=== PATIENT | female | born 1960 | race African-American/Black ===

== ENCOUNTER 2018-04-27 19:50 | Emergency (ER) | payer BC ==
--- NOTE | 2018-04-27 20:31 | EDPHYS ---
Physician Documentation [facility] Name: Caroline Wise Age: 57 yrs Sex: Female : 1960 Arrival Date: 04/27/2018 Time: 19:53 Bed 30 Private MD: Stepan Cooper H ED Physician Bimal Power HPI: 04/27 20:26 This 57 yrs old Black Female presents to ER via Ambulatory with complaints of Allergy gs Symptoms, Cough, Eye Problem, Chills. 20:26 The patient or guardian reports cough, that is intermittent. Onset: The gs symptoms/episode began/occurred 2 day(s) ago. Severity of symptoms: At their worst the symptoms were mild, in the emergency department the symptoms are unchanged. Modifying factors: the symptoms are aggravated by cold weather. Associated signs and symptoms: Pertinent positives: fever, rhinorrhea, Pertinent negatives: chest pain. The patient has experienced similar episodes in the past, a few times. The patient has not recently seen a physician. Historical: - Allergies: 20:11 PENICILLINS; aj - Home Meds: 20:11 Benicar 40 mg Oral tab 1 tab once daily [Active]; clonidine HCl 0.1 mg Oral tab as aj needed [Active]; prednisone 20 mg Oral tab as needed [Active]; levothyroxine 150 mcg tab 1 tab once daily [Active]; Singulair Oral [Active]; Symbicort inhalation [Active]; Ventolin Rotahaler/Rotacaps Inhl [Active]; - PMHx: 20:11 Asthma; Hypertension; Hypothyroidism; aj - PSHx: 20:11 None; aj - Immunization history:: Adult Immunizations up to date. - Social history:: Smoking status: Patient/guardian denies using tobacco. - Ebola Screening: : Patient negative for fever greater than or equal to 101.5 degrees Fahrenheit, and additional compatible Ebola Virus Disease symptoms Patient denies exposure to infectious person Patient denies travel to an Ebola-affected area in the 21 days before illness onset No symptoms or risks identified at this time. ROS: 20:26 All other systems are negative. gs Exam: 20:26 Head/Face: Normocephalic, atraumatic. Eyes: Pupils equal round and reactive to light, gs extra-ocular motions intact. Lids and lashes normal. Conjunctiva and sclera are non-icteric and not injected. Cornea within normal limits. Periorbital areas with no swelling, redness, or edema. ENT: Nares patent. No nasal discharge, no septal abnormalities noted. Tympanic membranes are normal and external auditory canals are clear. Oropharynx with no redness, swelling, or masses, exudates, or evidence of obstruction, uvula midline. Mucous membranes moist. Neck: Trachea midline, no thyromegaly or masses palpated, and no cervical lymphadenopathy. Supple, full range of motion without nuchal rigidity, or vertebral point tenderness. No Meningismus. Chest/axilla: Normal chest wall appearance and motion. Nontender with no deformity. No lesions are appreciated. Cardiovascular: Regular rate and rhythm with a normal S1 and S2. No gallops, murmurs, or rubs. Normal PMI, no JVD. No pulse deficits. Respiratory: Lungs have equal breath sounds bilaterally, clear to auscultation and percussion. No rales, rhonchi or wheezes noted. No increased work of breathing, no retractions or nasal flaring. Abdomen/GI: Soft, non-tender, with normal bowel sounds. No distension or tympany. No guarding or rebound. No evidence of tenderness throughout. Back: No spinal tenderness. No costovertebral tenderness. Full range of motion. Skin: Warm, dry with normal turgor. Normal color with no rashes, no lesions, and no evidence of cellulitis. MS/ Extremity: Pulses equal, no cyanosis. Neurovascular intact. Full, normal range of motion. Neuro: Awake and alert, GCS 15, oriented to person, place, time, and situation. Cranial nerves II-XII grossly intact. Motor strength 5/5 in all extremities. Sensory grossly intact. Cerebellar exam normal. Normal gait. 20:26 Constitutional: The patient appears alert, awake. Vital Signs: 20:11 BP 178 / 81; Pulse 88; Resp 20; Temp 98.5; Pulse Ox 96% on R/A; Weight 108.86 kg; aj Height 5 ft. 3 in. (160.02 cm); 20:11 Body Mass Index 42.51 (108.86 kg, 160.02 cm) aj MDM: 20:26 Patient medically screened. 20:26 Differential Diagnosis: Bronchitis Upper Respiratory Infection Allergic Rhinitis. Data gs reviewed: vital signs, nurses notes. Response to treatment: the patient's symptoms have mildly improved after treatment, and as a result, I will discharge patient. Administered Medications: No medications were administered Disposition: 04/27/18 20:30 Discharged to Home. Impression: Acute bronchitis. - Condition is Stable. - Discharge Instructions: Acute Bronchitis. - Prescriptions for Prednisone 20 mg Oral Tablet - take 1 tablet by ORAL route once daily for 5 days; 5 tablet. - Medication Reconciliation Form, Thank You Letter, Antibiotic Education, Prescription Opioid Use form. - Follow up: Private Physician; When: 2 - 3 days; Reason: Re-evaluation by your physician. Signatures: Carrie Mandujano RN RN Bimal Alba MD MD Tashi Boyle RN RN mb3 Corrections: (The following items were deleted from the chart) 20:42 20:30 04/27/2018 20:30 Discharged to Home. Impression: Acute bronchitis. Condition is mb3 Stable. Forms are Medication Reconciliation Form, Thank You Letter, Antibiotic Education, Prescription Opioid Use. Follow up: Private Physician; When: 2 - 3 days; Reason: Re-evaluation by your physician. [email or web address]
--- NOTE | 2018-04-27 20:31 | ER ---
Nurse's Notes [facility] Name: Caroline Wise Age: 57 yrs Sex: Female : 1960 Arrival Date: 04/27/2018 Time: 19:53 Bed 30 Private MD: Stepan Cooper H Diagnosis: Acute bronchitis Presentation: 04/27 20:10 Presenting complaint: Patient states: Cold symptoms with cough for 2 days. Transition aj of care: patient was not received from another setting of care. 20:10 Method Of Arrival: Ambulatory aj 20:10 Onset of symptoms was April 25, 2018. Risk Assessment: Do you want to hurt yourself or aj someone else? Patient reports no desire to harm self or others. Initial Sepsis Screen: Does the patient meet any 2 criteria? No. Patient's initial sepsis screen is negative. Does the patient have a suspected source of infection? No. Patient's initial sepsis screen is negative. Care prior to arrival: None. 20:10 Acuity: SERAFIN 4 aj Triage Assessment: 20:11 General: Appears in no apparent distress. comfortable, Behavior is calm, cooperative, aj appropriate for age. Pain: Denies pain. EENT: Reports nasal congestion nasal discharge. Neuro: Level of Consciousness is awake, alert, obeys commands, Oriented to person, place, time, situation, Appropriate for age. Respiratory: Reports cough that is Airway is patent Respiratory effort is even, unlabored, Respiratory pattern is regular, symmetrical. Derm: Skin is intact, is healthy with good turgor, Skin is pink, warm \T\ dry. normal. Historical: - Allergies: 20:11 PENICILLINS; aj - Home Meds: 20:11 Benicar 40 mg Oral tab 1 tab once daily [Active]; clonidine HCl 0.1 mg Oral tab as aj needed [Active]; prednisone 20 mg Oral tab as needed [Active]; levothyroxine 150 mcg tab 1 tab once daily [Active]; Singulair Oral [Active]; Symbicort inhalation [Active]; Ventolin Rotahaler/Rotacaps Inhl [Active]; - PMHx: 20:11 Asthma; Hypertension; Hypothyroidism; aj - PSHx: 20:11 None; aj - Immunization history:: Adult Immunizations up to date. - Social history:: Smoking status: Patient/guardian denies using tobacco. - Ebola Screening: : Patient negative for fever greater than or equal to 101.5 degrees Fahrenheit, and additional compatible Ebola Virus Disease symptoms Patient denies exposure to infectious person Patient denies travel to an Ebola-affected area in the 21 days before illness onset No symptoms or risks identified at this time. Screenin:41 Abuse screen: Denies threats or abuse. Nutritional screening: No deficits noted. mb3 Tuberculosis screening: No symptoms or risk factors identified. Fall Risk None identified. Assessment: 20:40 General: Appears in no apparent distress. comfortable, Behavior is calm, cooperative, mb3 appropriate for age. Pain: Denies pain. Neuro: No deficits noted. Cardiovascular: No deficits noted. Respiratory: Reports cough that is Airway is patent Respiratory effort is even, unlabored, Respiratory pattern is regular, symmetrical, Breath sounds are clear bilaterally. GI: Abdomen is obese, Bowel sounds present X 4 quads. Abd is soft and non tender. : No signs and/or symptoms were reported regarding the genitourinary system. EENT: No signs and/or symptoms were reported regarding the EENT system. EENT:. Derm: No signs and/or symptoms reported regarding the dermatologic system. Vital Signs: 20:11 BP 178 / 81; Pulse 88; Resp 20; Temp 98.5; Pulse Ox 96% on R/A; Weight 108.86 kg; aj Height 5 ft. 3 in. (160.02 cm); 20:11 Body Mass Index 42.51 (108.86 kg, 160.02 cm) ED Course: 19:53 Patient arrived in ED. am2 19:53 Stepan Cooper DO is Private Physician. am2 20:11 Triage completed. aj 20:11 Arm band placed on right wrist. Patient placed in an exam room. aj 20:13 Tashi Boyle, RN is Primary Nurse. mb3 20:14 Bimal Power MD is Attending Physician. gs 20:42 Patient has correct armband on for positive identification. mb3 20:42 No provider procedures requiring assistance completed. Patient did not have IV access mb3 during this emergency room visit. Administered Medications: No medications were administered Outcome: 20:30 Discharge ordered by MD. gs 20:41 Discharged to home ambulatory. mb3 20:41 Condition: stable 20:41 Discharge instructions given to patient, Instructed on discharge instructions, follow up and referral plans. medication usage, Demonstrated understanding of instructions, follow-up care, medications, Prescriptions given X 1. 20:42 Patient left the ED. mb3 Signatures: Carrie Mandujano, Carrie Hyde RN, am2 Bimal Power MD MD gs Barnett, Mark, RN RN mb3
[2018-04-27 20:45] VITALS: BP 178/81; TEMP 98.5; O2SAT 96
== END 2018-04-27 20:42 | disposition home or self-care (01) ==
LOC: ER 19:50
DX: J20.9 Acute bronchitis, unspecified (principal); Z88.0 Allergy status to penicillin; I10 Essential (primary) hypertension; E03.9 Hypothyroidism, unspecified; J45.909 Unspecified asthma, uncomplicated
CPT/HCPCS: 99282

== ENCOUNTER 2018-06-01 15:40 | Emergency (ER) | payer BC ==
[2018-06-01 16:25] LABS: Absolute Lymphocytes (CBC) 1.8 K/uL (0.7-4.9); Absolute Monocytes 0.6 K/uL (0.1-1.3); Absolute Neutrophil 3.4 K/uL (1.8-8.0); Eosinophils % 2.8 % (0-4.4); Hematocrit 36.3 % (36.0-45.0); Lymphocytes % 29.9 % (15.3-44.8); MCV 90.6 fL (80-100); Monocytes % 10.4 % (3.3-12.3)
[2018-06-01 16:46] LABS: ALT/SGPT 20 U/L (12-78); AST/SGOT 20 U/L (15-37); Albumin 3.6 g/dL (3.4-5.0); Alkaline Phosphatase 116 U/L (45-117); BUN Blood Urea Nitrogen 17 mg/dL (7-18); Bicarbonate 28 mmol/L (21-32); Bilirubin Direct < 0.1 mg/dL (0-0.2); Bilirubin Total 0.4 mg/dL (0.2-1.0); CKMB Creatine Kinase MB 2.3 ng/mL (0.3-3.6); Glucose Level 100 mg/dL (74-106); Lipase 135 U/L (73-393); Potassium 3.8 mmol/L (3.5-5.1); Protein, Total 8.2 g/dL (6.4-8.2); Sodium Level 140 mmol/L (136-145)
--- NOTE | 2018-06-01 17:00 | RAD REPORT ---
EXAM DESCRIPTION: US - Abdomen Exam Limited - 06/01/2018 4:55 pm CLINICAL HISTORY: ABD PAIN COMPARISON: ABDOMINAL EXAM LIMITED dated 03/16/2013 FINDINGS: The gallbladder demonstrates contraction, but without evidence of gallstones. No perichole cystic fluid or gallbladder wall thickening. The common bile duct is normal measuring 4 mm. The liver demonstrates no findings of intrahepatic biliary dilatation. IMPRESSION: Contracted gallbladder. No gallstones or biliary tree dilatation seen.
[2018-06-01] MEDS ORDERED: NA CHLORIDE 0.9% 500 ML ONE (17:30)
[2018-06-01] MEDS ORDERED: SIMETHICONE 125 MG TAB PO ONE (18:00)
[2018-06-01 18:37] LABS: Urine Blood NEGATIVE (NEG); Urine Glucose NEGATIVE (NEG); Urine Protein NEGATIVE (NEG); Urine Specific Gravity 1.005 (1.005-1.030); Urine pH 6.5 (5.0-7.0)
[2018-06-01 18:43] LABS: Urine Bacteria 20-50 /HPF (<20); Urine Culture Reflex Order REFLEXED; Urine RBC <5 /HPF (NONE SEEN)
--- NOTE | 2018-06-01 20:41 | EDPHYS ---
Physician Documentation [facility] Name: Caroline Wise Age: 57 yrs Sex: Female : 1960 Arrival Date: 06/01/2018 Time: 15:42 Bed 18 Private MD: Stepan Cooper H ED Physician Trent Marshall HPI: 06/01 16:24 This 57 yrs old Black Female presents to ER via Ambulatory with complaints of Chest snw Pain Radiating To Back. 16:24 The patient presents with abdominal pain in the epigastric area, in the right upper snw quadrant. Onset: The symptoms/episode began/occurred suddenly, after eating pork for lunch. The symptoms radiate to right back. Associated signs and symptoms: none. The symptoms are described as sharp. Severity of pain: At its worst the pain was moderate. The patient has not experienced similar symptoms in the past. The patient has not recently seen a physician. Historical: - Allergies: 15:59 PENICILLINS; ss - Home Meds: 20:15 Benicar 40 mg Oral tab 1 tab once daily [Active]; clonidine HCl 0.1 mg Oral tab as bs1 needed [Active]; levothyroxine 150 mcg tab 1 tab once daily [Active]; prednisone 20 mg Oral tab as needed [Active]; Singulair Oral [Active]; Symbicort inhalation [Active]; Ventolin Rotahaler/Rotacaps Inhl [Active]; - PMHx: 15:59 Asthma; Hypertension; Hypothyroidism; ss - PSHx: 15:59 Appendectomy; ss - Immunization history:: Adult Immunizations up to date. - Social history:: Smoking status: Patient/guardian denies using tobacco. - Ebola Screening: : Patient denies exposure to infectious person Patient denies travel to an Ebola-affected area in the 21 days before illness onset. ROS: 16:22 Constitutional: Negative for fever, chills, and weight loss, Eyes: Negative for injury, snw pain, redness, and discharge, ENT: Negative for injury, pain, and discharge, Neck: Negative for injury, pain, and swelling, Respiratory: Negative for shortness of breath, cough, wheezing, and pleuritic chest pain, Back: Negative for injury and pain, : Negative for injury, bleeding, discharge, and swelling, MS/Extremity: Negative for injury and deformity, Skin: Negative for injury, rash, and discoloration, Neuro: Negative for headache, weakness, numbness, tingling, and seizure. 16:22 Cardiovascular: Positive for chest pain, of the diaphragm and right breast, Negative for edema, orthopnea, palpitations. 16:22 Abdomen/GI: Positive for abdominal pain, of the right upper quadrant, rad through to back. Exam: 16:22 Constitutional: This is a well developed, well nourished patient who is awake, alert, snw and in no acute distress. Head/Face: Normocephalic, atraumatic. Eyes: Pupils equal round and reactive to light, extra-ocular motions intact. Lids and lashes normal. Conjunctiva and sclera are non-icteric and not injected. Cornea within normal limits. Periorbital areas with no swelling, redness, or edema. ENT: Nares patent. No nasal discharge, no septal abnormalities noted. Tympanic membranes are normal and external auditory canals are clear. Oropharynx with no redness, swelling, or masses, exudates, or evidence of obstruction, uvula midline. Mucous membranes moist. Neck: Trachea midline, no thyromegaly or masses palpated, and no cervical lymphadenopathy. Supple, full range of motion without nuchal rigidity, or vertebral point tenderness. No Meningismus. Chest/axilla: Normal chest wall appearance and motion. Nontender with no deformity. No lesions are appreciated. Cardiovascular: Regular rate and rhythm with a normal S1 and S2. No gallops, murmurs, or rubs. Normal PMI, no JVD. No pulse deficits. Respiratory: Lungs have equal breath sounds bilaterally, clear to auscultation and percussion. No rales, rhonchi or wheezes noted. No increased work of breathing, no retractions or nasal flaring. Abdomen/GI: Soft, non-tender, with normal bowel sounds. No distension or tympany. No guarding or rebound. No evidence of tenderness throughout. Back: No spinal tenderness. No costovertebral tenderness. Full range of motion. Skin: Warm, dry with normal turgor. Normal color with no rashes, no lesions, and no evidence of cellulitis. MS/ Extremity: Pulses equal, no cyanosis. Neurovascular intact. Full, normal range of motion. Neuro: Awake and alert, GCS 15, oriented to person, place, time, and situation. Cranial nerves II-XII grossly intact. Motor strength 5/5 in all extremities. Sensory grossly intact. Cerebellar exam normal. Normal gait. Psych: Awake, alert, with orientation to person, place and time. Behavior, mood, and affect are within normal limits. Vital Signs: 15:59 BP 190 / 71; Pulse 79; Resp 16; Temp 98.0(TE); Pulse Ox 98% on R/A; Weight 113.4 kg; ss Height 5 ft. 3 in. (160.02 cm); Pain 9/10; 17:15 BP 181 / 74; Pulse 65; Resp 18; Pulse Ox 99% on R/A; aj1 18:44 BP 182 / 78; Pulse 63; Resp 19; Pulse Ox 98% on R/A; aj1 19:00 BP 159 / 59; Pulse 60; Resp 17; Pulse Ox 99% on R/A; Pain 4/10; bs1 20:00 BP 164 / 73; Pulse 59; Resp 16 S; Pulse Ox 100% on R/A; Pain 4/10; bs1 21:00 BP 168 / 72; Pulse 62; Resp 16; Temp 98; Pulse Ox 99% on R/A; Pain 0/10; bs1 15:59 Body Mass Index 44.29 (113.40 kg, 160.02 cm) ss MDM: 15:49 Patient medically screened. snw 18:38 Data reviewed: vital signs, nurses notes. Data interpreted: Pulse oximetry: on room air snw is 99 %. Counseling: I had a detailed discussion with the patient and/or guardian regarding: the historical points, exam findings, and any diagnostic results supporting the discharge/admit diagnosis, repeat trop and EKG. Awaiting: repeat trop, feeling better per pt report. 06/01 15:59 Order name: Basic Metabolic Panel; Complete Time: 17:18 snw 06/01 15:59 Order name: CBC with Diff; Complete Time: 17:18 snw 06/01 15:59 Order name: Hepatic Function; Complete Time: 17:18 snw 06/01 15:59 Order name: Lipase; Complete Time: 17:18 snw 06/01 15:59 Order name: Urine Microscopic Only; Complete Time: 18:51 snw 06/01 15:59 Order name: Ckmb; Complete Time: 17:18 snw 06/01 15:59 Order name: Troponin (emerg Dept Use Only); Complete Time: 17:18 snw 06/01 15:59 Order name: EKG; Complete Time: 15:59 snw 06/01 15:59 Order name: US Abdomen Limited; Complete Time: 17:18 snw 06/01 18:13 Order name: Urine Dipstick--Ancillary (enter results); Complete Time: 18:38 ss 06/01 18:37 Order name: Troponin (emerg Dept Use Only): at 1900; Complete Time: 20:38 snw 06/01 18:45 Order name: Urine Culture EDMS 06/01 15:59 Order name: IV Saline Lock; Complete Time: 16:21 snw 06/01 15:59 Order name: Labs collected and sent; Complete Time: 16:21 snw 06/01 15:59 Order name: EKG - Nurse/Tech; Complete Time: 16:02 snw 06/01 18:37 Order name: EKG: at 1900; Complete Time: 18:38 snw Administered Medications: 17:48 Drug: Simethicone 120 mg Route: PO; aj1 18:44 Follow up: Response: No adverse reaction aj1 17:49 Drug: NS 0.9% 500 ml Route: IV; Rate: bolus; Site: right antecubital; aj1 18:44 Follow up: IV Status: Completed infusion; IV Intake: 500ml aj1 Disposition: 06/02 06:47 Co-signature as Attending Physician, Trent Marshall MD I agree with the assessment and joseline plan of care. Disposition: 06/01/18 20:40 Discharged to Home. Impression: Chest pain, unspecified. - Condition is Stable. - Discharge Instructions: Nonspecific Chest Pain, Hypertension. - Prescriptions for Bentyl 20 mg Oral Tablet - take 1 tablet by ORAL route every 6 hours As needed; 20 tablet. Protonix 40 mg Oral Tablet - take 1 tablet by ORAL route once daily; 30 tablet. - Medication Reconciliation Form, Thank You Letter, Antibiotic Education, Prescription Opioid Use form. - Follow up: Stepan Cooper DO; When: 1 - 2 days; Reason: Recheck today's complaints, Continuance of care, Re-evaluation by your physician. Follow up: Emergency Department; When: As needed; Reason: Worsening of condition. Signatures: Dispatcher [employer] Roselyn Cheatham RN RN aj1 Trent Marshall MD MD cha Therrien, Shelly, LIFE GUARD-C LIFE GUARD-Meron Jones, RN RN Myriam Linton, RN RN bs1 Corrections: (The following items were deleted from the chart) 06/01 21:15 20:40 06/01/2018 20:40 Discharged to Home. Impression: Chest pain, unspecified. bs1 Condition is Stable. Forms are Medication Reconciliation Form, Thank You Letter, Antibiotic Education, Prescription Opioid Use. Follow up: Stepan Cooper; When: 1 - 2 days; Reason: Recheck today's complaints, Continuance of care, Re-evaluation by your physician. Follow up: Emergency Department; When: As needed; Reason: Worsening of condition. snw
--- NOTE | 2018-06-01 20:41 | ER ---
Nurse's Notes [facility] Name: Caroline Wise Age: 57 yrs Sex: Female : 1960 Arrival Date: 06/01/2018 Time: 15:42 Bed 18 Private MD: Stepan Cooper H Diagnosis: Chest pain, unspecified Presentation: 06/01 15:55 Presenting complaint: Patient states: RUQ pain that radiates toward R upper back that ss began after eating a porkchop around lunch time. Denies cough, N/V/D and/or fever. Transition of care: patient was not received from another setting of care. Onset of symptoms was June 01, 2018. Risk Assessment: Do you want to hurt yourself or someone else? Patient reports no desire to harm self or others. Initial Sepsis Screen: Does the patient meet any 2 criteria? No. Patient's initial sepsis screen is negative. Does the patient have a suspected source of infection? No. Patient's initial sepsis screen is negative. Care prior to arrival: None. 15:55 Method Of Arrival: Ambulatory ss 15:55 Acuity: SERAFIN 3 ss Historical: - Allergies: 15:59 PENICILLINS; ss - Home Meds: 20:15 Benicar 40 mg Oral tab 1 tab once daily [Active]; clonidine HCl 0.1 mg Oral tab as bs1 needed [Active]; levothyroxine 150 mcg tab 1 tab once daily [Active]; prednisone 20 mg Oral tab as needed [Active]; Singulair Oral [Active]; Symbicort inhalation [Active]; Ventolin Rotahaler/Rotacaps Inhl [Active]; - PMHx: 15:59 Asthma; Hypertension; Hypothyroidism; ss - PSHx: 15:59 Appendectomy; ss - Immunization history:: Adult Immunizations up to date. - Social history:: Smoking status: Patient/guardian denies using tobacco. - Ebola Screening: : Patient denies exposure to infectious person Patient denies travel to an Ebola-affected area in the 21 days before illness onset. Screenin:20 Abuse screen: Denies threats or abuse. Denies injuries from another. Nutritional aj1 screening: No deficits noted. Tuberculosis screening: No symptoms or risk factors identified. 20:15 Fall Risk None identified. bs1 Assessment: 16:20 General: Appears in no apparent distress. uncomfortable, Behavior is calm, cooperative, aj1 appropriate for age. Pain: Complains of pain in epigastric area and right upper quadrant Pain radiates to back Pain currently is 9 out of 10 on a pain scale. Quality of pain is described as sharp. Neuro: Level of Consciousness is awake, alert, obeys commands. Cardiovascular: Patient's skin is warm and dry. Respiratory: Airway is patent Respiratory effort is even, unlabored, Respiratory pattern is regular, symmetrical. GI: Abdomen is non-distended, Bowel sounds present X 4 quads. Abd is soft and non tender X 4 quads. Patient currently denies diarrhea, nausea, vomiting. : No signs and/or symptoms were reported regarding the genitourinary system. EENT: No signs and/or symptoms were reported regarding the EENT system. Derm: No signs and/or symptoms reported regarding the dermatologic system. Skin is pink, warm \T\ dry. normal. Musculoskeletal: No signs and/or symptoms reported regarding the musculoskeletal system. Circulation, motion, and sensation intact. 17:15 Reassessment: Patient appears in no apparent distress at this time. No changes from aj1 previously documented assessment. Patient and/or family updated on plan of care and expected duration. Pain level reassessed. Patient is alert, oriented x 3, equal unlabored respirations, skin warm/dry/pink. 18:15 Reassessment: Patient appears in no apparent distress at this time. No changes from aj1 previously documented assessment. Patient and/or family updated on plan of care and expected duration. Pain level reassessed. Patient is alert, oriented x 3, equal unlabored respirations, skin warm/dry/pink. 19:10 Reassessment: Report received from KIMBERLEE Dempsey. bs1 19:10 General: Appears in no apparent distress. comfortable, Behavior is calm, cooperative, bs1 appropriate for age. Pain: Complains of pain in epigastric area and right upper quadrant Pain radiates to back. Neuro: Level of Consciousness is awake, alert, obeys commands. Cardiovascular: Heart tones S1 S2 present Capillary refill < 3 seconds Patient's skin is warm and dry. Respiratory: Airway is patent Trachea midline Respiratory effort is even, unlabored, Respiratory pattern is regular, symmetrical, Breath sounds are clear bilaterally. GI: Abdomen is round non-distended, Bowel sounds present X 4 quads. Abd is soft and non tender X 4 quads. Reports epigastric pain, Patient currently denies diarrhea, nausea, vomiting. : No signs and/or symptoms were reported regarding the genitourinary system. EENT: No signs and/or symptoms were reported regarding the EENT system. Derm: Skin is intact, Skin is pink, warm \T\ dry. normal. Musculoskeletal: Circulation, motion, and sensation intact. Capillary refill < 3 seconds, Range of motion: intact in all extremities. 21:15 Reassessment: Patient appears in no apparent distress at this time. Patient and/or bs1 family updated on plan of care and expected duration. Pain level reassessed. Patient is alert, oriented x 3, equal unlabored respirations, skin warm/dry/pink. Patient states understanding of POC/discharge instructions Patient denies pain at this time. Patient states feeling better. Patient states symptoms have improved. Vital Signs: 15:59 BP 190 / 71; Pulse 79; Resp 16; Temp 98.0(TE); Pulse Ox 98% on R/A; Weight 113.4 kg; ss Height 5 ft. 3 in. (160.02 cm); Pain 9/10; 17:15 BP 181 / 74; Pulse 65; Resp 18; Pulse Ox 99% on R/A; aj1 18:44 BP 182 / 78; Pulse 63; Resp 19; Pulse Ox 98% on R/A; aj1 19:00 BP 159 / 59; Pulse 60; Resp 17; Pulse Ox 99% on R/A; Pain 4/10; bs1 20:00 BP 164 / 73; Pulse 59; Resp 16 S; Pulse Ox 100% on R/A; Pain 4/10; bs1 21:00 BP 168 / 72; Pulse 62; Resp 16; Temp 98; Pulse Ox 99% on R/A; Pain 0/10; bs1 15:59 Body Mass Index 44.29 (113.40 kg, 160.02 cm) ED Course: 15:42 Patient arrived in ED. sb2 15:43 Stepan Cooper DO is Private Physician. sb2 15:49 Radha Valencia FNP-C is [facility]. snw 15:49 Trent Marshall MD is Attending Physician. snw 15:58 Triage completed. 15:59 EKG done, by business technology teacher. reviewed by Radha JULIO. sm3 15:59 Arm band placed on right wrist. ss 16:15 Missed attempt(s): 20 gauge in right antecubital area. Bleeding controlled, band aid dh3 applied, catheter tip intact. 16:16 Missed attempt(s): 22 gauge in right hand. Bleeding controlled, band aid applied, dh3 catheter tip intact. 16:19 Initial lab(s) drawn, by me, sent to lab. Inserted saline lock: 22 gauge in left dh3 antecubital area, using aseptic technique. Blood collected. 16:20 Roselyn Rivera, RN is Primary Nurse. aj1 16:20 No provider procedures requiring assistance completed. aj1 16:20 Patient has correct armband on for positive identification. aj1 16:41 Patient taken to ultrasound. via wheelchair. cy 16:54 Ultrasound completed. Patient moved back from ultrasound. cy 16:55 US Abdomen Limited In Process Unspecified. EDMS 19:28 EKG done, by ED staff, reviewed by Radha JULIO. bs1 20:40 Stepan Cooper DO is Referral Physician. snw 21:14 IV discontinued, bleeding controlled, No redness/swelling at site. Pressure dressing bs1 applied. Administered Medications: 17:48 Drug: Simethicone 120 mg Route: PO; aj1 18:44 Follow up: Response: No adverse reaction aj1 17:49 Drug: NS 0.9% 500 ml Route: IV; Rate: bolus; Site: right antecubital; aj1 18:44 Follow up: IV Status: Completed infusion; IV Intake: 500ml aj1 Intake: 18:44 IV: 500ml; Total: 500ml. aj1 Outcome: 20:40 Discharge ordered by MD. snw 21:10 Discharged to home ambulatory, with family. bs1 21:10 Condition: stable 21:10 Discharge instructions given to patient, Instructed on discharge instructions, follow up and referral plans. medication usage, Demonstrated understanding of instructions, follow-up care, medications, Prescriptions given X 2. 21:15 Patient left the ED. bs1 Signatures: Dispatcher [employer] EDVT Roselyn Rivera, KIMBERLEE RN aj1 Radha Valencia FNP-C FNP-Meron Jones RN RN ss Lucia Carter 3 Myriam Linton RN RN bs1 Lissette Mcwilliams Sheri 2 Jennifer Lam 3 Corrections: (The following items were deleted from the chart) : 16:57 General: Appears in no apparent distress. uncomfortable, Behavior is calm, aj1 cooperative, appropriate for age, [facility] : 16:57 Pain: Complains of pain in epigastric area and right upper quadrant Pain radiates aj1 to back Pain currently is 9 out of 10 on a pain scale. Quality of pain is described as sharp, [facility] : 16:57 Neuro: Level of Consciousness is awake, alert, obeys commands, [place] [id number] : 16:57 Cardiovascular: Patient's skin is warm and dry. aj1 [facility] : 16:57 Respiratory: Airway is patent Respiratory effort is even, unlabored, Respiratory aj1 pattern is regular, symmetrical, aj : 16:57 GI: Abdomen is non-distended, Bowel sounds present X 4 quads. Abd is soft and non aj1 tender X 4 quads. Patient currently denies diarrhea, nausea, vomiting, [facility] : 16:57 : No signs and/or symptoms were reported regarding the genitourinary system. aj1aj1 : 16:57 EENT: No signs and/or symptoms were reported regarding the EENT system. aj1 aj 17: 16:57 Derm: No signs and/or symptoms reported regarding the dermatologic system. Skin aj1 is pink, warm \T\ dry. normal, [facility] : 16:57 Musculoskeletal: No signs and/or symptoms reported regarding the musculoskeletal aj1 system. Circulation, motion, and sensation intact. aj1
[2018-06-01 21:27] VITALS: BP 168/72; TEMP 98; O2SAT 99
--- NOTE | 2018-06-01 21:50 | EKG ---
Test Date: 2018-06-01 Test Time: 19:23:18 Machine Puller: RENETTA MEASUREMENT RESULTS: Intervals: Rate: 66 SD: 172 QRSD: 76 QT: 430 QTc: 450 [place]: P: 36 SD: 172 QRS: 23 T: 69 INTERPRETIVE STATEMENTS: Normal sinus rhythm Nonspecific T wave abnormality Abnormal ECG Compared to ECG 06/01/2018 15:54:10 Sinus arrhythmia no longer present T-wave abnormality still present Electronically Signed On 06-01-18 21:49:43 CDT by Jong Chamberlain
--- NOTE | 2018-06-01 21:51 | EKG ---
Test Date: 2018-06-01 Test Time: 15:54:10 Biological Inspector: GURDEEP MEASUREMENT RESULTS: Intervals: Rate: 73 NC: 174 QRSD: 76 QT: 402 QTc: 442 [place]: P: 43 NC: 174 QRS: 26 T: 47 INTERPRETIVE STATEMENTS: Normal sinus rhythm with sinus arrhythmia Nonspecific T wave abnormality Abnormal ECG Compared to ECG 12/24/2017 04:39:44 T-wave abnormality now present Electronically Signed On 06-01-18 21:51:04 CDT by Jong Chamberlain
== END 2018-06-01 21:15 | disposition home or self-care (01) ==
LOC: ER 15:40
DX: R07.9 Chest pain, unspecified (principal); I10 Essential (primary) hypertension; E03.9 Hypothyroidism, unspecified; J45.909 Unspecified asthma, uncomplicated; Z88.0 Allergy status to penicillin
CPT/HCPCS: 36415; 76705; 80048; 80076; 81003; 81015; 82553; 83690; 84484; 85025; 87086; 87088; 93005; 96360; 99285

== ENCOUNTER 2018-06-27 16:46 | Emergency (ER) | payer BC ==
[2018-06-27] MEDS ORDERED: IBUPROFEN 200 MG TAB PO ONE (18:00)
[2018-06-27] MEDS ORDERED: AZITHROMYCIN 250 MG TAB ONE (18:00)
[2018-06-27] MEDS ORDERED: IBUPROFEN 400 MG TAB ONE (18:00)
--- NOTE | 2018-06-27 18:41 | RAD REPORT ---
EXAM DESCRIPTION: Grover Pa And Lat (2 Views)06/27/2018 6:17 pm CLINICAL HISTORY: Cough COMPARISON: December 2017 FINDINGS: A mild lingular opacity is suspected. An area scarring is present within the mid right harjeet ng. The heart is upper limits normal size IMPRESSION: Mild lingular opacity is suspected which probably indicates a mild pneumonia
[2018-06-27] MEDS ORDERED: CEFTRIAXONE/SWI 1gm 2 GM/20 ML SYR ONE (18:49)
[2018-06-27] MEDS ORDERED: LEVALBUTEROL 1.25 MG/3 ML NEB ONE ×2 (18:49→19:59)
[2018-06-27] MEDS ORDERED: IPRATROPIUM BROM 0.5MG/2.5ML ONE (18:49)
[2018-06-27 19:12] LABS: Urine Blood TRACE (NEG); Urine Glucose NEGATIVE (NEG); Urine Protein 1+ (NEG)
[2018-06-27 19:17] LABS: Absolute Lymphocytes (CBC) 1.6 K/uL (0.7-4.9); Absolute Monocytes 1.2 K/uL (0.1-1.3); Absolute Neutrophil 7.7 K/uL (1.8-8.0); Basophils % 0.4 % (0-1.3); Hematocrit 32.1 % (36.0-45.0); Lymphocytes % 14.8 % (15.3-44.8); MCH 30.2 pg (27.0-35.0); MCV 89.3 fL (80-100); MPV 8.9 fL (7.6-11.3); RBC Red Blood Cell Count 3.59 M/uL (3.86-4.86)
[2018-06-27 19:31] LABS: Albumin 3.3 g/dL (3.4-5.0); Bilirubin Total 1.2 mg/dL (0.2-1.0); Potassium 3.2 mmol/L (3.5-5.1); Protein, Total 7.8 g/dL (6.4-8.2)
[2018-06-27] MEDS ORDERED: predniSONE 20 MG TAB ONE (19:34)
--- NOTE | 2018-06-27 19:41 | ER ---
Nurse's Notes [facility] Name: Caroline Wise Age: 57 yrs Sex: Female : 1960 Arrival Date: 06/27/2018 Time: 16:48 Bed 6 Private MD: Stepan Cooper H Diagnosis: Fever, unspecified;Acute upper respiratory infection, unspecified;Cough;Pneumonia due to other specified bacteria;Anemia, unspecified;Obesity, unspecified;Hypokalemia Presentation: 06/27 16:55 Presenting complaint: Patient states: cough, chills, and congestion since Wednesday. Pt aa5 also reports body aches. Transition of care: patient was not received from another setting of care. Onset of symptoms was June 2018. Risk Assessment: Do you want to hurt yourself or someone else? Patient reports no desire to harm self or others. Initial Sepsis Screen: Does the patient meet any 2 criteria? No. Patient's initial sepsis screen is negative. Does the patient have a suspected source of infection? No. Patient's initial sepsis screen is negative. Care prior to arrival: None. 16:55 Method Of Arrival: Ambulatory aa5 16:55 Acuity: SERAFIN 3 aa5 Historical: - Allergies: 16:57 PENICILLINS; aa5 - PMHx: 16:57 Asthma; Hypertension; Hypothyroidism; aa5 - PSHx: 16:57 Appendectomy; aa5 - Immunization history:: Flu vaccine is up to date. - Social history:: Smoking status: Patient/guardian denies using tobacco. - Ebola Screening: : No symptoms or risks identified at this time. - Family history:: not pertinent. Screenin:50 Abuse screen: Denies threats or abuse. Denies injuries from another. Nutritional jl7 screening: No deficits noted. Tuberculosis screening: No symptoms or risk factors identified. Fall Risk IV access (20 points). Total Claudio Fall Scale indicates No Risk (0-24 pts). Assessment: 17:50 General: Appears in no apparent distress. uncomfortable, Behavior is calm, cooperative, jl7 appropriate for age. Pain: Denies pain. Neuro: Level of Consciousness is awake, alert, obeys commands, Oriented to person, place, time, situation. Cardiovascular: Heart tones present Patient's skin is warm and dry. Respiratory: Airway is patent Respiratory effort is even, unlabored, Respiratory pattern is regular, symmetrical, Breath sounds with wheezes bilaterally. GI: No signs and/or symptoms were reported involving the gastrointestinal system. : No signs and/or symptoms were reported regarding the genitourinary system. EENT: No signs and/or symptoms were reported regarding the EENT system. Derm: Skin is dry, Skin is normal, Skin temperature is warm. Musculoskeletal: No signs and/or symptoms reported regarding the musculoskeletal system. 19:35 General: Appears uncomfortable, Behavior is calm, cooperative, appropriate for age. ea Pain: Denies pain. Neuro: Level of Consciousness is awake, alert, obeys commands, Oriented to person, place, time, situation. Cardiovascular: Patient's skin is warm and dry. Respiratory: Airway is patent Respiratory effort is even, unlabored, Respiratory pattern is regular, symmetrical. GI: No signs and/or symptoms were reported involving the gastrointestinal system. : No signs and/or symptoms were reported regarding the genitourinary system. EENT: No signs and/or symptoms were reported regarding the EENT system. Derm: Skin is dry, Skin is normal, Skin temperature is warm. Musculoskeletal: Circulation, motion, and sensation intact. 20:36 Reassessment: Patient and/or family updated on plan of care and expected duration. Pain ea level reassessed. Patient is alert, oriented x 3, equal unlabored respirations, skin warm/dry/pink. Discharge instructions given to patient, verbalized the understanding of instructions. Patient states symptoms have improved. Vital Signs: 16:57 BP 201 / 93; Pulse 92; Resp 20 S; Temp 99.6(O); Pulse Ox 100% on R/A; Weight 113.4 kg aa5 (R); Height 5 ft. 3 in. (160.02 cm) (R); Pain 8/10; 18:10 BP 173 / 65; Pulse 91; Resp 18; Pulse Ox 100% on R/A; dh3 19:20 BP 168 / 70; Pulse 87; Resp 18; Pulse Ox 97% on R/A; ea 20:37 BP 150 / 67; Pulse 86; Resp 18; Temp 98.7(O); Pulse Ox 97% ; Pain 0/10; ea 16:57 Body Mass Index 44.29 (113.40 kg, 160.02 cm) aa5 ED Course: 16:48 Patient arrived in ED. mr 16:49 Stepan Cooper DO is Private Physician. mr 16:56 Triage completed. aa5 16:56 Arm band placed on. aa5 17:38 Trent Marshall MD is Attending Physician. [facility] 17:50 Alissa Hawk RN is Primary Nurse. jl7 17:50 Patient has correct armband on for positive identification. Placed in gown. Bed in low jl7 position. Call light in reach. Side rails up X 1. Pulse ox on. NIBP on. Warm blanket given. 17:55 Flu and/or RSV swab sent to lab. dh3 18:08 Urine collected: clean catch specimen, juan colored. 3 18:14 X-ray completed. Patient tolerated procedure well. Patient moved back from radiology. az 18:15 Chest Pa And Lat (2 Views) XRAY In Process Unspecified. EDMS 18:45 Initial lab(s) drawn, by mo, sent to lab. Inserted saline lock: 22 gauge in right jl7 antecubital area, using aseptic technique. Blood collected. 19:15 Report given to KIMBERLEE Tafoya. jl7 19:16 Primary Nurse role handed off by Alissa Hawk RN jl 19:40 Stepan Cooper DO is Referral Physician. [facility] 19:47 Lottie Tidwell RN is Primary Nurse. lp1 20:41 No provider procedures requiring assistance completed. IV discontinued, intact, ea bleeding controlled, No redness/swelling at site. Pressure dressing applied. Administered Medications: 18:16 Drug: Motrin 600 mg Route: PO; jl7 19:15 Follow up: Response: No adverse reaction; Temperature is decreased jl7 18:16 Drug: Zithromax 500 mg Route: PO; jl7 19:04 Follow up: Response: No adverse reaction jl7 18:48 Drug: Xopenex 1.25 mg Route: Inhalation; aj 19:05 Follow up: Response: No adverse reaction jl7 18:48 Drug: AtroVENT Aerosol 0.5 mg Route: Inhalation; aj 19:05 Follow up: Response: No adverse reaction jl7 19:00 Drug: Rocephin - (cefTRIAXone) 2 grams Route: IVPB; Infused Over: 30 mins; Site: right jl7 antecubital; 19:30 Follow up: Response: No adverse reaction; IV Status: Completed infusion ea 19:31 Drug: predniSONE 20 mg Route: PO; ea 20:40 Follow up: Response: No adverse reaction ea 20:05 Drug: Potassium Effervescent Tablet 50 mEq Route: PO; ea 20:40 Follow up: Response: No adverse reaction ea 20:05 Drug: SOLU-Medrol 125 mg Route: IVP; Site: right antecubital; ea 20:39 Follow up: Response: No adverse reaction ea 20:05 Drug: Xopenex 1.25 mg Route: Inhalation; ea 20:39 Follow up: Response: No adverse reaction; Marked relief of symptoms ea Outcome: 19:41 Discharge ordered by . joseline 20:41 Discharged to home ambulatory, with significant other. ea 20:41 Condition: improved 20:41 Discharge instructions given to patient, Instructed on discharge instructions, follow up and referral plans. medication usage, Demonstrated understanding of instructions, follow-up care, medications, Prescriptions given X 3. 20:42 Patient left the ED. ea Signatures: Dispatcher [employer] EDMS Carrie Mandujano, RN Trent Cordova MD MD cha Rivera, Maria mr Chowdhury, Loly, RN RN aa5 Lottie Tidwell, RN RN lp1 Alissa Hawk RN RN jl7 Lucia Carter 3 Viviane Carty RN RN Magdalena Benito
--- NOTE | 2018-06-27 19:41 | EDPHYS ---
Physician Documentation [facility] Name: Caroline Wise Age: 57 yrs Sex: Female : 1960 Arrival Date: 06/27/2018 Time: 16:48 Bed 6 Private MD: Stepan Cooper H ED Physician Trent Marshall HPI: 06/27 17:47 This 57 yrs old Black Female presents to ER via Ambulatory with complaints of joseline Congestion, Cough. 17:47 The patient or guardian reports cough, that is intermittent, flu symptoms, arthralgias, joseline low-grade fever, myalgias. Onset: The symptoms/episode began/occurred 3 day(s) ago. Severity of symptoms: At their worst the symptoms were mild, moderate, in the emergency department the symptoms are unchanged. Modifying factors: The symptoms are alleviated by nothing, the symptoms are aggravated by nothing. Associated signs and symptoms: Pertinent positives: fever, rhinorrhea, sore throat. Historical: - Allergies: 16:57 PENICILLINS; aa5 - PMHx: 16:57 Asthma; Hypertension; Hypothyroidism; aa5 - PSHx: 16:57 Appendectomy; aa5 - Immunization history:: Flu vaccine is up to date. - Social history:: Smoking status: Patient/guardian denies using tobacco. - Ebola Screening: : No symptoms or risks identified at this time. - Family history:: not pertinent. ROS: 17:47 Constitutional: Negative for fever, chills, and weight loss, Eyes: Negative for injury, joseline pain, redness, and discharge, ENT: Negative for injury, pain, and discharge, Neck: Negative for injury, pain, and swelling, Cardiovascular: Negative for chest pain, palpitations, and edema, Abdomen/GI: Negative for abdominal pain, nausea, vomiting, diarrhea, and constipation, Back: Negative for injury and pain, : Negative for injury, bleeding, discharge, and swelling, MS/Extremity: Negative for injury and deformity, Skin: Negative for injury, rash, and discoloration, Neuro: Negative for headache, weakness, numbness, tingling, and seizure, Psych: Negative for depression, anxiety, suicide ideation, homicidal ideation, and hallucinations, Allergy/Immunology: Negative for hives, rash, and allergies, Endocrine: Negative for neck swelling, polydipsia, polyuria, polyphagia, and marked weight changes, Hematologic/Lymphatic: Negative for swollen nodes, abnormal bleeding, and unusual bruising. 17:47 Respiratory: Positive for cough, "sounds productive". Exam: 17:47 Constitutional: This is a well developed, well nourished patient who is awake, alert, joseline and in no acute distress. Head/Face: Normocephalic, atraumatic. Eyes: Pupils equal round and reactive to light, extra-ocular motions intact. Lids and lashes normal. Conjunctiva and sclera are non-icteric and not injected. Cornea within normal limits. Periorbital areas with no swelling, redness, or edema. ENT: Nares patent. No nasal discharge, no septal abnormalities noted. Tympanic membranes are normal and external auditory canals are clear. Oropharynx with no redness, swelling, or masses, exudates, or evidence of obstruction, uvula midline. Mucous membranes moist. Neck: Trachea midline, no thyromegaly or masses palpated, and no cervical lymphadenopathy. Supple, full range of motion without nuchal rigidity, or vertebral point tenderness. No Meningismus. Chest/axilla: Normal chest wall appearance and motion. Nontender with no deformity. No lesions are appreciated. Cardiovascular: Regular rate and rhythm with a normal S1 and S2. No gallops, murmurs, or rubs. Normal PMI, no JVD. No pulse deficits. Respiratory: Lungs have equal breath sounds bilaterally, clear to auscultation and percussion. No rales, rhonchi or wheezes noted. No increased work of breathing, no retractions or nasal flaring. Abdomen/GI: Soft, non-tender, with normal bowel sounds. No distension or tympany. No guarding or rebound. No evidence of tenderness throughout. Back: No spinal tenderness. No costovertebral tenderness. Full range of motion. Skin: Warm, dry with normal turgor. Normal color with no rashes, no lesions, and no evidence of cellulitis. MS/ Extremity: Pulses equal, no cyanosis. Neurovascular intact. Full, normal range of motion. Neuro: Awake and alert, GCS 15, oriented to person, place, time, and situation. Cranial nerves II-XII grossly intact. Motor strength 5/5 in all extremities. Sensory grossly intact. Cerebellar exam normal. Normal gait. Psych: Awake, alert, with orientation to person, place and time. Behavior, mood, and affect are within normal limits. 17:47 Musculoskeletal/extremity: DVT Exam: No signs of deep vein thrombosis. no pain, no swelling, no tenderness, negative Homans' sign noted on exam, no appreciated bluish discoloration, no erythema, no increased warmth. Vital Signs: 16:57 BP 201 / 93; Pulse 92; Resp 20 S; Temp 99.6(O); Pulse Ox 100% on R/A; Weight 113.4 kg aa5 (R); Height 5 ft. 3 in. (160.02 cm) (R); Pain 8/10; 18:10 BP 173 / 65; Pulse 91; Resp 18; Pulse Ox 100% on R/A; dh3 19:20 BP 168 / 70; Pulse 87; Resp 18; Pulse Ox 97% on R/A; ea 20:37 BP 150 / 67; Pulse 86; Resp 18; Temp 98.7(O); Pulse Ox 97% ; Pain 0/10; ea 16:57 Body Mass Index 44.29 (113.40 kg, 160.02 cm) aa5 MDM: 17:38 Patient medically screened. [facility] 17:47 Data reviewed: vital signs, nurses notes, lab test result(s), radiologic studies, plain joseline films. 06/27 17:46 Order name: Influenza Screen (a \\T\\ B); Complete Time: 18:22 [facility] 06/27 17:46 Order name: Urine Culture [facility] 06/27 18:24 Order name: CBC with Diff; Complete Time: 19:20 [facility] 06/27 18:24 Order name: Comprehensive Metabolic Panel; Complete Time: 19:37 [facility] 06/27 18:24 Order name: Blood Culture Adult (2) [facility] 06/27 18:24 Order name: BNP; Complete Time: 19:37 [facility] 06/27 17:46 Order name: Chest Pa And Lat (2 Views) XRAY; Complete Time: 19:20 [facility] 06/27 18:24 Order name: Procalcitonin [facility] 06/27 18:25 Order name: Urine Dipstick--Ancillary (enter results); Complete Time: 19:20 06/27 17:46 Order name: Urine Dipstick-Ancillary (obtain specimen); Complete Time: 18:08 [facility] 06/27 17:46 Order name: PO challenge; Complete Time: 17:55 joseline Administered Medications: 18:16 Drug: Motrin 600 mg Route: PO; [facility] 19:15 Follow up: Response: No adverse reaction; Temperature is decreased [facility] 18:16 Drug: Zithromax 500 mg Route: PO; 7 19:04 Follow up: Response: No adverse reaction [facility] 18:48 Drug: Xopenex 1.25 mg Route: Inhalation; aj 19:05 Follow up: Response: No adverse reaction 7 18:48 Drug: AtroVENT Aerosol 0.5 mg Route: Inhalation; aj 19:05 Follow up: Response: No adverse reaction [facility] 19:00 Drug: Rocephin - (cefTRIAXone) 2 grams Route: IVPB; Infused Over: 30 mins; Site: right jl7 antecubital; 19:30 Follow up: Response: No adverse reaction; IV Status: Completed infusion ea 19:31 Drug: predniSONE 20 mg Route: PO; ea 20:40 Follow up: Response: No adverse reaction ea 20:05 Drug: Potassium Effervescent Tablet 50 mEq Route: PO; ea 20:40 Follow up: Response: No adverse reaction ea 20:05 Drug: SOLU-Medrol 125 mg Route: IVP; Site: right antecubital; ea 20:39 Follow up: Response: No adverse reaction ea 20:05 Drug: Xopenex 1.25 mg Route: Inhalation; ea 20:39 Follow up: Response: No adverse reaction; Marked relief of symptoms ea Disposition: 06/27/18 19:41 Discharged to Home. Impression: Fever, unspecified, Acute upper respiratory infection, unspecified, Cough, Pneumonia due to other specified bacteria, Anemia, unspecified, Obesity, unspecified, Hypokalemia. - Condition is Stable. - Discharge Instructions: Anemia, Nonspecific, Potassium Content of Foods, Fever, Adult, Obesity, Adult, Upper Respiratory Infection, Adult, Cool Mist Vaporizer, Upper Respiratory Infection, Adult, Kjfr-ck-Awkq, Cough, Adult, Zvjk-iy-Syda, Cough, Adult, Hypokalemia. - Prescriptions for Medrol (Juancho) 4 mg Oral Tablets, Dose Pack - take 1 tablet by ORAL route as directed - follow package instructions; 1 packet. Albuterol Sulfate 90 mcg/actuation - inhale 1-2 puff by INHALATION route every 4-6 hours; 1 Inhaler. Zithromax 500 mg Oral Tablet - take 1 tablet by ORAL route once daily for 5 days; 5 tablet. - Medication Reconciliation Form, Thank You Letter, Antibiotic Education, Prescription Opioid Use form. - Follow up: Stepan Cooper; When: 2 - 3 days; Reason: Recheck today's complaints, Continuance of care, Re-evaluation by your physician. - Problem is new. - Symptoms have improved. Signatures: Dispatcher [employer] EDCarrie Drake RN Trent Cordova MD MD cha Calderon, Audri RN RN aa5 Alissa Hawk RN RN jl7 Viviane Carty RN RN ea Corrections: (The following items were deleted from the chart) 19:41 19:41 06/27/2018 19:41 Discharged to Home. Impression: Fever, unspecified; Acute upper joseline respiratory infection, unspecified; Cough; Pneumonia due to other specified bacteria; Anemia, unspecified. Condition is Stable. Discharge Instructions: Fever, Adult, Upper Respiratory Infection, Adult, Cool Mist Vaporizer, Upper Respiratory Infection, Adult, Arhv-tk-Niwq, Cough, Adult, Pgjg-is-Iswd, Cough, Adult. Prescriptions for Medrol (Juancho) 4 mg Oral Tablets, Dose Pack - take 1 tablet by ORAL route as directed - follow package instructions; 1 packet, Albuterol Sulfate 90 mcg/actuation - inhale 1-2 puff by INHALATION route every 4-6 hours; 1 Inhaler, Zithromax 500 mg Oral Tablet - take 1 tablet by ORAL route once daily for 5 days; 5 tablet. and Forms are Medication Reconciliation Form, Thank You Letter, Antibiotic Education, Prescription Opioid Use. Follow up: Stepan Cooper; When: 2 - 3 days; Reason: Recheck today's complaints, Continuance of care, Re-evaluation by your physician. Problem is new. Symptoms have improved. [facility] 19:42 19:41 06/27/2018 19:41 Discharged to Home. Impression: Fever, unspecified; Acute upper joseline respiratory infection, unspecified; Cough; Pneumonia due to other specified bacteria; Anemia, unspecified; Obesity, unspecified. Condition is Stable. Discharge Instructions: Fever, Adult, Upper Respiratory Infection, Adult, Cool Mist Vaporizer, Upper Respiratory Infection, Adult, Whyc-ev-Utat, Cough, Adult, Rlqu-bz-Hopk, Cough, Adult. Prescriptions for Medrol (Juancho) 4 mg Oral Tablets, Dose Pack - take 1 tablet by ORAL route as directed - follow package instructions; 1 packet, Albuterol Sulfate 90 mcg/actuation - inhale 1-2 puff by INHALATION route every 4-6 hours; 1 Inhaler, Zithromax 500 mg Oral Tablet - take 1 tablet by ORAL route once daily for 5 days; 5 tablet. and Forms are Medication Reconciliation Form, Thank You Letter, Antibiotic Education, Prescription Opioid Use. [facility]; When: 2 - 3 days; Reason: Recheck today's complaints, Continuance of care, Re-evaluation by your physician. Problem is new. Symptoms have improved. [facility] 20:42 19:42 06/27/2018 19:41 Discharged to Home. Impression: Fever, unspecified; Acute upper ea respiratory infection, unspecified; Cough; Pneumonia due to other specified bacteria; Anemia, unspecified; Obesity, unspecified; Hypokalemia. Condition is Stable. Discharge Instructions: Fever, Adult, Upper Respiratory Infection, Adult, Cool Mist Vaporizer, Upper Respiratory Infection, Adult, Ycuq-yy-Konb, Cough, Adult, Vmrd-zx-Ycal, Cough, Adult, Anemia, Nonspecific, Obesity, Adult, Hypokalemia. Prescriptions for Medrol (Juancho) 4 mg Oral Tablets, Dose Pack - take 1 tablet by ORAL route as directed - follow package instructions; 1 packet, Albuterol Sulfate 90 mcg/actuation - inhale 1-2 puff by INHALATION route every 4-6 hours; 1 Inhaler, Zithromax 500 mg Oral Tablet - take 1 tablet by ORAL route once daily for 5 days; 5 tablet. and Forms are Medication Reconciliation Form, Thank You Letter, Antibiotic Education, Prescription Opioid Use. [facility]; When: 2 - 3 days; Reason: Recheck today's complaints, Continuance of care, Re-evaluation by your physician. Problem is new. Symptoms have improved. joseline
[2018-06-27] MEDS ORDERED: POTASSIUM 25 MEQ EFFERV TAB ONE (19:59)
[2018-06-27] MEDS ORDERED: METHYLPREDNISOLONE 125 MG INJ ONE (19:59)
[2018-06-27 20:49] VITALS: O2SAT 97
[2018-06-27 20:50] VITALS: BP 150/67; TEMP 98.7
== END 2018-06-27 20:42 | disposition home or self-care (01) ==
LOC: ER 16:46
DX: J15.8 Pneumonia due to other specified bacteria (principal); J06.9 Acute upper respiratory infection, unspecified; R05 Cough; E87.6 Hypokalemia; D64.9 Anemia, unspecified; E66.9 Obesity, unspecified; Z88.0 Allergy status to penicillin
CPT/HCPCS: 36415; 71046; 80053; 81003; 83880; 84145; 85025; 87040; 87086; 87088; 87804; 96365; 96375; 99284; J0696; J2930; J7512

== ENCOUNTER 2018-09-09 21:32 | Emergency (ER) | payer BC ==
[2018-09-09] MEDS ORDERED: IPRATROPIUM BROM 0.5MG/2.5ML ONE (22:43)
[2018-09-09] MEDS ORDERED: predniSONE 20 MG TAB ONE (22:43)
[2018-09-09] MEDS ORDERED: ALBUTEROL 2.5 MG/3 ML NEB SOL ONE (22:43)
--- NOTE | 2018-09-10 | ER ---
Nurse's Notes [facility] Name: Caroline Wise Age: 57 yrs Sex: Female : 1960 Arrival Date: 09/09/2018 Time: 21:36 Bed 20 Private MD: Diagnosis: Acute cough;acute dyspnea Presentation: 09/09 21:57 Presenting complaint: Patient states: "I've had a cough and lost my voice for about a tl2 week. On Wednesday I did a breathing treatment and since then I've been coughing up yellow mucus.". Transition of care: patient was not received from another setting of care. Onset of symptoms was September 04, 2018. Risk Assessment: Do you want to hurt yourself or someone else? Patient reports no desire to harm self or others. Initial Sepsis Screen: Does the patient meet any 2 criteria? No. Patient's initial sepsis screen is negative. Does the patient have a suspected source of infection? No. Patient's initial sepsis screen is negative. Care prior to arrival: None. 21:57 Method Of Arrival: Ambulatory tl2 21:57 Acuity: SERAFIN 3 tl2 Historical: - Allergies: 22:00 PENICILLINS; tl2 - Home Meds: 22:00 Benicar 40 mg Oral tab 1 tab once daily [Active]; clonidine HCl 0.1 mg Oral tab as tl2 needed [Active]; levothyroxine 150 mcg tab 1 tab once daily [Active]; prednisone 20 mg Oral tab as needed [Active]; Ventolin Rotahaler/Rotacaps Inhl [Active]; - PMHx: 22:00 Asthma; Hypertension; Hypothyroidism; tl2 - PSHx: 22:00 Appendectomy; tl2 - Immunization history:: Adult Immunizations up to date. - Social history:: Smoking status: Patient/guardian denies using tobacco. - Ebola Screening: : No symptoms or risks identified at this time. Screenin:55 Abuse screen: Denies threats or abuse. Nutritional screening: No deficits noted. jb4 Tuberculosis screening: No symptoms or risk factors identified. Fall Risk None identified. Assessment: 21:55 General: Appears in no apparent distress. uncomfortable, Behavior is calm, cooperative, jb4 appropriate for age. Pain: Denies pain. Neuro: Level of Consciousness is awake, alert, obeys commands, Oriented to person, place, time, situation. Cardiovascular: Heart tones S1 S2 present Patient's skin is warm and dry. Respiratory: Airway is patent Respiratory effort is even, unlabored, Respiratory pattern is regular, symmetrical, Breath sounds are clear bilaterally. GI: No signs and/or symptoms were reported involving the gastrointestinal system. : No signs and/or symptoms were reported regarding the genitourinary system. EENT: Throat is reddened. Derm: Skin is intact, Skin is dry, Skin is normal, Skin temperature is warm. Musculoskeletal: Circulation, motion, and sensation intact. 22:56 Reassessment: Patient appears in no apparent distress at this time. Patient and/or jb4 family updated on plan of care and expected duration. Pain level reassessed. Patient is alert, oriented x 3, equal unlabored respirations, skin warm/dry/pink. Pt to X-ray. 23:57 Reassessment: Patient appears in no apparent distress at this time. Patient and/or jb4 family updated on plan of care and expected duration. Pain level reassessed. Patient is alert, oriented x 3, equal unlabored respirations, skin warm/dry/pink. Vital Signs: 22:00 BP 187 / 73; Pulse 81; Resp 18; Temp 97.9(O); Pulse Ox 98% on R/A; Weight 113.4 kg; tl2 Height 5 ft. 3 in. (160.02 cm); Pain 1/10; 22:50 BP 151 / 54; Pulse 89; Pulse Ox 100% on Nebulizer Mask; jb4 23:57 BP 142 / 68; Pulse 72; Resp 18; Pulse Ox 97% ; jb4 22:00 Body Mass Index 44.29 (113.40 kg, 160.02 cm) tl2 ED Course: 21:36 Patient arrived in ED. ag3 21:51 Myles Champagne, RN is Primary Nurse. jb4 21:55 Patient has correct armband on for positive identification. Call light in reach. Side jb4 rails up X 1. Pulse ox on. NIBP on. 21:58 Triage completed. tl2 22:00 Arm band placed on right wrist. tl2 22:06 Kaveh Johnson MD is Attending Physician. wa 22:58 Patient moved to radiology via wheelchair. bb2 22:58 X-ray completed. Patient tolerated procedure well. bb2 22:59 Chest Pa And Lat (2 Views) XRAY In Process Unspecified. EDMS 23:00 Patient moved back from radiology. bb2 09/10 00:07 No provider procedures requiring assistance completed. Patient did not have IV access jb4 during this emergency room visit. Administered Medications: 09/09 22:40 Drug: Albuterol 2.5 mg Route: Inhalation; jb4 09/10 00:09 Follow up: Response: No adverse reaction; Wheezing diminished jb4 09/09 22:40 Drug: AtroVENT Aerosol 0.5 mg Route: Inhalation; jb4 09/10 00:09 Follow up: Response: No adverse reaction jb4 09/09 22:40 Drug: predniSONE 40 mg Route: PO; jb4 09/10 00:08 Follow up: Response: No adverse reaction jb4 Outcome: 00:00 Discharge ordered by . lyle 00:07 Discharged to home ambulatory. jb4 00:07 Condition: stable 00:07 Discharge instructions given to patient, Instructed on discharge instructions, follow up and referral plans. medication usage, Demonstrated understanding of instructions, follow-up care, medications, Prescriptions given X 3. 00:10 Patient left the ED. jb4 Signatures: Dispatcher [employer] EDMS Sheryl Bonilla RN RN tl2 Myles Champagne RN RN jb4 Kaveh Johnson MD MD wa Bock, Brittany bb2 Harmony Walters3
--- NOTE | 2018-09-10 00:01 | EDPHYS ---
Physician Documentation [facility] Name: Caroline Wise Age: 57 yrs Sex: Female : 1960 Arrival Date: 09/09/2018 Time: 21:36 Bed 20 Private MD: ED Physician Kaveh Johnson HPI: 09/09 23:01 This 57 yrs old Black Female presents to ER via Ambulatory with complaints of Asthma wa Exacerbation. 23:01 The patient or guardian reports cough, that is constant, with productive sputum, that wa is green. Onset: The symptoms/episode began/occurred 1 week(s) ago. Severity of symptoms: At their worst the symptoms were moderate, in the emergency department the symptoms are unchanged. Modifying factors: The symptoms are alleviated by nothing, the symptoms are aggravated by nothing. Associated signs and symptoms: Pertinent negatives: chest pain, diarrhea, ear ache, fever, nausea, rhinorrhea, sore throat, vomiting. The patient has experienced similar episodes in the past, several times, h/o asthma. The patient has not recently seen a physician. Historical: - Allergies: 22:00 PENICILLINS; tl2 - Home Meds: 22:00 Benicar 40 mg Oral tab 1 tab once daily [Active]; clonidine HCl 0.1 mg Oral tab as tl2 needed [Active]; levothyroxine 150 mcg tab 1 tab once daily [Active]; prednisone 20 mg Oral tab as needed [Active]; Ventolin Rotahaler/Rotacaps Inhl [Active]; - PMHx: 22:00 Asthma; Hypertension; Hypothyroidism; tl2 - PSHx: 22:00 Appendectomy; tl2 - Immunization history:: Adult Immunizations up to date. - Social history:: Smoking status: Patient/guardian denies using tobacco. - Ebola Screening: : No symptoms or risks identified at this time. ROS: 23:02 Constitutional: Negative for fever, chills, and weight loss, Eyes: Negative for injury, wa pain, redness, and discharge, ENT: Negative for injury, pain, and discharge, Neck: Negative for injury, pain, and swelling, Cardiovascular: Negative for chest pain, palpitations, and edema, Abdomen/GI: Negative for abdominal pain, nausea, vomiting, diarrhea, and constipation, Back: Negative for injury and pain, : Negative for injury, bleeding, discharge, and swelling, MS/Extremity: Negative for injury and deformity, Skin: Negative for injury, rash, and discoloration, Neuro: Negative for headache, weakness, numbness, tingling, and seizure. 23:02 Respiratory: Positive for cough, with green sputum, Negative for shortness of breath. 23:02 All other systems are negative. Exam: 23:03 Constitutional: This is a well developed, well nourished patient who is awake, alert, wa and in no acute distress. Head/Face: Normocephalic, atraumatic. Eyes: Pupils equal round and reactive to light, extra-ocular motions intact. Lids and lashes normal. Conjunctiva and sclera are non-icteric and not injected. Cornea within normal limits. Periorbital areas with no swelling, redness, or edema. ENT: Nares patent. No nasal discharge, no septal abnormalities noted. Tympanic membranes are normal and external auditory canals are clear. Oropharynx with no redness, swelling, or masses, exudates, or evidence of obstruction, uvula midline. Mucous membranes moist. Neck: Trachea midline, no thyromegaly or masses palpated, and no cervical lymphadenopathy. Supple, full range of motion without nuchal rigidity, or vertebral point tenderness. No Meningismus. Chest/axilla: Normal chest wall appearance and motion. Nontender with no deformity. No lesions are appreciated. Cardiovascular: Regular rate and rhythm with a normal S1 and S2. No gallops, murmurs, or rubs. Normal PMI, no JVD. No pulse deficits. Abdomen/GI: Soft, non-tender, with normal bowel sounds. No distension or tympany. No guarding or rebound. No evidence of tenderness throughout. Back: No spinal tenderness. No costovertebral tenderness. Full range of motion. Skin: Warm, dry with normal turgor. Normal color with no rashes, no lesions, and no evidence of cellulitis. MS/ Extremity: Pulses equal, no cyanosis. Neurovascular intact. Full, normal range of motion. Neuro: Awake and alert, GCS 15, oriented to person, place, time, and situation. Cranial nerves II-XII grossly intact. Motor strength 5/5 in all extremities. Sensory grossly intact. Cerebellar exam normal. Normal gait. Psych: Awake, alert, with orientation to person, place and time. Behavior, mood, and affect are within normal limits. 23:03 Respiratory: the patient does not display signs of respiratory distress, Respirations: normal, Breath sounds: wheezing: expiratory is heard in the bilateral. Vital Signs: 22:00 BP 187 / 73; Pulse 81; Resp 18; Temp 97.9(O); Pulse Ox 98% on R/A; Weight 113.4 kg; tl2 Height 5 ft. 3 in. (160.02 cm); Pain 1/10; 22:50 BP 151 / 54; Pulse 89; Pulse Ox 100% on Nebulizer Mask; jb4 23:57 BP 142 / 68; Pulse 72; Resp 18; Pulse Ox 97% ; jb4 22:00 Body Mass Index 44.29 (113.40 kg, 160.02 cm) tl2 MDM: 22:06 Patient medically screened. wi 23:04 Differential Diagnosis: Bronchitis Upper Respiratory Infection Asthma Exacerbation wi Viral Syndrome Pneumonia. 23:58 Data reviewed: vital signs, nurses notes, radiologic studies. Test interpretation: by wi ED physician or midlevel provider: CXR: no acute process. Response to treatment: the patient's symptoms have markedly improved after treatment. 09/09 22:26 Order name: Chest Pa And Lat (2 Views) XRROME wi Administered Medications: 22:40 Drug: Albuterol 2.5 mg Route: Inhalation; [facility] 09/10 00:09 Follow up: Response: No adverse reaction; Wheezing diminished [facility] 09/09 22:40 Drug: AtroVENT Aerosol 0.5 mg Route: Inhalation; [facility] 09/10 00:09 Follow up: Response: No adverse reaction [facility] 09/09 22:40 Drug: predniSONE 40 mg Route: PO; [facility] 09/10 00:08 Follow up: Response: No adverse reaction [facility] Disposition: 09/10/18 00:00 Discharged to Home. Impression: Acute cough, acute dyspnea. - Condition is Stable. - Discharge Instructions: Asthma, Adult, [id number]. - Prescriptions for Albuterol Sulfate 2.5 mg /3 mL (0.083 %) Inhalation Solution for Nebulization - inhale 1 unit by NEBULIZATION route every 8 hours As needed; 1 box. Zithromax Z- Juancho 250 mg Oral Tablet - take 1 tablet by ORAL route as directed for 5 days Day 1 - take two (2) tablets one time. Day 2, 3, 4 , 5 take one (1) tablet once daily.; 6 tablet. Prednisone 20 mg Oral Tablet - take 2 tablets by ORAL route once daily for 4 days; 8 tablet. - Medication Reconciliation Form, Thank You Letter, Antibiotic Education, Prescription Opioid Use form. - Follow up: Private Physician; When: 2 - 3 days; Reason: Recheck today's complaints. - Problem is new. - Symptoms have improved. - Notes: take medicines as prescribed. follow up with your doctor for further evaluation. return immediately for rapidly worsening concerns including shortness of breath Signatures: Dispatcher [employer] EDMS Sheryl Bonilla RN RN tl2 Myles Champagen RN RN jb4 Kaveh Johnson MD MD wa Corrections: (The following items were deleted from the chart) 00:10 00:00 09/10/2018 00:00 Discharged to Home. Impression: Acute cough; acute dyspnea. jb4 Condition is Stable. Forms are Medication Reconciliation Form, Thank You Letter, Antibiotic Education, Prescription Opioid Use. Follow up: Private Physician; When: 2 - 3 days; Reason: Recheck today's complaints. Problem is new. Symptoms have improved. wa
[2018-09-10 02:26] VITALS: TEMP 97.9
[2018-09-10 02:28] VITALS: BP 142/68; O2SAT 97
--- NOTE | 2018-09-10 10:16 | RAD REPORT ---
EXAM DESCRIPTION: [facility] [place] (2 Views)09/09/2018 11:02 pm CLINICAL HISTORY: Cough COMPARISON: December 2014 FINDINGS: The lungs are hyperaerated. Area of scarring within the right lung are unchanged. The lungs appear clear of acute infiltrate. The heart is normal size IMPRESSION: No acute abnormalities displayed
== END 2018-09-10 00:10 | disposition home or self-care (01) ==
LOC: ER 21:32
DX: R05 Cough (principal); R06.00 Dyspnea, unspecified; I10 Essential (primary) hypertension; E03.9 Hypothyroidism, unspecified; Z79.899 Other long term (current) drug therapy
CPT/HCPCS: 71046; 99284; J7512

== ENCOUNTER 2019-08-25 18:32 | Emergency (ER) | payer BC ==
--- NOTE | 2019-08-25 19:30 | EDPHYS ---
Physician Documentation [facility] Name: Caroline Wise Age: 58 yrs Sex: Female : 1960 Arrival Date: 08/25/2019 Time: 18:37 Bed 28 Private MD: Stepan Cooper H ED Physician Rich Prado HPI: 08/25 19:23 This 58 yrs old Black Female presents to ER via Ambulatory with complaints of Ear Pain. cp 19:23 The patient presents with pain, that is acute. The complaints affect the right ear. cp Onset: The symptoms/episode began/occurred last night. Associated signs and symptoms: Pertinent negatives: cough, fever, sore throat. Severity of symptoms: in the emergency department the symptoms are unchanged despite home interventions. Historical: - Allergies: 18:48 PENICILLINS; sv 21:30 Rocephin; jv1 21:30 Toradol; jv1 - PMHx: 18:48 Asthma; Hypertension; Hypothyroidism; sv - PSHx: 18:48 Appendectomy; sv - Immunization history:: Adult Immunizations up to date, Adult Immunizations not up to date. - Social history:: Smoking status: Patient/guardian denies using tobacco. - Ebola Screening: : Patient negative for fever greater than or equal to 101.5 degrees Fahrenheit, and additional compatible Ebola Virus Disease symptoms Patient denies exposure to infectious person Patient denies travel to an Ebola-affected area in the 21 days before illness onset No symptoms or risks identified at this time. ROS: 19:25 Eyes: Negative for injury, pain, redness, and discharge. cp 19:25 Constitutional: Negative for body aches, chills, fever. 19:25 ENT: Positive for ear pain, Negative for drainage from ear(s), sore throat, difficulty swallowing, difficulty handling secretions. 19:25 Cardiovascular: Negative for chest pain. 19:25 Respiratory: Negative for cough, shortness of breath, wheezing. 19:25 Abdomen/GI: Negative for abdominal pain, nausea, vomiting, and diarrhea. 19:25 Skin: Negative for cellulitis, rash. 19:25 Neuro: Negative for altered mental status, headache, weakness. 19:25 All other systems are negative. Exam: 19:26 Head/Face: Normocephalic, atraumatic. cp 19:26 Constitutional: The patient appears in no acute distress, alert, awake, non-diaphoretic, non-toxic, well developed, well nourished. 19:26 Eyes: Periorbital structures: appear normal, Conjunctiva: normal, no exudate, no injection, Sclera: no appreciated abnormality, Lids and lashes: appear normal, bilaterally. 19:26 ENT: External ear(s): pain with movement, of the pinna of right ear and right ear canal, Ear canal(s): erythema, of the right canal, TM's: erythema, that is mild, on the right, Examination of the other ear shows no obvious abnormality, Nose: is normal, Mouth: Lips: moist, Oral mucosa: pink and intact, moist, Posterior pharynx: is normal, airway is patent, no erythema, no exudate. 19:26 Neck: ROM/movement: is normal, is supple, without pain, no range of motions limitations, no meningismus, no nuchal rigidity, Lymph nodes: no appreciated lymphadenopathy. 19:26 Chest/axilla: Inspection: normal, Palpation: is normal, no crepitus, no tenderness. 19:26 Cardiovascular: Rate: normal, Rhythm: regular. 19:26 Respiratory: the patient does not display signs of respiratory distress, Respirations: cp normal, no use of accessory muscles, no retractions, no splinting, no tachypnea, labored breathing, is not present, Breath sounds: are clear throughout, no decreased breath sounds, no stridor, no wheezing. 19:26 Abdomen/GI: Inspection: abdomen appears normal, Palpation: abdomen is soft and cp non-tender, in all quadrants. 19:26 Skin: no rash present. Vital Signs: 18:48 BP 182 / 81; Pulse 67; Resp 18; Temp 98.3; Pulse Ox 98% ; Weight 117.93 kg; Height 5 sv ft. 3 in. (160.02 cm); 19:30 BP 190 / 88; Pulse 65; Resp 18; Temp 98.4; Pulse Ox 99% on R/A; Pain 8/10; jv1 20:15 BP 180 / 90; Pulse 98; Resp 30; Temp 98; Pulse Ox 95% ; jv1 20:43 BP 151 / 77; Pulse 85; Resp 18; Temp 98; Pulse Ox 98% ; Pain 0/10; jv1 21:15 BP 135 / 77; Pulse 62; Resp 18; Temp 98; Pulse Ox 100% on R/A; jv1 18:48 Body Mass Index 46.05 (117.93 kg, 160.02 cm) sv MDM: 19:23 Patient medically screened. cp 19:28 Differential diagnosis: otitis media, otitis externa, ruptured TM, foreign body, cp cerumen impaction. 19:29 Data reviewed: vital signs, nurses notes, and as a result, I will discharge patient. cp Administered Medications: 19:56 Drug: TORadol 60 mg Route: IM; Site: right gluteus; jv1 20:15 Follow up: Response: Adverse reaction, Physician notified; pt complained of shortness jv1 of breath and itching 19:56 Drug: Rocephin (cefTRIAXone) 1 grams Route: IM; Site: right gluteus; jv1 20:15 Follow up: Response: Adverse reaction, Physician notified; pt complained of shortness jv1 of breath and itching 20:30 Drug: SOLU-Medrol 125 mg Route: IVP; Site: right antecubital; jv1 21:10 Follow up: Response: No adverse reaction; Marked relief of symptoms jv1 20:30 Drug: Pepcid 20 mg Route: IVP; Site: right antecubital; jv1 21:10 Follow up: Response: Marked relief of symptoms jv1 20:30 Drug: Benadryl 50 mg Route: IVP; Site: right antecubital; jv1 21:10 Follow up: Response: Marked relief of symptoms jv1 20:35 Drug: NS 0.9% 1000 ml Route: IV; Rate: 1 bolus; Site: right antecubital; jv1 22:46 Follow up: Response: No adverse reaction; IV Status: Completed infusion jv1 Disposition: 08/25/19 19:29 Discharged to Home. Impression: Otitis media, unspecified, right ear, Otitis externa in other diseases classified elsewhere, right ear, Unspecified asthma with (acute) exacerbation. - Condition is Stable. - Discharge Instructions: Asthma, Adult, Otitis Media, Adult, Otitis Externa. - Prescriptions for Ibuprofen 800 mg Oral Tablet - take 1 tablet by ORAL route every 8 hours As needed take with food; 30 tablet. Ciprodex 0.3- 0.1 % Otic Drops, Suspension - instill 4 drop by OTIC route every 12 hours for 7 days , for ears ONLY; 1 Container. Prednisone 20 mg Oral Tablet - take 3 tablet by ORAL route once daily for 5 days; 15 tablet. Albuterol Sulfate 2.5 mg /3 mL (0.083 %) Inhalation Solution for Nebulization - inhale 1 unit by NEBULIZATION route every 8 hours As needed; 1 box. - Medication Reconciliation Form, Thank You Letter, Antibiotic Education, Prescription Opioid Use form. - Follow up: Private Physician; When: 2 - 3 days; Reason: Recheck today's complaints. - Problem is new. - Symptoms have improved. Addendum: 08/28/2019 08:30 Co-signature as Attending Physician, Rich Prado MD I agree with the assessment and k dr plan of care. Signatures: Carmen Forte, RN RN sv Rich Prado MD MD kdr Trent Velasquez PA PA cp Lennie Stock RN RN jv1 Corrections: (The following items were deleted from the chart) 08/25 21:21 19:29 08/25/2019 19:29 Discharged to Home. Impression: Otitis media, unspecified, right cp ear; Otitis externa in other diseases classified elsewhere, right ear. Condition is Stable. Forms are Medication Reconciliation Form, Thank You Letter, Antibiotic Education, Prescription Opioid Use. Follow up: Private Physician; When: 2 - 3 days; Reason: Recheck today's complaints. Problem is new. Symptoms have improved. cp 22:39 21:21 08/25/2019 19:29 Discharged to Home. Impression: Otitis media, unspecified, right jv1 ear; Otitis externa in other diseases classified elsewhere, right ear; Unspecified asthma with (acute) exacerbation. Condition is Stable. Discharge Instructions: Otitis Media, Adult, Otitis Externa. Prescriptions for Ibuprofen 800 mg Oral Tablet - take 1 tablet by ORAL route every 8 hours As needed take with food; 30 tablet, Ciprodex 0.3-0.1 % Otic Drops, Suspension - instill 4 drop by OTIC route every 12 hours for 7 days , for ears ONLY; 1 Container. and Forms are Medication Reconciliation Form, Thank You Letter, Antibiotic Education, Prescription Opioid Use. Follow up: Private Physician; When: 2 - 3 days; Reason: Recheck today's complaints. Problem is new. Symptoms have improved. cp
--- NOTE | 2019-08-25 19:30 | ER ---
Nurse's Notes [facility] Name: Caroline Wise Age: 58 yrs Sex: Female : 1960 Arrival Date: 08/25/2019 Time: 18:37 Bed 28 Private MD: Stepan Cooper H Diagnosis: Otitis media, unspecified, right ear;Otitis externa in other diseases classified elsewhere, right ear;Unspecified asthma with (acute) exacerbation Presentation: 08/25 18:48 Presenting complaint: Patient states: right ear pain x 1 day. Transition of care: sv patient was not received from another setting of care. Onset of symptoms was August 24, 2019. Risk Assessment: Do you want to hurt yourself or someone else? Patient reports no desire to harm self or others. Care prior to arrival: Medication(s) given: Tylenol #3 taken at 1630. 18:48 Method Of Arrival: Ambulatory sv 18:48 Acuity: SERAFIN 4 sv 19:39 Initial Sepsis Screen: Does the patient meet any 2 criteria? No. Patient's initial jv1 sepsis screen is negative. Does the patient have a suspected source of infection? No. Patient's initial sepsis screen is negative. Triage Assessment: 18:50 General: Appears in no apparent distress. uncomfortable, well groomed, well developed, sv Behavior is calm, cooperative, appropriate for age. Pain: Complains of pain in right ear. EENT: Reports pain in right ear. Neuro: Level of Consciousness is awake, alert, obeys commands, Gait is steady. Respiratory: Respiratory effort is even, unlabored. Historical: - Allergies: 18:48 PENICILLINS; sv 21:30 Rocephin; jv1 21:30 Toradol; jv1 - PMHx: 18:48 Asthma; Hypertension; Hypothyroidism; sv - PSHx: 18:48 Appendectomy; sv - Immunization history:: Adult Immunizations up to date, Adult Immunizations not up to date. - Social history:: Smoking status: Patient/guardian denies using tobacco. - Ebola Screening: : Patient negative for fever greater than or equal to 101.5 degrees Fahrenheit, and additional compatible Ebola Virus Disease symptoms Patient denies exposure to infectious person Patient denies travel to an Ebola-affected area in the 21 days before illness onset No symptoms or risks identified at this time. Screenin:37 Abuse screen: Denies threats or abuse. Nutritional screening: No deficits noted. jv1 Tuberculosis screening: No symptoms or risk factors identified. Fall Risk None identified. Assessment: 19:32 General: Appears in no apparent distress. uncomfortable, obese, well groomed, Behavior jv1 is calm, cooperative, appropriate for age. Pain: Complains of pain in right ear and right ear canal and pinna of right ear Pain does not radiate. Pain currently is 8 out of 10 on a pain scale. Quality of pain is described as aching. Neuro: Level of Consciousness is awake, alert, obeys commands, Oriented to person, place, time, situation, Appropriate for age Rehabilitation Teacher are equal bilaterally Moves all extremities. Cardiovascular: Denies chest pain, diaphoresis, fatigue, lightheadedness, nausea. Respiratory: Airway is patent Breath sounds are clear bilaterally. GI: Abdomen is round. : No signs and/or symptoms were reported regarding the genitourinary system. EENT: Ear canal clear on right ear canal and pinna of right ear and right ear patient complains of ear pain 9/10. Pinna with no deformity noted on right ear canal and pinna of right ear and right ear. Derm: No signs and/or symptoms reported regarding the dermatologic system. Musculoskeletal: No signs and/or symptoms reported regarding the musculoskeletal system. 20:29 Reassessment: pt was having severe shortness breath and was complaining of itchiness. jv1 Provider informed, interventions given, vital signs monitored closely. . 20:29 Respiratory: Respiratory effort is labored, with nasal flaring, Respiratory pattern is jv1 tachypnea 20:41 Reassessment: Patient is alert, oriented x 3, equal unlabored respirations, skin jv1 warm/dry/pink. Patient states feeling better. Patient states symptoms have improved. Respiratory: Reports feeling better Airway is patent Breath sounds are clear bilaterally. Respiratory:. 21:15 Reassessment: Patient is alert, oriented x 3, equal unlabored respirations, skin jv1 warm/dry/pink. Patient states feeling better. Patient states symptoms have improved. MD with the pt for reassessment, MD said to still observe pt for now. . Respiratory: Reports Airway is patent Respiratory effort is even, unlabored, Respiratory pattern is regular, Breath sounds are clear bilaterally. 21:15 Reassessment: added Rocephin and Toradol to her list of allergies. jv1 Vital Signs: 18:48 BP 182 / 81; Pulse 67; Resp 18; Temp 98.3; Pulse Ox 98% ; Weight 117.93 kg; Height 5 sv ft. 3 in. (160.02 cm); 19:30 BP 190 / 88; Pulse 65; Resp 18; Temp 98.4; Pulse Ox 99% on R/A; Pain 8/10; jv1 20:15 BP 180 / 90; Pulse 98; Resp 30; Temp 98; Pulse Ox 95% ; jv1 20:43 BP 151 / 77; Pulse 85; Resp 18; Temp 98; Pulse Ox 98% ; Pain 0/10; jv1 21:15 BP 135 / 77; Pulse 62; Resp 18; Temp 98; Pulse Ox 100% on R/A; jv1 18:48 Body Mass Index 46.05 (117.93 kg, 160.02 cm) sv ED Course: 18:37 Patient arrived in ED. mr 18:37 Stepan Cooper DO is Private Physician. mr 18:48 Triage completed. sv 18:49 Arm band placed on. sv 19:08 [facility] cp 19:08 Rich Prado MD is Attending Physician. cp 19:37 Patient has correct armband on for positive identification. Bed in low position. Call jv1 light in reach. Side rails up X 1. 21:15 No provider procedures requiring assistance completed. IV discontinued, intact, jv1 bleeding controlled, No redness/swelling at site. Pressure dressing applied. Administered Medications: 19:56 Drug: TORadol 60 mg Route: IM; Site: right gluteus; jv1 20:15 Follow up: Response: Adverse reaction, Physician notified; pt complained of shortness jv1 of breath and itching 19:56 Drug: Rocephin (cefTRIAXone) 1 grams Route: IM; Site: right gluteus; jv1 20:15 Follow up: Response: Adverse reaction, Physician notified; pt complained of shortness jv1 of breath and itching 20:30 Drug: SOLU-Medrol 125 mg Route: IVP; Site: right antecubital; jv1 21:10 Follow up: Response: No adverse reaction; Marked relief of symptoms jv1 20:30 Drug: Pepcid 20 mg Route: IVP; Site: right antecubital; jv1 21:10 Follow up: Response: Marked relief of symptoms jv1 20:30 Drug: Benadryl 50 mg Route: IVP; Site: right antecubital; jv1 21:10 Follow up: Response: Marked relief of symptoms jv1 20:35 Drug: NS 0.9% 1000 ml Route: IV; Rate: 1 bolus; Site: right antecubital; jv1 22:46 Follow up: Response: No adverse reaction; IV Status: Completed infusion jv1 Intake: Outcome: 19:29 Discharge ordered by MD. cp 21:15 Discharged to home ambulatory, with significant other. jv1 21:15 Condition: improved 21:15 Discharge instructions given to patient, significant other, Instructed on discharge instructions, follow up and referral plans. Demonstrated understanding of instructions, follow-up care, medications, Prescriptions given X 4. 22:39 Patient left the ED. jv1 Signatures: Carmen Forte RN RN TrujilloLuh Corey, PA PA cp Vicente, Joyce, RN RN jv1 Corrections: (The following items were deleted from the chart) 18:50 18:48 Care prior to arrival: None. sv sv 18:51 18:48 Pulse 67bpm; Resp 18bpm; Pulse Ox 98%; Temp 98.3F; 117.93 kg; Height 5 ft. 3 in.; sv BMI: 46.0; sv 18:56 18:48 Acuity: SERAFIN 5 sv
[2019-08-25] MEDS ORDERED: KETOROLAC 30 MG/ML INJ ONE (19:43)
[2019-08-25] MEDS ORDERED: CEFTRIAXONE 1000 MG/VIAL ONE (19:43)
[2019-08-25] MEDS ORDERED: WATER FOR INJ,STERILE 10 ML ONE (19:43)
[2019-08-25] MEDS ORDERED: METHYLPREDNISOLONE 125 MG INJ ONE (20:11)
[2019-08-25] MEDS ORDERED: IPRATROPIUM BROM 0.5MG/2.5ML ONE (20:11)
[2019-08-25] MEDS ORDERED: ALBUTEROL 2.5 MG/3 ML NEB SOL ONE (20:11)
[2019-08-25] MEDS ORDERED: LEVALBUTEROL 1.25 MG/3 ML NEB ONE (20:13)
[2019-08-25] MEDS ORDERED: NA CHLORIDE 0.9% 1,000 ML ONE (20:17)
[2019-08-25] MEDS ORDERED: DIPHENHYDRAMINE 50 MG/ML VIAL ONE (20:17)
[2019-08-25] MEDS ORDERED: FAMOTIDINE 20 MG/2 ML VIAL IV ONE (20:18)
[2019-08-25 22:58] VITALS: TEMP 98
[2019-08-25 23:00] VITALS: BP 151/77; O2SAT 98
== END 2019-08-25 22:39 | disposition home or self-care (01) ==
LOC: ER 18:32
DX: H66.91 Otitis media, unspecified, right ear (principal); H60.91 Unspecified otitis externa, right ear; J45.901 Unspecified asthma with (acute) exacerbation; I10 Essential (primary) hypertension; Z88.0 Allergy status to penicillin; Z88.1 Allergy status to other antibiotic agents; Z88.5 Allergy status to narcotic agent
CPT/HCPCS: 96361; 96375; 96372; 96374; 99283; J1200; J7030; J2930

== ENCOUNTER 2019-09-25 17:18 | Emergency (ER) | payer BC ==
[2019-09-25] MEDS ORDERED: predniSONE 20 MG TAB ONE (18:44)
[2019-09-25] MEDS ORDERED: ALBUTEROL 2.5 MG/3 ML NEB SOL ONE (18:44)
--- NOTE | 2019-09-25 19:37 | RAD REPORT ---
EXAM DESCRIPTION: RAD - Chest Pa And Lat (2 Views) - 09/25/2019 7:22 pm CLINICAL HISTORY: Cough;SOB Chest pain. COMPARISON: Chest Pa And Lat (2 Views) dated 09/09/2018; Chest Pa And Lat (2 Views) dated 06/27/2018; Chest Single View dated 12/24/2017; Chest Pa And Lat (2 Views) dated 07/24/2017 FINDINGS: Interstitial markings are prominent bilaterally with mild right mid lung subsegmental atel ectasis. Interstitial pneumonia/ bronchitis is favored. No focal consolidation typical of pneumonia e vident. The heart is upper limit of normal in size. No displaced fractures.
--- NOTE | 2019-09-25 19:56 | EDPHYS ---
Physician Documentation [facility] Name: Caroline Wise Age: 58 yrs Sex: Female : 1960 Arrival Date: 09/25/2019 Time: 17:19 Bed 13 Private MD: ED Physician Trent Marshall HPI: 09/25 18:40 This 58 yrs old Black Female presents to ER via Ambulatory with complaints of Asthma pm1 Exacerbation, Chest Congestion. 18:40 The patient presents to the emergency department with wheezing, Current therapy: pm1 albuterol nebs, that began unknown, the patient was reported to have productive cough. 18:40 Onset: The symptoms/episode began/occurred 2 week(s) ago. Modifying factors: The pm1 symptoms are alleviated by nothing, the symptoms are aggravated by nothing. Associated signs and symptoms: Pertinent negatives: chest pain, fever, palpitations, vomiting. Severity of symptoms: in the emergency department the symptoms are worse. The patient has not recently seen a physician. Patient with onset of dry cough 2 weeks ago that is now productive with yellowish sputum. Last used breathing treatment yesterday. Historical: - Allergies: 17:28 PENICILLINS; la1 17:28 Rocephin; la1 17:28 Toradol; la1 - PMHx: 17:28 Asthma; Hypertension; Hypothyroidism; la1 - Immunization history:: Adult Immunizations up to date, Last tetanus immunization:. - Social history:: Smoking status: Patient/guardian denies using tobacco. - Ebola Screening: : No symptoms or risks identified at this time. ROS: 18:40 Constitutional: Negative for fever, chills, and weight loss, Eyes: Negative for injury, pm1 pain, redness, and discharge, ENT: Negative for injury, pain, and discharge, Neck: Negative for injury, pain, and swelling, Cardiovascular: Negative for chest pain, palpitations, and edema. 18:40 Abdomen/GI: Negative for abdominal pain, nausea, vomiting, diarrhea, and constipation, Back: Negative for injury and pain, : Negative for injury, bleeding, discharge, and swelling, MS/Extremity: Negative for injury and deformity, Skin: Negative for injury, rash, and discoloration, Neuro: Negative for headache, weakness, numbness, tingling, and seizure. 18:40 Respiratory: Positive for cough, with yellow sputum, Negative for shortness of breath. Exam: 18:40 Constitutional: This is a well developed, well nourished patient who is awake, alert, pm1 and in no acute distress. Head/Face: Normocephalic, atraumatic. Eyes: Pupils equal round and reactive to light, extra-ocular motions intact. Lids and lashes normal. Conjunctiva and sclera are non-icteric and not injected. Cornea within normal limits. Periorbital areas with no swelling, redness, or edema. ENT: Nares patent. No nasal discharge, no septal abnormalities noted. Tympanic membranes are normal and external auditory canals are clear. Oropharynx with no redness, swelling, or masses, exudates, or evidence of obstruction, uvula midline. Mucous membranes moist. Neck: Trachea midline, no thyromegaly or masses palpated, and no cervical lymphadenopathy. Supple, full range of motion without nuchal rigidity, or vertebral point tenderness. No Meningismus. Chest/axilla: Normal chest wall appearance and motion. Nontender with no deformity. No lesions are appreciated. Cardiovascular: Regular rate and rhythm with a normal S1 and S2. No gallops, murmurs, or rubs. Normal PMI, no JVD. No pulse deficits. 18:40 Abdomen/GI: Soft, non-tender, with normal bowel sounds. No distension or tympany. No guarding or rebound. No evidence of tenderness throughout. Back: No spinal tenderness. No costovertebral tenderness. Full range of motion. Skin: Warm, dry with normal turgor. Normal color with no rashes, no lesions, and no evidence of cellulitis. MS/ Extremity: Pulses equal, no cyanosis. Neurovascular intact. Full, normal range of motion. 18:40 Respiratory: the patient does not display signs of respiratory distress, Respirations: normal, Breath sounds: wheezing: that is mild, is heard in the right posterior upper lobe. Vital Signs: 17:28 Pulse 87; Resp 20; Temp 97.7; Pulse Ox 98% on R/A; Weight 113.4 kg; Height 5 ft. 3 in. la1 (160.02 cm); 17:30 BP 213 / 106; la1 18:49 BP 186 / 85; Pulse 65; Resp 20 S; Pulse Ox 100% on Nebulizer Mask; aa5 20:04 BP 169 / 79; Pulse 75; Resp 18; Pulse Ox 96% on R/A; wh 17:28 Body Mass Index 44.29 (113.40 kg, 160.02 cm) la1 MDM: 18:33 Patient medically screened. pm1 18:34 Data reviewed: vital signs. Data interpreted: Pulse oximetry: on room air is 98 %. pm1 Interpretation: normal. 19:55 Counseling: I had a detailed discussion with the patient and/or guardian regarding: the pm1 historical points, exam findings, and any diagnostic results supporting the discharge/admit diagnosis, radiology results, the need for outpatient follow up, to return to the emergency department if symptoms worsen or persist or if there are any questions or concerns that arise at home. 09/25 18:40 Order name: Chest Pa And Lat (2 Views) XRAY; Complete Time: 19:51 pm1 Administered Medications: 18:49 Drug: predniSONE 60 mg Route: PO; aa5 20:05 Follow up: Response: No adverse reaction 18:49 Drug: Albuterol 5 mg Route: Inhalation; aa5 20:05 Follow up: Response: No adverse reaction; Wheezing diminished wh Disposition: 09/26 07:14 Co-signature as Attending Physician, Trent Marshall MD I agree with the assessment and joseline plan of care. Chart complete. Disposition: 09/25/19 19:55 Discharged to Home. Impression: Bronchitis, not specified as acute or chronic. - Condition is Stable. - Discharge Instructions: Acute Bronchitis, Adult, How to Use an Inhaler. - Prescriptions for Albuterol Sulfate 2.5 mg /3 mL (0.083 %) Inhalation Solution for Nebulization - inhale 1 unit by NEBULIZATION route every 8 hours As needed; 1 box. Medrol (Juancho) 4 mg Oral Tablets, Dose Pack - take 1 tablet by ORAL route as directed - follow package instructions; 1 packet. Albuterol Sulfate 90 mcg/actuation - inhale 1-2 puff by INHALATION route every 4-6 hours; 1 Inhaler. Guaifenesin AC 10- 100 mg/5 mL Oral Liquid - take 10 milliliter by ORAL route every 4 hours As needed; 240 milliliter. - Medication Reconciliation Form, Thank You Letter, Antibiotic Education, Prescription Opioid Use form. - Follow up: Emergency Department; When: As needed; Reason: Worsening of condition. Follow up: Private Physician; When: 2 - 3 days; Reason: Recheck today's complaints, Continuance of care, Re-evaluation by your physician. - Problem is new. - Symptoms have improved. Signatures: Dispatcher [employer] EDMS Trent Marshall MD MD cha Calderon, Audri, RN RN aa5 Drew Sheikh RN RN la1 Alfonso Alexander, REFRIGERATOR CAR ICER REFRIGERATOR CAR ICER pm1 Eloiseestee Riteshcharly Corrections: (The following items were deleted from the chart) 09/25 20:05 19:55 09/25/2019 19:55 Discharged to Home. Impression: Bronchitis, not specified as wh acute or chronic. Condition is Stable. Forms are Medication Reconciliation Form, Thank You Letter, Antibiotic Education, Prescription Opioid Use. Follow up: Emergency Department; When: As needed; Reason: Worsening of condition. Follow up: Private Physician; When: 2 - 3 days; Reason: Recheck today's complaints, Continuance of care, Re-evaluation by your physician. Problem is new. Symptoms have improved. pm1
--- NOTE | 2019-09-25 19:56 | ER ---
Nurse's Notes [facility] Name: Caroline Wise Age: 58 yrs Sex: Female : 1960 Arrival Date: 09/25/2019 Time: 17:19 Bed 13 Private MD: Diagnosis: Bronchitis, not specified as acute or chronic Presentation: 09/25 17:28 Presenting complaint: Patient states: cough for the last two weeks, coughing up "yellow la1 stuff". Transition of care: patient was not received from another setting of care. Onset of symptoms was September 25, 2019. Risk Assessment: Do you want to hurt yourself or someone else? Patient reports no desire to harm self or others. Initial Sepsis Screen: Does the patient meet any 2 criteria? No. Patient's initial sepsis screen is negative. Does the patient have a suspected source of infection? No. Patient's initial sepsis screen is negative. Care prior to arrival: None. 17:28 Method Of Arrival: Ambulatory la1 17:28 Acuity: SERAFIN 4 la1 Historical: - Allergies: 17:28 PENICILLINS; la1 17:28 Rocephin; la1 17:28 Toradol; la1 - PMHx: 17:28 Asthma; Hypertension; Hypothyroidism; la1 - Immunization history:: Adult Immunizations up to date, Last tetanus immunization:. - Social history:: Smoking status: Patient/guardian denies using tobacco. - Ebola Screening: : No symptoms or risks identified at this time. Screenin:50 Abuse screen: Denies threats or abuse. Nutritional screening: No deficits noted. aa5 Tuberculosis screening: No symptoms or risk factors identified. Fall Risk None identified. Assessment: 18:48 General: Appears comfortable, Behavior is calm, cooperative. Pain: Denies pain. Neuro: aa5 Level of Consciousness is awake, alert, obeys commands, Oriented to person, place, time, situation. Cardiovascular: Heart tones S1 S2 present Rhythm is regular. Respiratory: Reports cough that is productive, mild SOB at this time Airway is patent Respiratory effort is even, unlabored, Respiratory pattern is regular, symmetrical, Breath sounds with wheezes bilaterally. GI: No signs and/or symptoms were reported involving the gastrointestinal system. : No signs and/or symptoms were reported regarding the genitourinary system. EENT: No signs and/or symptoms were reported regarding the EENT system. Derm: Skin is dry, Skin is normal, Skin temperature is warm. Musculoskeletal: Range of motion: intact in all extremities. 19:00 Reassessment: Patient with neb at this time Patient states feeling better. Respiratory: lp1 Airway is patent Respiratory effort is even, Breath sounds with wheezes in right posterior middle lobe and right posterior lower lobe. Vital Signs: 17:28 Pulse 87; Resp 20; Temp 97.7; Pulse Ox 98% on R/A; Weight 113.4 kg; Height 5 ft. 3 in. la1 (160.02 cm); 17:30 BP 213 / 106; la1 18:49 BP 186 / 85; Pulse 65; Resp 20 S; Pulse Ox 100% on Nebulizer Mask; aa5 20:04 BP 169 / 79; Pulse 75; Resp 18; Pulse Ox 96% on R/A; wh 17:28 Body Mass Index 44.29 (113.40 kg, 160.02 cm) la1 ED Course: 17:19 Patient arrived in ED. as 17:28 Triage completed. la1 17:28 Arm band placed on right wrist. la1 18:33 Alfonso Alexander NP is PHCP. pm1 18:33 Trent Marshall MD is Attending Physician. pm1 18:40 Loly Chowdhury, KIMBERLEE is Primary Nurse. aa5 18:48 Patient has correct armband on for positive identification. Bed in low position. Call aa5 light in reach. Side rails up X2. Pulse ox on. NIBP on. 19:00 Report given to Lottie Tidwell RN. aa5 19:16 No provider procedures requiring assistance completed. lp1 19:21 Chest Pa And Lat (2 Views) XRAY In Process Unspecified. EDMS 20:04 Patient did not have IV access during this emergency room visit. wh Administered Medications: 18:49 Drug: predniSONE 60 mg Route: PO; aa5 20:05 Follow up: Response: No adverse reaction 18:49 Drug: Albuterol 5 mg Route: Inhalation; aa5 20:05 Follow up: Response: No adverse reaction; Wheezing diminished wh Outcome: 19:55 Discharge ordered by . pm1 20:03 Discharged to home ambulatory. 20:03 Condition: stable 20:03 Discharge instructions given to patient, Instructed on discharge instructions, follow up and referral plans. medication usage, POC Acute Bronchitis Demonstrated understanding of instructions, follow-up care, medications, POC Prescriptions given X 4. 20:05 Patient left the ED. Signatures: Dispatcher [employer] Hermila Kaur Audri, RN RN aa5 Lottie Tidwell RN RN lp1 Drew Sheikh RN RN la1 Alfonso Alexander, ELECTRONICS TECHNICIAN APPRENTICE ELECTRONICS TECHNICIAN APPRENTICE pm1 Genesis Luna
[2019-09-25 21:03] VITALS: TEMP 97.7
[2019-09-25 21:07] VITALS: BP 169/79; O2SAT 96
== END 2019-09-25 20:05 | disposition home or self-care (01) ==
LOC: ER 17:18
DX: J40 Bronchitis, not specified as acute or chronic (principal); I10 Essential (primary) hypertension; Z88.0 Allergy status to penicillin; Z88.1 Allergy status to other antibiotic agents; Z88.5 Allergy status to narcotic agent
CPT/HCPCS: 71046; 99284; J7512

== ENCOUNTER 2020-10-28 16:03 | Emergency (ER) | payer BC ==
--- OUTSIDE RECORDS SUMMARY | 2020-10-28 16:04 | XMS REPORT | Continuity of Care Document ---
:1960 Author Organization [facility] t Address [address] [place] [address] Care Team Providers Name Role Phone Miguel MORENO, A Attending Clinician Only, Test Attending Clinician Unavailable Miguel MORENO, A Admitting Clinician Payers Payer Name Policy Type Policy Number Effective Date Expiration Date S ource Problems This patient has no known problems. Allergies, Adverse Reactions, Alerts Allergy Allergy Status Severity Reaction(s) Onset Inactive Treating Comm ents Source Name Type Date Date Clinician No Known DA Active U 2016- [facility] 02-04 [facility] Medications This patient has no known medications. Procedures This patient has no known procedures. Encounters Start End Encounter Admission Attending Care Care Encounter Source Date/Time Date/Time Type Type Clinicians Facility Department ID 2020-05-22 2020-05-22 [facility] [id number] 08:54:05 11:20:00 Encounter Shaka Velásquez [id number] [place] [id number] Surgical [id number] [place] 071 2020-05-21 2020-05-21 Laboratory Only, [facility] [id number] 09:50:00 10:43:07 Only Test [place] [id number] [place] [id number] [place] [id number] Results This patient has no known results.
[2020-10-28] MEDS ORDERED: MORPHINE 2 MG/ML SYR ONE ×2 (18:06→20:52)
[2020-10-28 18:36] LABS: Absolute Lymphocytes (CBC) 2.2 K/uL (0.7-4.9); Basophils % 1.2 % (0-1.3); Hematocrit 37.5 % (36.0-45.0); Lymphocytes % 32.4 % (15.3-44.8); MPV 9.8 fL (7.6-11.3)
[2020-10-28 18:48] LABS: Protime INR 0.98
[2020-10-28 18:56] LABS: ALT/SGPT 17 U/L (12-78); AST/SGOT 17 U/L (15-37); Albumin 3.9 g/dL (3.4-5.0); Alkaline Phosphatase 114 U/L (45-117); BUN Blood Urea Nitrogen 21 mg/dL (7-18); Bicarbonate 30 mmol/L (21-32); Bilirubin Direct < 0.1 mg/dL (0-0.2); Bilirubin Total 0.4 mg/dL (0.2-1.0); Glucose Level 79 mg/dL (74-106); Lipase 88 U/L (73-393); Magnesium 2.1 mg/dL (1.8-2.4); NT PRO-BNP 414 pg/mL (<125); Potassium 3.8 mmol/L (3.5-5.1); Protein, Total 8.3 g/dL (6.4-8.2); Sodium Level 142 mmol/L (136-145); Troponin (Emerg Dept Use Only) < 0.02 ng/mL (0.0-0.045)
--- NOTE | 2020-10-28 19:46 | RAD REPORT ---
EXAM DESCRIPTION: CT - Angio Aorta For Dissection - 10/28/2020 7:22 pm CLINICAL HISTORY: back pain;Chest pain COMPARISON: Portable chest October 28 TECHNIQUE: Dynamically enhanced 3 mm thick images of the chest, abdomen, and upper pelvis were obtai higinio during administration of approximately 150mL Isovue 370 IV contrast. Sagittal and coronal reconst ruction images were generated using MIP and reviewed. Exam utilizes a protocol to evaluate entire cou rse of the aorta. All CT scans are performed using dose optimization technique as appropriate and may include automated exposure control or mA/KV adjustment according to patient size. FINDINGS: Aorta is normal in diameter with no dissection or other acute aortic findings. Reconstruct ion images show no significant findings. Pulmonary arteries are normal as well. No cardiomegaly, pericardial thickening or pericardial effusio n. Minimal interstitial thickening is seen and there is minimal ground-glass opacification in the lower lobes. Focal opacification is present in the lingula left upper lobe. In the infrahilar region of the lingula there is a 2 centimeter oval mass density at the proximal portion of the lingula opacificati on. This could be part of a round pneumonia or rounded atelectasis. This needs to be monitored on a f ollow-up study to assure this does not represent a lung mass. No pleural thickening, pleural effusion or pneumothorax. No abnormal mediastinal or hilar mass or lymphadenopathy seen. No chest wall mass or abnormal axillar y lymphadenopathy. Celiac, SMA and renal arteries show no suspicious findings. Solid abdominal viscera and bowel show no significant findings. No mass or abnormal lymphadenopathy. No free air, free fluid or inflammatory stranding. No urinary bladder abnormality. Uterus is absent. Ovaries are absent or atrophic. Lower lumbar degenerative changes are present relatively prominent for age. IMPRESSION: Negative CT scan of the aorta. Lingula anterior left lung base opacification is present favored to be atelectasis or pneumonia. In t he infrahilar region of the lingula there is a 2 centimeter oval mass density immediately proximal to the suspected atelectasis. The 2 centimeter mass density may be rounded atelectasis or pneumonia. Mass lesion is lesser in likel ihood but warrants repeat imaging in 3 months. Ground-glass opacities and interstitial opacification could be an mild pneumonitis or edema.
--- NOTE | 2020-10-28 20:37 | ER ---
Nurse's Notes [facility] Name: Caroline Wise Age: 59 yrs Sex: Female : 1960 Arrival Date: 10/28/2020 Time: 16:08 Bed 14 Private MD: Diagnosis: Pneumonia due to other specified infectious organisms Presentation: 10/28 16:13 Chief complaint: Patient states: Upper abd pain, chest, mid back pain since . ll1 Slight cough, no SOB. No fever. Coronavirus screen: Client denies travel out of the [place] in the last 14 days. cough unrelated to allergies, difficulty breathing, Client presents with at least one sign or symptom that may indicate coronavirus-19. Standard/surgical mask placed on the client. Ebola Screen: Patient denies travel to an Ebola-affected area in the 21 days before illness onset. Initial Sepsis Screen: Does the patient meet any 2 criteria? No. Patient's initial sepsis screen is negative. Does the patient have a suspected source of infection? Yes: Acute abdominal pain. Risk Assessment: Do you want to hurt yourself or someone else? Patient reports no desire to harm self or others. Onset of symptoms was October 23, 2020. 16:13 Method Of Arrival: Ambulatory ll1 16:13 Acuity: SERAFIN 3 ll1 Historical: - Allergies: 16:17 PENICILLINS; ll1 16:17 Rocephin; ll1 16:17 Toradol; ll1 - PMHx: 16:17 Asthma; Hypertension; Hypothyroidism; ll1 - PSHx: 16:17 cataract repair; Hysterectomy; Exploratory lap; both feet and thigh surgery; ll1 - Immunization history:: Flu vaccine is not up to date. - Social history:: Smoking status: Patient denies any tobacco usage or history of. Screenin:33 Abuse screen: Denies threats or abuse. Nutritional screening: No deficits noted. em Tuberculosis screening: No symptoms or risk factors identified. Fall Risk None identified. Assessment: 17:40 General: Appears in no apparent distress. comfortable, Behavior is calm, cooperative, em appropriate for age. Pain: Complains of pain in chest Pain radiates to left subscapular area and right subscapular area Pain began 4 days ago. Neuro: Level of Consciousness is awake, alert, obeys commands, Oriented to person, place, time, situation, Appropriate for age. Cardiovascular: Capillary refill < 3 seconds Patient's skin is warm and dry. Respiratory: Reports shortness of breath at rest cough that is Airway is patent Respiratory effort is even, unlabored, Respiratory pattern is regular, symmetrical. GI: Patient currently denies nausea. Derm: Skin is intact, is healthy with good turgor, Skin is pink, warm \T\ dry. Musculoskeletal: Capillary refill < 3 seconds, Range of motion: intact in all extremities. 18:30 Reassessment: Patient appears in no apparent distress at this time. Patient and/or em family updated on plan of care and expected duration. Pain level reassessed. Patient is alert, oriented x 3, equal unlabored respirations, skin warm/dry/pink. rates pain 5/10 Patient states feeling better. Patient states symptoms have improved. 20:52 Reassessment: Patient appears in no apparent distress at this time. Patient and/or mg2 family updated on plan of care and expected duration. Pain level reassessed. Vital Signs: 16:13 BP 196 / 78; Pulse 72; Resp 18; Temp 98.2; Pulse Ox 99% ; Weight 111.13 kg; Height 5 ll1 ft. 3 in. (160.02 cm); Pain 8/10; 17:45 BP 211 / 84 LA; Pulse 58; Resp 18; Pulse Ox 99% on R/A; Pain 8/10; em 17:46 BP 193 / 71 RA; Pulse 63; Resp 18; Pulse Ox 99% on R/A; em 18:30 BP 187 / 79; Pulse 62; Resp 18; Pulse Ox 97% on R/A; Pain 5/10; em 20:45 BP 164 / 56; Pulse 68; Resp 18; Temp 98; Pulse Ox 100% on R/A; mg2 16:13 Body Mass Index 43.40 (111.13 kg, 160.02 cm) ll1 ED Course: 16:08 Patient arrived in ED. ll1 16:15 Triage completed. ll1 16:17 Arm band placed on. ll1 17:18 Trent Velasquez PA is PHCP. cp 17:18 Ishmael Ly MD is Attending Physician. cp 17:19 Eulalio Vazquez, RN is Primary Nurse. em 17:34 Patient has correct armband on for positive identification. Placed in gown. Bed in low em position. Call light in reach. Side rails up X2. Pulse ox on. NIBP on. 19:23 CT Aorta for Dissection In Process Unspecified. EDMS 19:58 Chest Single View In Process Unspecified. EDMS 20:53 No provider procedures requiring assistance completed. IV discontinued, intact, mg2 bleeding controlled, No redness/swelling at site. Pressure dressing applied. Administered Medications: 18:32 Drug: morphine 2 mg Route: IVP; Site: left antecubital; em 18:52 Follow up: Response: No adverse reaction; Marked relief of symptoms; Pain is decreased; em RASS: Alert and Calm (0) 20:52 Drug: LevaQUIN 750 mg Route: PO; mg2 Outcome: 20:36 Discharge ordered by MD. cp 20:53 Discharged to home ambulatory. mg2 20:53 Condition: stable 20:53 Discharge instructions given to patient, Instructed on discharge instructions, follow up and referral plans. medication usage, Demonstrated understanding of instructions, follow-up care, medications, Prescriptions given X 3. 20:53 Patient left the ED. mg2 Signatures: Dispatcher [employer] EDAZ Eulalio Vazquez RN RN em Trent Velasquez PA PA Montez Hatfield RN RN mg2 Reg Mendez RN RN ll1 Corrections: (The following items were deleted from the chart) 17:45 17:45 BP 211 / 84; Pulse 58bpm; Resp 18bpm; Pulse Ox 99% RA; Pain 8/10; em em
--- NOTE | 2020-10-28 20:38 | EDPHYS ---
Physician Documentation [facility] Name: Caroline Wise Age: 59 yrs Sex: Female : 1960 Arrival Date: 10/28/2020 Time: 16:08 Bed 14 Private MD: ED Physician Ishmael Ly HPI: 10/28 17:45 This 59 yrs old Black Female presents to ER via Ambulatory with complaints of Back cp Pain, Chest Pain. 17:45 The patient or guardian reports chest pain that is located primarily in the diaphragm. cp Onset: 5 day(s) ago. The patient presents with pain that is acute, with no known mechanism of injury. The symptoms are located in the left scapular area, right scapular area, left subscapular area and right subscapular area. Onset: The symptoms/episode began/occurred 5 day(s) ago. Associated signs and symptoms: Pertinent positives: non-productive cough, Pertinent negatives: abdominal pain, constipation, dysuria, fever, headache, weakness. Patient reports pain in chest radiates to back, worse with cough and deep inspiration. Historical: - Allergies: 16:17 PENICILLINS; ll1 16:17 Rocephin; ll1 16:17 Toradol; ll1 - PMHx: 16:17 Asthma; Hypertension; Hypothyroidism; ll1 - PSHx: 16:17 cataract repair; Hysterectomy; Exploratory lap; both feet and thigh surgery; ll1 - Immunization history:: Flu vaccine is not up to date. - Social history:: Smoking status: Patient denies any tobacco usage or history of. ROS: 17:55 Constitutional: Negative for body aches, chills, fever, poor PO intake. cp 17:55 Eyes: Negative for injury, pain, redness, and discharge. cp 17:55 ENT: Negative for ear pain, sore throat, difficulty swallowing, difficulty handling secretions. 17:55 Neck: Negative for pain with movement, pain at rest, stiffness. 17:55 Cardiovascular: Positive for chest pain, of the diaphragm, Negative for edema, palpitations. 17:55 Respiratory: Positive for cough, with no reported sputum, Negative for shortness of breath, wheezing. 17:55 Abdomen/GI: Negative for nausea, vomiting, and diarrhea, constipation. 17:55 Back: Positive for radiated pain. 17:55 Skin: Negative for cellulitis, rash. 17:55 Neuro: Negative for altered mental status, dizziness, headache, numbness, syncope, weakness. 17:55 All other systems are negative. Exam: 16:33 ECG was reviewed by the Attending Physician. cp 18:00 Constitutional: The patient appears in no acute distress, alert, awake, cp non-diaphoretic, non-toxic, well developed, well nourished. 18:00 Head/Face: Normocephalic, atraumatic. cp 18:00 Eyes: Periorbital structures: appear normal, Conjunctiva: normal, no exudate, no injection, Sclera: no appreciated abnormality, Lids and lashes: appear normal, bilaterally. 18:00 ENT: External ear(s): are unremarkable, Ear canal(s): are normal, clear, TM's: dullness, bilaterally, Nose: is normal, Mouth: Lips: moist, Oral mucosa: moist, Posterior pharynx: Airway: no evidence of obstruction, patent, Tonsils: are normal in appearance, erythema, is not appreciated, exudate, is not appreciated. 18:00 Neck: ROM/movement: is normal, is supple, without pain, no range of motions limitations. 18:00 Chest/axilla: Inspection: normal, Palpation: is normal, no crepitus, no tenderness. 18:00 Cardiovascular: Rate: normal, Rhythm: regular, Pulses: Pulses are 2+ in right radial artery and left radial artery. Edema: is not appreciated. 18:00 Respiratory: the patient does not display signs of respiratory distress, Respirations: normal, Breath sounds: are clear throughout, no decreased breath sounds, no stridor, no wheezing. 18:00 Abdomen/GI: Inspection: abdomen appears normal, Bowel sounds: active, all quadrants. 18:00 Back: pain, that is mild, of the left scapular area, right scapular area, left subscapular area and right subscapular area, ROM is painful, with all movement, CVA tenderness, is absent, muscle spasm, is not present. 18:00 Skin: no rash present. 18:00 Neuro: Orientation: to person, place \T\ time. Mentation: is normal, Motor: moves all fours, strength is normal. Vital Signs: 16:13 BP 196 / 78; Pulse 72; Resp 18; Temp 98.2; Pulse Ox 99% ; Weight 111.13 kg; Height 5 ll1 ft. 3 in. (160.02 cm); Pain 8/10; 17:45 BP 211 / 84 LA; Pulse 58; Resp 18; Pulse Ox 99% on R/A; Pain 8/10; em 17:46 BP 193 / 71 RA; Pulse 63; Resp 18; Pulse Ox 99% on R/A; em 18:30 BP 187 / 79; Pulse 62; Resp 18; Pulse Ox 97% on R/A; Pain 5/10; em 20:45 BP 164 / 56; Pulse 68; Resp 18; Temp 98; Pulse Ox 100% on R/A; mg2 16:13 Body Mass Index 43.40 (111.13 kg, 160.02 cm) ll1 MDM: 17:25 Patient medically screened. cp 20:35 Data reviewed: vital signs, nurses notes, lab test result(s), EKG, radiologic studies, cp CT scan, plain films. 20:35 Test interpretation: by ED physician or midlevel provider: ECG, plain radiologic cp studies. Counseling: I had a detailed discussion with the patient and/or guardian regarding: the historical points, exam findings, and any diagnostic results supporting the discharge/admit diagnosis, the presence of at least one elevated blood pressure reading (>120/80) during this emergency department visit, lab results, radiology results, the need for outpatient follow up, a family practitioner, to return to the emergency department if symptoms worsen or persist or if there are any questions or concerns that arise at home. ED course: VSS. Patient appears non-toxic and no signs of respiratory distress. Will discharge to home for continued monitoring. 10/28 18:33 Order name: Basic Metabolic Panel; Complete Time: 18:57 EDMS 10/28 18:58 Interpretation: Normal except: BUN 21; GFR 58. cp 10/28 18:33 Order name: Liver (Hepatic) Function; Complete Time: 18:57 EDMS 10/28 18:33 Order name: Troponin (Emerg Dept Use Only); Complete Time: 18:57 EDMS 10/28 18:33 Order name: NT PRO-BNP; Complete Time: 18:57 EDMS 10/28 18:33 Order name: Magnesium; Complete Time: 18:57 EDMS 10/28 18:33 Order name: Lipase; Complete Time: 18:57 EDMS 10/28 17:40 Order name: Cardiac monitoring; Complete Time: 18:06 cp 10/28 17:40 Order name: IV Saline Lock; Complete Time: 18:06 cp 10/28 17:40 Order name: Labs collected and sent; Complete Time: 17:44 cp 10/28 17:40 Order name: O2 Per Protocol; Complete Time: 17:44 cp 10/28 17:40 Order name: O2 Sat Monitoring; Complete Time: 17:44 cp 10/28 17:40 Order name: Blood Pressure Recheck: bilateral upper extremity; Complete Time: 17:44 cp 10/28 18:33 Order name: CBC with Automated Diff; Complete Time: 18:57 EDMS 10/28 18:33 Order name: Protime (+INR); Complete Time: 18:57 EDMS 10/28 18:39 Order name: Chest Single View EDMS 10/28 18:59 Order name: CT Aorta for Dissection; Complete Time: 20:29 cp EC:33 Rate is 72 beats/min. Rhythm is regular. LA interval is normal. QRS interval is normal. cp QT interval is normal. T waves are Flattened in lead aVL. Interpreted by me. Reviewed by me. Administered Medications: 18:32 Drug: morphine 2 mg Route: IVP; Site: left antecubital; em 18:52 Follow up: Response: No adverse reaction; Marked relief of symptoms; Pain is decreased; em RASS: Alert and Calm (0) 20:52 Drug: LevaQUIN 750 mg Route: PO; mg2 Disposition: 10/29 07:06 Co-signature as Attending Physician, Ishmael Ly MD. rn Disposition: 10/28/20 20:36 Discharged to Home. Impression: Pneumonia due to other specified infectious organisms. - Condition is Stable. - Discharge Instructions: Community-Acquired Pneumonia, Adult, COVID-19. - Prescriptions for Levaquin 500 mg Oral Tablet - take 1 tablet by ORAL route once daily for 7 days start taking evening of 10-29-2020; 7 tablet. Albuterol Sulfate 90 mcg/actuation - inhale 1-2 puff by INHALATION route every 4-6 hours; 1 Inhaler. Tramadol 50 mg Oral Tablet - take 1 tablet by ORAL route every 8 hours as needed; 12 tablet. - Medication Reconciliation Form, Thank You Letter, Antibiotic Education, Prescription Opioid Use form. - Follow up: Private Physician; When: 2 - 3 days; Reason: Recheck today's complaints. - Problem is new. - Symptoms have improved. Signatures: Dispatcher [employer] [facility] Eulalio Vazquez, RN RN Ishmael Liriano MD MD rn Page, Corey, PA PA cp Montez Mcduffie RN RN mg2 Reg Mendez RN RN ll1 Corrections: (The following items were deleted from the chart) 10/28 19:56 18:51 Chest Single View+RAD.RAD.BRZ ordered. [facility] 20:53 20:36 10/28/2020 20:36 Discharged to Home. Impression: Pneumonia due to other specified mg2 infectious organisms. Condition is Stable. Forms are Medication Reconciliation Form, Thank You Letter, Antibiotic Education, Prescription Opioid Use. Follow up: Private Physician; When: 2 - 3 days; Reason: Recheck today's complaints. Problem is new. Symptoms have improved. cp
[2020-10-28] MEDS ORDERED: levoFLOXacin 750 MG TAB ONE (20:51)
--- NOTE | 2020-10-28 21:14 | RAD REPORT ---
EXAM DESCRIPTION: RAD - Chest Single View - 10/28/2020 7:58 pm CLINICAL HISTORY: CHEST PAIN COMPARISON: Two view chest September 2019 TECHNIQUE: AP portable chest image was obtained 10/28/2020 7:58 pm . FINDINGS: No peripheral mass consolidation. Lung markings match comparison. Portable technique and b luc habitus limit the examination. Heart and vasculature are normal. No measurable pleural effusion a nd no pneumothorax. No acute bony abnormality seen. No acute aortic findings suspected. IMPRESSION: No acute cardiopulmonary process. Limited portable study not clearly different from September 2019.
[2020-10-28 21:28] VITALS: BP 164/56; TEMP 98; O2SAT 100
--- NOTE | 2020-10-29 16:07 | EKG ---
Test Date: 2020-10-28 Test Time: 16:25:13 Patient Observation Assistant: JOHN MEASUREMENT RESULTS: Intervals: Rate: 72 NC: 158 QRSD: 84 QT: 408 QTc: 446 [place]: P: 55 NC: 158 QRS: 44 T: 72 INTERPRETIVE STATEMENTS: Normal sinus rhythm Normal ECG Compared to ECG 06/01/2018 19:23:18 T-wave abnormality no longer present Electronically Signed On 10-29-20 16:05:36 GLOBAL PRESIDENT by Ezekiel Ruiz
== END 2020-10-28 20:53 | disposition home or self-care (01) ==
LOC: ER 16:03
DX: J16.8 Pneumonia due to other specified infectious organisms (principal); I10 Essential (primary) hypertension; Z88.0 Allergy status to penicillin; Z88.3 Allergy status to other anti-infective agents; Z88.5 Allergy status to narcotic agent
CPT/HCPCS: 93005; 85025; 80048; 36415; 83735; 85610; 80076; 84484; 83690; 83880; 71275; 74175; 71045; 96374; 99284; Q9967; J2270 ×2

== ENCOUNTER 2021-01-09 15:31 | Emergency (ER) | payer BC ==
--- OUTSIDE RECORDS SUMMARY | 2021-01-09 15:34 | XMS REPORT | Continuity of Care Document ---
:1960 Author Organization [facility]ly [facility] t Address [address] [place] [address] Care Team Providers Name Role Phone Miguel [...] [facility] [place] Medications This patient has no known medications. Procedures This patient has no known procedures. Encounters Start End Encounter Admission Attending Care Care Encounter Source Date/Time Date/Time Type Type Clinicians Facility Department ID 2020-05-22 2020-05-22 [facility] [id number] 08:54:05 11:20:00 Encounter Shaka Velásquez [id number] [place] [id number] Surgical [id number] [place] 071 2020-05-21 2020-05-21 Laboratory Only, [facility] [id number] 09:50:00 10:43:07 Only Test [place] [id number] [place] [id number] [place] [id number] Results This patient has no known results.
[2021-01-09 18:09] LABS: SARS-COV-2 RT PCR NEGATIVE (NEGATIVE)
--- NOTE | 2021-01-09 18:35 | RAD REPORT ---
EXAM DESCRIPTION: [place] Pa And Lat (2 Views)01/09/2021 4:55 pm CLINICAL HISTORY: Cough COMPARISON: October 2020 FINDINGS: Lingular opacity. Right lung appears clear of acute infiltrate. The heart is mildly enlar ged IMPRESSION: Lingular opacity probably pneumonia
--- NOTE | 2021-01-09 19:15 | ER ---
Nurse's Notes [facility] Name: Caroline Wise Age: 60 yrs Sex: Female : 1960 Arrival Date: 01/09/2021 Time: 15:37 Bed 13 Private MD: Stepan Cooper H Diagnosis: Pneumonia due to other specified infectious organisms;Unspecified asthma with (acute) exacerbation;Hypertensive heart disease Presentation: 01/09 16:23 Chief complaint: Patient states: Cough, SOB since morning. HX of Asthma, had breathing ca1 treatment with little relief. Reports pain on the L upper back. Coronavirus screen: Client denies travel out of the [place] in the last 14 days. At this time, the client does not indicate any symptoms associated with coronavirus-19. Ebola Screen: Patient negative for fever greater than or equal to 101.5 degrees Fahrenheit, and additional compatible Ebola Virus Disease symptoms Patient denies exposure to infectious person. Patient denies travel to an Ebola-affected area in the 21 days before illness onset. No symptoms or risks identified at this time. Initial Sepsis Screen: Does the patient meet any 2 criteria? No. Patient's initial sepsis screen is negative. Does the patient have a suspected source of infection? No. Patient's initial sepsis screen is negative. Risk Assessment: Do you want to hurt yourself or someone else? Patient reports no desire to harm self or others. Onset of symptoms was January 09, 2021. 16:23 Method Of Arrival: Ambulatory ca1 16:23 Acuity: SERAFIN 3 ca1 Triage Assessment: 18:30 General: Appears in no apparent distress. Behavior is cooperative, agitated, anxious. zb Respiratory: Reports shortness of breath at rest Onset: The symptoms/episode began/occurred today, the patient has mild shortness of breath. Historical: - Allergies: 16:27 PENICILLINS; ca1 16:27 Rocephin; ca1 16:27 Toradol; ca1 - PMHx: 16:27 Asthma; Hypertension; Hypothyroidism; ca1 - PSHx: 16:27 Hysterectomy; Exploratory lap; both feet and thigh surgery; cataract repair; ca1 - Immunization history:: Flu vaccine is not up to date. - Social history:: Smoking status: Patient denies any tobacco usage or history of. Screenin:14 Abuse screen: Denies threats or abuse. Denies injuries from another. Nutritional ss screening: No deficits noted. Tuberculosis screening: Never had TB. Fall Risk None identified. Assessment: 18:30 General: Appears uncomfortable, Behavior is cooperative, agitated, anxious. Pain: zb Denies pain. Neuro: Level of Consciousness is awake, alert, obeys commands, Oriented to person, place, time, situation. Cardiovascular: Reports shortness of breath, Heart tones S1 S2 present Capillary refill < 3 seconds in bilateral fingers Patient's skin is warm and dry. Pulses are all present. Cardiovascular: Rhythm is regular. Respiratory: Airway is patent Respiratory effort is even, unlabored, Respiratory pattern is regular, Breath sounds are clear bilaterally. GI: Abdomen is round non-distended, obese. : No signs and/or symptoms were reported regarding the genitourinary system. EENT: No signs and/or symptoms were reported regarding the EENT system. Derm: Skin is intact, is healthy with good turgor, Skin is dry, Skin is pink, warm \\T\\ dry. normal, Skin temperature is warm. Musculoskeletal: Range of motion: intact in all extremities. 19:00 Reassessment: Pt is refusing IV start and lab work. SANGITA Shea notified. Pt states ss she did not take her BP medication today. Vital Signs: 16:23 BP 184 / 71; Pulse 86; Resp 18 S; Temp 97.3(TE); Pulse Ox 99% on R/A; Weight 113.4 kg ca1 (R); Height 5 ft. 3 in. (160.02 cm) (R); Pain 9/10; 19:14 BP 197 / 98; Pulse 73; Resp 17; Pulse Ox 99% on R/A; ss 19:18 BP 102 / 66; Pulse 101; Resp 17; Pulse Ox 99% ; tt3 16:23 Body Mass Index 44.29 (113.40 kg, 160.02 cm) ca1 ED Course: 15:37 Patient arrived in ED. am2 15:39 Stepan Cooper DO is Private Physician. am2 16:26 Triage completed. ca1 16:27 Arm band placed on right wrist. ca1 16:33 COVID-19 : Document "Date of Symptom Onset" if Symptomatic. Sent. ca1 16:33 Flu Sent. ca1 18:37 Brown, Jess, RN is Primary Nurse. zb 18:37 [facility]. cp 18:37 Trent Marshall MD is Attending Physician. cp 19:14 Patient has correct armband on for positive identification. Bed in low position. Call ss light in reach. 19:24 No provider procedures requiring assistance completed. Patient did not have IV access ss during this emergency room visit. Administered Medications: 19:11 Not Given (Pt refused. Provider changed order): hydrALAZINE 20 mg IV at calculated rate ss once; For SBP > 140 mmHg. Hold if less than 120 mmHg. 19:13 Not Given (Medication not available. SANGITA Newman notified ): Benicar 15 mg PO once ss 19:14 Not Given (Patient Refused): SOLU-Medrol 125 mg IVP once ss 19:23 Drug: predniSONE 60 mg Route: PO; ss 19:24 Follow up: Response: Medication administered at discharge. ss Outcome: 19:14 Discharge ordered by MD. cp 19:24 Discharged to home ambulatory. ss 19:24 Condition: improved 19:24 Discharge instructions given to patient, Instructed on discharge instructions, follow up and referral plans. medication usage, Demonstrated understanding of instructions, follow-up care, medications, Prescriptions given X 4. 19:25 Patient left the ED. ss Signatures: Meron Pulido, RN RN Trent Velasquez PA PA cp Moreno, Amanda am2 Claire Ferguson RN RN ca1 Amos Garcia tt3 Jess Felix RN RN zb
--- NOTE | 2021-01-09 19:15 | EDPHYS ---
Physician Documentation [facility] Name: Caroline Wise Age: 60 yrs Sex: Female : 1960 Arrival Date: 01/09/2021 Time: 15:37 Bed 13 Private MD: Stepan Cooper H ED Physician Trent Marshall HPI: 01/09 18:55 This 60 yrs old Black Female presents to ER via Ambulatory with complaints of Breathing cp Difficulty. 18:55 The patient has shortness of breath at rest. Onset: The symptoms/episode began/occurred cp this morning. Duration: The symptoms are continuous. Associated signs and symptoms: Pertinent positives: non-productive cough, left mid back pain, Pertinent negatives: chest pain, diaphoresis, dizziness, fever, hemoptysis. Severity of symptoms: in the emergency department the symptoms are unchanged despite home interventions. Patient reports history of asthma and HTN. Has been doing breathing treatments at home without improvement. Patient reports not taking hypertensive medication today. Historical: - Allergies: 16:27 PENICILLINS; ca1 16:27 Rocephin; ca1 16:27 Toradol; ca1 - PMHx: 16:27 Asthma; Hypertension; Hypothyroidism; ca1 - PSHx: 16:27 Hysterectomy; Exploratory lap; both feet and thigh surgery; cataract repair; ca1 - Immunization history:: Flu vaccine is not up to date. - Social history:: Smoking status: Patient denies any tobacco usage or history of. ROS: 19:00 Eyes: Negative for injury, pain, redness, and discharge. cp 19:00 Constitutional: Negative for body aches, chills, fever, poor PO intake. 19:00 ENT: Negative for ear pain, sinus congestion, sinus pain, sore throat, difficulty swallowing, difficulty handling secretions. 19:00 Cardiovascular: Negative for chest pain, edema, palpitations. 19:00 Respiratory: Positive for cough, with no reported sputum, shortness of breath, wheezing. 19:00 Abdomen/GI: Negative for abdominal pain, nausea, vomiting, and diarrhea. 19:00 Back: Positive for pain at rest. 19:00 Neuro: Negative for altered mental status, dizziness, headache, syncope, weakness. 19:00 All other systems are negative. Exam: 19:05 Head/Face: Normocephalic, atraumatic. cp 19:05 Constitutional: The patient appears in no acute distress, alert, awake, comfortable, non-diaphoretic, non-toxic, well developed, well nourished, obese. 19:05 Eyes: Periorbital structures: appear normal, Conjunctiva: normal, no exudate, no injection, Sclera: no appreciated abnormality, Lids and lashes: appear normal, bilaterally. 19:05 ENT: External ear(s): are unremarkable, Nose: is normal, Mouth: Lips: moist, Oral mucosa: pink and intact, moist, Posterior pharynx: Airway: no evidence of obstruction, patent. 19:05 Neck: ROM/movement: is normal, is supple, without pain, no range of motions limitations, no nuchal rigidity. 19:05 Chest/axilla: Inspection: normal, Palpation: is normal, no crepitus, no tenderness. 19:05 Cardiovascular: Rate: normal, Rhythm: regular, Edema: is not appreciated, JVD: is not appreciated. 19:05 Respiratory: the patient does not display signs of respiratory distress, Respirations: normal, no use of accessory muscles, no retractions, no splinting, no tachypnea, labored breathing, is not present, Breath sounds: decreased breath sounds, are not appreciated, stridor, is not appreciated, wheezing: expiratory that is mild, is heard diffusely. 19:05 Abdomen/GI: Exam negative for discomfort, distension, guarding, Inspection: abdomen appears normal. 19:05 Back: pain, that is mild, of the left subscapular area, ROM is normal. 19:05 Skin: no rash present. 19:05 Neuro: Orientation: to person, place \\T\\ time. Mentation: is normal, Motor: moves all fours, strength is normal. Vital Signs: 16:23 BP 184 / 71; Pulse 86; Resp 18 S; Temp 97.3(TE); Pulse Ox 99% on R/A; Weight 113.4 kg ca1 (R); Height 5 ft. 3 in. (160.02 cm) (R); Pain 9/10; 19:14 BP 197 / 98; Pulse 73; Resp 17; Pulse Ox 99% on R/A; ss 19:18 BP 102 / 66; Pulse 101; Resp 17; Pulse Ox 99% ; tt3 16:23 Body Mass Index 44.29 (113.40 kg, 160.02 cm) ca1 MDM: 18:39 Patient medically screened. joseline 19:10 Differential diagnosis: asthma, Bronchitis pneumonia, Pneumothorax pulmonary edema, cp Pulmonary Embolism. 19:14 Data reviewed: vital signs, nurses notes, lab test result(s), radiologic studies, plain cp films. Test interpretation: by ED physician or midlevel provider: plain radiologic studies. Counseling: I had a detailed discussion with the patient and/or guardian regarding: the historical points, exam findings, and any diagnostic results supporting the discharge/admit diagnosis, the presence of at least one elevated blood pressure reading (>120/80) during this emergency department visit, lab results, the need for outpatient follow up, a family practitioner, to return to the emergency department if symptoms worsen or persist or if there are any questions or concerns that arise at home. 19:14 ED course: VS noted with elevated blood pressure. Patient refuses any further testing cp at this time, IV meds for blood pressure and is requesting discharge to home. Will return to ED worsening symptoms. Patient reports having blood pressure medication waiting for pick-up at pharmacy. 01/09 16:29 Order name: [facility] 01/09 16:32 Order name: COVID-19 : Document "Date of Symptom Onset" if Symptomatic. [facility] 01/09 17:21 Order name: [facility] 01/09 17:21 Order name: Influenza Screen (A EDMA 01/09 18:09 Order name: COVID-19/FLU A+B; Complete Time: 18:37 EDMA 01/09 18:48 Order name: Basic Metabolic Panel 01/09 18:48 Order name: CBC with Diff cp 01/09 18:48 Order name: LFT's cp 01/09 18:48 Order name: Magnesium cp 01/09 18:48 Order name: NT PRO-BNP 01/09 18:48 Order name: PT-INR cp 01/09 18:48 Order name: Procalcitonin 01/09 16:29 Order name: Chest Pa And Lat (2 Views) XRAY ca1 01/09 18:35 Order name: RAD; Complete Time: 18:37 EDMA 01/09 18:48 Order name: XRAY Chest (1 view) cp 01/09 18:48 Order name: Cardiac monitoring; Complete Time: 19:11 cp 01/09 18:48 Order name: O2 Per Protocol; Complete Time: 19:12 01/09 18:48 Order name: O2 Sat Monitoring; Complete Time: 19:12 01/09 19:05 Order name: CORONAVIR[facility] EDMA Administered Medications: 19:11 Not Given (Pt refused. Provider changed order): hydrALAZINE 20 mg IV at calculated rate ss once; For SBP > 140 mmHg. Hold if less than 120 mmHg. 19:13 Not Given (Medication not available. SANGITA Newman notified ): Benicar 15 mg PO once ss 19:14 Not Given (Patient Refused): SOLU-Medrol 125 mg IVP once ss 19:23 Drug: predniSONE 60 mg Route: PO; ss 19:24 Follow up: Response: Medication administered at discharge. ss Disposition: 01/09/21 19:14 Discharged to Home. Impression: Pneumonia due to other specified infectious organisms, Unspecified asthma with (acute) exacerbation, Hypertensive heart disease. - Condition is Stable. - Discharge Instructions: Asthma, Adult, Hypertension, Community-Acquired Pneumonia, Adult, Managing Your Hypertension. - Prescriptions for Albuterol Sulfate 2.5 mg /3 mL (0.083 %) Inhalation Solution for Nebulization - inhale 1 unit by NEBULIZATION route every 8 hours As needed; 1 box. Prednisone 20 mg Oral Tablet - take 2 tablet by ORAL route once daily for 5 days; 10 tablet. Doxycycline Monohydrate 100 mg Oral Tablet - take 1 tablet by ORAL route every 12 hours for 10 days; 20 tablet. Albuterol Sulfate 90 mcg/actuation - inhale 1-2 puff by INHALATION route every 4-6 hours; 1 Inhaler. - Work release form, Medication Reconciliation Form, Thank You Letter, Antibiotic Education, Prescription Opioid Use form. - Follow up: Private Physician; When: 1 - 2 days; Reason: Recheck today's complaints. - Problem is new. - Symptoms have improved. Addendum: 01/12/2021 08:13 Co-signature as Attending Physician, Trent Marshall MD I agree with the assessment and c courtney plan of care. Signatures: Dispatcher [employer] EDMA Trent Marshall MD MD cha Smirch, Shelby, RN RN Trent Velasquez PA PA cp Acob, Cheryl RN RN [facility] Corrections: (The following items were deleted from the chart) 01/09 19:12 18:48 IV Saline Lock ordered. cp ss 19: 18:48 Labs collected and sent ordered. cp ss 19:24 18:48 EKG - Nurse/Tech ordered. cp ss 19:25 19:14 01/09/2021 19:14 Discharged to Home. Impression: Pneumonia due to other specified ss infectious organisms; Unspecified asthma with (acute) exacerbation; Hypertensive heart disease. Condition is Stable. Forms are Medication Reconciliation Form, Thank You Letter, Antibiotic Education, Prescription Opioid Use. Follow up: Private Physician; When: 1 - 2 days; Reason: Recheck today's complaints. Problem is new. Symptoms have improved. cp
[2021-01-09] MEDS ORDERED: predniSONE 20 MG TAB ONE (19:28)
[2021-01-09 19:33] VITALS: TEMP 97.3; O2SAT 99
[2021-01-09 19:36] VITALS: BP 102/66
== END 2021-01-09 19:25 | disposition home or self-care (01) ==
LOC: ER 15:31
DX: J16.8 Pneumonia due to other specified infectious organisms (principal); J45.901 Unspecified asthma with (acute) exacerbation; I11.9 Hypertensive heart disease without heart failure; Z20.822 Contact with and (suspected) exposure to COVID-19; Z88.0 Allergy status to penicillin; Z88.1 Allergy status to other antibiotic agents; Z88.5 Allergy status to narcotic agent
CPT/HCPCS: 0240U; 71046; 99283; J7512

== ENCOUNTER 2021-05-02 15:22 | Emergency (ER) | payer BC ==
--- OUTSIDE RECORDS SUMMARY | 2021-05-02 15:28 | XMS REPORT | Continuity of Care Document ---
:1960 Author Organization [facility] t Address [address] [place] [address] Care Team Providers Name Role Phone Miguel [...] [facility] [place] Medications This patient has no known medications. Procedures This patient has no known procedures. Encounters Start End Encounter Admission Attending Care Care Encounter Source Date/Time Date/Time Type Type Clinicians Facility Department ID 2020-05-22 2020-05-22 [facility] [id number] 08:54:05 11:20:00 Encounter Shaka Velásquez [id number] [place] [id number] Surgical [id number] [place] 071 2020-05-21 2020-05-21 Laboratory Only, [facility] [id number] 09:50:00 10:43:07 Only Test [place] [id number] [place] [id number] [place] [id number] Results This patient has no known results.
[2021-05-02] MEDS ORDERED: IPRATROPIUM BROM 0.5MG/2.5ML ONE (17:52)
[2021-05-02] MEDS ORDERED: METHYLPREDNISOLONE 125 MG INJ ONE (17:52)
[2021-05-02] MEDS ORDERED: ALBUTEROL 2.5 MG/3 ML NEB SOL ONE (17:52)
--- NOTE | 2021-05-02 18:29 | RAD REPORT ---
EXAM DESCRIPTION: [place] Single View05/02/2021 6:19 pm CLINICAL HISTORY: Cough COMPARISON: December 2020 FINDINGS: Lingular opacity. Right lung appears clear. The heart is mildly to moderately enlarged IMPRESSION: Lingular opacity probably pneumonia
--- NOTE | 2021-05-02 18:50 | ER ---
Nurse's Notes [facility] Name: Caroline Wise Age: 60 yrs Sex: Female : 1960 Arrival Date: 05/02/2021 Time: 15:26 Bed 14 Private MD: Stepan Cooper H Diagnosis: Mild intermittent asthma with (acute) exacerbation;Pneumonia, unspecified organism Presentation: 05/02 15:36 Chief complaint: Patient states: SOB, wheezing, asthma attack since last night. No ll1 fever. Coronavirus screen: Client denies travel out of the [place] in the last 14 days. cough unrelated to allergies, difficulty breathing, shortness of breath, Client presents with at least one sign or symptom that may indicate coronavirus-19. Standard/surgical mask placed on the client. Ebola Screen: Patient denies travel to an Ebola-affected area in the 21 days before illness onset. Initial Sepsis Screen: Does the patient meet any 2 criteria? No. Patient's initial sepsis screen is negative. Does the patient have a suspected source of infection? Yes: Productive cough/pneumonia. Risk Assessment: Do you want to hurt yourself or someone else? Patient reports no desire to harm self or others. Onset of symptoms was May 01, 2021. 15:36 Method Of Arrival: Ambulatory ll1 15:36 Acuity: SERAFIN 3 ll1 Historical: - Allergies: 15:39 Toradol; ll1 15:39 PENICILLINS; ll1 15:39 Rocephin; ll1 - PMHx: 15:39 Asthma; Hypertension; Hypothyroidism; ll1 - PSHx: 15:39 hysterectomy, exp. lap, cataract repair, B foot SX; ll1 - Immunization history:: Client reports having NOT received the Covid vaccine. Flu vaccine is not up to date. - Social history:: Smoking status: Patient denies any tobacco usage or history of. Screenin:45 Abuse screen: Denies threats or abuse. Denies injuries from another. Nutritional ca1 screening: No deficits noted. Tuberculosis screening: No symptoms or risk factors identified. Fall Risk None identified. Assessment: 16:45 General: Appears in no apparent distress. comfortable, Behavior is calm, cooperative, ca1 appropriate for age. Pain: Denies pain. Neuro: Level of Consciousness is awake, alert, obeys commands, Oriented to person, place, time, situation. Cardiovascular: Heart tones S1 S2 present Capillary refill < 3 seconds Patient's skin is warm and dry. Respiratory: Reports shortness of breath since yesterday cough that is Airway is patent Respiratory effort is even, unlabored, Respiratory pattern is regular, symmetrical, Breath sounds with wheezes bilaterally. GI: Abdomen is round non-distended, Bowel sounds present X 4 quads. Abd is soft and non tender X 4 quads. Derm: Skin is intact, is healthy with good turgor, Skin is pink, warm \T\ dry. Musculoskeletal: Circulation, motion, and sensation intact. Capillary refill < 3 seconds. 17:41 Reassessment: Patient appears in no apparent distress at this time. Patient and/or ca1 family updated on plan of care and expected duration. Pain level reassessed. Patient is alert, oriented x 3, equal unlabored respirations, skin warm/dry/pink. 18:37 Reassessment: Patient appears in no apparent distress at this time. Patient and/or ca1 family updated on plan of care and expected duration. Pain level reassessed. Patient is alert, oriented x 3, equal unlabored respirations, skin warm/dry/pink. Vital Signs: 15:36 BP 173 / 67; Pulse 88; Resp 18; Temp 97.9; Pulse Ox 97% ; Weight 113.4 kg; Height 5 ft. ll1 3 in. (160.02 cm); Pain 5/10; 17:41 BP 137 / 70; Pulse 83; Resp 18 S; Pulse Ox 100% on R/A; ca1 18:37 BP 167 / 70; Pulse 77; Resp 19 S; Pulse Ox 100% on R/A; ca1 15:36 Body Mass Index 44.29 (113.40 kg, 160.02 cm) ll1 ED Course: 15:26 Patient arrived in ED. mr 15:26 Stepan Cooper DO is Private Physician. mr 15:36 Arm band placed on. ll1 15:39 Triage completed. ll1 16:34 Patient placed in an exam room, on a stretcher. iw 16:35 Claire Ferguson, RN is Primary Nurse. ca1 16:45 Patient has correct armband on for positive identification. Bed in low position. Call ca1 light in reach. Side rails up X2. Pulse ox on. NIBP on. Warm blanket given. 16:49 Ryan Ferguson PA is PHCP. jr8 16:49 Rich Prado MD is Attending Physician. jr8 18:19 XRAY Chest (1 view) In Process Unspecified. EDMS 18:48 Stepan Cooper DO is Referral Physician. jr8 18:57 No provider procedures requiring assistance completed. Patient did not have IV access ca1 during this emergency room visit. Administered Medications: 17:25 Drug: SOLU-Medrol (methylPREDNISolone sodium succinate) 125 mg Route: IM; Site: right ca1 gluteus; 18:56 Follow up: Response: No adverse reaction; Marked relief of symptoms ca1 17:39 Drug: Albuterol - atroVENT (ipratropium) (3:1) (2.5 mg - 0.5 mg) 3 ml Route: Nebulizer; ca1 18:56 Follow up: Response: No adverse reaction; Marked relief of symptoms ca1 Outcome: 18:49 Discharge ordered by . jr8 18:57 Discharged to home ambulatory. ca1 18:57 Condition: stable 18:57 Discharge instructions given to patient, Instructed on discharge instructions, follow up and referral plans. medication usage, Demonstrated understanding of instructions, follow-up care, medications, Prescriptions given X 2. 18:57 Patient left the ED. ca1 Signatures: Dispatcher [employer] [facility] Luh TrujilloValerie, RN KIMBERLEE iw Ryan Ferguson PA PA jr8 Claire Ferguson RN RN ca1 Reg Mendez RN RN ll1
--- NOTE | 2021-05-02 18:50 | EDPHYS ---
Physician Documentation [facility] Name: Caroline Wise Age: 60 yrs Sex: Female : 1960 Arrival Date: 05/02/2021 Time: 15:26 Bed 14 Private MD: Stepan Cooper H ED Physician Rich Prado HPI: 05/02 18:46 This 60 yrs old Black Female presents to ER via Ambulatory with complaints of Asthma jr8 Exacerbation. 18:46 The patient presents to the emergency department with wheezing, Current therapy: jr8 albuterol inhaler, albuterol nebs, that began after exposure to dust, after exposure to pollen. Onset: The symptoms/episode began/occurred acutely, yesterday. Modifying factors: The symptoms are alleviated by prescription meds, the symptoms are aggravated by nothing. Associated signs and symptoms: The patient has no apparent associated signs or symptoms. Severity of symptoms: At their worst the symptoms were mild in the emergency department the symptoms are unchanged. The patient has experienced similar episodes in the past, a few times. The patient has not recently seen a physician. Historical: - Allergies: 15:39 Toradol; ll1 15:39 PENICILLINS; ll1 15:39 Rocephin; ll1 - PMHx: 15:39 Asthma; Hypertension; Hypothyroidism; ll1 - PSHx: 15:39 hysterectomy, exp. lap, cataract repair, B foot SX; ll1 - Immunization history:: Client reports having NOT received the Covid vaccine. Flu vaccine is not up to date. - Social history:: Smoking status: Patient denies any tobacco usage or history of. ROS: 18:46 Eyes: Negative for injury, pain, redness, and discharge, ENT: Negative for injury, jr8 pain, and discharge, Neck: Negative for injury, pain, and swelling, Cardiovascular: Negative for chest pain, palpitations, and edema, Abdomen/GI: Negative for abdominal pain, nausea, vomiting, diarrhea, and constipation, Back: Negative for injury and pain, MS/Extremity: Negative for injury and deformity, Skin: Negative for injury, rash, and discoloration, Neuro: Negative for headache, weakness, numbness, tingling, and seizure. 18:46 Respiratory: Positive for cough, shortness of breath, wheezing. Exam: 18:46 Eyes: Pupils equal round and reactive to light, extra-ocular motions intact. Lids and jr8 lashes normal. Conjunctiva and sclera are non-icteric and not injected. Cornea within normal limits. Periorbital areas with no swelling, redness, or edema. ENT: Nares patent. No nasal discharge, no septal abnormalities noted. Tympanic membranes are normal and external auditory canals are clear. Oropharynx with no redness, swelling, or masses, exudates, or evidence of obstruction, uvula midline. Mucous membranes moist. Neck: Trachea midline, no thyromegaly or masses palpated, and no cervical lymphadenopathy. Supple, full range of motion without nuchal rigidity, or vertebral point tenderness. No Meningismus. Cardiovascular: Regular rate and rhythm with a normal S1 and S2. No gallops, murmurs, or rubs. Normal PMI, no JVD. No pulse deficits. Abdomen/GI: Soft, non-tender, with normal bowel sounds. No distension or tympany. No guarding or rebound. No evidence of tenderness throughout. Back: No spinal tenderness. No costovertebral tenderness. Full range of motion. Skin: Warm, dry with normal turgor. Normal color with no rashes, no lesions, and no evidence of cellulitis. MS/ Extremity: Pulses equal, no cyanosis. Neurovascular intact. Full, normal range of motion. Neuro: Awake and alert, GCS 15, oriented to person, place, time, and situation. Cranial nerves II-XII grossly intact. Motor strength 5/5 in all extremities. Sensory grossly intact. Cerebellar exam normal. Normal gait. 18:46 Respiratory: the patient does not display signs of respiratory distress, Respirations: normal, Breath sounds: wheezing: expiratory that is mild, is heard in the left posterior lower lobe, right posterior middle lobe and right posterior lower lobe. Vital Signs: 15:36 BP 173 / 67; Pulse 88; Resp 18; Temp 97.9; Pulse Ox 97% ; Weight 113.4 kg; Height 5 ft. ll1 3 in. (160.02 cm); Pain 5/10; 17:41 BP 137 / 70; Pulse 83; Resp 18 S; Pulse Ox 100% on R/A; ca1 18:37 BP 167 / 70; Pulse 77; Resp 19 S; Pulse Ox 100% on R/A; ca1 15:36 Body Mass Index 44.29 (113.40 kg, 160.02 cm) ll1 MDM: 16:54 Patient medically screened. jr8 18:46 Data reviewed: vital signs, nurses notes, radiologic studies, plain films. Data jr8 interpreted: Pulse oximetry: on room air is 100 %. Interpretation: normal. Counseling: I had a detailed discussion with the patient and/or guardian regarding: the historical points, exam findings, and any diagnostic results supporting the discharge/admit diagnosis, radiology results, the need for outpatient follow up, a family practitioner, to return to the emergency department if symptoms worsen or persist or if there are any questions or concerns that arise at home. Response to treatment: the patient's symptoms have markedly improved after treatment. 05/02 17:11 Order name: XRAY Chest (1 view); Complete Time: 18:47 jr8 05/02 17:11 Order name: SARS-COV-2 RT PCR; Complete Time: 17:16 EDMS Administered Medications: 17:25 Drug: SOLU-Medrol (methylPREDNISolone sodium succinate) 125 mg Route: IM; Site: right ca1 gluteus; 18:56 Follow up: Response: No adverse reaction; Marked relief of symptoms ca1 17:39 Drug: Albuterol - atroVENT (ipratropium) (3:1) (2.5 mg - 0.5 mg) 3 ml Route: Nebulizer; ca1 18:56 Follow up: Response: No adverse reaction; Marked relief of symptoms ca1 Disposition Summary: 05/02/21 18:49 Discharge Ordered Location: Home jr8 Problem: new jr8 Symptoms: have improved jr8 Condition: Stable jr8 Diagnosis - Mild intermittent asthma with (acute) exacerbation jr8 - Pneumonia, unspecified organism jr8 Followup: jr8 - With: Stepan Cooper DO - When: 5 - 6 days - Reason: Recheck today's complaints, Continuance of care, Re-evaluation by your physician Discharge Instructions: - Discharge Summary Sheet jr8 - Asthma, Adult jr8 - Community-Acquired Pneumonia, Adult jr8 Forms: - Work release form iw - Medication Reconciliation Form jr8 - Thank You Letter jr8 - Antibiotic Education jr8 - Prescription Opioid Use jr8 Prescriptions: - Prednisone 20 mg Oral Tablet - take 1 tablet by ORAL route once daily for 5 days; 5 tablet; Refills: 0, jr8 Product Selection Permitted - Zithromax Z-Juancho 250 mg Oral Tablet - take 1 tablet by ORAL route as directed for 5 days Day 1 - take two (2) tablets jr8 one time. Day 2, 3, 4 , 5 take one (1) tablet once daily.; 6 tablet; Refills: 0, Product Selection Permitted Addendum: 05/05/2021 13:52 Co-signature as Attending Physician, Rich Prado MD I agree with the assessment and k plan of care. Signatures: Dispatcher [employer] EDHI Rich Prado MD MD [facility] Ryan Ferguson PA PA jr8 Claire Ferguson RN RN ca1 Reg Mendez RN RN ll1
[2021-05-02 19:18] VITALS: TEMP 97.9
[2021-05-02 19:20] VITALS: O2SAT 100
[2021-05-02 19:21] VITALS: BP 167/70
== END 2021-05-02 18:57 | disposition home or self-care (01) ==
LOC: ER 15:22
DX: J18.9 Pneumonia, unspecified organism (principal); I10 Essential (primary) hypertension; Z20.822 Contact with and (suspected) exposure to COVID-19; Z88.1 Allergy status to other antibiotic agents; Z88.5 Allergy status to narcotic agent
CPT/HCPCS: 71045; 96372; 99284; U0003; J2930

== ENCOUNTER 2021-09-28 11:56 | Emergency (ER) | payer BC ==
--- OUTSIDE RECORDS SUMMARY | 2021-09-28 11:58 | XMS REPORT | Continuity of Care Document ---
:1960 Author Organization [facility] t Address [address] [place] [address] Care Team Providers Name Role Phone MIGUEL, Angie Attending Clinician Unavailable Nini Pradhan Attending Clinician Unavailable Miguel MORENO, A Attending Clinician Only, Test Attending Clinician Unavailable Pob, Lab Main Attending Clinician Unavailable Doctor Unassigned, Name Attending Clinician Unavailable Angie PATIÑO Admitting Clinician Unavailable Physician, Primary or Family Admitting Clinician Unavailkalpana Patiño MD, A Admitting Clinician Payers Payer Name Policy Type Policy Number Effective Date Expiration Date Agata tony [facility] [id number] 2017 00:00:00 [facility] Problems Condition Condition Condition Status Onset Resolution Last Treating Co mments Source Name Details Category Date Date Treatment Clinician Date Morbid Morbid Disease Active 2019-0 Univers obesity obesity 7- [place] of [place] mass index mass index 00 [place] dical of of Branch 40.0-49.9 40.0-49.9 Allergies, Adverse Reactions, Alerts Allergy Allergy Status Severity Reaction(s) Onset Inactive Treating Comm ents Source Name Type Date Date Clinician KETOROLA DRUG Active Anaphylaxis 2020-0 Uni vers C INGREDI 7- ity of TROMETHA 00:00: [place] MINE 00 Medical Branch Ketorola Propensi Active Anaphylaxis 2020-0 U nivers c ty to 05-22 ity of Trometha adverse 00:00: [place] mine reaction 00 Medical s Branch Tramadol Propensi Active Anaphylaxis 2019-0 U nivers ty to 7-20 ity of adverse 00:00: [place] reaction 00 Medical s Branch TRAMADOL DRUG Active Anaphylaxis 2019-0 Uni vers INGREDI 7-20 ity of 00:00: [place] 00 [facility] No Known DA Active U 2016-0 [facility] l [facility] [place] No Known DA Active U 2017 [facility] Allergie 4-06 [facility] 00:[facility]: [facility] 00 l of [place] NO KNOWN Drug Active Univers ALLERGIE Class ity of S [facility] Social History Social Habit Start Date Stop Date Quantity Comments Source Sex Assigned At Universit y of [facility] Exposure to Not sure [facility] SARS-CoV-2 [facility] (event) Branch Alcohol intake 2020-05-20 2020-05-20 Current [facility] 00:00:00 00:00:00 non-drinker of [facility] alcohol [place] (finding) Tobacco use and 2020-05-20 2020-05-20 [facility]00 00:00:00 [facility] Smoking Status Start Date Stop Date Source Never smoker [facility] Medications Ordered Filled Start Stop Current Ordering Indication Dosage Frequency Signature Comments Components Source Medication Medication Date Date Medication? Clinician (SIG) Name Name albuterol Yes 2{puff} Inhale 2 U nivers (PROAIR 9-09 Puffs ity of HFA) 90 18:12: every 6 [place] mcg/actuati 08 (six) Medical on inhaler hours as Branc h needed for Wheezing or Shortness of Breath. albuterol Yes 2.5mg Inhale 2.5 U nivers 2.5 mg /3 9-09 mg every 6 ity of mL (0.083 18:12: (six) [place] %) 08 hours as Medical nebulizer needed for Bran ch solution Wheezing or Shortness of Breath. budesonide- Yes 2{puff} Inhale 2 Univers formoterol 9-09 Puffs as ity o f (SYMBICORT) 18:12: needed. Isaac as 160-4.5 08 [facility] mcg/actuati Branch on inhaler montelukast 2019- Yes 10mg Take 10 mg Univers 10 mg 9-09 by mouth ity of tablet 18:12: daily. [address] olmesartan 2020-0 Yes 40mg Take 40 mg U nivers 40 mg 9-09 by mouth ity of tablet 18:12: daily. [address] levothyroxi 2020-0 Yes 150ug Take 150 U nivers ne 150 mcg 9-09 mcg by ity of tablet 18:12: mouth [place] 08 daily. [facility] lactated 2020-0 Yes 1000mL at 75 Univer s ringers IV 7-22 mL/hr, ity of infusion 16:15: 1,000 mL, [place] 1,000 mL 00 IV Medical Infusion, [place] CONTINUOUS , Starting Wed05/22/20 at 1115, Until Discontinu ed, Routine, PACU carbachoL 2020-0 Yes PRN, Univers (MIOSTAT) 05-22 Starting ity of 0.01 % 15:52: Wed [place] intraocular 05/22/20 at Nm dical injection [facility] Until Discontinu ed, Routine, Intra-op ceFAZolin 2020-0 Yes PRN, Univers (ANCEF) 05-22 Starting ity of injection 15:52: Wed05/22/[address] Until Discontinu ed, BRYAN, Intra-op dexamethaso 2020-0 Yes PRN, Univer s ne 05-22 Starting ity of (DECADRON 15:51: Wed [place] PHOSPHATE) 05/22/20 at [facility] ical injection [facility] Until Discontinu ed, Routine, Intra-op gentamicin 2020-0 Yes PRN, Univers injection 05-22 Starting ity of 15:51: Wed [place] 05/22/[address] Until Discontinu ed, BRYAN, Intra-op neomycin-po 2020-0 Yes [facility]N, [facility] lym[facility] 05-22 Starting ity of amethasone 15:51: Wed (MAXITROL) 05/22/20 at [facility] ica 3.[address] [place] [address] mg/g-10,000 Until unit/g-0.1 Discontinu % ed, ophthalmic Routine, ointment Intra-op sodium 2020-0 Yes PRN, Univers chloride 05-22 Starting ity of (NS) 15:49: Wed [place] injection 05/22/20 at [facility] 1049, [place] Until Discontinu ed, Routine, Intra-op DUOVISC 2020-0 Yes PRN, Univers (DUOVISC 05-22 Starting ity of VISCO 15:48: Wed [place] ELASTIC) 3 05/22/20 at [facility] ical %-4 %(0.5 1048, Branch mL) 1 % Until (0.55 mL) Discontinu intraocular ed, injection Routine, Intra-op EPINEPHrine 2020-0 Yes PRN, Univer s 1:1,000 (1 05-22 Starting ity o f mg/mL) 15:43: Wed [place] (ADRENALIN) 00 05/22/20 at Nm dical injection 1043, Branch Until Discontinu ed, Routine, Intra-op balanced 2020-0 Yes PRN, Univers salt irrig 05-22 Starting ity o f soln comb1 15:43: Wed [place] (BSS PLUS) 05/22/20 at [facility] ical ophthalmic 1043, Branch solution Until 500 mL bag Discontinu ed, Routine, Intra-op Hyaluronida 2020-0 Yes PRN, Univer s se, Human 05-22 Starting ity of Recomb. 15:36: Wed [place] (HYLENEX) 00 05/22/20 at Medi maribel injection 1036, Branch Until Discontinu ed, Routine, Intra-op eye block 2020-0 Yes PRN, Univers syringe 11 05-22 Starting ity o f mL 15:36: Wed [place] 05/22/20 at Medical 1036, [place] Until Discontinu ed, Intra-op water for 2020-0 Yes PRN, Univers irrigation 05-22 Starting ity o f irrigation 15:31: Wed [place] solution 05/22/20 at Medic al 1031, Branch Until Discontinu ed, Routine, Intra-op mydriatic 2020-0 2020- No .5mL 0.5 mL, Univ ers #5 05-22 Left Eye, ity of ophthalmic 14:00: 14:30 ONCE, 1 [place] as solution 00 :00 dose, Wed Medica l 0.5 mL 05/22/20 at Branch syringe 0900, Routine lactated 2020-0 2020- No 1000mL at 20 Univ rs ringers IV 05-22 07-22 mL/hr, ity of infusion 14:00: 14:45 1,000 mL, Isaac as 1,000 mL 00 :00 IV Medical Infusion, [place] ONCE, 1 dose, 05/22/20 at 0900, Routine, DSU Pre-op albuterol 2017-0 Yes 2.5mg Inhale 2.5 U nivers 2.5 mg /3 9-26 mg every 6 ity of mL (0.083 21:25: (six) [place] %) 55 hours as Medical nebulizer needed for Bran ch solution Wheezing or Shortness of Breath. budesonide- 2017- Yes 2{puff} Inhale 2 Univers formoterol 9-26 Puffs as ity o f (SYMBICORT) 21:25: needed. [place] as 160-4.5 55 Medical mcg/actuati Branch on inhaler montelukast Yes 10mg Take 10 mg Univers 10 mg 9-26 by mouth ity of tablet 21:25: daily. [place] [address] Medical Branch olmesartan Yes 40mg Take 40 mg U nivers 40 mg 9-26 by mouth ity of tablet 21:25: daily. [address] Branch levothyroxi Yes 150ug Take 150 U nivers ne 150 mcg 9-26 mcg by ity of tablet 21:25: mouth [place] [address] daily. Medical Branch albuterol Yes 2{puff} Inhale 2 U nivers (PROAIR 9-26 Puffs ity of HFA) 90 21:25: every 6 [place] mcg/actuati 55 (six) Medical on inhaler hours as Branc h needed for Wheezing or Shortness of Breath. albuterol 2017-0 Yes 2.5mg Inhale 2.5 U nivers 2.5 mg /3 9-26 mg every 6 ity of mL (0.083 21:25: (six) [place] %) 55 hours as Medical nebulizer needed for Bran ch solution Wheezing or Shortness of Breath. budesonide- 2017-0 Yes 2{puff} Inhale 2 Univers formoterol 9-26 Puffs as ity o f (SYMBICORT) 21:25: needed. [place] as 160-4.5 55 Medical mcg/actuati Branch on inhaler montelukast 2017- Yes 10mg Take 10 mg Univers 10 mg 9-26 by mouth ity of tablet 21:25: daily. [address] Branch olmesartan 2017-0 Yes 40mg Take 40 mg U nivers 40 mg 9-26 by mouth ity of tablet 21:25: daily. [place] [address] Medical Branch levothyroxi Yes 150ug Take 150 U nivers ne 150 mcg 9-26 mcg by ity of tablet 21:25: mouth [place] 55 daily. Medical Branch albuterol Yes 2{puff} Inhale 2 U nivers (PROAIR 9-26 Puffs ity of HFA) 90 21:25: every 6 [place] mcg/actuati 55 (six) Medical on inhaler hours as Branc h needed for Wheezing or Shortness of Breath. albuterol Yes 2.5mg Inhale 2.5 U nivers 2.5 mg /3 9-26 mg every 6 ity of mL (0.083 21:25: (six) [place] %) 55 hours as Medical nebulizer needed for Bran ch solution Wheezing or Shortness of Breath. budesonide- Yes 2{puff} Inhale 2 Univers formoterol 9-26 Puffs as ity o f (SYMBICORT) 21:25: needed. [place] as 160-4.5 Medical mcg/actuati Branch on inhaler montelukast Yes 10mg Take 10 mg Univers 10 mg 9-26 by mouth ity of tablet 21:25: daily. [address] Branch olmesartan Yes 40mg Take 40 mg U nivers 40 mg 9-26 by mouth ity of tablet 21:25: daily. [address] Branch levothyroxi Yes 150ug Take 150 U nivers ne 150 mcg 9-26 mcg by ity of tablet 21:25: mouth [place] 55 daily. Medical Branch albuterol Yes 2{puff} Inhale 2 U nivers (PROAIR 9-26 Puffs ity of HFA) 90 21:25: every 6 [place] mcg/actuati 55 (six) Medical on inhaler hours as Branc h needed for Wheezing or Shortness of Breath. albuterol Yes 2.5mg Inhale 2.5 U nivers 2.5 mg /3 9-26 mg every 6 ity of mL (0.083 21:25: (six) [place] %) 55 hours as Medical nebulizer needed for Bran ch solution Wheezing or Shortness of Breath. budesonide- Yes 2{puff} Inhale 2 Univers formoterol 9-26 Puffs as ity o f (SYMBICORT) 21:25: needed. [place] as 160-4.5 55 Medical mcg/actuati Branch on inhaler montelukast 2017-0 Yes 10mg Take 10 mg Univers 10 mg 9-26 by mouth ity of tablet 21:25: daily. [address] Branch olmesartan 0 Yes 40mg Take 40 mg U nivers 40 mg 9-26 by mouth ity of tablet 21:25: daily. [place] [address] Medical Branch levothyroxi 0 Yes 150ug Take 150 U nivers ne 150 mcg 9-26 mcg by ity of tablet 21:25: mouth [place] 55 daily. Medical Branch albuterol 0 Yes 2{puff} Inhale 2 U nivers (PROAIR 9-26 Puffs ity of HFA) 90 21:25: every 6 [place] mcg/actuati 55 (six) Medical on inhaler hours as Branc h needed for Wheezing or Shortness of Breath. albuterol Yes 2.5mg Inhale 2.5 U nivers 2.5 mg /3 9-26 mg every 6 ity of mL (0.083 21:25: (six) [place] %) 55 hours as Medical nebulizer needed for Bran ch solution Wheezing or Shortness of Breath. budesonide- 0 Yes 2{puff} Inhale 2 Univers formoterol 9-26 Puffs as ity o f (SYMBICORT) 21:25: needed. [place] as 160-4.5 55 Medical mcg/actuati Branch on inhaler montelukast 0 Yes 10mg Take 10 mg Univers 10 mg 9-26 by mouth ity of tablet 21:25: daily. [place] [address] Medical Branch olmesartan 0 Yes 40mg Take 40 mg U nivers 40 mg 9-26 by mouth ity of tablet 21:25: daily. [place] [address] Medical Branch levothyroxi 0 Yes 150ug Take 150 U nivers ne 150 mcg 9-26 mcg by ity of tablet 21:25: mouth [place] 55 daily. Medical Branch albuterol 0 Yes 2{puff} Inhale 2 U nivers (PROAIR 9-26 Puffs ity of HFA) 90 21:25: every 6 [place] mcg/actuati 55 (six) Medical on inhaler hours as Branc h needed for Wheezing or Shortness of Breath. albuterol Yes 2.5mg Inhale 2.5 U nivers 2.5 mg /3 9-26 mg every 6 ity of mL (0.083 21:25: (six) [place] %) 55 hours as Medical nebulizer needed for Bran ch solution Wheezing or Shortness of Breath. budesonide- Yes 2{puff} Inhale 2 Univers formoterol 9-26 Puffs as ity o f (SYMBICORT) 21:25: needed. [place] as 160-4.5 55 Medical mcg/actuati Branch on inhaler montelukast Yes 10mg Take 10 mg Univers 10 mg 9-26 by mouth ity of tablet 21:25: daily. [place] [address] Medical Branch olmesartan Yes 40mg Take 40 mg U nivers 40 mg 9-26 by mouth ity of tablet 21:25: daily. [place] [address] Medical Branch levothyroxi Yes 150ug Take 150 U nivers ne 150 mcg 9-26 mcg by ity of tablet 21:25: mouth [place] 55 daily. Medical Branch albuterol Yes 2{puff} Inhale 2 U nivers (PROAIR 9-26 Puffs ity of HFA) 90 21:25: every 6 [place] mcg/actuati 55 (six) Medical on inhaler hours as Branc h needed for Wheezing or Shortness of Breath. Vital Signs Vital Name Observation Time Observation Value Comments Source Systolic blood 2020-05-22 16:15:00 150 mm[Hg] [facility] pressure [facility] Diastolic blood 2020-05-22 16:15:00 60 mm[Hg] [facility] Heart rate 2020-05-22 16:15:00 64 /min [facility] Respiratory rate 2020-05-22 16:15:00 16 /min [facility] Oxygen saturation in 2020-05-22 16:15:00 100 /min [facility] Arterial blood by [facility] Pulse oximetry Branch Body temperature 2020-05-22 16:02:00 36.22 Tanisha [facility] Body height 2020-05-13 14:06:00 160 cm [facility] Body weight 2020-05-13 14:06:00 113.4 kg Universi [facility] BMI 2020-05-13 14:06:00 44.30 kg/m2 Universi [facility] Systolic blood 2020-05-22 16:15:00 150 mm[Hg] Univer sity of pressure [facility] Diastolic blood 2020-05-22 16:15:00 60 mm[Hg] Unive rsity of pressure [facility] Heart rate 2020-05-22 16:15:00 64 /[facility] Res[facility] rate 2020-05-22 16:15:00 16 /min [facility] Oxygen saturation in 2020-05-22 16:15:00 100 /min [facility] Arterial blood by [facility] Pulse oximetry [place] Body temperature 2020-05-22 16:02:00 36.22 Tanisha [facility] Body height 2020-05-13 14:06:00 160 cm [facility] Body weight 2020-05-13 14:06:00 113.4 kg [facility] BMI 2020-05-13 14:06:00 44.30 kg/m2 [facility] Procedures Procedure Date / Time Performing Source Performed Clinician PHACOEMULSIFICATION OF 2020-05-22 Shaka Patiño [facility] CATARACT WITH INTRAOCULAR 15:25:00 [facility] LENS IMPLANT ASSIGNMENT OF BENEFITS 2020-05-21 Doctor Unassigned, [facility] 14:57:14 [place] [facility] Encounters Start End Encounter Admission Attending Care Care Encounter Source Date/Time Date/Time Type Type Clinicians Facility Department ID 2021-08-29 Outpatient Cyndi PATIÑO [facility] DAMIAN [id number] Univers 08:02:04 SHAKA llanos [facility] 2021-02-07 2021-02-07 Outpatient LINDSAY Pradhan [facility] D[facility]EL [id number] [facility] 12:00:00 12:00:00 Fabi [id number] [facility] 2020-05-22 2020-05-22 [facility] LIVIA Patiño [id number] 08:54:05 11:20:00 Encounter Shaka Velásquez [id number] Neisha [id number] Surgical [id number] Center 071 2020-05-22 2020-05-22 Hospital Miguel [facility] [id number] Univers 08:54:05 11:20:00 Encounter Shaka Velásquez [id number] ity of [place] [id number] [place] [id number] [address] 2020-05-21 2020-05-21 Laboratory Only, [facility] [id number] 09:50:00 10:43:07 Only Test Duarte [id number] [place] [id number] [place] [id number] [facility] 2020-05-21 2020-05-21 Laboratory Only, [facility] Test [facility] [id number] Univers 09:50:00 10:43:07 Only Shaka Patiño [id number] ity of [place] 4.2.7.2.686 [place] [id number] [address] 2020-05-21 2020-05-21 Outpatient R [facility] [id number] Univers 10:30:00 10:30:00 [id number] ity [facility] 2020-05-21 2020-05-21 Outpatient R MIGUEL [facility] [id number] Univers 10:15:00 10:15:00 SHKAA italis [facility] 2020-05-21 2020-05-21 Dental Equipment Technician Soct, [facility] Lab Main [facility] [id number] Univers 09:58:32 10:13:32 Visit Shaka Patiño [id number] 0 ity of [place] 4.2.7.2.686 [place] Profess[place] [id number] Nm dical [facility] 2020-05-21 2020-05-21 Orders Doctor OLIVIER [id number] Univers 00:00:00 00:00:00 Only Unassigned, MIKO [id number] ity of [place] [facility] 4.2.7.2.686 Isaac as [id number] [facility] 009 Branch 2020-05-14 2020-05-14 Outpatient R [facility] [id number] Univers 07:30:00 07:30:00 [id number] [facility] Results This patient has no known results.
[2021-09-28] MEDS ORDERED: ALBUTEROL 2.5 MG/3 ML NEB SOL ONE (12:22)
[2021-09-28] MEDS ORDERED: IPRATROPIUM BROM 0.5MG/2.5ML ONE (12:23)
--- NOTE | 2021-09-28 13:00 | ER ---
Nurse's Notes [facility] Name: Caroline Wise Age: 60 yrs Sex: Female : 1960 Arrival Date: 09/28/2021 Time: 11:57 Bed 6 Private MD: Diagnosis: Unspecified asthma with (acute) exacerbation;Acute bronchitis, unspecified Presentation: 09/28 12:00 Chief complaint: Patient states: BILATERAL LUMBAR PAIN SINCE THIS AM WITH COUGH AND bp WHEEZING. 12:00 Coronavirus screen: cough unrelated to allergies, difficulty breathing, shortness of bp breath, Client presents with at least one sign or symptom that may indicate coronavirus-19. Standard/surgical mask placed on the client. Provider contacted for isolation considerations. Ebola Screen: No symptoms or risks identified at this time. Initial Sepsis Screen: Does the patient meet any 2 criteria? No. Patient's initial sepsis screen is negative. Does the patient have a suspected source of infection? No. Patient's initial sepsis screen is negative. Risk Assessment: Do you want to hurt yourself or someone else? Patient reports no desire to harm self or others. Onset of symptoms was September 28, 2021. 12:00 Method Of Arrival: Ambulatory bp 12:00 Acuity: SERAFIN 3 bp Triage Assessment: 12:00 General: Appears distressed, uncomfortable, obese, Behavior is cooperative, appropriate bp for age, anxious. Pain: Complains of pain in low back area. EENT: No deficits noted. Neuro: No deficits noted. Cardiovascular: Rhythm is sinus rhythm. Respiratory: Reports shortness of breath cough that is Breath sounds with wheezes bilaterally. GI: No signs and/or symptoms were reported involving the gastrointestinal system. : No signs and/or symptoms were reported regarding the genitourinary system. Derm: No deficits noted. Musculoskeletal: No deficits noted. Historical: - Allergies: 12:16 PENICILLINS; bp 12:16 Toradol; bp - Home Meds: 12:16 prednisone 20 mg Oral tab as needed [Active]; clonidine HCl 0.1 mg Oral tab as needed bp [Active]; levothyroxine 150 mcg tab 1 tab once daily [Active]; Ventolin Rotahaler/Rotacaps Inhl [Active]; - PMHx: 12:16 Asthma; Hypothyroidism; Hypertension; bp - PSHx: 12:16 hysterectomy, exp. lap, cataract repair, B foot SX; bp - Immunization history:: Client reports receiving the 2nd dose of the Covid vaccine. - Social history:: Smoking status: Patient denies any tobacco usage or history of. Screenin:00 Abuse screen: Denies threats or abuse. Denies injuries from another. Nutritional bp screening: No deficits noted. Tuberculosis screening: No symptoms or risk factors identified. Fall Risk None identified. Assessment: 12:00 General: SEE TRIAGE NOTE. bp 13:00 Reassessment: No changes from previously documented assessment. Patient and/or family bp updated on plan of care and expected duration. Pain level reassessed. Pain: Pain does not radiate. Pain began 1 day ago. Cardiovascular: Rhythm is sinus rhythm. 13:30 Reassessment: PT D/C HOME AMBULATORY, DX WITH BRONCHITIS. bp Vital Signs: 12:00 BP 200 / 96; Pulse 84; Resp 24; Temp 97.7; Pulse Ox 100% on R/A; bp ED Course: 11:57 Patient arrived in ED. as 12:05 Kojo Goldman, KIMBERLEE is Primary Nurse. bp 12:06 Stephen Madera MD is Attending Physician. sp3 12:16 Triage completed. bp 12:58 CXR XRAY In Process Unspecified. EDMS 13:00 Patient has correct armband on for positive identification. Bed in low position. Call bp light in reach. Side rails up X2. Pulse ox on. NIBP on. 13:00 No provider procedures requiring assistance completed. Patient did not have IV access bp during this emergency room visit. Patient maintains SpO2 saturation greater than 95% on room air. Administered Medications: 12:29 Drug: DuoNeb (albuterol 2.5 mg, ipratropium 0.5 mg) (3:1) (2.5 mg - 0.5 mg) 3 ml Route: bp Nebulizer; 13:33 Follow up: Response: No adverse reaction bp Outcome: 12:59 Discharge ordered by . sp3 13:33 Discharged to home ambulatory. bp 13:33 Condition: stable 13:33 Discharge instructions given to patient, Instructed on discharge instructions, follow up and referral plans. medication usage, Demonstrated understanding of instructions, follow-up care, medications, Prescriptions given X 1. 13:33 Patient left the ED. bp Signatures: Dispatcher [employer] EDHermila Gatn as Jones, Kojo, RN RN bp Stephen Madera MD MD sp3 Corrections: (The following items were deleted from the chart) 12:20 12:16 Allergies: Rocephin; bp bp
--- NOTE | 2021-09-28 13:00 | EDPHYS ---
Physician Documentation [facility] Name: Caroline Wise Age: 60 yrs Sex: Female : 1960 Arrival Date: 09/28/2021 Time: 11:57 Bed 6 Private MD: ED Physician Stephen Madera HPI: 09/28 12:11 This 60 yrs old Black Female presents to ER via Unassigned with complaints of Back sp3 Pain, Asthma Exacerbation. 12:11 60-year-old female with a history of hypertension and asthma currently presents with sp3 mild asthma exacerbation and mid back pain which patient is concerned about having "a pneumonia". Patient states that when the weather changes and she gets the back pain she has had pneumonia in the past and so came in just "be sure". Patient is on Symbicort, albuterol, and as needed prednisone as needed for her symptoms. Patient took a 20 mg prednisone tablet prior to arrival today and has been taking nebulizers at home. The main reason she came in today was to "be sure I did not have a pneumonia". Otherwise she would manage her symptoms at home with the back pain were not there. Patient denies chest pain, abdominal pain, nausea, vomiting, diarrhea, headache, fever, other URI symptoms, known COVID-19 contacts, any other ROS at this time. Patient has had 2 doses of a COVID-19 vaccine.. Historical: - Allergies: 12:16 PENICILLINS; bp 12:16 Toradol; bp - Home Meds: 12:16 prednisone 20 mg Oral tab as needed [Active]; clonidine HCl 0.1 mg Oral tab as needed bp [Active]; levothyroxine 150 mcg tab 1 tab once daily [Active]; Ventolin Rotahaler/Rotacaps Inhl [Active]; - PMHx: 12:16 Asthma; Hypothyroidism; Hypertension; bp - PSHx: 12:16 hysterectomy, exp. lap, cataract repair, B foot SX; bp - Immunization history:: Client reports receiving the 2nd dose of the Covid vaccine. - Social history:: Smoking status: Patient denies any tobacco usage or history of. ROS: 12:13 Constitutional: Negative for fever, chills, and weight loss, Eyes: Negative for injury, sp3 pain, redness, and discharge, ENT: Negative for injury, pain, and discharge, Neck: Negative for injury, pain, and swelling, Cardiovascular: Negative for chest pain, palpitations, and edema, Abdomen/GI: Negative for abdominal pain, nausea, vomiting, diarrhea, and constipation, MS/Extremity: Negative for injury and deformity, Skin: Negative for injury, rash, and discoloration, Neuro: Negative for headache, weakness, numbness, tingling, and seizure, Psych: Negative for depression, anxiety, suicide ideation, homicidal ideation, and hallucinations, Allergy/Immunology: Negative for hives, rash, and allergies. 12:13 All other systems are negative. Exam: 12:13 Constitutional: This is a well developed, well nourished patient who is awake, alert, sp3 and in no acute distress. Head/Face: Normocephalic, atraumatic. Eyes: Pupils equal round and reactive to light, extra-ocular motions intact. Lids and lashes normal. Conjunctiva and sclera are non-icteric and not injected. Cornea within normal limits. Periorbital areas with no swelling, redness, or edema. ENT: Nares patent. No nasal discharge, no septal abnormalities noted. External auditory canals are clear. Oropharynx with no redness, swelling, or masses, exudates, or evidence of obstruction, uvula midline. Mucous membranes moist. Neck: Trachea midline, no thyromegaly or masses palpated, and no cervical lymphadenopathy. Supple, full range of motion without nuchal rigidity, or vertebral point tenderness. No Meningismus. Chest/axilla: Normal chest wall appearance and motion. Nontender with no deformity. No lesions are appreciated. Cardiovascular: Regular rate and rhythm with a normal S1 and S2. No gallops, murmurs, or rubs. Normal PMI, no JVD. No pulse deficits. Abdomen/GI: Soft, non-tender, with normal bowel sounds. No distension or tympany. No guarding or rebound. No evidence of tenderness throughout. Back: No spinal tenderness. No costovertebral tenderness. Full range of motion. Skin: Warm, dry with normal turgor. Normal color with no rashes, no lesions, and no evidence of cellulitis. MS/ Extremity: Pulses equal, no cyanosis. Neurovascular intact. Full, normal range of motion. Neuro: Awake and alert, GCS 15, oriented to person, place, time, and situation. Cranial nerves II-XII grossly intact. Motor strength 5/5 in all extremities. Sensory grossly intact. Cerebellar exam normal. Normal gait. Psych: Awake, alert, with orientation to person, place and time. Behavior, mood, and affect are within normal limits. 12:13 Respiratory: Patient has normal respiratory rate of 16. Patient has expiratory wheezes that are mild in nature with no respiratory difficulty, accessory muscle use, pursing lips, or any other clinical findings. No rales, rhonchi noted. Cardiac exam is normal. Peripheral perfusion and cap refill is also normal.. Vital Signs: 12:00 BP 200 / 96; Pulse 84; Resp 24; Temp 97.7; Pulse Ox 100% on R/A; bp MDM: 12:11 Patient medically screened. sp3 12:14 Data reviewed: vital signs, nurses notes. ED course: 60-year-old female with a mild sp3 asthma exacerbation who presents for evaluation of pneumonia. Will obtain chest x-ray and give 1 DuoNeb here in the ED. If x-ray is clear, will discharge patient home with continued treatment of her existing asthma plan. Patient already has a large supply of prednisone and nebulizers at home and she is very adept at managing her own symptoms. Follow up with her PCP as needed.. 12:58 ED course: Chest x-ray not significantly different from prior however due to body sp3 habitus it is hard to assess lower lobes. Given clinical picture, will place patient on Z-Juancho and discharge patient home with PCP follow-up and continued home asthma management.. 09/28 12:11 Order name: CXR XRAY sp3 Administered Medications: 12:29 Drug: DuoNeb (albuterol 2.5 mg, ipratropium 0.5 mg) (3:1) (2.5 mg - 0.5 mg) 3 ml Route: bp Nebulizer; 13:33 Follow up: Response: No adverse reaction bp Disposition Summary: 09/28/21 12:59 Discharge Ordered Location: Home sp3 Condition: Stable sp3 Diagnosis - Unspecified asthma with (acute) exacerbation sp3 - Acute bronchitis, unspecified sp3 Followup: sp3 - With: Private Physician - When: - Reason: Recheck today's complaints Discharge Instructions: - Discharge Summary Sheet sp3 - Acute Bronchitis, Adult sp3 Forms: - Medication Reconciliation Form sp3 - Thank You Letter sp3 - Antibiotic Education sp3 - Prescription Opioid Use sp3 Prescriptions: - Zithromax Z-Juancho 250 mg Oral Tablet - take 1 tablet by ORAL route as directed for 5 days Day 1 - take two (2) tablets sp3 one time. Day 2, 3, 4 , 5 take one (1) tablet once daily.; 6 tablet; Refills: 0, Product Selection Permitted Signatures: Dispatcher [employer] Kojo Orozco RN RN Stephen David MD MD sp3 Corrections: (The following items were deleted from the chart) 12:20 12:16 Allergies: Rocephin; bp bp
--- NOTE | 2021-09-28 13:07 | RAD REPORT ---
EXAM DESCRIPTION: RAD - Chest Single View - 09/28/2021 12:58 pm CLINICAL HISTORY: COUGH Chest pain. COMPARISON: Chest Single View dated 05/02/2021; Chest Pa And Lat (2 Views) dated 01/09/2021; Chest Sing le View dated 10/28/2020; Chest Pa And Lat (2 Views) dated 09/25/2019 FINDINGS: Portable technique limits examination quality. Moderate bilateral pulmonary opacities are noted which may represent pulmonary edema or infection/ pn eumonia. The heart is mildly to moderately enlarged in size. No displaced fractures.
[2021-09-28 13:49] VITALS: BP 200/96; TEMP 97.7; O2SAT 100
== END 2021-09-28 13:33 | disposition home or self-care (01) ==
LOC: ER 11:56
DX: J20.9 Acute bronchitis, unspecified (principal); I10 Essential (primary) hypertension; Z88.0 Allergy status to penicillin; Z88.5 Allergy status to narcotic agent
CPT/HCPCS: 71045; 94640; 99285

== ENCOUNTER 2021-11-22 18:49 | Emergency (ER) | payer BC ==
--- OUTSIDE RECORDS SUMMARY | 2021-11-22 18:53 | XMS REPORT | Continuity of Care Document ---
:1960 Author Organization [facility] t Address [address] [place] [address] Care Team Providers Name Role Phone MIGUEL, Angie Attending Clinician Unavailable Nini Pradhan Attending Clinician Unavailable Miguel MORENO, A Attending Clinician Only, Test Attending Clinician Unavailable Pob, Lab Main Attending Clinician Unavailable Doctor Unassigned, Name Attending Clinician Unavailable MIGUEL, Angie Admitting Clinician Unavailable Physician, Primary or Family Admitting Clinician Unavailkalpana Patiño MD, A Admitting Clinician Payers Payer Name Policy Type Policy Number Effective Date Expiration Date Agaat tony [facility] [id number] 2017 00:00:00 SELECT Problems Condition Condition Condition [...] INGREDI 7-20 ity of 00:00: [place] 00 [facility] Branch No Known DA Active U 2016-0 [facility] [place] No Known DA Active U [facility]ie 4-06 [facility] [place] NO KNOWN Drug Active Univers ALLERGIE Class ity of S [facility] Social History Social Habit Start Date Stop Date Quantity Comments Source Sex Assigned At Universit y of [facility] Exposure to Not sure [facility] SARS-CoV-2 [facility] (event) Branch Alcohol intake 2020-05-20 2020-05-20 Current University 00:00:00 00:00:00 non-drinker of [facility] alcohol [place] (finding) Tobacco use and 2020-05-20 2020-05-20 Never used Universit y of exposure 00:00:00 00:00:00 [facility] Smoking Status Start Date Stop Date Source Never smoker [facility] Medications Ordered Filled Start Stop Current [...] (SYMBICORT) 18:12: needed. [place] as 160-4.5 08 Medical mcg/actuati Branch on inhaler montelukast Yes 10mg Take 10 mg Univers 10 mg 9-09 by mouth ity of tablet 18:12: daily. [place] 08 Medical Branch olmesartan 2020-0 Yes 40mg Take 40 mg U nivers 40 mg 9-09 by mouth ity of tablet 18:12: daily. [address] levothyroxi 2020-0 Yes 150ug Take 150 U nivers ne 150 mcg 9-09 mcg by ity of tablet 18:12: mouth [place] 08 daily. [facility] Branch lactated 2020-0 Yes 1000mL at 75 Univer s ringers IV 7-22 mL/hr, ity of infusion 16:15: 1,000 mL, [place] 1,000 mL 00 IV Medical Infusion, Branch CONTINUOUS , Starting Wed05/22/20 at 1115, Until Discontinu ed, Routine, PACU carbachoL 2020-0 Yes PRN, Univers (MIOSTAT) 05-22 Starting ity of 0.01 % 15:52: Wed [place] intraocular 05/22/20 [place] injection [facility] Until Discontinu ed, Routine, Intra-op ceFAZolin 2020-0 Yes PRN, Univers (ANCEF) 05-22 Starting ity of injection 15:52: Wed05/22/20 at [facility], [place] Until Discontinu ed, BRYAN, Intra-op dexamethaso 2020-0 Yes PRN, Univer s ne 05-22 Starting ity of (DECADRON 15:51: Wed [place] PHOSPHATE) 05/22/20 at [facility] ical injection 1051[facility] Until Discontinu ed, Routine, Intra-op gentamicin 2020-0 Yes PRN, Univers injection 05-22 Starting ity of 15:51: Wed [place] 05/22/20 at [place] [address], [place] Until Discontinu ed, BRYAN, Intra-op neomycin-po 2020-0 Yes [facility]N, [facility] lym[facility] 05-22 Starting ity of amethasone 15:51: Wed (MAXITROL) 05/22/20 at [facility] ical [address] [place] [address] mg/g-10,000 Until unit/g-0.1 Discontinu % ed, ophthalmic Routine, ointment Intra-op sodium 2020-0 Yes PRN, Univers chloride 05-22 Starting ity of (NS) 15:49: Wed [place] injection 05/22/20 at [facility] 1049, [place] Until Discontinu ed, Routine, Intra-op DUOVISC 2020-0 Yes PRN, Univers (DUOVISC 05-22 Starting ity of VISCO 15:48: Wed [place] ELASTIC) 3 05/22/20 at [facility] ical %-4 %(0.5 1048, Branch mL) 1 % Until (0.55 mL) Discontinu intraocular ed, injection Routine, Intra-op EPINEPHrine 2020-0 Yes PRN, Univer s 1:1,000 (1 05-22 Starting ity o f mg/mL) 15:43: Wed [place] (ADRENALIN) 00 05/22/20 at [place] dical injection 1043, Branch Until Discontinu ed, Routine, Intra-op balanced 2020-0 Yes PRN, Univers salt irrig 05-22 Starting ity o f soln comb1 15:43: Wed [place] (BSS PLUS) 05/22/20 at [facility] ical ophthalmic 1043, Branch solution Until 500 mL bag Discontinu ed, Routine, Intra-op Hyaluronida 2020-0 Yes PRN, Univer s se, Human 05-22 Starting ity of Recomb. 15:36: Wed [place] (HYLENEX) 00 05/22/20 at [facility] maribel injection 1036, Branch Until Discontinu ed, Routine, Intra-op eye block 2020-0 Yes PRN, Univers syringe 11 05-22 Starting ity o f mL 15:36: Wed [place] 05/22/20 at Medical 1036, [place] Until Discontinu ed, Intra-op water for 2020-0 Yes PRN, Univers irrigation 05-22 Starting ity o f irrigation 15:31: Wed [place] solution 05/22/20 at Medic al 1031, Branch Until Discontinu ed, Routine, Intra-op mydriatic 2020-0 2020- No .5mL 0.5 mL, Univ ers #5 05-2222 Left Eye, ity of ophthalmic 14:00: 14:30 ONCE, 1 [place] as solution 00 :00 dose, Wed Medica l 0.5 mL 05/22/20 at [place] syringe 0900, Routine lactated 2020-0 2020- No 1000mL at 20 [facility] rs ringers IV 05-22 07-22 mL/hr, ity of infusion 14:00: 14:45 1,000 mL, [place] as 1,000 mL 00 :00 IV Medical Infusion, [place] ONCE, 1 dose, 05/22/20 at 0900, Routine, [...] by mouth ity of tablet 21:25: daily. [place] [address] Medical Branch olmesartan 0 Yes 40mg Take 40 mg U nivers 40 mg 9-26 by mouth ity of tablet 21:25: daily. [place] [address] Medical Branch levothyroxi Yes 150ug Take 150 U nivers ne 150 mcg 9-26 mcg by ity of tablet 21:25: mouth [place] [address] daily. Medical Branch albuterol Yes 2{puff} Inhale [...] by mouth ity of tablet 21:25: daily. [address] Branch olmesartan 2017-0 Yes 40mg Take 40 mg U nivers 40 mg 9-26 by mouth ity of tablet 21:25: daily. [place] [address] Medical Branch levothyroxi Yes 150ug Take 150 [...] by mouth ity of tablet 21:25: daily. [place] [address] Medical Branch olmesartan Yes 40mg Take 40 mg U nivers 40 mg 9-26 by mouth ity of tablet 21:25: daily. [address] Branch levothyroxi Yes 150ug Take 150 [...] by mouth ity of tablet 21:25: daily. [place] [address] Medical Branch olmesartan Yes 40mg Take 40 mg U nivers 40 mg 9-26 by mouth ity of tablet 21:25: daily. [place] [address] Medical Branch levothyroxi 0 Yes 150ug Take [...] by mouth ity of tablet 21:25: daily. [place] [address] Medical Branch olmesartan 0 Yes 40mg Take 40 mg U nivers 40 mg 9-26 by mouth ity of tablet 21:25: daily. [place] [address] Medical Branch levothyroxi 0 Yes 150ug Take [...] by mouth ity of tablet 21:25: daily. [place] [address] Medical Branch olmesartan Yes 40mg Take 40 mg U nivers 40 mg 9-26 by mouth ity of tablet 21:25: daily. [place] [address] Medical Branch levothyroxi Yes 150ug Take 150 U nivers ne 150 mcg 9-26 mcg by ity of tablet 21:25: mouth [place] [address] daily. Medical Branch albuterol Yes 2{puff} Inhale 2 U nivers (PROAIR 9-26 Puffs ity of HFA) 90 21:25: every 6 [place] mcg/actuati 55 (six) Medical on inhaler hours as Branc h needed for Wheezing or Shortness of Breath. Vital Signs Vital Name Observation Time Observation Value Comments Source Systolic blood 2020-05-22 16:15:00 150 mm[Hg] [facility] pressure [facility] Diastolic blood 2020-05-22 16:15:00 60 mm[Hg] [facility] Heart rate 2020-05-22 16:15:00 64 /min [facility] Respiratory rate 2020-05-22 16:15:00 16 /min [facility] Oxygen saturation in 2020-05-22 16:15:00 100 /min [facility] Arterial blood by [facility] Pulse oximetry Branch Body temperature 2020-05-22 16:02:00 36.22 Dayanna [facility] Body height 2020-05-13 14:06:00 160 cm [facility] Body weight 2020-05-13 14:06:00 113.4 kg [facility] BMI 2020-05-13 14:06:00 44.30 kg/m2 [facility] Systolic blood 2020-05-22 16:15:00 150 mm[Hg] Univer sity of pressure [facility] Diastolic blood 2020-05-22 16:15:00 60 mm[Hg] Unive rsity of pressure [facility] Heart rate 2020-05-22 16:15:00 64 /min [facility] Respiratory rate 2020-05-22 16:15:00 16 /min [facility] saturation in 2020-05-22 16:15:00 100 /min [facility] Arterial blood by [facility] Pulse oximetry [place] Body temperature 2020-05-22 16:02:00 36.22 Dayanna [facility] Body height 2020-05-13 14:06:00 160 cm [facility] Body weight 2020-05-13 14:06:00 113.4 kg [facility] BMI 2020-05-13 14:06:00 44.30 kg/m2 [facility] Procedures Procedure Date / Time Performing Source Performed Clinician PHACOEMULSIFICATION OF 2020-05-22 Shaka Patiño [facility] CATARACT WITH INTRAOCULAR 15:25:00 [facility] LENS IMPLANT ASSIGNMENT OF BENEFITS 2020-05-21 Doctor Unassigned, [facility] 14:57:14 [place] [facility] Encounters Start End Encounter Admission Attending Care Care Encounter Source Date/Time Date/Time Type Type Clinicians Facility Department ID 2021-08-29 Outpatient Cyndi PATIÑO [facility] DAMIAN [id number] Univers 08:02:04 SHAKA llanos [facility] 2021-02-07 2021-02-07 Outpatient LINDSAY Pradhan [facility] DANIEL [id number] [facility] 12:00:00 12:00:00 Fabi [id number] [facility] 2020-05-22 2020-05-22 Hospital LIVIA Patiño [id number] 08:54:05 11:20:00 Encounter Shaka Velásquez [id number] Ne[place] [id number] Surgical [id number] [place] [id number] 2020-05-22 2020-05-22 Hospital Miguel [facility] [id number] Univers 08:54:05 11:20:00 Encounter Shaka Velásquez [id number] it[id number] [place] [id number] [address] 2020-05-21 2020-05-21 Laboratory Only, [facility] [id number] 09:50:00 10:43:07 Only Test [place] [id number] [place] [id number] [place] [id number] [facility] 2020-05-21 2020-05-21 Laboratory Only, [facility] Test [facility] 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, [facility] Lab Main [facility] [id number] Univers 09:58:32 10:13:32 Visit Shaka Patiño [id number] 0 [place] [id number] [place] [id number] [place]ical [facility] 353 [facility] 2020-05-21 2020-05-21 Orders Doctor OLIVIER [id number] Univers 00:00:00 00:00:00 Only Unassigned, MIKO [id number] ity of [place] [facility] 4.2.7.2.686 [place] as [id number] [facility] 009 Branch 2020-05-14 2020-05-14 Outpatient R [facility] [id number] [facility] 07:30:00 07:30:00 [id number] [facility] Results This patient has no known results.
[2021-11-22] MEDS ORDERED: NA CHLORIDE 0.9% 1,000 ML ONE (19:35)
[2021-11-22] MEDS ORDERED: ASPIRIN 81 MG CHEWABLE TABLET ONE ×2 (19:35→23:37)
[2021-11-22 20:27] LABS: Absolute Lymphocytes (CBC) 1.4 K/uL (0.7-4.9); Hematocrit 38.4 % (36.0-45.0); Lymphocytes % 26.4 % (15.3-44.8); MPV 9.2 fL (7.6-11.3)
[2021-11-22 20:34] LABS: Protime INR 1.01
[2021-11-22 20:46] LABS: Albumin 3.6 g/dL (3.4-5.0); Bilirubin Direct 0.1 mg/dL (0-0.2); Bilirubin Total 0.4 mg/dL (0.2-1.0); Magnesium 2.1 mg/dL (1.8-2.4); Potassium 3.3 mmol/L (3.5-5.1); Protein, Total 7.7 g/dL (6.4-8.2)
[2021-11-22 21:47] LABS: SARS-COV-2 RT PCR POSITIVE (NEGATIVE)
[2021-11-22] MEDS ORDERED: FAMOTIDINE 20 MG/2 ML VIAL IV ONE (21:50)
[2021-11-22] MEDS ORDERED: predniSONE 20 MG TAB ONE (21:50)
[2021-11-22] MEDS ORDERED: METHYLPREDNISOLONE 125 MG INJ ONE (21:50)
[2021-11-22] MEDS ORDERED: AZITHROMYCIN 250 MG TAB ONE (21:50)
--- NOTE | 2021-11-22 21:51 | RAD REPORT ---
EXAM DESCRIPTION: USExtrem Venous W Compress Bil11/22/2021 9:43 pm CLINICAL HISTORY: Leg pain COMPARISON: 2014 FINDINGS: The common femoral, superficial femoral, popliteal and posterior tibial veins bilaterally are compressible and demonstrate augmentation. Doppler demonstrates good flow. IMPRESSION: No evidence of deep venous thrombosis involving either lower extremity.
[2021-11-22] MEDS ORDERED: LEVALBUTEROL 1.25 MG/3 ML NEB ONE (22:12)
[2021-11-22] MEDS ORDERED: IPRATROPIUM BROM 0.5MG/2.5ML ONE (22:12)
[2021-11-22] MEDS ORDERED: NA CHLORIDE 0.9% 50 ML ONE (22:18)
--- NOTE | 2021-11-22 22:27 | RAD REPORT ---
EXAM DESCRIPTION: [place] Single View11/22/2021 8:48 pm CLINICAL HISTORY: cough COMPARISON: September 2021 FINDINGS: Lungs are hazy. The heart is moderately enlarged IMPRESSION: Lungs are hazy. Bilateral pneumonia is suspected
[2021-11-22] MEDS ORDERED: FAMOTIDINE 20 MG TAB ONE (23:38)
--- NOTE | 2021-11-23 00:27 | ER ---
Nurse's Notes [facility] Name: Caroline Wise Age: 60 yrs Sex: Female : 1960 Arrival Date: 11/22/2021 Time: 18:57 Bed 27 Private MD: Stepan Cooper H Diagnosis: Coronavirus infection, unspecified;Pneumonia due to SARS-associated coronavirus;Mild persistent asthma;Other obesity;Dyspnea Presentation: 11/22 19:17 Chief complaint: Patient states: "asthma problems" patient does report cough x2days has sf1 used inhalers, c/o shob, had a COVID exposure on Wednesday. Coronavirus screen: Vaccine status: Patient reports receiving the 2nd dose of the covid vaccine. modern Client denies travel out of the [place] in the last 14 days. Ebola Screen: Patient negative for fever greater than or equal to 101.5 degrees Fahrenheit, and additional compatible Ebola Virus Disease symptoms Patient denies exposure to infectious person. Patient denies travel to an Ebola-affected area in the 21 days before illness onset. Initial Sepsis Screen: Does the patient meet any 2 criteria? No. Patient's initial sepsis screen is negative. Does the patient have a suspected source of infection? No. Patient's initial sepsis screen is negative. Risk Assessment: Do you want to hurt yourself or someone else?. Onset of symptoms was November 20, 2021. 19:17 Method Of Arrival: Ambulatory sf1 19:17 Acuity: SERAFIN 3 sf1 Triage Assessment: 19:20 General: Appears in no apparent distress. Behavior is calm, cooperative. Pain: sf1 Complains of pain in back. Historical: - Allergies: 19:20 PENICILLINS; sf1 19:20 Toradol; sf1 - Home Meds: 19:20 levothyroxine 150 mcg tab 1 tab once daily [Active]; sf1 - PMHx: 19:20 Asthma; Hypertension; Hypothyroidism; sf1 - PSHx: 19:20 hysterectomy, exp. lap, cataract repair, B foot SX; sf1 - Immunization history:: Adult Immunizations not up to date, Client reports receiving the 2nd dose of the Covid vaccine, Flu vaccine is not up to date. - Social history:: Smoking status: Patient denies any tobacco usage or history of. Patient/guardian denies using alcohol, street drugs. Screenin:59 Abuse screen: Denies threats or abuse. Nutritional screening: No deficits noted. sf1 Tuberculosis screening: No symptoms or risk factors identified. Fall Risk None identified. Assessment: 23:59 General: Appears in no apparent distress. Behavior is calm, cooperative. Respiratory: sf1 Reports shortness of breath at rest cough that is dry. Vital Signs: 19:17 BP 174 / 74; Pulse 82; Resp 22; Pulse Ox 96% on R/A; Weight 117.93 kg; Height 5 ft. 3 sf1 in. (160.02 cm); Pain 5/10; 11/23 00:37 BP 130 / 51; Pulse 75; Resp 20; sf1 11/22 19:17 Body Mass Index 46.06 (117.93 kg, 160.02 cm) sf1 ED Course: 11/22 18:57 Patient arrived in ED. am2 18:57 Stepan Cooper DO is Private Physician. am2 19:16 Trent Marshall MD is Attending Physician. joseline 19:17 Ariella Giles RN is Primary Nurse. sf1 19:20 Triage completed. sf1 19:20 Arm band placed on right wrist. sf1 20:48 XRAY Chest (1 view) In Process Unspecified. EDMS 21:43 US Extremity Venous W Compression Bacilio In Process Unspecified. EDMS 22:08 Basic Metabolic Panel Sent. yony 22:21 Inserted saline lock: 22 gauge in left forearm, using aseptic technique. lp1 23:44 CT Chest For PE Angio In Process Unspecified. EDMS 23:59 Placed in gown. Bed in low position. sf1 23:59 No provider procedures requiring assistance completed. sf1 11/23 00:26 Stepan Cooper DO is Referral Physician. joseline 00:38 IV discontinued, intact, bleeding controlled, No redness/swelling at site. Pressure sf1 dressing applied. Administered Medications: 11/22 20:15 Drug: SOLU-Medrol (methylPrednisoLONE) 125 mg Route: IVP; Site: left antecubital; yony 22:00 Drug: predniSONE 40 mg Route: PO; yony 22:00 Drug: Zithromax (azithromycin) 500 mg Route: PO; yony 22:15 Drug: Pepcid (famotidine) 20 mg Route: IVP; Site: left antecubital; yony 22:30 Drug: Xopenex (levalbuterol) 3.75 mg Route: Inhalation; yony 22:30 Drug: AtroVENT (ipratropium) Aerosol 0.5 mg Route: Inhalation; yony 23:47 Drug: Aspirin Chewable Tablet 324 mg Route: PO; sf1 23:47 Drug: Pepcid (famotidine) 40 mg Route: PO; sf1 Outcome: 11/23 00:26 Discharge ordered by . joseline 00:37 Discharged to home ambulatory. sf1 00:37 Condition: good 00:37 Discharge instructions given to patient, Instructed on discharge instructions, follow up and referral plans. Demonstrated understanding of instructions, follow-up care, medications, Prescriptions given X 4. 00:44 Patient left the ED. sf1 Signatures: Dispatcher [employer] EDMS Trent Marshall MD MD cha Pena, Laura, RN RN lp1 Carrie Zabala am2 Cesia Sherman RN RN bo Fillers, Samantha, RN RN sf1
--- NOTE | 2021-11-23 00:27 | EDPHYS ---
Physician Documentation [facility] Name: Caroline Wise Age: 60 yrs Sex: Female : 1960 Arrival Date: 11/22/2021 Time: 18:57 Bed 27 Private MD: Stepan Cooper H ED Physician Trent Marshall HPI: 11/22 19:30 This 60 yrs old Black Female presents to ER via Ambulatory with complaints of Asthma joseline Exacerbation. 19:30 The patient presents to the emergency department with wheezing, Current therapy: None. joseline Onset: The symptoms/episode began/occurred 2 day(s) ago. Modifying factors: The symptoms are alleviated by nothing, the symptoms are aggravated by nothing. Associated signs and symptoms: The patient has no apparent associated signs or symptoms. Severity of symptoms: At their worst the symptoms were mild in the emergency department the symptoms are unchanged. The patient has not experienced similar symptoms in the past. Historical: - Allergies: 19:20 PENICILLINS; sf1 19:20 Toradol; sf1 - Home Meds: 19:20 levothyroxine 150 mcg tab 1 tab once daily [Active]; sf1 - PMHx: 19:20 Asthma; Hypertension; Hypothyroidism; sf1 - PSHx: 19:20 hysterectomy, exp. lap, cataract repair, B foot SX; sf1 - Immunization history:: Adult Immunizations not up to date, Client reports receiving the 2nd dose of the Covid vaccine, Flu vaccine is not up to date. - Social history:: Smoking status: Patient denies any tobacco usage or history of. Patient/guardian denies using alcohol, street drugs. ROS: 19:31 Constitutional: Negative for fever, chills, and weight loss, Eyes: Negative for injury, joseline pain, redness, and discharge, ENT: Negative for injury, pain, and discharge, Neck: Negative for injury, pain, and swelling, Cardiovascular: Negative for chest pain, palpitations, and edema, Abdomen/GI: Negative for abdominal pain, nausea, vomiting, diarrhea, and constipation, Back: Negative for injury and pain, : Negative for injury, bleeding, discharge, and swelling, MS/Extremity: Negative for injury and deformity, Skin: Negative for injury, rash, and discoloration, Neuro: Negative for headache, weakness, numbness, tingling, and seizure, Psych: Negative for depression, anxiety, suicide ideation, homicidal ideation, and hallucinations, Allergy/Immunology: Negative for hives, rash, and allergies, Endocrine: Negative for neck swelling, polydipsia, polyuria, polyphagia, and marked weight changes, Hematologic/Lymphatic: Negative for swollen nodes, abnormal bleeding, and unusual bruising. 19:31 Respiratory: Positive for cough, shortness of breath, at rest. Exam: 19:31 Constitutional: This is a well developed, well nourished patient who is awake, alert, joseline and in no acute distress. Head/Face: Normocephalic, atraumatic. Eyes: Pupils equal round and reactive to light, extra-ocular motions intact. Lids and lashes normal. Conjunctiva and sclera are non-icteric and not injected. Cornea within normal limits. Periorbital areas with no swelling, redness, or edema. ENT: Nares patent. No nasal discharge, no septal abnormalities noted. Tympanic membranes are normal and external auditory canals are clear. Oropharynx with no redness, swelling, or masses, exudates, or evidence of obstruction, uvula midline. Mucous membranes moist. Neck: Trachea midline, no thyromegaly or masses palpated, and no cervical lymphadenopathy. Supple, full range of motion without nuchal rigidity, or vertebral point tenderness. No Meningismus. Chest/axilla: Normal chest wall appearance and motion. Nontender with no deformity. No lesions are appreciated. Cardiovascular: Regular rate and rhythm with a normal S1 and S2. No gallops, murmurs, or rubs. Normal PMI, no JVD. No pulse deficits. Respiratory: Lungs have equal breath sounds bilaterally, clear to auscultation and percussion. No rales, rhonchi or wheezes noted. No increased work of breathing, no retractions or nasal flaring. Abdomen/GI: Soft, non-tender, with normal bowel sounds. No distension or tympany. No guarding or rebound. No evidence of tenderness throughout. Back: No spinal tenderness. No costovertebral tenderness. Full range of motion. Female : Normal external genitalia. Skin: Warm, dry with normal turgor. Normal color with no rashes, no lesions, and no evidence of cellulitis. MS/ Extremity: Pulses equal, no cyanosis. Neurovascular intact. Full, normal range of motion. Neuro: Awake and alert, GCS 15, oriented to person, place, time, and situation. Cranial nerves II-XII grossly intact. Motor strength 5/5 in all extremities. Sensory grossly intact. Cerebellar exam normal. Normal gait. Psych: Awake, alert, with orientation to person, place and time. Behavior, mood, and affect are within normal limits. 19:31 Musculoskeletal/extremity: ROM: intact in all extremities, full active range of motion, full passive range of motion, in all extremities, Circulation is intact in all extremities. Sensation intact. Compartment Syndrome exam of affected extremity: is normal. DVT Exam: No signs of deep vein thrombosis. no pain, no swelling, no tenderness, negative Homans' sign noted on exam, no appreciated bluish discoloration, no erythema, no increased warmth. 11/23 00:26 ECG was reviewed by the Attending Physician. [facility] Vital Signs: 11/22 19:17 BP 174 / 74; Pulse 82; Resp 22; Pulse Ox 96% on R/A; Weight 117.93 kg; Height 5 ft. 3 sf1 in. (160.02 cm); Pain 5/10; 11/23 00:37 BP 130 / 51; Pulse 75; Resp 20; sf1 11/22 19:17 Body Mass Index 46.06 (117.93 kg, 160.02 cm) sf1 MDM: 11/22 19:16 Patient medically screened. [facility] 19:32 Differential diagnosis: Anemia Anxiety Reaction asthma, Bronchitis acute asthma, joseline exercise-induced asthma, reactive airway, CHF, URI. Antibiotic administration: Not indicated. The patient's Wells Deep Vein Thrombosis Score was calculated as follows: Total Score: 0-2 Pts- Low Risk. The patient's pulmonary embolism risk score was calculated as follows: Total Score: 0-2 points. This patient was found to be at low risk for a pulmonary embolism by using the Well's assessment criteria. Immunization status: Influenza vaccine: Not up to date. Data reviewed: vital signs, nurses notes, lab test result(s), EKG, radiologic studies, plain films. Data interpreted: pvc monitor: rate is 96 beats/min, rhythm is regular, Pulse oximetry: on room air is 96 %. Test interpretation: by ED physician or midlevel provider: ECG, plain radiologic studies. Counseling: I had a detailed discussion with the patient and/or guardian regarding: the historical points, exam findings, and any diagnostic results supporting the discharge/admit diagnosis, lab results, radiology results. 11/22 19:30 Order name: Basic Metabolic Panel [facility] 11/22 19:30 Order name: CBC with Diff; Complete Time: 20:50 [facility] 11/22 19:30 Order name: LFT's; Complete Time: 20:50 [facility] 11/22 19:30 Order name: Magnesium; Complete Time: 20:50 [facility] 11/22 19:30 Order name: NT PRO-BNP; Complete Time: 20:50 [facility] 11/22 19:30 Order name: PT-INR; Complete Time: 20:50 [facility] 11/22 19:30 Order name: Troponin HS; Complete Time: 20:50 [facility] 11/22 19:30 Order name: XRAY Chest (1 view); Complete Time: 22:33 [facility] 11/22 19:30 Order name: Lipase; Complete Time: 20:50 [facility] 11/22 19:30 Order name: D-Dimer; Complete Time: 20:50 [facility] 11/22 19:30 Order name: COVID-19/FLU A+B/RSV (Document "Date of Onset" if Symptomatic); Complete [facility] Time: 22:33 11/22 19:30 Order name: Basic Metabolic Panel; Complete Time: 20:50 EDMS 11/22 20:41 Order name: CT Chest For PE Angio [facility] 11/22 20:41 Order name: US Extremity Venous W Compression Bacilio; Complete Time: 22:33 [facility] 11/22 19:30 Order name: EKG; Complete Time: 19:31 [facility] 11/22 19:30 Order name: Cardiac monitoring; Complete Time: 22:08 [facility] 11/22 19:30 Order name: EKG - Nurse/Tech; Complete Time: 23:58 [facility] 11/22 19:30 Order name: IV Saline Lock; Complete Time: 23:47 [facility] 11/22 19:30 Order name: Labs collected and sent; Complete Time: 22:08 [facility] 11/22 19:30 Order name: O2 Per Protocol; Complete Time: 22:08 [facility] 11/22 19:30 Order name: O2 Sat Monitoring; Complete Time: 22:08 joseline EC/23 00:26 Rate is 76 beats/min. Rhythm is regular. QRS [place] is Normal. FL interval is normal. QRS joseline interval is normal. QT interval is normal. No Q waves. T waves are Normal. No ST changes noted. Clinical impression: NSR w/ Non-specific ST/T Changes and No evidence of ischemia. Interpreted by me. Reviewed by me. Administered Medications: 11/22 20:15 Drug: SOLU-Medrol (methylPrednisoLONE) 125 mg Route: IVP; Site: left antecubital; yony 22:00 Drug: predniSONE 40 mg Route: PO; yony 22:00 Drug: Zithromax (azithromycin) 500 mg Route: PO; yony 22:15 Drug: Pepcid (famotidine) 20 mg Route: IVP; Site: left antecubital; yony 22:30 Drug: Xopenex (levalbuterol) 3.75 mg Route: Inhalation; yony 22:30 Drug: AtroVENT (ipratropium) Aerosol 0.5 mg Route: Inhalation; yony 23:47 Drug: Aspirin Chewable Tablet 324 mg Route: PO; sf1 23:47 Drug: Pepcid (famotidine) 40 mg Route: PO; sf1 Disposition Summary: 11/23/21 00:26 Discharge Ordered Location: Home joseline Problem: new joseline Symptoms: have improved joseline Condition: Stable joseline Diagnosis - Coronavirus infection, unspecified joseline - Pneumonia due to SARS-associated coronavirus joseline - Mild persistent asthma joseline - Other obesity joseline - Dyspnea joseline Followup: [facility] - With: - When: 2 - 3 days - Reason: Recheck today's complaints, Continuance of care, Re-evaluation by your physician Discharge Instructions: - Discharge Summary Sheet joseline - Obesity, Adult joseline - Community-Acquired Pneumonia, Adult joseline - Shortness of Breath, Adult joseline - Upper Respiratory Infection, Adult, [id number] joseline - Community-Acquired Pneumonia, Adult, [id number] joseline - Viral Respiratory Infection, [id number] joseline - COVID-19 joseline - COVID-19 Frequently Asked Questions [facility] - 10 Things You Can Do to Manage Your COVID-19 Symptoms at Home - [facility] joseline - COVID-19: Quarantine vs. Isolation - [facility] Forms: - Medication Reconciliation Form joseline - Thank You Letter joseline - Antibiotic Education joseline - Prescription Opioid Use joseline Prescriptions: - albuterol sulfate 90 mcg/actuation Inhalation HFA aerosol inhaler - inhale 2 puff by INHALATION route every 4-6 hours; 1 Pump; Refills: 0, Product joseline Selection Permitted - ivermectin 3 mg Oral tablet - take 5 tablet by ORAL route once daily; 15 tablet; Refills: 0, Product joseline Selection Permitted - Singulair 10 mg Oral Tablet - take 1 tablet by ORAL route At bedtime; 30 tablet; Refills: 0, Product joseline Selection Permitted - Medrol (Juancho) 4 mg Oral Tablets, Dose Pack - take 1 tablet by ORAL route as directed - follow package instructions; 1 joseline packet; Refills: 0, Product Selection Permitted - Zithromax 500 mg Oral Tablet - take 1 tablet by ORAL route once daily for 5 days; 5 tablet; Refills: 0, joseline Product Selection Permitted Signatures: Dispatcher [employer] Trent Saenz MD MD cha O'Farrell, Brenda, RN RN Ariella Yao RN RN sf1
[2021-11-23 01:30] VITALS: BP 130/51
--- NOTE | 2021-11-24 08:05 | EKG ---
Test Date: 2021-11-22 Test Time: 23:57:39 Purchasing Administrative Assistant: MEASUREMENT RESULTS: Intervals: Rate: 76 W[place]: 158 QRSD: 78 QT: 378 QTc: 425 [place]: P: 54 W[place]: 158 QRS: 32 T: 110 INTERPRETIVE STATEMENTS: Normal sinus rhythm Possible Left atrial enlargement Nonspecific T wave abnormality Abnormal ECG Compared to ECG 10/28/2020 16:25:13 T-wave abnormality now present Electronically Signed On 11-24-21 08:03:01 IRON LAUNDER OPERATOR by Ezekiel Ruiz
--- NOTE | 2021-11-24 11:57 | RAD REPORT ---
EXAM DESCRIPTION: CT - Chest For Pe Angio - 11/23/2021 4:31 am CLINICAL HISTORY: 60 years, Female, CHEST PAIN COMPARISON: 10/28/2020 TECHNIQUE: Multiple transaxial tomograms of the chest were obtained from the lung apices through the lung bases utilizing 2 mm slice thickness at 2 mm interval reconstruction after the administration o f large bolus of IV contrast for complete opacification of the pulmonary arteries. Subsequent 3-D maximum intensity projection images were generated in the coronal and sagittal plane f or review. This exam was performed according to our departmental dose-optimization protocol, which includes auto mated exposure control, adjustment of the mA and/or kV according to patient size and/or use of iterat madhu reconstruction technique. FINDINGS: The lungs parenchyma demonstrate minimal focal areas of mosaic densities most likely corre sponding to atelectasis/air trapping. No masses, nodules and/or consolidations are identified. No yanira dence for thrombus densities. The trachea mainstem bronchus demonstrate to be normal. There is no sig nificant pericardial or pleural effusions. The thoracic aorta demonstrate very minimal intimal aortic arch calcification. There is no evidence f or aneurysm/or significant dissection. The heart is normal in size. No evidence for right ventricular strain. There are no coronary artery calcifications. There is no significant mediastinal and/or hilar lymphadenopathy. The axillary regions demonstrate to be clear. Pulmonary arteries demonstrate to be normal, no intraluminal defect are seen that would suggest pulmo nary embolus. The bone windows demonstrate no significant skeletal lesions. The visualized portions of the upper abdomen demonstrate to be unremarkable. IMPRESSION: No CT evidence of pulmonary embolus and/or significant aortic dissection. Minimal focal areas of mosaic densities most likely corresponding to atelectasis/air trapping. Electronically signed by: Jemal Arteaga MD 11/23/2021 12:00 AM OUTPATIENT RECEPTIONIST Due to temporary technical issues with the PACS/Fluency reporting system, reports are being signed by the in house radiologist without review as a courtesy to ensure prompt reporting. The interpreting r adiologist is fully responsible for the content of the report.
== END 2021-11-23 00:44 | disposition home or self-care (01) ==
LOC: ER 18:49
DX: U07.1 COVID-19 (principal); J12.82 Pneumonia due to coronavirus disease 2019; J45.30 Mild persistent asthma, uncomplicated; E66.9 Obesity, unspecified; E03.9 Hypothyroidism, unspecified; I10 Essential (primary) hypertension; Z88.0 Allergy status to penicillin; Z88.5 Allergy status to narcotic agent
CPT/HCPCS: 93005; 85025; 80048; 36415; 83735; 85610; 85379; 80076; 84484; 83690; 83880; 0241U; 71275; 71045; 93970; 96375; 96374; 99284; Q9967; J7030; J2930; J7512

== ENCOUNTER 2022-05-26 19:00 | Emergency (ER) | payer BC ==
--- OUTSIDE RECORDS SUMMARY | 2022-05-26 19:04 | XMS REPORT | Continuity of Care Document ---
:1960 Author Organization [facility] t Address [address] [place] [address] Care Team Providers Name Role Phone Angie PATIÑO Attending Clinician Unavailable Kiko Cooper Attending Clinician Unavailable Nini Pradhan Attending Clinician Unavailable Miguel MORENO, A Attending Clinician Only, Test Attending Clinician Unavailable Pob, Lab Main Attending Clinician Unavailable Doctor Unassigned, Name Attending Clinician Unavailable MIGUEL, Angie Admitting Clinician Unavailable Kiko Cooper Admitting Clinician Unavailable Physician, Primary or Family Admitting Clinician Unavailkalpana Patiño MD, A Admitting Clinician Payers Payer Name Policy Type Policy Number Effective Date Expiration Date Agata tony [facility] [id number] 2017 00:00:00 SELECT Problems Condition Condition Condition Status Onset Resolution Last Treating Co mments Source Name Details Category Date Date Treatment Clinician Date Morbid Morbid Disease Active 2020-0 Univers obesity obesity - [place] of [place] mass index 00 [place] dical of of Branch 40.0-49.9 40.0-49.9 Allergies, Adverse Reactions, Alerts Allergy Allergy Status Severity Reaction(s) Onset Inactive Treating Comm ents Source Name Type Date Date Clinician KETOROLA DRUG Active Anaphylaxis 2020-0 Uni vers C INGREDI - ity of TROMETHA 00:00: [place] [facility] 00 Medical Branch Ketorola Propensi Active Anaphylaxis 2020-0 U nivers c ty to 7-22 ity of Trometha adverse 00:00: [place] mine reaction 00 Medical s Branch Tramadol Propensi Active Anaphylaxis 2020-0 U nivers ty to 720 ity of adverse 00:00: [place] reaction 00 Medical s Branch TRAMADOL DRUG Active Anaphylaxis 2019- Uni vers INGREDI 7-20 ity of 00:00: [place] [address] Medical Branch No Known DA Active U [facility] Allergie 4-06 [facility] 00:[facility] [place] No Known DA Active U [facility] Allergie 4-06 [facility] s 00:00: [facility] [place] NO KNOWN Drug Active Univers ALLERGIE Class ity of S [facility] Social History Social Habit Start Date Stop Date Quantity Comments Source [facility] Exposure to Not sure [facility] SARS-CoV-2 [facility] (event) Branch Alcohol intake 2020-05-20 2020-05-20 Current University of 00:00:00 00:00:00 non-drinker of [facility] alcohol Hanna (finding) Tobacco use and 2020-05-20 2020-05-20 Never used Universit y of exposure 00:00:00 00:00:00 [facility] Smoking Status Start Date Stop Date Source Never smoker [facility] Medications Ordered Filled Start Stop Current [...] 08 Medical mcg/actuati Branch on inhaler montelukast 2020-0 Yes 10mg Take 10 mg Univers 10 mg 9-09 by mouth ity of tablet 18:12: daily. [address] Branch olmesartan 2020-0 Yes 40mg Take 40 mg U nivers 40 mg 9-09 by mouth ity of tablet 18:12: daily. [address] levothyroxi 2020-0 Yes 150ug Take 150 U nivers ne 150 mcg 9-09 mcg by ity of tablet 18:12: mouth [place] 08 daily. [facility] Branch lactated 2020-0 Yes 1000mL at 75 Univer s ringers IV 7-22 mL/hr, ity of infusion 16:15: 1,000 mL, [place] 1,000 [place] 00 IV Medical Infusion, Branch CONTINUOUS , Starting Wed05/22/20 at 1115, Until Discontinu ed, Routine, PACU carbachoL 2020-0 Yes PRN, Univers (MIOSTAT) 05-22 Starting ity of 0.01 % 15:52: Wed intraocular 05/22/20 at [place] dical injection 1052, Branch Until Discontinu ed, Routine, Intra-op ceFAZolin 2020-0 Yes PRN, Univers (ANCEF) 05-22 Starting ity of injection 15:52: Wed05/22/20 at [facility] 1052, Branch Until Discontinu ed, BRYAN, Intra-op dexamethaso 2020-0 Yes PRN, Univer s ne 05-22 Starting ity of (DECADRON 15:51: Wed PHOSPHATE) 05/22/20 at [facility] ical injection 1051, Branch Until Discontinu ed, Routine, Intra-op gentamicin 2020-0 Yes PRN, Univers injection 05-22 Starting ity of 15:51: Wed05/22/20 at [facility] 1051, Branch Until Discontinu ed, BRYAN, Intra-op neomycin-po 2020-0 Yes PRN, [facility] lymyxin-dex 05-22 Starting ity of amethasone 15:51: Wed (MAXITROL) 05/22/20 at [facility] ica 3.5 1051, [place] mg/g-10,000 Until unit/g-0.1 Discontinu % ed, ophthalmic Routine, ointment Intra-op sodium 2020-0 Yes PRN, Univers chloride 05-22 Starting ity of (NS) 15:49: Wed [place] injection 05/22/20 at [facility] 1049, Branch Until Discontinu ed, Routine, Intra-op DUOVISC 2020-0 Yes PRN, Univers (DUOVISC 05-22 Starting ity of VISCO 15:48: Wed [place] ELASTIC) 3 05/22/20 at [facility] ical %-4 %(0.5 1048, Branch mL) 1 % Until (0.55 mL) Discontinu intraocular ed, injection Routine, Intra-op EPINEPHrine 2020-0 Yes PRN, Univer s 1:1,000 (1 05-22 Starting ity o f mg/mL) 15:43: Wed [place] (ADRENALIN) 00 05/22/20 at [place] dical injection 1043, Branch Until Discontinu ed, Routine, Intra-op balanced 2020-0 Yes PRN, Univers salt irrig 05-22 Starting ity o f soln comb1 15:43: Wed [place] (BSS PLUS) 00 05/22/20 at [facility] ical ophthalmic 1043, Branch solution Until 500 mL bag Discontinu ed, Routine, Intra-op Hyaluronida 2020-0 Yes PRN, Univer s se, Human 05-22 Starting ity of Recomb. 15:36: Wed [place] (HYLENEX) 00 05/22/20 at [facility] injection 1036, Branch Until Discontinu ed, Routine, Intra-op eye block 2020-0 Yes PRN, Univers syringe 11 05-22 Starting ity o f mL 15:36: Wed [place] 05/22/20 at Medical 1036, Branch Until Discontinu ed, Intra-op water for 2020-0 Yes PRN, Univers irrigation 05-22 Starting ity o f irrigation 15:31: Wed [place] solution 05/22/20 at Medic al 1031, Branch Until Discontinu ed, Routine, Intra-op mydriatic 2020-0 2020- No .5mL 0.5 mL, [facility] ers #5 05-22 Left Eye, ity of ophthalmic 14:00: 14:30 ONCE, 1 [place] as solution 00 :00 dose, Wed Medica l 0.5 mL 05/22/20 at Branch syringe 0900, Routine lactated 2020-0 2020- No 1000mL at 20 Unive rs ringers IV 05-22 07-22 mL/hr, ity of infusion 14:00: 14:45 1,000 mL, Isaac as 1,000 mL 00 :00 IV Medical Infusion, [place] ONCE, 1 dose, Wed05/22/20 at 0900, Routine, DSU Pre-op levothyroxi 2017-0 Yes 150ug Take 150 U nivers ne 150 mcg 9-26 mcg by ity of tablet 21:25: mouth [place] 55 daily. Medical Branch albuterol Yes 2{puff} Inhale 2 U nivers (PROAIR 9-26 Puffs ity of HFA) 90 21:25: every 6 [place] mcg/actuati 55 (six) Medical on inhaler hours as Branc h needed for Wheezing or Shortness of Breath. albuterol 2017- Yes 2.5mg Inhale 2.5 U nivers 2.5 mg /3 9-26 mg every 6 ity of mL (0.083 21:25: (six) [place] %) 55 hours as Medical nebulizer needed for Bran ch solution Wheezing or Shortness of Breath. budesonide- Yes 2{puff} Inhale 2 Univers formoterol 9-26 Puffs as ity o f (SYMBICORT) 21:25: needed. [place] as 160-4.5 Medical [facility]/actuati Branch on inhaler montelukast 2017-0 Yes 10mg Take 10 mg Univers 10 mg 9-26 by mouth ity of tablet 21:25: daily. [place] [address] Medical Branch olmesartan 0 Yes 40mg Take 40 mg U nivers 40 mg 9-26 by mouth ity of tablet 21:25: daily. [place] [address] Medical Branch levothyroxi 2017-0 Yes 150ug Take 150 U nivers ne 150 mcg 9-26 mcg by ity of tablet 21:25: mouth [place] 55 daily. Medical Branch albuterol Yes 2{puff} Inhale 2 U nivers (PROAIR 9-26 Puffs ity of HFA) 90 21:25: every 6 [place] mcg/actuati 55 (six) Medical on inhaler hours as Branc h needed for Wheezing or Shortness of Breath. albuterol 2017- Yes 2.5mg Inhale 2.5 U nivers 2.5 [...] by mouth ity of tablet 21:25: daily. [place] [address] Medical Branch olmesartan Yes 40mg Take 40 mg U nivers 40 mg 9-26 by mouth ity of tablet 21:25: daily. [place] [address] Medical Branch levothyroxi Yes 150ug Take 150 [...] 21:25: needed. [place] as 160-4.5 55 Medical [facility]/actuati Branch on inhaler montelukast Yes 10mg Take 10 mg Univers 10 mg 9-26 by mouth ity of tablet 21:25: daily. [place] [address] Medical Branch olmesartan Yes 40mg Take 40 mg U nivers 40 mg 9-26 by mouth ity of tablet 21:25: daily. [place] [address] Medical Branch levothyroxi 0 Yes 150ug Take [...] by mouth ity of tablet 21:25: daily. [place] [address] Medical Branch olmesartan 0 Yes 40mg Take 40 mg U nivers 40 mg 9-26 by mouth ity of tablet 21:25: daily. [place] [address] Medical Branch levothyroxi 0 Yes 150ug Take 150 U nivers ne 150 mcg 9-26 mcg by ity of tablet 21:25: mouth [place] [address] daily. Medical Branch albuterol 0 Yes 2{puff} [...] by mouth ity of tablet 21:25: daily. [place] [address] Medical Branch olmesartan 2018-0 Yes 40mg Take 40 mg U nivers 40 mg 9-26 by mouth ity of tablet 21:25: daily. [address] levothyroxi Yes 150ug Take 150 U nivers ne 150 mcg 9-26 mcg by ity of tablet 21:25: mouth [place] [address] daily. Medical Branch albuterol Yes 2{puff} Inhale [...] 21:25: needed. [place] as 160-4.5 Medical mcg/actuati [place] on inhaler montelukast Yes 10mg Take 10 mg Univers 10 mg 9-26 by mouth ity of tablet 21:25: daily. [address] olmesartan Yes 40mg Take 40 mg U nivers 40 mg 9-26 by mouth ity of tablet 21:25: daily. [address] Vital Signs Vital Name Observation Time Observation Value Comments Source Systolic blood 2020-05-22 16:15:00 150 mm[Hg] [facility] pressure [facility] Diastolic blood 2020-05-22 16:15:00 60 mm[Hg] [facility] rsity of pressure [facility] Heart rate 2020-05-22 16:15:00 64 /min [facility] Respiratory rate 2020-05-22 16:15:00 16 /min [facility] O[facility] saturation in 2020-05-22 16:15:00 100 /min [facility] Arterial blood by [facility] Pulse oximetry Branch Body temperature 2020-05-22 16:02:00 36.22 Dayanna [facility] Body height 2020-05-13 14:06:00 160 cm Universi ty [facility] Body weight 2020-05-13 14:06:00 113.4 kg Universi ty [facility] BMI 2020-05-13 14:06:00 44.30 kg/m2 Universi ty [facility] Systolic blood 2020-05-22 16:15:00 150 mm[Hg] Univer sity of [facility] Diastolic blood 2020-05-22 16:15:00 60 mm[Hg] Unive rsity of [facility] Heart rate 2020-05-22 16:15:00 64 /min Universi ty [facility] Respiratory rate 2020-05-22 16:15:00 16 /min [facility] Oxygen saturation in 2020-05-22 16:15:00 100 /min [facility] Arterial blood by [facility] Pulse oximetry [place] Body temperature 2020-05-22 16:02:00 36.22 Dayanna [facility] Body height 2020-05-13 14:06:00 160 cm Universi ty [facility] Body weight 2020-05-13 14:06:00 113.4 kg Universi ty [facility] BMI 2020-05-13 14:06:00 44.30 kg/m2 [facility] Procedures Procedure Date / Time Performing Source Performed Clinician PHACOEMULSIFICATION OF 2020-05-22 Shaka Patiño [facility] CATARACT WITH INTRAOCULAR 15:25:00 [facility] LENS IMPLANT ASSIGNMENT OF BENEFITS 2020-05-21 Doctor Unassigned, [facility] 14:57:14 [place] [facility] Encounters Start End Encounter Admission Attending Care Care Encounter Source Date/Time Date/Time Type Type Clinicians Facility Department ID 2021-08-29 Outpatient Cyndi PATIÑO [facility] DAMIAN [id number] Univers 08:02:04 SHAKA llanos [facility] 2022-02-05 2022-02-05 Outpatient Ortiz Sifuentes [facility] [id number] [facility] 12:00:00 12:00:00 [id number] [facility] [place] 2021-02-07 2021-02-07 Outpatient LINDSAY Pradhan [facility] DANIEL [id number] [facility] 12:00:00 12:00:00 Fabi [id number] [facility] [place] 2020-05-22 2020-05-22 [facility] [id number] 08:54:05 11:20:00 Encounter Shaka Angie Did[place] [id number] [place] [id number] Surgical [id number] [place] [address] 2020-05-22 2020-05-22 [facility] [id number] Univers 08:54:05 11:20:00 Encounter Shaka Angie [place] [id number] ity [place] [id number] [place] [id number] [address] 2020-05-21 2020-05-21 Laboratory Only, [facility] [id number] 09:50:00 10:43:07 Only Test [place] [id number] [place] [id number] [place] [id number] [facility] 2020-05-21 2020-05-21 Laboratory Only, [facility] Test [facility] [id number] Univers 09:50:00 10:43:07 Only Shaka Patiño [place] [id number] 0 ity of [place] [id number] [place] [id number] [address] 2020-05-21 2020-05-21 Outpatient R [facility] [id number] Univers 10:30:00 10:30:00 [id number] viet [facility] 2020-05-21 2020-05-21 [facility] [id number] Univers 10:15:00 10:15:00 SHAKA alis [facility] 2020-05-21 2020-05-21 Floor Supervisor Scot, [facility] Lab Main [facility] [id number] Univers 09:58:32 10:13:32 Visit Shaka Patiño [place] [id number] 0 ity [place] [id number] [place] Profess[place] [id number] [place] [address] 2020-05-21 2020-05-21 Orders Doctor OLIVIER [id number] Univers 00:00:00 00:00:00 Only Unassigned, MIKO [id number] ity of [place] [facility] [id number] [facility] as [id number] [place] [address] Branch 2020-05-14 2020-05-14 Outpatient R [facility] [id number] [facility] 07:30:00 07:30:00 [id number] ity of [facility] Results This patient has no known results.
[2022-05-26] MEDS ORDERED: NA CHLORIDE 0.9% 1,000 ML ONE (19:29)
[2022-05-26 20:34] LABS: Absolute Lymphocytes (CBC) 1.4 K/uL (0.7-4.9); Hematocrit 42.1 % (36.0-45.0); Lymphocytes % 11.7 % (15.3-44.8); MCV 89.7 fL (80-100); MPV 9.2 fL (7.6-11.3)
[2022-05-26] MEDS ORDERED: DIPHENHYDRAMINE 25 MG TAB/CAP ONE ×2 (20:46→20:53)
[2022-05-26] MEDS ORDERED: dexAMETHasone 10 MG/ML VIAL ONE (20:47)
[2022-05-26] MEDS ORDERED: FAMOTIDINE 20 MG TAB ONE ×2 (20:47→20:54)
[2022-05-26] MEDS ORDERED: dexAMETHasone 4 MG TAB ONE (20:53)
[2022-05-26 21:27] LABS: Potassium 3.9 mmol/L (3.5-5.1)
--- NOTE | 2022-05-26 22:38 | EDPHYS ---
Physician Documentation [facility] Name: Caroline Wise Age: 61 yrs Sex: Female : 1960 Arrival Date: 05/26/2022 Time: 19:02 Bed 11 Private MD: ED Physician Rich Prado HPI: 05/26 19:15 This 61 yrs old Black Female presents to ER via EMS with complaints of Asthma pm1 Exacerbation, Dizziness, Rash. 19:15 The patient presents to the emergency department with wheezing, Current therapy: pm1 albuterol inhaler, albuterol nebs, that began Unknown, the patient was reported to have trouble breathing. Onset: The symptoms/episode began/occurred today. Modifying factors: The symptoms are alleviated by inhaler, nebulizer treatment, steroids. Severity of symptoms: in the emergency department the symptoms have improved Patient without any shortness of breath or wheezing. The patient has not recently seen a physician. Historical: - Allergies: 19:05 Toradol; ld1 19:05 PENICILLINS; ld1 - Home Meds: 19:05 levothyroxine 150 mcg tab 1 tab once daily [Active]; ld1 - PMHx: 19:05 Asthma; Hypertension; Hypothyroidism; ld1 - PSHx: 19:05 hysterectomy, exp. lap, cataract repair, B foot SX; ld1 - Immunization history:: Adult Immunizations up to date, Client reports having NOT received the Covid vaccine. - Social history:: Smoking status: Patient denies any tobacco usage or history of. Patient/guardian denies using alcohol. ROS: 19:15 Constitutional: Negative for fever, chills, and weight loss, Cardiovascular: Negative pm1 for chest pain, palpitations, and edema. 19:15 Abdomen/GI: Negative for abdominal pain, nausea, vomiting, diarrhea, and constipation, Back: Negative for injury and pain, MS/Extremity: Negative for injury and deformity, Skin: Negative for injury, rash, and discoloration, Neuro: Negative for headache, weakness, numbness, tingling, and seizure. 19:15 Respiratory: Positive for shortness of breath, wheezing, That has resolved. 19:15 All other systems are negative. Exam: 19:15 Constitutional: This is a well developed, well nourished patient who is awake, alert, pm1 and in no acute distress. Head/Face: Normocephalic, atraumatic. 19:15 MS/ Extremity: Pulses equal, no cyanosis. Neurovascular intact. Full, normal range of motion. 19:15 Cardiovascular: Exam negative for acute changes, Rate: normal, Rhythm: regular, Pulses: no pulse deficits are appreciated, Heart sounds: normal. 19:15 Respiratory: Exam negative for acute changes, respiratory distress, shortness of breath, Breath sounds: are clear throughout. 19:15 Neuro: Exam negative for acute changes, Orientation: is normal, Mentation: is normal, Motor: is normal, moves all fours. Vital Signs: 19:02 BP 130 / 67; Pulse 85; Resp 18; Temp 98.1(TE); Pulse Ox 100% on R/A; Pain 0/10; ld1 20:07 BP 154 / 57 LA Supine (auto/lg); Pulse 64; Resp 18; Pulse Ox 100% on R/A; bh1 20:07 BP 161 / 72 LA Sitting (auto/lg); Pulse 77; Resp 20; Pulse Ox 100% on R/A; bh1 20:07 BP 162 / 69 LA Standing (auto/lg); Pulse 78; Resp 20; Pulse Ox 100% on R/A; bh1 20:30 BP 162 / 69; Pulse 76; Resp 20; Pulse Ox 95% on R/A; bh1 21:39 BP 161 / 72; Pulse 77; Resp 20; Pulse Ox 95% on R/A; bh1 22:23 BP 163 / 75; Pulse 76; Resp 18; Pulse Ox 95% on R/A; bh1 MDM: 19:08 Patient medically screened. pm1 21:39 Data reviewed: vital signs. Data interpreted: Pulse oximetry: on room air is 95 %. pm1 Interpretation: normal. 22:37 Counseling: I had a detailed discussion with the patient and/or guardian regarding: the pm1 historical points, exam findings, and any diagnostic results supporting the discharge/admit diagnosis, lab results, the need for outpatient follow up, to return to the emergency department if symptoms worsen or persist or if there are any questions or concerns that arise at home. 05/26 19:13 Order name: CBC with Diff; Complete Time: 20:57 pm1 05/26 19:13 Order name: BMP; Complete Time: 21:29 pm1 05/26 19:13 Order name: CPK; Complete Time: 21:29 pm1 05/26 19:13 Order name: Orthostatic Blood Pressure; Complete Time: 20:07 pm1 Administered Medications: 20:39 Not Given (no iv): NS 0.9% 1000 ml IV at 1000 ml once bh1 20:47 Not Given (wrong route): Benadryl (diphenhydrAMINE) 25 mg IVP once kd3 20:47 Not Given (wrong routee): Pepcid (famotidine) 20 mg IVP once; dilute with 10 mL 0.9% kd3 NaCl; give over 2 minutes 20:47 Not Given (wrong routee): Decadron - Dexamethasone 10 mg IVP once kd3 20:48 Drug: Decadron (dexamethasone) 10 mg Route: IM; Site: right deltoid; kd3 23:00 Follow up: Response: No adverse reaction bh1 20:48 Drug: Benadryl (diphenhydrAMINE) 25 mg Route: PO; kd3 23:00 Follow up: Response: No adverse reaction bh1 20:48 Drug: Pepcid (famotidine) 20 mg Route: PO; kd3 23:00 Follow up: Response: No adverse reaction bh1 Disposition: 23:46 Co-signature as Attending Physician, Rich Prado MD I agree with the assessment and kdr plan of care. Disposition Summary: 05/26/22 22:37 Discharge Ordered Location: Home pm1 Problem: new pm1 Symptoms: have improved pm1 Condition: Stable pm1 Diagnosis - Urticaria, unspecified pm1 - Unspecified asthma, uncomplicated pm1 Followup: pm1 - With: Emergency Department - When: As needed - Reason: Worsening of condition Followup: pm1 - With: Private Physician - When: 2 - 3 days - Reason: Recheck today's complaints, Continuance of care, Re-evaluation by your physician Discharge Instructions: - Discharge Summary Sheet pm1 - Hives pm1 - Asthma Attack pm1 Forms: - Medication Reconciliation Form pm1 - Thank You Letter pm1 - Antibiotic Education pm1 - Prescription Opioid Use pm1 - Work release form bh1 Prescriptions: - Benadryl 25 mg Oral Capsule - take 1 capsule by ORAL route every 6 hours As needed; 30 tablet; Refills: 0, pm1 Product Selection Permitted - Pepcid 20 mg Oral Tablet - take 1 tablet by ORAL route every 12 hours for 10 days; 20 tablet; Refills: 0, pm1 Product Selection Permitted - epinephrine 0.3 mg/0.3 mL Injection auto-injector - inject 0.3 milliliter by INTRAMUSCULAR route as directed As needed as needed pm1 for anaphylaxis; 1 Unspecified; Refills: 0, Product Selection Permitted - Prednisone 20 mg Oral Tablet - take 3 tablets by ORAL route once daily for 5 days; 15 tablet; Refills: 0, pm1 Product Selection Permitted Signatures: Dispatcher [employer] Rich Prado MD MD kdr Marinas, Patrick, NP REMOTE CONTROL MIRROR INSTALLER pm1 Meghan Arenas RN RN ld1 Luz Harden RN RN kd3 iMni Munguia RN 1 Corrections: (The following items were deleted from the chart) 20:40 19:13 IV Saline Lock ordered. pm1 1
--- NOTE | 2022-05-26 22:38 | ER ---
Nurse's Notes [facility] Name: Caroline Wise Age: 61 yrs Sex: Female : 1960 Arrival Date: 05/26/2022 Time: 19:02 Bed 11 Private MD: Diagnosis: Urticaria, unspecified;Unspecified asthma, uncomplicated Presentation: 05/26 19:02 Chief complaint: EMS states: Toned out to pt home for asthma exacerbation - Upon ld1 arrival to ER pt SpO2 100% RA. Now complaining of dizziness, and rash to DG arms. Pt reports eating tuna fish for the first time today. Coronavirus screen: At this time, the client does not indicate any symptoms associated with coronavirus-19. Ebola Screen: No symptoms or risks identified at this time. Initial Sepsis Screen: Does the patient meet any 2 criteria? No. Patient's initial sepsis screen is negative. Does the patient have a suspected source of infection? No. Patient's initial sepsis screen is negative. Risk Assessment: Do you want to hurt yourself or someone else? Patient reports no desire to harm self or others. Onset of symptoms was May 26, 2022. 19:02 Method Of Arrival: [facility] ld1 19:02 Acuity: SERAFIN 3 ld1 Triage Assessment: 19:05 General: Appears in no apparent distress. comfortable, Behavior is calm, cooperative, ld1 appropriate for age. Pain: Denies pain. EENT: No signs and/or symptoms were reported regarding the EENT system. Neuro: Level of Consciousness is awake, alert, obeys commands, Oriented to person, place, time, situation. Cardiovascular: Capillary refill < 3 seconds Patient's skin is warm and dry. Respiratory: Airway is patent Respiratory effort is even, unlabored, Respiratory pattern is regular, symmetrical. GI: Abdomen is round non-distended. : No signs and/or symptoms were reported regarding the genitourinary system. Derm: No signs and/or symptoms reported regarding the dermatologic system. Musculoskeletal: No signs and/or symptoms reported regarding the musculoskeletal system. Historical: - Allergies: 19:05 Toradol; ld1 19:05 PENICILLINS; ld1 - Home Meds: 19:05 levothyroxine 150 mcg tab 1 tab once daily [Active]; ld1 - PMHx: 19:05 Asthma; Hypertension; Hypothyroidism; ld1 - PSHx: 19:05 hysterectomy, exp. lap, cataract repair, B foot SX; ld1 - Immunization history:: Adult Immunizations up to date, Client reports having NOT received the Covid vaccine. - Social history:: Smoking status: Patient denies any tobacco usage or history of. Patient/guardian denies using alcohol. Screenin:57 Abuse screen: Denies threats or abuse. Nutritional screening: No deficits noted. bh1 Tuberculosis screening: No symptoms or risk factors identified. Fall Risk None identified. Assessment: 19:57 Reassessment: No changes from previously documented assessment. bh1 22:45 Reassessment: Hives on arms, neck and chest resolved Patient states feeling better. kd3 Patient states symptoms have improved. Vital Signs: 19:02 BP 130 / 67; Pulse 85; Resp 18; Temp 98.1(TE); Pulse Ox 100% on R/A; Pain 0/10; ld1 20:07 BP 154 / 57 LA Supine (auto/lg); Pulse 64; Resp 18; Pulse Ox 100% on R/A; bh1 20:07 BP 161 / 72 LA Sitting (auto/lg); Pulse 77; Resp 20; Pulse Ox 100% on R/A; bh1 20:07 BP 162 / 69 LA Standing (auto/lg); Pulse 78; Resp 20; Pulse Ox 100% on R/A; bh1 20:30 BP 162 / 69; Pulse 76; Resp 20; Pulse Ox 95% on R/A; bh1 21:39 BP 161 / 72; Pulse 77; Resp 20; Pulse Ox 95% on R/A; bh1 22:23 BP 163 / 75; Pulse 76; Resp 18; Pulse Ox 95% on R/A; bh1 ED Course: 19:02 Patient arrived in ED. ld1 19:05 Triage completed. ld1 19:05 Arm band placed on right wrist. ld1 19:07 Alfonso Alexander NP is PHCP. pm1 19:07 Rich Prado MD is Attending Physician. pm1 19:15 Mini Munguia RN is Primary Nurse. bh1 19:57 Patient has correct armband on for positive identification. bh1 19:57 No provider procedures requiring assistance completed. Missed attempt(s): 22 gauge in bh1 left hand. forearm. 19:58 No apparent distress. Awaiting: iv. [facility] 21:38 No apparent distress. Resting quietly. Awaiting lab results. 1 22:24 No apparent distress. Resting quietly. Awaiting lab results. [facility] 23:01 Patient did not have IV access during this emergency room visit. [facility] Administered Medications: 20:39 Not Given (no iv): NS 0.9% 1000 ml IV at 1000 ml once [facility] 20:47 Not Given (wrong route): Benadryl (diphenhydrAMINE) 25 mg IVP once kd3 20:47 Not Given (wrong routee): Pepcid (famotidine) 20 mg IVP once; dilute with 10 mL 0.9% kd3 NaCl; give over 2 minutes 20:47 Not Given (wrong routee): Decadron - Dexamethasone 10 mg IVP once kd3 20:48 Drug: Decadron (dexamethasone) 10 mg Route: IM; Site: right deltoid; kd3 23:00 Follow up: Response: No adverse reaction [facility] 20:48 Drug: Benadryl (diphenhydrAMINE) 25 mg Route: PO; kd3 23:00 Follow up: Response: No adverse reaction [facility] 20:48 Drug: Pepcid (famotidine) 20 mg Route: PO; kd3 23:00 Follow up: Response: No adverse reaction [facility] Medication: 19:57 VIS not applicable for this client. [facility] Outcome: 22:37 Discharge ordered by . 1 23:01 Discharged to home ambulatory. [facility] 23:01 Condition: good 23:01 Discharge instructions given to patient, family, Instructed on discharge instructions, follow up and referral plans. medication usage, Demonstrated understanding of instructions, follow-up care, medications, Prescriptions given X 4. 23:01 Patient left the ED. [facility] Signatures: Alfonso Alexander, [employer] pm1 Meghan Arenas RN RN ld1 Luz Harden RN RN kd3 Mini Munguia RN RN [facility] Corrections: (The following items were deleted from the chart) 21:39 20:30 BP 161 / 72; Pulse 77bpm; Resp 20bpm; Pulse Ox 95% RA; [place] [id number]
[2022-05-26 23:19] VITALS: TEMP 98.1
[2022-05-26 23:32] VITALS: O2SAT 95
[2022-05-26 23:38] VITALS: BP 163/75
== END 2022-05-26 23:01 | disposition home or self-care (01) ==
LOC: ER 19:00
DX: L50.9 Urticaria, unspecified (principal); J45.909 Unspecified asthma, uncomplicated; E03.9 Hypothyroidism, unspecified; Z88.0 Allergy status to penicillin; Z88.5 Allergy status to narcotic agent
CPT/HCPCS: 85025; 80048; 36415; 82550; J8540; J1100; J7030; 96372; 99283

== ENCOUNTER 2022-09-27 12:09 | Emergency (ER) | payer BC ==
--- OUTSIDE RECORDS SUMMARY | 2022-09-27 12:12 | XMS REPORT | Continuity of Care Document ---
:1960 Author Organization [facility] t Address [address] [place] [address] Care Team Providers Name Role Phone NIMA COLORADO Primary Care Physician Unavailable DR NIMA COLORADO Attending Clinician Unavailable [phone] Attending Clinician Unavailable SHAKA PATIÑO Attending Clinician Unavailable Ortiz Cooper Attending Clinician Unavailable Fabi Pradhan Attending Clinician Unavailable Shaka Patiño MD Attending Clinician Only, Adc Test Attending Clinician Unavailable Pob, [facility] Lab Main Attending Clinician Unavailable Doctor Unassigned, [facility] Attending Clinician Unavailable DR NIMA COLORADO Admitting Clinician Unavailable SHAKA PATIÑO Admitting Clinician Unavailable Ortiz Cooper Admitting Clinician Unavailable Physician, No Primary or Family Admitting Clinician UnavailShaka Alfaro MD Admitting Clinician Payers Payer Name Policy Type Policy Number Effective Date Expiration Date Agata CHACON CROSS FRESNO [id number] [facility] [id number] 2017 00:00:00 SELECT Problems Condition Condition Condition Status Onset Resolution Last Treating Co mments Source Name Details Category Date Date Treatment Clinician Date Morbid Morbid Disease Active Univers obesity obesity 7-22 [place] of [place] mass index mass index 00 [place] dical of of Branch 40.0-49.9 40.0-49.9 Allergies, Adverse Reactions, Alerts Allergy Allergy Status Severity Reaction(s) Onset Inactive Treating Comm ents Source Name Type Date Date Clinician KETOROLA DRUG Active Anaphylaxis Uni vers C INGREDI 7-22 ity of TROMETHA 00:00: [place] MINE 00 Medical Branch Ketorola Propensi Active Anaphylaxis 2020-0 U nivers c ty to 7-22 ity of Trometha adverse 00:00: [place] mine reaction 00 Medical s Branch Tramadol Propensi Active Anaphylaxis 2020-0 U nivers ty to 7-20 ity of adverse 00:00: [place] reaction 00 Medical s Branch TRAMADOL DRUG Active Anaphylaxis Uni vers INGREDI 7-20 ity of 00:00: [address] No Known DA Active U 2016- [facility]: [facility] 00 l [facility] No Known DA Active U 2017 [facility] All[facility]ie 06 [facility] 00:00: Hospita 00 l [facility] NO KNOWN Drug Active Univers ALLERGIE Class ity of S [facility] Social History Social Habit Start Date Stop Date Quantity Comments Source Sex Assigned At Universit y of [facility] Exposure to Not sure [facility] SARS-CoV-2 [facility] (event) Branch Alcohol intake 2020-05-20 2020-05-20 Current [facility] 00:00:00 00:00:00 non-drinker of [facility] alcohol [place] (finding) Tobacco use and 2020-05-20 2020-05-20 [facility]:00 [facility] Smoking Status Start Date Stop Date Source Never smoker [facility] Branch Medications Ordered Filled Start Stop Current Ordering [...] solution Wheezing or Shortness of Breath. budesonide- 2020-0 Yes 2{puff} Inhale 2 Univers formoterol 9-09 Puffs as ity o f (SYMBICORT) 18:12: needed. Isaac as 160-4.[address] [place] [address]/actuati Branch on inhaler montelukast 2020-0 Yes 10mg Take 10 mg Univers 10 mg 9-09 by mouth ity of tablet 18:12: daily. [address] olmesartan 2020-0 Yes 40mg Take 40 mg U nivers 40 mg 9-09 by mouth ity of tablet 18:12: daily. [address] levothyroxi 2020-0 Yes 150ug Take 150 U nivers ne 150 mcg 9-09 mcg by ity of tablet 18:12: mouth 08 daily. Medical Branch lactated 2020-0 Yes 1000mL at 75 Univer s ringers IV 7-22 mL/hr, ity of infusion 16:15: 1,000 mL, [place] 1,000 mL 00 IV Medical Infusion, Branch CONTINUOUS , Starting Wed05/22/20 at 1115, Until Discontinu ed, Routine, PACU carbachoL 2020-0 Yes PRN, Univers (MIOSTAT) 05-22 Starting ity of 0.01 % 15:52: Wed [place] intraocular 05/22/20 at [facility] injection 1052, Branch Until Discontinu ed, Routine, Intra-op ceFAZolin 2020-0 Yes PRN, Univers (ANCEF) 05-22 Starting ity of injection 15:52: Wed [place] 00 05/22/20 at [facility] 1052, Branch Until Discontinu ed, BRAYN, Intra-op dexamethaso 2020-0 Yes PRN, Univer s ne 05-22 Starting ity of (DECADRON 15:51: Wed [place] PHOSPHATE) 00 05/22/20 at [facility] ical injection 1051, Branch Until Discontinu ed, Routine, Intra-op gentamicin 2020-0 Yes PRN, Univers injection 05-22 Starting ity of 15:51: Wed [place] 00 05/22/20 at [facility] 1051, Branch Until Discontinu ed, BRYAN, Intra-op neomycin-po 2020-0 Yes PRN, Univer s lymyxin-dex 7-22 Starting ity of amethasone 15:51: Wed [place] (MAXITROL) 05/22/20 at [facility] ica 3.5 1051, Branch mg/g-10,000 Until unit/g-0.1 Discontinu % ed, ophthalmic Routine, ointment Intra-op sodium 2020-0 Yes PRN, Univers chloride 05-22 Starting ity of (NS) 15:49: Wed [place] injection 05/22/20 at [facility] 1049, Branch Until Discontinu ed, Routine, Intra-op DUOVISC 2020-0 Yes PRN, Univers (DUOVISC 05-22 Starting ity of VISCO 15:48: Wed [place] ELASTIC) 3 05/22/20 at [facility] %-4 %(0.5 1048, Branch mL) 1 % Until (0.55 mL) Discontinu intraocular ed, injection Routine, Intra-op EPINEPHrine 2020-0 Yes PRN, Univer s 1:1,000 (1 05-22 Starting ity o f mg/mL) 15:43: Wed [place] (ADRENALIN) 05/22/20 at [facility] dical injection 1043, Branch Until Discontinu ed, Routine, Intra-op balanced 2020-0 Yes PRN, Univers salt irrig 05-22 Starting ity o f soln comb1 15:43: Wed [place] (BSS PLUS) 05/22/20 at [facility] ophthalmic 1043, Branch solution Until 500 mL bag Discontinu ed, Routine, Intra-op Hyaluronida 2020-0 Yes PRN, Univer s se, Human 05-22 Starting ity of Recomb. 15:36: Wed (HYLENEX) 05/22/20 at [facility] injection 1036, Branch Until Discontinu ed, Routine, Intra-op eye block 2020-0 Yes PRN, Univers syringe 11 05-22 Starting ity o f mL 15:36: Wed [place] 05/22/20 at Medical 1036, Branch Until Discontinu ed, Intra-op water for 2020-0 Yes PRN, Univers irrigation 05-22 Starting ity o f irrigation 15:31: Wed [place] solution 05/22/20 at Medic al 1031, Branch Until Discontinu ed, Routine, Intra-op mydriatic 2020-0 2020- No .5mL 0.5 mL, Univ ers #5 05-22 Left Eye, ity of ophthalmic 14:00: 14:30 ONCE, 1 [place] as solution 00 :00 dose, Wed Medica l 0.5 mL 05/22/20 at Branch syringe 0900, Routine lactated 2020-0 2020- No 1000mL at 20 Unive rs ringers IV 05-2222 mL/hr, ity of infusion 14:00: 14:45 1,000 mL, Isaac as 1,000 mL 00 :00 IV Medical Infusion, Branch ONCE, 1 dose, 05/22/20 at 0900, Routine, DSU Pre-op olmesartan 2017- Yes 40mg Take 40 mg U nivers 40 mg 9-26 by mouth ity of tablet 21:25: daily. [address] levothyroxi Yes 150ug Take 150 U [...] (SYMBICORT) 21:25: needed. Isaac as 160-4.5 55 [facility] mcg/actuati Branch on inhaler montelukast 2017- Yes 10mg Take 10 mg Univers 10 mg 9-26 by mouth ity of tablet 21:25: daily. [address] olmesartan 2017-0 Yes 40mg Take 40 mg U nivers 40 mg 9-26 by mouth ity of tablet 21:25: daily. [address] levothyroxi 2017-0 Yes 150ug Take 150 U [...] by mouth ity of tablet 21:25: daily. [place] [address] Medical Branch olmesartan 0 Yes 40mg Take 40 mg U nivers 40 mg 9-26 by mouth ity of tablet 21:25: daily. [place] [address] Medical Branch levothyroxi 0 Yes 150ug Take 150 U nivers ne 150 mcg 9-26 mcg by ity of tablet 21:25: mouth [place] 55 daily. Medical Branch albuterol Yes 2{puff} Inhale 2 U nivers (PROAIR 9-26 Puffs ity of HFA) 90 21:25: every 6 [place] mcg/actuati 55 (six) Medical on inhaler hours as Branc h needed for Wheezing or Shortness of Breath. albuterol 0 Yes 2.5mg Inhale 2.5 U nivers 2.5 mg /3 9-26 mg every 6 ity of mL (0.083 21:25: (six) [place] %) 55 hours as Medical nebulizer needed for Bran ch solution Wheezing or Shortness of Breath. budesonide- Yes 2{puff} Inhale 2 Univers formoterol 9-26 Puffs as ity o f (SYMBICORT) 21:25: needed. [place] as 160-4.5 55 Medical mcg/actuati Branch on inhaler montelukast 2018-0 Yes 10mg Take 10 mg Univers 10 mg 9-26 by mouth ity of tablet 21:25: daily. [place] [address] Medical Branch olmesartan Yes 40mg Take 40 mg U nivers 40 mg 9-26 by mouth ity of tablet 21:25: daily. [address] Branch levothyroxi Yes 150ug Take 150 [...] f (SYMBICORT) 21:25: needed. Isaac as 160-4.[address] [place] [address] mcg/actuati [place] on inhaler montelukast Yes 10mg Take 10 mg Univers 10 mg 9-26 by mouth ity of tablet 21:25: daily. [address] olmesartan Yes 40mg Take 40 mg U nivers 40 mg 9-26 by mouth ity of tablet 21:25: daily. [address] Branch levothyroxi Yes 150ug Take 150 [...] by mouth ity of tablet 21:25: daily. [address] Branch olmesartan Yes 40mg Take 40 mg U nivers 40 mg 9-26 by mouth ity of tablet 21:25: daily. [address] Branch levothyroxi Yes 150ug Take 150 U nivers ne 150 mcg 9-26 mcg by ity of tablet 21:25: mouth [place] [address] daily. Medical Branch albuterol Yes 2{puff} Inhale [...] by mouth ity of tablet 21:25: daily. [address] Vital Signs Vital Name Observation Time Observation Value Comments Source Systolic blood 2020-05-22 16:15:00 150 mm[Hg] Univer sity of pressure [facility] Diastolic blood 2020-05-22 16:15:00 60 mm[Hg] Unive rsity of pressure [facility] Heart rate 2020-05-22 16:15:00 64 /min Universi ty of [facility] Branch Respiratory rate 2020-05-22 16:15:00 16 /min Univ ersity of [facility] Branch Oxygen saturation in 2020-05-22 16:15:00 100 /min University of Arterial blood by [facility] maribel Pulse oximetry Branch Body temperature 2020-05-22 16:02:00 36.22 Tanisha [facility] ersity of [facility] Body height 2020-05-13 14:06:00 160 cm Universi ty of [facility] Body weight 2020-05-13 14:06:00 113.4 kg Universi ty of [facility] Branch BMI 2020-05-13 14:06:00 44.30 kg/m2 Universi ty of [facility] Branch Systolic blood 2020-05-22 16:15:00 150 mm[facility]Hg[facility] Diastolic blood 2020-05-22 16:15:00 60 mm[Hg] Unive rsity of [facility] Heart rate 2020-05-22 16:15:00 64 /min Universi ty of [facility] Respiratory rate 2020-05-22 16:15:00 16 /min Univ ersity of [facility] Oxygen saturation in 2020-05-22 16:15:00 100 /min University of Arterial blood by [facility] maribel Pulse oximetry Branch Body temperature 2020-05-22 16:02:00 36.22 Tanisha [facility] ersity of [facility] Body height 2020-05-13 14:06:00 160 cm Universi ty of [facility] Body weight 2020-05-13 14:06:00 113.4 kg Universi ty of [facility] BMI 2020-05-13 14:06:00 44.30 kg/m2 Universi ty of [facility] Branch Procedures Procedure Date / Time Performing Source Performed Clinician PHACOEMULSIFICATION OF 2020-05-22 Shaka Patiño [facility] CATARACT WITH INTRAOCULAR 15:25:00 [facility] LENS IMPLANT ASSIGNMENT OF BENEFITS 2020-05-21 Doctor Unassigned, [facility] 14:57:14 [facility] Encounters Start End Encounter Admission Attending Care Care Encounter Source Date/Time Date/Time Type Type Clinicians Facility Department ID 2022-08-04 Outpatient NIMA COLORADO [place]IO[place] 00 [id number] [place] 09:33:39 [id number] [facility] 2021-08-[address] [facility] DAMIAN [id number] Univers 08:02:04 SHAKA llanos [facility] 2022-02-05 2022-02-05 Outpatient Ortiz Sifuentes [facility] [id number] [facility] 12:00:00 12:00:00 [facility] [place] 2021-02-07 2021-02-07 Outpatient LINDSAY Pradhan [facility] [id number] [facility] 12:00:00 12:00:00 Fabi 66 [facility] [place] 2020-05-22 2020-05-22 [facility] [id number] 08:54:05 11:20:00 Encounter Shaka Velásquez [id number] [place] [id number] Surgical [id number] [place] [address] 2020-05-22 2020-05-22 [facility] [id number] [facility] 08:54:05 11:20:00 Encounter Shaka Velásquez [id number] ity of [place] 4[place]2.7.2.686 [place] [id number] [address] 2020-05-21 2020-05-21 Laboratory Only, [facility] [id number] 09:50:00 10:43:07 Only Test Didier [id number] [place] [id number] [place] [id number] [facility] 2020-05-21 2020-05-21 Laboratory Only, [facility] Test [facility] [id number] Univers 09:50:00 10:43:07 Only Shaka Patiño [id number] 0 ity of [place] [id number] [place] [id number] [address] 2020-05-21 2020-05-21 Outpatient R KAYLYN [facility] [id number] Univers 10:15:00 10:15:00 SHAKA llanos [facility] 2020-05-21 2020-05-21 Endo Tech Scot, Adc Lab Main [facility] [id number] [facility] 09:58:32 10:13:32 Visit Shaka Patiño 350.1.13.1 0 ity of [place] [id number] [place] Professio [id number] [place] [facility]ical [facility] 353 Branch [facility] 2020-05-21 2020-05-21 Orders Doctor OLIVIER [id number] [place] [address] 00:00:00 00:00:00 Only Unassigned, MIKO [id number] ity of [place] [facility] [id number] Isaac as [id number] [facility] 009 Branch Results This patient has no known results.
[2022-09-27 12:43] LABS: Absolute Lymphocytes (CBC) 1.4 K/uL (0.7-4.9); Hematocrit 39.1 % (36.0-45.0); Lymphocytes % 27.1 % (15.3-44.8); MCV 90.2 fL (80-100); MPV 8.6 fL (7.6-11.3); RBC Red Blood Cell Count 4.33 M/uL (3.86-4.86)
[2022-09-27] MEDS ORDERED: NA CHLORIDE 0.9% 1,000 ML ONE (12:48)
[2022-09-27 14:18] LABS: Albumin 3.7 g/dL (3.4-5.0); Potassium 3.3 mmol/L (3.5-5.1); Protein, Total 8.2 g/dL (6.4-8.2)
[2022-09-27] MEDS ORDERED: cloNIDine HCL 0.1 MG TAB ONE (14:43)
--- NOTE | 2022-09-27 15:16 | ER ---
Nurse's Notes [facility] Name: Caroline Wise Age: 61 yrs Sex: Female : 1960 Arrival Date: 09/27/2022 Time: 12:13 Bed 19 Private MD: Diagnosis: Nausea with vomiting, unspecified;Diarrhea, unspecified Presentation: 09/27 12:26 Chief complaint: Patient states: Epigastric pain yesterday that has resolved, vomiting kb3 yesterday that has resolved, and diarrhea since yesterday that continues today. Denies fever. Coronavirus screen: Vaccine status: Client denies travel out of the [place] in the last 14 days. Ebola Screen: Patient negative for fever greater than or equal to 101.5 degrees Fahrenheit, and additional compatible Ebola Virus Disease symptoms Patient denies exposure to infectious person. Patient denies travel to an Ebola-affected area in the 21 days before illness onset. Initial Sepsis Screen: Does the patient meet any 2 criteria? No. Patient's initial sepsis screen is negative. Does the patient have a suspected source of infection? No. Patient's initial sepsis screen is negative. Risk Assessment: Do you want to hurt yourself or someone else? Patient reports no desire to harm self or others. Onset of symptoms was September 26, 2022. 12:26 Method Of Arrival: Ambulatory kb3 12:26 Acuity: SERAFIN 3 kb3 Triage Assessment: 12:28 General: Appears in no apparent distress. Behavior is calm, cooperative. Pain: Denies kb3 pain. GI: Reports diarrhea, nausea. Historical: - Allergies: 12:28 PENICILLINS; kb3 12:28 Toradol; kb3 - Home Meds: 12:28 levothyroxine 150 mcg tab 1 tab once daily [Active]; olmesartan-hydrochlorothiazide kb3 40-12.5 mg oral tab 1 tab once daily [Active]; amlodipine 10 mg tab 1 tab once daily [Active]; famotidine 20 mg Oral tab 1 tab once daily [Active]; - PMHx: 12:28 Asthma; Hypertension; Hypothyroidism; kb3 - PSHx: 12:28 hysterectomy, exp. lap, cataract repair, B foot SX; kb3 - Immunization history:: Adult Immunizations up to date, Client reports receiving the 2nd dose of the Covid vaccine, Last tetanus immunization: up to date. - Social history:: Smoking status: Patient denies any tobacco usage or history of. Screenin:21 Abuse screen: Denies threats or abuse. Denies injuries from another. Nutritional bp screening: No deficits noted. Tuberculosis screening: No symptoms or risk factors identified. Fall Risk None identified. Assessment: 12:40 General: Appears in no apparent distress. comfortable, Behavior is calm, cooperative. tp1 Neuro: Level of Consciousness is awake, alert, obeys commands, Oriented to person, place, time, situation. Cardiovascular: Patient's skin is warm and dry. Respiratory: Airway is patent Respiratory effort is even, unlabored. 15:06 Reassessment: No changes from previously documented assessment. Patient and/or family bp updated on plan of care and expected duration. Pain level reassessed. 15:56 Reassessment: PT DC HOME AMBULATORY WITH FAMILY. bp 15:56 GI: Abdomen is non-distended, obese. bp Vital Signs: 12:26 BP 170 / 71; Pulse 70; Resp 20; Temp 98.1; Pulse Ox 100% ; Weight 112.04 kg; Height 5 kb3 ft. 3 in. (160.02 cm); Pain 0/10; 13:26 BP 187 / 88; Pulse 66; Resp 18; Pulse Ox 100% ; bp 14:59 BP 185 / 68; Pulse 72; Resp 16; Pulse Ox 100% ; bp 15:47 BP 171 / 62; Pulse 67; Resp 16; Pulse Ox 100% ; bp 12:26 Body Mass Index 43.75 (112.04 kg, 160.02 cm) kb3 ED Course: 12:13 Patient arrived in ED. jl7 12:16 Regina Davenport FNP-C is PHCP. kb 12:16 Enrrique Dhillon DO is Attending Physician. kb 12:28 Triage completed. kb3 12:28 Arm band placed on right wrist. Patient placed in an exam room, on a stretcher. kb3 12:39 Inserted saline lock: 20 gauge in right antecubital area, using aseptic technique. tp1 Blood collected. 13:06 Kojo Goldman, RN is Primary Nurse. bp 13:21 Patient has correct armband on for positive identification. Bed in low position. Call bp light in reach. Side rails up X2. 15:56 No provider procedures requiring assistance completed. IV discontinued, intact, bp bleeding controlled, No redness/swelling at site. Pressure dressing applied. Administered Medications: 12:50 Drug: NS 0.9% 1000 ml Route: IV; Rate: 1 bolus; Site: right antecubital; tp1 15:57 Follow up: IV Status: Completed infusion; IV Intake: 1000ml bp 14:43 Drug: cloNIDine 0.1 mg Route: PO; bp 15:57 Follow up: Response: Blood pressure is lowered bp Medication: 15:56 VIS not applicable for this client. bp Intake: 15:57 IV: 1000ml; Total: 1000ml. bp Outcome: 15:15 Discharge ordered by . kb 15:56 Discharged to home ambulatory, with family. bp 15:56 Condition: stable 15:56 Discharge instructions given to patient, Instructed on discharge instructions, follow up and referral plans. medication usage, Demonstrated understanding of instructions, follow-up care, medications, Prescriptions given X 2. 15:57 Patient left the ED. bp Signatures: Regina Davenport, RECORD SEARCHER-C RECORD SEARCHER-CkAlissa Coy, RN RN jl7 Kojo Goldman, RN RN bp Amaya Garcia, RN RN tp1 Kia Burdick, RN RN kb3
--- NOTE | 2022-09-27 15:16 | EDPHYS ---
Physician Documentation [facility] Name: Caroline Wise Age: 61 yrs Sex: Female : 1960 Arrival Date: 09/27/2022 Time: 12:13 Bed 19 Private MD: ED Physician Enrrique Dhillon HPI: 09/27 15:18 This 61 yrs old Black Female presents to ER via Ambulatory with complaints of kb Nausea/Vomiting/Diarrhea. 15:18 The patient presents to the emergency department with nausea, vomiting, diarrhea. kb Onset: The symptoms/episode began/occurred yesterday. Possible causes: unknown. The symptoms are aggravated by nothing. The symptoms are alleviated by nothing. Associated signs and symptoms: Pertinent positives: diarrhea, nausea, vomiting. Severity of symptoms: At their worst the symptoms were moderate in the emergency department the symptoms are unchanged. The patient has not experienced similar symptoms in the past. The patient has not recently seen a physician. Pt reports n/v/d that began yesterday. vomiting has resolved, but diarrhea continues. Denies fever, abd pain. Historical: - Allergies: 12:28 PENICILLINS; kb3 12:28 Toradol; kb3 - Home Meds: 12:28 levothyroxine 150 mcg tab 1 tab once daily [Active]; olmesartan-hydrochlorothiazide kb3 40-12.5 mg oral tab 1 tab once daily [Active]; amlodipine 10 mg tab 1 tab once daily [Active]; famotidine 20 mg Oral tab 1 tab once daily [Active]; - PMHx: 12:28 Asthma; Hypertension; Hypothyroidism; kb3 - PSHx: 12:28 hysterectomy, exp. lap, cataract repair, B foot SX; kb3 - Immunization history:: Adult Immunizations up to date, Client reports receiving the 2nd dose of the Covid vaccine, Last tetanus immunization: up to date. - Social history:: Smoking status: Patient denies any tobacco usage or history of. ROS: 15:17 Constitutional: Negative for fever, chills, and weight loss. kb 15:17 Abdomen/GI: Positive for nausea, vomiting, and diarrhea, Negative for abdominal pain. 15:17 All other systems are negative. Exam: 15:17 Constitutional: This is a well developed, well nourished patient who is awake, alert, kb and in no acute distress. Head/Face: Normocephalic, atraumatic. ENT: Moist Mucous membranes Cardiovascular: Regular rate and rhythm with a normal S1 and S2. No gallops, murmurs, or rubs. No pulse deficits. Respiratory: Respirations even and unlabored. No increased work of breathing. Talking in full sentences Abdomen/GI: Soft, non-tender. No distention Skin: Warm, dry with normal turgor. Normal color. MS/ Extremity: Pulses equal, no cyanosis. Neurovascular intact. Full, normal range of motion. Neuro: Awake and alert, GCS 15, oriented to person, place, time, and situation. Moves all extremities. Normal gait. Vital Signs: 12:26 BP 170 / 71; Pulse 70; Resp 20; Temp 98.1; Pulse Ox 100% ; Weight 112.04 kg; Height 5 kb3 ft. 3 in. (160.02 cm); Pain 0/10; 13:26 BP 187 / 88; Pulse 66; Resp 18; Pulse Ox 100% ; bp 14:59 BP 185 / 68; Pulse 72; Resp 16; Pulse Ox 100% ; bp 15:47 BP 171 / 62; Pulse 67; Resp 16; Pulse Ox 100% ; bp 12:26 Body Mass Index 43.75 (112.04 kg, 160.02 cm) kb3 MDM: 12:17 Patient medically screened. kb 15:17 Data reviewed: vital signs, nurses notes. Data interpreted: Pulse oximetry: on room air kb is 100 %. Interpretation: normal. Counseling: I had a detailed discussion with the patient and/or guardian regarding: the historical points, exam findings, and any diagnostic results supporting the discharge/admit diagnosis, lab results, the need for outpatient follow up, a family practitioner, to return to the emergency department if symptoms worsen or persist or if there are any questions or concerns that arise at home. ED course: Nontoxic in appearance. Tolerating po intake. Asymptomatic of bp. 09/27 12:25 Order name: CBC with Diff; Complete Time: 12:45 kb 09/27 12:25 Order name: CMP; Complete Time: 14:18 kb 09/27 12:25 Order name: Lipase; Complete Time: 14:18 kb 09/27 12:25 Order name: IV Saline Lock; Complete Time: 12:46 kb 09/27 12:25 Order name: Labs collected and sent; Complete Time: 12:46 kb 09/27 12:48 Order name: Labs - recollect needed: please recollect green top; Complete Time: 13:12 em1 Administered Medications: 12:50 Drug: NS 0.9% 1000 ml Route: IV; Rate: 1 bolus; Site: right antecubital; tp1 15:57 Follow up: IV Status: Completed infusion; IV Intake: 1000ml bp 14:43 Drug: cloNIDine 0.1 mg Route: PO; bp 15:57 Follow up: Response: Blood pressure is lowered bp Disposition: 17:13 Co-signature as Attending Physician, Enrrique Dhillon DO I was immediately available on-site ms3 in the Emergency Department for consultation in the care of the patient. Disposition Summary: 09/27/22 15:15 Discharge Ordered Location: Home kb Condition: Stable kb Diagnosis - Nausea with vomiting, unspecified kb - Diarrhea, unspecified kb Followup: kb - With: Emergency Department - When: As needed - Reason: Worsening of condition Followup: kb - With: Private Physician - When: 2 - 3 days - Reason: Recheck today's complaints, Continuance of care, Re-evaluation by your physician Discharge Instructions: - Discharge Summary Sheet kb - Food Choices to Help Relieve Diarrhea, Adult kb - Nausea and Vomiting, Adult, [id number] kb - Diarrhea, Adult, [id number] kb Forms: - Medication Reconciliation Form kb - Thank You Letter kb - Antibiotic Education kb - Prescription Opioid Use kb - Work release form em1 Prescriptions: - Zofran 4 mg Oral Tablet - take 1 tablet by ORAL route every 6 hours As needed; 20 tablet; Refills: 0, kb Product Selection Permitted - dicyclomine 20 mg Oral Tablet - take 1 tablet by ORAL route 4 times per day As needed; 20 tablet; Refills: 0, kb Product Selection Permitted Signatures: Dispatcher [employer] Regina Zavala, Nakul Grant em1 Kojo Goldman, RN RN Enrrique Pal DO DO ms3 Amaya Garcia RN RN tp1 Kia Burdick RN RN kb3
[2022-09-27 16:02] VITALS: TEMP 98.1; O2SAT 100
[2022-09-27 16:06] VITALS: BP 171/62
== END 2022-09-27 15:57 | disposition home or self-care (01) ==
LOC: ER 12:09
DX: R11.2 Nausea with vomiting, unspecified (principal); R19.7 Diarrhea, unspecified; I10 Essential (primary) hypertension; E03.9 Hypothyroidism, unspecified; Z88.0 Allergy status to penicillin; Z88.5 Allergy status to narcotic agent
CPT/HCPCS: 96361; 85025; 36415; 83690; 80053; 96360; 99284; J7030

== ENCOUNTER 2022-11-27 23:56 | Emergency (ER) | payer BC ==
--- OUTSIDE RECORDS SUMMARY | 2022-11-28 | XMS REPORT | Continuity of Care Document ---
:1960 Author Organization [facility] t Address [address] [place] [address] Care Team Providers Name Role Phone NIMA COLORADO Primary Care Physician Unavailable DR NIMA COLORADO Attending Clinician Unavailable [phone] Attending Clinician Unavailable SHAKA PATIÑO Attending Clinician Unavailable Ortiz Cooper Attending Clinician Unavailable Fabi Pradhan Attending Clinician Unavailable Shaka Patiño MD Attending Clinician Only, Adc Test Attending Clinician Unavailable Pob, Adc Lab Main Attending Clinician Unavailable Doctor Unassigned, [place] Attending Clinician Unavailable DR NIMA COLORADO Admitting Clinician Unavailable SHAKA PATIÑO Admitting Clinician Unavailable Ortiz Cooper Admitting Clinician Unavailable Physician, No Primary or Family Admitting Clinician UnavailShaka Alfaro MD Admitting Clinician Payers Payer Name Policy Type Policy Number Effective Date Expiration Date Ag[place] [id number] [facility] [id number] 2017 00:00:00 [facility] Problems Condition Condition Condition [...] Uni vers INGREDI 7-20 ity of 00:00: [address] No Known DA Active U 2016- [facility] No Known DA Active U 2017 [facility] 06 [facility] 00:[facility]: [facility] 00 l [facility] NO KNOWN Drug Active Univers ALLERGIE Class ity of S [facility] Social History Social Habit Start Date Stop Date Quantity Comments Source Sex Assigned At Universit y of [facility] Exposure to Not sure [facility] SARS-CoV-2 [facility] (event) Branch Alcohol intake 2020-05-20 2020-05-20 Current [facility] 00:00:00 00:00:00 non-drinker of [facility] alcohol [place] (finding) Tobacco use and 2020-05-20 2020-05-20 [facility]00 00:00:00 [facility] Smoking Status Start Date Stop Date Source Never smoker [facility] Branch Medications Ordered Filled Start Stop [...] f (SYMBICORT) 18:12: needed. Isaac as 160-4.[address] [place] [address]/actuati Branch on inhaler montelukast 2020-0 Yes 10mg Take 10 mg Univers 10 mg 9-09 by mouth ity of tablet 18:12: daily. [address] olmesartan 2020-0 Yes 40mg Take 40 mg U nivers 40 mg 9-09 by mouth ity of tablet 18:12: daily. [address] levothyroxi 2020-0 Yes 150ug Take 150 [...] % 15:52: Wed [place] intraocular 05/22/20 at Ne dical injection 1052, Branch Until Discontinu ed, Routine, Intra-op ceFAZolin 2020-0 Yes PRN, Univers (ANCEF) 05-22 Starting ity of injection 15:52: Wed [place] 00 05/22/20 at [facility] 1052, Branch Until Discontinu ed, BRYAN, Intra-op dexamethaso 2020-0 Yes PRN, Univer s ne 05-22 Starting ity of (DECADRON 15:51: Wed [place] PHOSPHATE) 00 05/22/20 at [facility] ical injection 1051, Branch Until Discontinu ed, Routine, Intra-op gentamicin 2020-0 Yes PRN, Univers injection 05-22 Starting ity of 15:51: Wed [place] 00 05/22/20 at [facility] 1051, Branch Until Discontinu ed, BRYAN, Intra-op neomycin-po 2020-0 Yes PRN, Univer s lymyxin-dex 7-22 Starting ity of amethasone 15:51: Wed [place] (MAXITROL) 05/22/20 at [facility] ica 3.5 1051, Branch mg/g-10,000 Until unit/g-0.1 Discontinu % ed, ophthalmic Routine, ointment Intra-op sodium 2020-0 Yes PRN, Univers chloride 05-22 Starting ity of (NS) 15:49: Wed [place] injection 05/22/20 at [facility] 1049, Branch Until Discontinu ed, Routine, Intra-op DUOVISC 2020-0 Yes PRN, Univers (DUOVISC 05-22 Starting ity of VISCO 15:48: Wed [place] ELASTIC) 3 05/22/20 at [facility] %-4 %(0.5 1048, Branch mL) 1 % Until (0.55 mL) Discontinu intraocular ed, injection Routine, Intra-op EPINEPHrine 2020-0 Yes PRN, Univer s 1:1,000 (1 05-22 Starting ity o f mg/mL) 15:43: Wed [place] (ADRENALIN) 05/22/20 at [place] dical injection 1043, Branch Until Discontinu ed, Routine, Intra-op balanced 2020-0 Yes PRN, Univers salt irrig 05-22 Starting ity o f soln comb1 15:43: Wed [place] (BSS PLUS) 05/22/20 at [facility] ophthalmic 1043, Branch solution Until 500 mL bag Discontinu ed, Routine, Intra-op Hyaluronida 2020-0 Yes PRN, Univer s se, Human 05-22 Starting ity of Recomb. 15:36: Wed (HYLENEX) 05/22/20 at [facility] injection 1036, Branch Until Discontinu [...] by mouth ity of tablet 21:25: daily. [address] levothyroxi Yes 150ug Take 150 U [...] (SYMBICORT) 21:25: needed. Isaac as 160-4.5 55 [facility] mcg/actuati Branch on inhaler montelukast 2017- Yes 10mg Take 10 mg Univers 10 mg 9-26 by mouth ity of tablet 21:25: daily. [address] olmesartan 2017-0 Yes 40mg Take 40 mg U nivers 40 mg 9-26 by mouth ity of tablet 21:25: daily. [address] levothyroxi 2017-0 Yes 150ug Take 150 [...] by mouth ity of tablet 21:25: daily. [place] [address] Medical Branch olmesartan 0 Yes 40mg Take 40 mg U nivers 40 mg 9-26 by mouth ity of tablet 21:25: daily. [place] [address] Medical Branch levothyroxi 0 Yes 150ug Take [...] by mouth ity of tablet 21:25: daily. [place] [address] Medical Branch olmesartan Yes 40mg Take 40 mg U nivers 40 mg 9-26 by mouth ity of tablet 21:25: daily. [address] Branch levothyroxi Yes 150ug Take 150 [...] f (SYMBICORT) 21:25: needed. Isaac as 160-4.[address] [place] [address] mcg/actuati [place] on inhaler montelukast Yes 10mg Take 10 mg Univers 10 mg 9-26 by mouth ity of tablet 21:25: daily. [address] olmesartan Yes 40mg Take 40 mg U nivers 40 mg 9-26 by mouth ity of tablet 21:25: daily. [address] Branch levothyroxi Yes 150ug Take 150 [...] by mouth ity of tablet 21:25: daily. [address] Branch olmesartan Yes 40mg Take 40 mg U nivers 40 mg 9-26 by mouth ity of tablet 21:25: daily. [address] Branch levothyroxi Yes 150ug Take 150 U nivers ne 150 mcg 9-26 mcg by ity of tablet 21:25: mouth [place] [address] daily. Medical Branch albuterol Yes 2{puff} Inhale [...] by mouth ity of tablet 21:25: daily. [address] Vital Signs Vital Name Observation Time Observation Value Comments Source Systolic blood 2020-05-22 16:15:00 150 mm[Hg] Univer sity of pressure [facility] Diastolic blood 2020-05-22 16:15:00 60 mm[Hg] Unive rsity of pressure [facility] Heart rate 2020-05-22 16:15:00 64 /min Universi ty of [facility] Branch Respiratory rate 2020-05-22 16:15:00 16 /min Univ ersity of [facility] Branch Oxygen saturation in 2020-05-22 16:15:00 100 /min University of Arterial blood by [facility] maribel Pulse oximetry Branch Body temperature 2020-05-22 16:02:00 36.22 Dayanna [facility] ersity of [facility] Body height 2020-05-13 14:06:00 160 cm Universi ty of [facility] Body weight 2020-05-13 14:06:00 113.4 kg Universi ty of [facility] Branch BMI 2020-05-13 14:06:00 44.30 kg/m2 Universi ty of [facility] Branch Systolic blood 2020-05-22 16:15:00 150 mm[Hg[facility] Diastolic blood 2020-05-22 16:15:00 60 mm[Hg] Unive rsity of [facility] Heart rate 2020-05-22 16:15:00 64 /min Universi ty of [facility] Respiratory rate 2020-05-22 16:15:00 16 /min Univ ersity of [facility] Oxygen saturation in 2020-05-22 16:15:00 100 /min University of Arterial blood by [place] [facility] maribel Pulse oximetry Branch Body temperature 2020-05-22 16:02:00 36.22 Dayanna [facility] ersity of [facility] Body height 2020-05-13 14:06:00 160 cm Universi ty of [facility] Body weight 2020-05-13 14:06:00 113.4 kg Universi ty of [facility] BMI 2020-05-13 14:06:00 44.30 kg/m2 Universi ty of [facility] Branch Procedures Procedure Date / Time Performing Source Performed Clinician PHACOEMULSIFICATION OF 2020-05-22 Shaka Patiño [facility] CATARACT WITH INTRAOCULAR 15:25:00 [facility] LENS IMPLANT ASSIGNMENT OF BENEFITS 2020-05-21 Doctor Unassigned, [facility] 14:57:14 [place] [facility] Encounters Start End Encounter Admission Attending Care Care Encounter Source Date/Time Date/Time Type Type Clinicians Facility Department ID 2022-08-04 Outpatient NIMA COLORADO [place] 00 [id number] [place] 09:33:39 [id number] [facility] 2021-08-29 Outpatient [facility] DAMIAN [id number] Univers 08:02:04 SHAKA llanos [facility] 2022-02-05 2022-02-05 Outpatient Ortiz Sifuentes [facility] [id number] [facility] 12:00:00 12:00:00 23 [facility] [place] 2021-02-07 2021-02-07 Outpatient LINDSAY Pradhan [facility] [id number] [facility] 12:00:00 12:00:00 Fabi 66 [facility] [place] 2020-05-22 2020-05-22 [facility] [id number] 08:54:05 11:20:00 Encounter Shaka Velásquez [id number] [place] [id number] Surgical [id number] [place] [id number] 2020-05-22 2020-05-22 [facility] [id number] [facility] 08:54:05 11:20:00 Encounter Shaka Velásquez [id number] [place]y [id number] [id number] [address] 2020-05-21 2020-05-21 Laboratory Only, [facility] [id number] 09:50:00 10:43:07 Only Test Didier [id number] [place] [id number] [place] [id number] [facility] 2020-05-21 2020-05-21 Laboratory Only, [facility] Test [facility] [id number] Univers 09:50:00 10:43:07 Only Shaka Patiño [id number] 0 ity of [place] [id number] [place] [id number] [address] 2020-05-21 2020-05-21 Outpatient R KAYLYN [facility] [id number] Univers 10:15:00 10:15:00 SHAKA llanos [facility] 2020-05-21 2020-05-21 Dry Talc Racker Scot, Adc Lab Main [facility] [id number] [facility] 09:58:32 10:13:32 Visit Shaka Patiño [id number] 0 ity [place] [id number] Ne dical [facility] 353 Branch [facility] 2020-05-21 2020-05-21 Orders Doctor OLIVIER [id number] [place] [id number] 00:00:00 00:00:00 Only Unassigned, MIKO [id number] ity of [place] [facility] [id number] Isaac as [id number] [facility] 009 Branch Results This patient has no known results.
[2022-11-28 00:54] LABS: Absolute Lymphocytes (CBC) 1.9 K/uL (0.7-4.9); Hematocrit 41.7 % (36.0-45.0); Lymphocytes % 19.6 % (15.3-44.8); MCV 92.4 fL (80-100); MPV 8.2 fL (7.6-11.3); RBC Red Blood Cell Count 4.51 M/uL (3.86-4.86)
[2022-11-28] MEDS ORDERED: IPRATROPIUM BROM 0.5MG/2.5ML ONE (01:09)
[2022-11-28] MEDS ORDERED: ONDANSETRON 4 MG/2 ML VIAL ONE (01:09)
[2022-11-28] MEDS ORDERED: ALBUTEROL 2.5 MG/3 ML NEB SOL ONE ×2 (01:09→01:11)
[2022-11-28] MEDS ORDERED: predniSONE 20 MG TAB ONE (01:09)
[2022-11-28] MEDS ORDERED: NA CHLORIDE 0.9% 1,000 ML ONE (01:10)
[2022-11-28 01:13] LABS: Bilirubin Total 0.6 mg/dL (0.2-1.0); Potassium 3.3 mmol/L (3.5-5.1); Protein, Total 8.6 g/dL (6.4-8.2)
--- NOTE | 2022-11-28 02:14 | ER ---
Nurse's Notes [facility] Name: Caroline Wise Age: 62 yrs Sex: Female : 1960 Arrival Date: 11/28/2022 Time: 00:01 Bed 2 Private MD: Diagnosis: Mild persistent asthma with (acute) exacerbation;Nausea;Diarrhea, unspecified;Hypokalemia Presentation: 11/28 00:11 Chief complaint: Patient states: "I woke up around 2300 to use the bathroom and had the vc1 cold sweats and felt lightheaded.". Coronavirus screen: Vaccine status: Patient reports receiving the 2nd dose of the covid vaccine. Moderna Client denies travel out of the [place] in the last 14 days. At this time, the client does not indicate any symptoms associated with coronavirus-19. Ebola Screen: Patient negative for fever greater than or equal to 101.5 degrees Fahrenheit, and additional compatible Ebola Virus Disease symptoms Patient denies exposure to infectious person. Patient denies travel to an Ebola-affected area in the 21 days before illness onset. No symptoms or risks identified at this time. Initial Sepsis Screen: Does the patient meet any 2 criteria? No. Patient's initial sepsis screen is negative. Does the patient have a suspected source of infection? No. Patient's initial sepsis screen is negative. Risk Assessment: Do you want to hurt yourself or someone else? Patient reports no desire to harm self or others. Onset of symptoms was November 28, 2022. 00:11 Method Of Arrival: [facility] vc1 00:11 Acuity: SERAFIN 3 vc1 Triage Assessment: 00:17 General: Appears in no apparent distress. uncomfortable, Behavior is calm, cooperative, vc1 appropriate for age. Pain: Denies pain. EENT: No deficits noted. Neuro: Reports lightheadedness, cold sweats. Cardiovascular: No deficits noted. Respiratory: Airway is patent Respiratory effort is even, unlabored, Respiratory pattern is symmetrical, tachypnea Breath sounds with wheezes. GI: Reports nausea. : No deficits noted. Derm: No deficits noted. No signs and/or symptoms reported regarding the dermatologic system. Musculoskeletal: No deficits noted. No signs and/or symptoms reported regarding the musculoskeletal system. Historical: - Allergies: 00:15 PENICILLINS; vc1 00:15 Toradol; vc1 - Home Meds: 00:15 mounjaro [Active]; vc1 - PMHx: 00:15 Asthma; Hypertension; Hypothyroidism; vc1 - PSHx: 00:15 hysterectomy, exp. lap, cataract repair, B foot SX; vc1 - Immunization history:: Client reports receiving the 2nd dose of the Covid vaccine. - Social history:: Smoking status: Patient reports the use of cigarette tobacco products, Patient denies any tobacco usage or history of. Screenin:19 Abuse screen: Denies threats or abuse. Nutritional screening: No deficits noted. vc1 Tuberculosis screening: No symptoms or risk factors identified. 02:14 [facility] ED Fall Risk Assessment (Adult) History of falling in the last 3 months, aa9 including since admission No falls in past 3 months (0 pts) Confusion or Disorientation No (0 pts) Intoxicated or Sedated No (0 pts) Impaired Gait No (0 pts) Mobility Assist Device Used No (0 pt) Altered Elimination No (0 pt) Score/Fall Risk Level 0 - 2 = Low Risk. Assessment: 02:14 Reassessment: Patient appears in no apparent distress at this time. Patient and/or aa9 family updated on plan of care and expected duration. Pain level reassessed. Patient is alert, oriented x 3, equal unlabored respirations, skin warm/dry/pink. Patient denies pain at this time. Vital Signs: 00:11 BP 145 / 52; Pulse 71; Resp 22; Temp 97.1; Pulse Ox 97% on R/A; Weight 102.97 kg; vc1 Height 5 ft. 3 in. (160.02 cm); Pain 0/10; 02:13 BP 138 / 54; Pulse 76; Resp 19 S; Pulse Ox 96% ; aa9 00:11 Body Mass Index 40.21 (102.97 kg, 160.02 cm) vc1 ED Course: 00:01 Patient arrived in ED. wm 00:15 Triage completed. vc1 00:19 Enrrique Dhillon DO is Attending Physician. ms3 00:19 Arm band placed on right wrist. vc1 00:19 Patient has correct armband on for positive identification. Bed in low position. Pulse vc1 ox on. NIBP on. 00:19 No provider procedures requiring assistance completed. vc1 00:45 Initial lab(s) drawn, by me, sent to lab. Inserted saline lock: 22 gauge in left jb4 antecubital area, using aseptic technique. Blood collected. 00:59 CMP Sent. jb4 00:59 CBC with Diff Sent. jb4 02:13 Kermit Madera DO is Referral Physician. ms3 02:24 IV discontinued, intact, bleeding controlled, No redness/swelling at site. Pressure aa9 dressing applied. Administered Medications: 01:23 Drug: NS 0.9% 1000 ml Route: IV; Rate: 1000 ml; Site: left antecubital; jb4 01:23 Drug: Zofran (Ondansetron) 4 mg Route: IVP; Site: left antecubital; jb4 02:00 Follow up: Response: No adverse reaction aa9 01:23 Drug: Albuterol 2.5 mg Route: Inhalation; 01:23 Drug: Albuterol 2.5 mg Route: Inhalation; 01:23 Drug: Albuterol 2.5 mg {Note: Given all 3 per providers instructions..} Route: jb4 Inhalation; :23 Drug: AtroVENT (ipratropium) Aerosol 0.5 mg Route: Inhalation; 01:23 Drug: predniSONE 60 mg Route: PO; 02:01 Follow up: Response: No adverse reaction aa9 02:24 Drug: Potassium Chloride 40 mEq Route: PO; aa9 Medication: 00:19 VIS not applicable for this client. vc1 Outcome: 02:13 Discharge ordered by MD. ms3 02:24 Discharged to home ambulatory. aa9 02:24 Condition: stable 02:24 Discharge instructions given to patient, Instructed on discharge instructions, follow up and referral plans. medication usage, Demonstrated understanding of instructions, follow-up care, medications, Prescriptions given X 2. 02:25 Patient left the ED. aa9 Signatures: Myles Champagne RN RN jb4 Enrrique Dhillon DO DO ms3 Kaylin Harrell Isis Munoz RN RN vc1 Glendy Fragoso RN RN aa9
--- NOTE | 2022-11-28 02:14 | EDPHYS ---
Physician Documentation [facility] Name: Caroline Wise Age: 62 yrs Sex: Female : 1960 Arrival Date: 11/28/2022 Time: 00:01 Bed 2 Private MD: ED Physician Enrrique Dhillon HPI: 11/28 01:00 This 62 yrs old Black Female presents to ER via EMS with complaints of Nausea. ms3 01:00 62-year-old female with past medical history of asthma, hypertension, hypothyroidism ms3 presents for nausea and diarrhea that began at 9 PM. Patient states she feels like she ate something bad at a basketball game tonight. Patient states she has had 1 loose bowel movement. Patient denies pain at this time. Patient denies alleviating or inciting factors.. Historical: - Allergies: 00:15 PENICILLINS; vc1 00:15 Toradol; vc1 - Home Meds: 00:15 mounjaro [Active]; vc1 - PMHx: 00:15 Asthma; Hypertension; Hypothyroidism; vc1 - PSHx: 00:15 hysterectomy, exp. lap, cataract repair, B foot SX; vc1 - Immunization history:: Client reports receiving the 2nd dose of the Covid vaccine. - Social history:: Smoking status: Patient reports the use of cigarette tobacco products, Patient denies any tobacco usage or history of. ROS: 01:00 Constitutional: Negative for fever, and chills. Neck: Negative for injury, pain, and ms3 swelling, Cardiovascular: Negative for chest pain, and palpitations. Respiratory: Negative for shortness of breath, cough, wheezing, and pleuritic chest pain. 01:00 Skin: Negative for injury, rash, and discoloration. 01:00 Abdomen/GI: Positive for nausea, diarrhea. 01:00 All other systems are negative. Exam: 01:00 Constitutional: This is a well developed, well nourished patient who is awake, alert, ms3 and in no acute distress. Head/Face: Normocephalic, atraumatic. Neck: Trachea midline, no cervical lymphadenopathy. Supple, full range of motion without nuchal rigidity, or vertebral point tenderness. No Meningismus. Chest/axilla: Normal chest wall appearance and motion. Nontender with no deformity. Cardiovascular: Regular rate and rhythm with a normal S1 and S2. No gallops, murmurs, or rubs. Normal PMI, no JVD. No pulse deficits. Respiratory: Lungs have equal breath sounds bilaterally, clear to auscultation and percussion. No rales, rhonchi or wheezes noted. No increased work of breathing, no retractions or nasal flaring. Abdomen/GI: Soft, non-tender, with normal bowel sounds. No distension or tympany. No guarding or rebound. No evidence of tenderness throughout. Skin: Warm, dry with normal turgor. Normal color with no rashes, no lesions, and no evidence of cellulitis. MS/ Extremity: Pulses equal, no cyanosis. Neurovascular intact. Full, normal range of motion. Vital Signs: 00:11 BP 145 / 52; Pulse 71; Resp 22; Temp 97.1; Pulse Ox 97% on R/A; Weight 102.97 kg; vc1 Height 5 ft. 3 in. (160.02 cm); Pain 0/10; 02:13 BP 138 / 54; Pulse 76; Resp 19 S; Pulse Ox 96% ; aa9 00:11 Body Mass Index 40.21 (102.97 kg, 160.02 cm) vc1 MDM: 00:15 Patient medically screened. kb 01:00 Differential diagnosis: DDx includes diarrhea vs asthma exacerbation vs nausea vs ms3 anemia vs electrolyte disturbance. 02:14 Data reviewed: vital signs, nurses notes, lab test result(s), CBC, electrolytes, ms3 hepatic panel, and as a result, I will discharge patient. Test considered but Not performed: CT: PECARN Negative. Patient states she ran into a wall last week.. Historians other than the Patient: EMS[facility]. Counseling: I had a detailed discussion with the patient and/or guardian regarding: the historical points, exam findings, and any diagnostic results supporting the discharge/admit diagnosis, lab results, the need for outpatient follow up, to return to the emergency department if symptoms worsen or persist or if there are any questions or concerns that arise at home. ED course: Discussed labs with patient. Patient states she is improved after albuterol Atrovent nebulizer. Will discharge patient with albuterol inhaler and prednisone. Patient states she has Zofran at home. Return precautions discussed with patient to include worsening symptoms, or any other concerns.. 11/28 00:20 Order name: CBC with Diff ms3 11/28 00:20 Order name: CMP ms3 11/28 00:55 Order name: CBC with Automated Diff; Complete Time: 01:54 EDMS 11/28 01:14 Order name: Comprehensive Metabolic Panel; Complete Time: 01:54 EDMS 11/28 00:31 Order name: IV Saline Lock; Complete Time: 00:59 jb4 11/28 00:31 Order name: Labs collected and sent; Complete Time: 00:59 jb4 Administered Medications: 01:23 Drug: NS 0.9% 1000 ml Route: IV; Rate: 1000 ml; Site: left antecubital; jb4 01:23 Drug: Zofran (Ondansetron) 4 mg Route: IVP; Site: left antecubital; jb4 02:00 Follow up: Response: No adverse reaction aa9 01:23 Drug: Albuterol 2.5 mg Route: Inhalation; jb4 01:23 Drug: Albuterol 2.5 mg Route: Inhalation; 4 01:23 Drug: Albuterol 2.5 mg {Note: Given all 3 per providers instructions..} Route: jb4 Inhalation; 01:23 Drug: AtroVENT (ipratropium) Aerosol 0.5 mg Route: Inhalation; jb4 01:23 Drug: predniSONE 60 mg Route: PO; jb4 02:01 Follow up: Response: No adverse reaction aa9 02:24 Drug: Potassium Chloride 40 mEq Route: PO; aa9 Disposition Summary: 11/28/22 02:13 Discharge Ordered Location: Home ms3 Condition: Stable ms3 Diagnosis - Mild persistent asthma with (acute) exacerbation ms3 - Nausea ms3 - Diarrhea, unspecified ms3 - Hypokalemia ms3 Followup: ms3 - With: Kermit Madera, DO - When: 2 - 3 days - Reason: Recheck today's complaints Discharge Instructions: - Discharge Summary Sheet ms3 - Asthma, Adult ms3 - Diarrhea, Adult ms3 Forms: - Medication Reconciliation Form ms3 - Thank You Letter ms3 - Antibiotic Education ms3 - Prescription Opioid Use ms3 - Work release form aa9 Prescriptions: - albuterol sulfate 90 mcg/actuation Inhalation HFA aerosol inhaler - inhale 2 puff by INHALATION route every 4 hours; 1 Pump; Refills: 0, Product ms3 Selection Permitted - Prednisone 20 mg Oral Tablet - take 2 tablets by ORAL route once daily for 5 days; 10 tablet; Refills: 0, ms3 Product Selection Permitted Signatures: Dispatcher [employer] Regina Zavala, DOCUMENT PROCESSOR-C DOCUMENT PROCESSOR-Myles Wilcox, RN RN jb4 Enrrique Dhillon DO DO ms3 Isis Munoz RN RN vc1 Glendy Fragoso RN RN aa9
[2022-11-28] MEDS ORDERED: POTASSIUM CL SA 10 MEQ TAB PO ONE (02:23)
[2022-11-28 02:31] VITALS: TEMP 97.1
[2022-11-28 02:32] VITALS: BP 138/54; O2SAT 96
== END 2022-11-28 02:25 | disposition home or self-care (01) ==
LOC: ER 23:56
DX: J45.31 Mild persistent asthma with (acute) exacerbation (principal); E87.6 Hypokalemia; R11.0 Nausea; R19.7 Diarrhea, unspecified; E03.9 Hypothyroidism, unspecified; I10 Essential (primary) hypertension; Z72.0 Tobacco use; Z88.0 Allergy status to penicillin; Z88.5 Allergy status to narcotic agent
CPT/HCPCS: 85025; 36415; 80053; 96374; 99284; J7512; J7613 ×2; J7644; J7030; J2405

== ENCOUNTER → 2023-11-09 | Emergency (ER) | payer BC ==
[~2023-11-09] MED LIST: FAMOTIDINE 20 MG/2 ML VIAL IV ONE; NA CHLORIDE 0.9% 0 ML ONE; ONDANSETRON 4 MG/2 ML VIAL ONE
--- OUTSIDE RECORDS SUMMARY | 2023-11-09 11:23 | XMS REPORT | Continuity of Care Document ---
Author Name Unknown Address [address] [facility] [address] [place] [address] [facility] thconnect Address [address] [facility] [address] [place] [address] Care Team Providers Care Filenet P8 Developer Name Role Phone NIMA COLORADO Primary Care Physician Unavailab LALIT Brandon Attending Clinician Unavailable DR NIMA COLORADO Attending Clinician Unavailab peres [phone] Attending Clinician Unavailable SHAKA PATIÑO Attending Clinician Unavailab Fabi Hayward Attending Clinician UnavailOrtiz Lane Attending Clinician Shaka Mejía MD Attending Clinician [phone] Only, Adc Test Attending Clinician Unavailable Pob, Adc Lab Main Attending Clinician Unavailabl e Doctor Unassigned, [place] Attending Clinician U DR NIMA Hammond Admitting Clinician UnavailSHAKA De Dios Admitting Clinician Unavailab Fabi Hayward Admitting Clinician UnavailOrtiz Lane Admitting Clinician Unavailable Physician, No Primary or Family Admitting Clinic logan Shaka Mejía MD Admitting Clinician [phone] Payers Payer Name Policy Type Policy Number Effective Date Expirati on Date Source [facility] BLUE SHIELD - OP [id number] [facility] [id number] 2017 00:00:00 Problems Condition Name Condition Details Condition Category Status Onset Date Resolution Date Last Treatment Date Treating Clinician Comments Source Morbid obesity with body mass index of 40.0-49.9 Morbid obesity with body mass index of 40.0-49.9 Disease Active 05-22 00:00: 00 [facility] Allergies, Adverse Reactions, Alerts Allergy Name Allergy Type Status Severity Reaction(s) Onset Date Inactive Date Treating Clinician Comments Source KETOROLA C TROMETHA MINE DRUG INGREDI Active Anaphylaxis 05-22 00:00: 00 [facility] Ketorola c Trometha mine Propensi ty to adverse reaction s Active Anaphylaxis 05-22 00:00: 00 [facility] Tramadol Propensi ty to adverse reaction s Active Anaphylaxis 05-20 00:00: 00 [facility] TRAMADOL DRUG INGREDI Active Anaphylaxis 05-20 00:00: 00 [facility] No Known Allergie s DA Active U 02-04 00:00: 00 [facility] No Known Allergie s DA Active U 02-04 00:00: 00 [facility] NO KNOWN ALLERGIE S Drug Class Active [facility] Social History Social Habit Start Date Stop Date Quantity Comments Source Sex Assigned At [facility] Exposure to SARS-CoV-2 (event) Not sure [facility] Alcohol intake 2020-05-20 00:00:00 2020-05-20 00:00:00 Current non-drinker of alcohol (finding) [facility] Tobacco use and exposure 2020-05-20 00:00:00 2020-05-20 00:00:00 Never used [facility] Smoking Status Start Date Stop Date Source Never smoker [facility] Medications Ordered Medication Name Filled Medication Name Start Date Stop Date Current Medication? Ordering Clinician Indication Dosage Frequency Signature (SIG) Comments Components Source albuterol (PROAIR HFA) 90 mcg/actuati on inhaler 07-10 18:12: 08 Yes 2{puff} Inhale 2 Puffs every 6 (six) hours as needed for Wheezing or Shortness of Breath. [facility] albuterol 2.5 mg /3 mL (0.083 %) nebulizer solution 07-10 18:12: 08 Yes 2.5mg Inhale 2.5 mg every 6 (six) hours as needed for Wheezing or Shortness of Breath. [facility] budesonide- formoterol (SYMBICORT) 160-4.5 mcg/actuati on inhaler 07-10 18:12: 08 Yes 2{puff} Inhale 2 Puffs as needed. [facility] montelukast 10 mg tablet 07-10 18:12: 08 Yes 10mg Take 10 mg by mouth daily. [facility] olmesartan 40 mg tablet 07-10 18:12: 08 Yes 40mg Take 40 mg by mouth daily. [facility] levothyroxi ne 150 mcg tablet 07-10 18:12: 08 Yes 150ug Take 150 mcg by mouth daily. [facility] lactated ringers IV infusion 1,000 mL 05-22 16:15: 00 Yes 1000mL at 75 mL/hr, 1,000 mL, IV Infusion, CONTINUOUS , Starting Wed05/22/20 at 1115, Until Discontinu ed, Routine, PACU [facility] carbachoL (MIOSTAT) 0.01 % intraocular injection 05-22 15:52: 00 Yes PRN, Starting Wed05/22/20 at 1052, Until Discontinu ed, Routine, Intra-op [facility] ceFAZolin (ANCEF) injection 05-22 15:52: 00 Yes PRN, Starting Wed05/22/20 at 1052, Until Discontinu ed, BRYAN, Intra-op [facility] dexamethaso ne (DECADRON PHOSPHATE) injection 05-22 15:51: 00 Yes PRN, Starting Wed05/22/20 at 1051, Until Discontinu ed, Routine, Intra-op [facility] gentamicin injection 05-22 15:51: 00 Yes PRN, Starting Wed05/22/20 at 1051, Until Discontinu ed, BRYAN, Intra-op [facility] neomycin-po lymyxin-dex amethasone (MAXITROL) 3.5 mg/g-10,000 unit/g-0.1 % ophthalmic ointment 05-22 15:51: 00 Yes PRN, Starting Wed05/22/20 at 1051, Until Discontinu ed, Routine, Intra-op [facility] sodium chloride (NS) injection 05-22 15:49: 00 Yes PRN, Starting Wed05/22/20 at 1049, Until Discontinu ed, Routine, Intra-op [facility] DUOVISC (DUOVISC VISCO ELASTIC) 3 %-4 %(0.5 mL) 1 % (0.55 mL) intraocular injection 05-22 15:48: 00 Yes PRN, Starting Wed05/22/20 at 1048, Until Discontinu ed, Routine, Intra-op [facility] EPINEPHrine 1:1,000 (1 mg/mL) (ADRENALIN) injection 05-22 15:43: 00 Yes PRN, Starting Wed05/22/20 at 1043, Until Discontinu ed, Routine, Intra-op [facility] balanced salt irrig soln comb1 (BSS PLUS) ophthalmic solution 500 mL bag 05-22 15:43: 00 Yes PRN, Starting Wed05/22/20 at 1043, Until Discontinu ed, Routine, Intra-op [facility] Hyaluronida se, Human Recomb. (HYLENEX) injection 05-22 15:36: 00 Yes PRN, Starting Wed05/22/20 at 1036, Until Discontinu ed, Routine, Intra-op [facility] eye block syringe 11 mL 05-22 15:36: 00 Yes PRN, Starting Wed05/22/20 at 1036, Until Discontinu ed, Intra-op [facility] water for irrigation irrigation solution 05-22 15:31: 00 Yes PRN, Starting Wed05/22/20 at 1031, Until Discontinu ed, Routine, Intra-op [facility] mydriatic #5 ophthalmic solution 0.5 mL syringe 05-22 14:00: 05-22 14:30 :00 No .5mL 0.5 mL, Left Eye, ONCE, 1 dose, Wed05/22/20 at 0900, Routine [facility] lactated ringers IV infusion 1,000 mL 05-22 14:00: 00 05-22 14:45 :00 No 1000mL at 20 mL/hr, 1,000 mL, IV Infusion, ONCE, 1 dose, Wed05/22/20 at 0900, Routine, DSU Pre-op [facility] albuterol 2.5 mg /3 mL (0.083 %) nebulizer solution 07-27 21:25: 55 Yes 2.5mg Inhale 2.5 mg every 6 (six) hours as needed for Wheezing or Shortness of Breath. [facility] budesonide- formoterol (SYMBICORT) 160-4.5 mcg/actuati on inhaler 07-27 21:25: 55 Yes 2{puff} Inhale 2 Puffs as needed. [facility] montelukast 10 mg tablet 07-27 21:25: 55 Yes 10mg Take 10 mg by mouth daily. [facility] olmesartan 40 mg tablet 07-27 21:25: 55 Yes 40mg Take 40 mg by mouth daily. [facility] levothyroxi ne 150 mcg tablet 07-27 21:25: 55 Yes 150ug Take 150 mcg by mouth daily. [facility] albuterol (PROAIR HFA) 90 mcg/actuati on inhaler 07-27 21:25: 55 Yes 2{puff} Inhale 2 Puffs every 6 (six) hours as needed for Wheezing or Shortness of Breath. [facility] albuterol 2.5 mg /3 mL (0.083 %) nebulizer solution 07-27 21:25: 55 Yes 2.5mg Inhale 2.5 mg every 6 (six) hours as needed for Wheezing or Shortness of Breath. [facility] budesonide- formoterol (SYMBICORT) 160-4.5 mcg/actuati on inhaler 07-27 21:25: 55 Yes 2{puff} Inhale 2 Puffs as needed. [facility] montelukast 10 mg tablet 07-27 21:25: 55 Yes 10mg Take 10 mg by mouth daily. [facility] olmesartan 40 mg tablet 07-27 21:25: 55 Yes 40mg Take 40 mg by mouth daily. [facility] levothyroxi ne 150 mcg tablet 07-27 21:25: 55 Yes 150ug Take 150 mcg by mouth daily. [facility] albuterol (PROAIR HFA) 90 mcg/actuati on inhaler 07-27 21:25: 55 Yes 2{puff} Inhale 2 Puffs every 6 (six) hours as needed for Wheezing or Shortness of Breath. [facility] albuterol 2.5 mg /3 mL (0.083 %) nebulizer solution 07-27 21:25: 55 Yes 2.5mg Inhale 2.5 mg every 6 (six) hours as needed for Wheezing or Shortness of Breath. [facility] budesonide- formoterol (SYMBICORT) 160-4.5 mcg/actuati on inhaler 07-27 21:25: 55 Yes 2{puff} Inhale 2 Puffs as needed. [facility] montelukast 10 mg tablet 07-27 21:25: 55 Yes 10mg Take 10 mg by mouth daily. [facility] olmesartan 40 mg tablet 07-27 21:25: 55 Yes 40mg Take 40 mg by mouth daily. [facility] levothyroxi ne 150 mcg tablet 07-27 21:25: 55 Yes 150ug Take 150 mcg by mouth daily. [facility] albuterol (PROAIR HFA) 90 mcg/actuati on inhaler 07-27 21:25: 55 Yes 2{puff} Inhale 2 Puffs every 6 (six) hours as needed for Wheezing or Shortness of Breath. [facility] albuterol 2.5 mg /3 mL (0.083 %) nebulizer solution 07-27 21:25: 55 Yes 2.5mg Inhale 2.5 mg every 6 (six) hours as needed for Wheezing or Shortness of Breath. [facility] (SYMBICORT) 160-4.5 mcg/actuati on inhaler 07-27 21:25: 55 Yes 2{puff} Inhale 2 Puffs as needed. [facility] mg tablet 07-27 21:25: 55 Yes 10mg Take 10 mg by mouth daily. [facility] 40 mg tablet 07-27 21:25: 55 Yes 40mg Take 40 mg by mouth daily. [facility] levothyroxi ne 150 mcg tablet 07-27 21:25: 55 Yes 150ug Take 150 mcg by mouth daily. [facility] albuterol (PROAIR HFA) 90 mcg/actuati on inhaler 07-27 21:25: 55 Yes 2{puff} Inhale 2 Puffs every 6 (six) hours as needed for Wheezing or Shortness of Breath. [facility] albuterol 2.5 mg /3 mL (0.083 %) nebulizer solution 07-27 21:25: 55 Yes 2.5mg Inhale 2.5 mg every 6 (six) hours as needed for Wheezing or Shortness of Breath. [facility] budesonide- formoterol (SYMBICORT) 160-4.5 mcg/actuati on inhaler 07-27 21:25: 55 Yes 2{puff} Inhale 2 Puffs as needed. [facility] montelukast 10 mg tablet 07-27 21:25: 55 Yes 10mg Take 10 mg by mouth daily. [facility] olmesartan 40 mg tablet 07-27 21:25: 55 Yes 40mg Take 40 mg by mouth daily. [facility] levothyroxi ne 150 mcg tablet 07-27 21:25: 55 Yes 150ug Take 150 mcg by mouth daily. [facility] albuterol (PROAIR HFA) 90 mcg/actuati on inhaler 07-27 21:25: 55 Yes 2{puff} Inhale 2 Puffs every 6 (six) hours as needed for Wheezing or Shortness of Breath. [facility] albuterol 2.5 mg /3 mL (0.083 %) nebulizer solution 07-27 21:25: 55 Yes 2.5mg Inhale 2.5 mg every 6 (six) hours as needed for Wheezing or Shortness of Breath. [facility] budesonide- formoterol (SYMBICORT) 160-4.5 mcg/actuati on inhaler 07-27 21:25: 55 Yes 2{puff} Inhale 2 Puffs as needed. [facility] montelukast 10 mg tablet 07-27 21:25: 55 Yes 10mg Take 10 mg by mouth daily. [facility] olmesartan 40 mg tablet 07-27 21:25: 55 Yes 40mg Take 40 mg by mouth daily. [facility] levothyroxi ne 150 mcg tablet 07-27 21:25: 55 Yes 150ug Take 150 mcg by mouth daily. [facility] albuterol (PROAIR HFA) 90 mcg/actuati on inhaler 07-27 21:25: 55 Yes 2{puff} Inhale 2 Puffs every 6 (six) hours as needed for Wheezing or Shortness of Breath. [facility] Vital Signs Vital Name Observation Time Observation Value Comments S chavo Systolic blood pressure 2020-05-22 16:15:00 150 mm[Hg] [facility] Diastolic blood pressure 2020-05-22 16:15:00 60 mm[Hg] [facility] Heart rate 2020-05-22 16:15:00 64 /min [facility] Respiratory rate 2020-05-22 16:15:00 16 /min [facility] Oxygen saturation in Arterial blood by Pulse oximetry 2020-05-22 16:15:00 100 /min [facility] Body temperature 2020-05-22 16:02:00 36.22 Dayanna [facility] Body height 2020-05-13 14:06:00 160 cm [facility] Body weight 2020-05-13 14:06:00 113.4 kg [facility] BMI 2020-05-13 14:06:00 44.30 kg/m2 [facility] Systolic blood pressure 2020-05-22 16:15:00 150 mm[Hg] [facility] Diastolic blood pressure 2020-05-22 16:15:00 60 mm[Hg] [facility] Heart rate 2020-05-22 16:15:00 64 /min [facility] Respiratory rate 2020-05-22 16:15:00 16 /min [facility] Oxygen saturation in Arterial blood by Pulse oximetry 2020-05-22 16:15:00 100 /min [facility] Body temperature 2020-05-22 16:02:00 36.22 Dayanna [facility] Body height 2020-05-13 14:06:00 160 cm [facility] Body weight 2020-05-13 14:06:00 113.4 kg [facility] BMI 2020-05-13 14:06:00 44.30 kg/m2 [facility] Procedures Procedure Date / Time Performed Performing Clinician Source PHACOEMULSIFICATION OF CATARACT WITH INTRAOCULAR LENS IMPLANT 2020-05-22 15:25:00 Shaka Patiño [facility] ASSIGNMENT OF BENEFITS 2020-05-21 14:57:14 Doctor Unassigned, [place] [facility] Encounters Start Date/Time End Date/Time Encounter Type Admission Type Attending Clinicians Care Facility Care Department Encounter ID Source 2023-10-28 14:00:00 Inpatient [facility] [id number] [facility] 2022-08-04 09:33:39 Outpatient NIMA COLORADO [id number] [facility] [id number] [facility] 2021-08-29 08:02:04 Outpatient SHAKA GUERRERO [facility] [id number] [facility] 2023-02-11 12:00:00 2023-02-11 12:00:00 Outpatient Fabi Obrien [facility] DANIEL [id number] [facility] 2022-02-05 12:00:00 2022-02-05 12:00:00 Outpatient Ortiz Sifuentes [facility] [id number] [facility] 2021-02-07 12:00:00 2021-02-07 12:00:00 Outpatient Fabi Obrien [facility] [id number] [facility] 2020-05-22 08:54:05 2020-05-22 11:20:00 Hospital Encounter Shaka Patiño [facility] [id number] 2020-05-22 08:54:05 2020-05-22 11:20:00 Hospital Encounter Shaka Patiño [facility] [id number] [facility] 2020-05-21 09:50:00 2020-05-21 10:43:07 Laboratory Only Only, Adc Test [facility] [id number] 2020-05-21 09:50:00 2020-05-21 10:43:07 Laboratory Only Only, Adc Test Shaka Patiño [facility] [id number] [facility] 2020-05-21 10:15:00 2020-05-21 10:15:00 Outpatient R MIGUEL SHAKA [facility] [id number] [facility] 2020-05-21 09:58:32 2020-05-21 10:13:32 Agile Tester Visit Pob, Adc Lab Main [facility] [id number] [facility] 2020-05-21 00:00:00 2020-05-21 00:00:00 Orders Only Doctor Unassigned, [place] [facility] [id number] [facility]
[2023-11-09 12:06] LABS: Absolute Lymphocytes (CBC) 1.5 K/uL (0.7-4.9); Hematocrit 42.5 % (36.0-45.0); Lymphocytes % 23.7 % (15.3-44.8); MCV 91.9 fL (80-100); MPV 8.3 fL (7.6-11.3); Platelets 299 thou/uL (152-406); RBC Red Blood Cell Count 4.63 M/uL (3.86-4.86)
[2023-11-09 12:10] LABS: Specific Gravity > 1.030 (1.005-1.030); Urine Bacteria None Seen /HPF (<20); Urine Bilirubin NEGATIVE (Negative); Urine Blood Negative (Negative); Urine Clarity Turbid (Clear); Urine Color Yellow (Yellow); Urine Glucose NEGATIVE (Negative); Urine Mucus Slight /HPF (None Seen); Urine Protein 1+ (Negative); Urine RBC <5 /HPF (None Seen); Urine Urobilinogen Normal (Normal); Urine pH 5.5 (5.0-7.0)
[2023-11-09 12:17] LABS: Albumin 3.8 g/dL (3.4-5.0); Bilirubin Total 0.7 mg/dL (0.2-1.0); Potassium 3.6 mEq/L (3.5-5.1); Protein, Total 8.4 g/dL (6.4-8.2)
--- NOTE | 2023-11-09 12:58 | RAD REPORT ---
EXAM DESCRIPTION: CTAbdomen Pelvis W Contrast - 11/09/2023 12:40 pm CLINICAL HISTORY: ABD PAIN COMPARISON: CT ABD PELVIS W CONTRAST dated 08/31/2013 TECHNIQUE: CT of the abdomen and pelvis was performed. All CT scans are performed using dose optimization technique as appropriate and may include automated exposure control or mA/KV adjustment according to patient size. FINDINGS: Lower chest: No acute abnormality. Circumferential thickened distal esophagus could reflec t mild esophagitis. Liver: No acute abnormality or suspicious lesions. Biliary: No biliary ductal dilatation. Stomach: No significant focal abnormality. Duodenum: No significant focal abnormality. Pancreas: No significant abnormality. Pancreatic atrophy. Spleen: No significant abnormality. Adrenal: No suspicious lesions. Kidney/ureter: No hydronephrosis. No renal calculi. Too small to characterize low-density left interp olar renal lesion is statistically benign. Retroperitoneum: No retroperitoneal adenopathy. Vascular: No aneurysm. Bowel: No significant focal abnormality. Prior appendectomy. Peritoneum: No ascites or free air. Bladder: Grossly unremarkable. Reproductive: No adnexal masses. Hysterectomy . Bones: No acute fracture. Other: n/a IMPRESSION: No acute intra-abdominal or pelvic finding. Appendectomy.
--- NOTE | 2023-11-09 13:10 | EDPHYS ---
Physician Documentation [facility] Name: Caroline Wise Age: 62 yrs Sex: Female : 1960 Arrival Date: 11/09/2023 Time: 11:21 Bed 12 Private MD: ED Physician Enrrique Dhillon HPI: 11/09 11:37 This 62 yrs old Black Female presents to ER via Ambulatory with complaints of Abdominal ms3 Pain. 11:37 62-year-old female with past medical history of asthma, hypertension, hypothyroidism ms3 presents to the emergency department for abdominal pain, nausea, vomiting, diarrhea that began on Wednesday. Patient states she felt better yesterday and the vomiting subsided. Patient states today her abdomen began hurting again and the diarrhea continued. Patient states the pain is located in her epigastric region, rated a 10/10. Patient took Pepto-Bismol without relief. Patient denies alleviating or inciting factors. Historical: - Allergies: 11:25 PENICILLINS; ll1 11:25 Toradol; ll1 - PMHx: 11:25 Asthma; Hypertension; Hypothyroidism; ll1 - PSHx: 11:25 Appendectomy; hysterectomy; foot; hysterectomy; ll1 - Immunization history:: Adult Immunizations up to date. - Social history:: Smoking status: Patient denies any tobacco usage or history of. ROS: 11:37 Constitutional: Negative for fever, and chills. Neck: Negative for injury, pain, and ms3 swelling, Cardiovascular: Negative for chest pain, and palpitations. Respiratory: Negative for shortness of breath, cough, wheezing, and pleuritic chest pain, 11:37 Skin: Negative for injury, rash, and discoloration, 11:37 Abdomen/GI: Positive for abdominal pain, nausea, vomiting, and diarrhea, 11:37 All other systems are negative, Exam: 11:37 Constitutional: This is a well developed, well nourished patient who is awake, alert, ms3 and in no acute distress. Head/Face: Normocephalic, atraumatic. Chest/axilla: Normal chest wall appearance and motion. Nontender with no deformity. Cardiovascular: Regular rate and rhythm with a normal S1 and S2. No gallops, murmurs, or rubs. Normal PMI, no JVD. No pulse deficits. Respiratory: Lungs have equal breath sounds bilaterally, clear to auscultation and percussion. No rales, rhonchi or wheezes noted. No increased work of breathing, no retractions or nasal flaring. 11:37 Abdomen/GI: Inspection: abdomen appears normal, Bowel sounds: normal, Palpation: mild abdominal tenderness, in the epigastric area, 13:00 ECG was reviewed by the Attending Physician. ms3 Vital Signs: 11:30 BP 140 / 67; Pulse 87; Resp 18; Temp 99; Pulse Ox 100% on R/A; Weight 90.72 kg; Height ll1 5 ft. 3 in. ; Pain 10/10; 11:30 Body Mass Index 35.43 (90.72 kg, 160.02 cm) ll1 11:30 Pain Scale: Adult ll1 MDM: 11:37 Differential diagnosis: bowel obstruction, non-specific abd pain, pancreatitis, urinary ms3 tract infection. 11:39 Patient medically screened. ms3 13:10 Data reviewed: vital signs, nurses notes, lab test result(s), and as a result, I will ms3 discharge patient. I considered the following discharge prescriptions or medication management in the emergency department Medications were administered in the Emergency Department. See MAR. Care significantly affected by the following chronic conditions: Hypertension. Counseling: I had a detailed discussion with the patient and/or guardian regarding the historical points, exam findings, and any diagnostic results supporting the discharge/admit diagnosis, lab results, radiology results, the need for outpatient follow up, to return to the emergency department if symptoms worsen or persist or if there are any questions or concerns that arise at home. Special discussion: Based on the patient's Hx, exam, and Dx evaluation, there is no indication for emergent surgery or inpatient Tx. It is understood by the patient/guardian that if the Sx's persist or worsen they need to return immediately for re-evaluation. ED course: Discussed labs and CT scan with patient. Patient to follow-up with primary care physician in 2 to 3 days. Patient understands and agrees with plan. All questions were answered. Return precautions discussed include worsening symptoms, or any other concerns. On reevaluation patient symptoms improved, patient is alert and oriented x 4, no apparent distress, nontoxic-appearing, ambulatory in emergency department. 11/09 11:36 Order name: CBC with Diff; Complete Time: 12:43 ms3 11/09 11:36 Order name: CMP; Complete Time: 12:43 ms3 11/09 11:36 Order name: Lipase; Complete Time: 12:43 ms3 11/09 11:36 Order name: Urinalysis w/ reflexes; Complete Time: 12:43 ms3 11/09 11:36 Order name: CT Abd/Pelvis - IV Contrast Only; Complete Time: 13:06 ms3 11/09 11:39 Order name: EKG; Complete Time: 11:39 ms3 11/09 11:36 Order name: IV Saline Lock; Complete Time: 12:02 ms3 11/09 11:36 Order name: Labs collected and sent; Complete Time: 12:02 ms3 11/09 11:39 Order name: EKG - Nurse/Tech; Complete Time: 12:25 ms3 EC:00 Rate is 77 beats/min. Rhythm is regular. QRS [place] is Normal. PA interval is normal. QRS ms3 interval is normal. Clinical impression: NSR w/ Non-specific ST/T Changes. Interpreted by me. Reviewed by me. Administered Medications: 13:02 Drug: Famotidine IVP 20 mg IVP once; dilute with 10 mL 0.9% NaCl; give over 2 minutes iw Route: IVP; Site: right forearm; 13:34 Follow up: Response: No adverse reaction [email or web address] 13:02 Drug: Ondansetron IVP 4 mg IVP once; over 2 minutes Route: IVP; Site: right forearm; iw 13:33 Follow up: Response: No adverse reaction; Nausea is decreased kc6 Disposition Summary: 11/09/23 13:10 Discharge Ordered Notes: Location: Home ms3 Condition: Stable ms3 Diagnosis - Abdominal pain, unspecified ms3 - Nausea with vomiting, unspecified ms3 - Diarrhea, unspecified ms3 Followup: ms3 - With: Private Physician - When: 1 - 2 days - Reason: Recheck today's complaints Discharge Instructions: - Discharge Summary Sheet ms3 - Abdominal Pain, Adult ms3 - Nausea and Vomiting, Adult ms3 - Diarrhea, Adult, [id number]-[id number]-Cuea ms3 Forms: - Medication Reconciliation Form ms3 - Thank You Letter ms3 - Antibiotic Education ms3 - Prescription Opioid Use ms3 - Patient Portal Instructions ms3 - Leadership Thank You Letter ms3 Prescriptions: - ondansetron 4 mg Oral Tablet,disintegrating - take 1 tablet ORAL route every 8 hours; 10 tablet; Refills: 0, Product ms3 Selection Permitted Signatures: Dispatcher [employer] Valerie Mike RN RN iw Reg Mendez RN RN ll1 Enrrique Dhillon, DO BIRCH ms3 Caro Garcia RN kc6
--- NOTE | 2023-11-09 13:10 | ER ---
Nurse's Notes [facility] Name: Caroline Wise Age: 62 yrs Sex: Female : 1960 Arrival Date: 11/09/2023 Time: 11:21 Bed 12 Private MD: Diagnosis: Abdominal pain, unspecified;Nausea with vomiting, unspecified;Diarrhea, unspecified Presentation: 11/09 11:30 Chief complaint: Patient states: Upper abdominal pain since Wednesday with N/V/D. Still ll1 has diarrhea and abdominal pain now. No fevers. Coronavirus screen: Client denies travel out of the [place] in the last 14 days. At this time, the client does not indicate any symptoms associated with coronavirus-19. Ebola Screen: Patient denies travel to an Ebola-affected area in the 21 days before illness onset. Initial Sepsis Screen: Does the patient meet any 2 criteria? No. Patient's initial sepsis screen is negative. Does the patient have a suspected source of infection? Yes: Acute abdominal pain. Risk Assessment: Do you want to hurt yourself or someone else? Patient reports no desire to harm self or others. Onset of symptoms was November 07, 2023. 11:30 Method Of Arrival: Ambulatory 1 11:30 Acuity: SERAFIN 3 ll1 Historical: - Allergies: 11:25 PENICILLINS; ll1 11:25 Toradol; ll1 - PMHx: 11:25 Asthma; Hypertension; Hypothyroidism; ll1 - PSHx: 11:25 Appendectomy; hysterectomy; foot; hysterectomy; ll1 - Immunization history:: Adult Immunizations up to date. - Social history:: Smoking status: Patient denies any tobacco usage or history of. Screenin:02 [facility] ED Fall Risk Assessment (Adult) History of falling in the last 3 months, kc6 including since admission No falls in past 3 months (0 pts) Confusion or Disorientation No (0 pts) Intoxicated or Sedated No (0 pts) Impaired Gait No (0 pts) Mobility Assist Device Used No (0 pt) Altered Elimination No (0 pt) Score/Fall Risk Level 0 - 2 = Low Risk. Abuse screen: Denies threats or abuse. Denies injuries from another. Nutritional screening: No deficits noted. Tuberculosis screening: No symptoms or risk factors identified. Assessment: 13:03 General: Appears in no apparent distress. comfortable, well groomed, well developed, kc6 Behavior is calm, cooperative, appropriate for age. Pain: Complains of pain in abdomen and epigastric area. Neuro: Level of Consciousness is awake, alert, obeys commands, Oriented to person, place, time, situation, Appropriate for age. Cardiovascular: Capillary refill < 3 seconds. Respiratory: Airway is patent Trachea midline Respiratory effort is even, unlabored, Respiratory pattern is regular, symmetrical. GI: Bowel sounds present X 4 quads. Abd is soft X 4 quads Abdomen is tender to palpation in epigastric area Reports upper abdominal pain, diarrhea, nausea, vomiting. : No signs and/or symptoms were reported regarding the genitourinary system. EENT: No signs and/or symptoms were reported regarding the EENT system. Derm: No signs and/or symptoms reported regarding the dermatologic system. Skin is intact, is healthy with good turgor, Skin is pink, warm \T\ dry. Musculoskeletal: No signs and/or symptoms reported regarding the musculoskeletal system. Circulation, motion, and sensation intact. Capillary refill < 3 seconds, Range of motion: intact in all extremities. Vital Signs: 11:30 BP 140 / 67; Pulse 87; Resp 18; Temp 99; Pulse Ox 100% on R/A; Weight 90.72 kg; Height ll1 5 ft. 3 in. ; Pain 10/10; 11:30 Body Mass Index 35.43 (90.72 kg, 160.02 cm) ll1 11:30 Pain Scale: Adult ll1 ED Course: 11:24 Patient arrived in ED. rg4 11:28 Enrrique Dhillon DO is Attending Physician. ms3 11:29 Arm band placed on. ll1 11:31 Triage completed. ll1 11:54 Initial lab(s) drawn, by id, sent to lab. Inserted saline lock: 22 gauge in left iw forearm, using aseptic technique. Blood collected. 12:41 CT Abd/Pelvis - IV Contrast Only In Process Unspecified. EDMS 13:02 Valerie Arriaza, RN is Primary Nurse. iw 13:02 Caro Garcia, KIMBERLEE is Primary Nurse. kc6 13:02 Patient maintains SpO2 saturation greater than 95% on room air. kc6 13:03 Patient has correct armband on for positive identification. Bed in low position. Call kc6 light in reach. Side rails up X 1. Client placed on continuous cardiac and pulse oximetry monitoring. NIBP monitoring applied. 13:34 No provider procedures requiring assistance completed. IV discontinued, intact, kc6 bleeding controlled, No redness/swelling at site. Pressure dressing applied. Administered Medications: 13:02 Drug: Famotidine IVP 20 mg IVP once; dilute with 10 mL 0.9% NaCl; give over 2 minutes iw Route: IVP; Site: right forearm; 13:34 Follow up: Response: No adverse reaction kc6 13:02 Drug: Ondansetron IVP 4 mg IVP once; over 2 minutes Route: IVP; Site: right forearm; iw 13:33 Follow up: Response: No adverse reaction; Nausea is decreased kc6 Medication: 13:34 VIS not applicable for this client. kc6 Outcome: 13:10 Discharge ordered by . ms3 13:34 Discharged to home ambulatory, kc6 13:34 Condition: good 13:34 Discharge instructions given to patient, Instructed on discharge instructions, follow up and referral plans. medication usage, Demonstrated understanding of instructions, follow-up care, medications, Prescriptions given X 1, 13:34 Patient left the ED. kc6 Signatures: Dispatcher [employer] EDMS Valerie Arriaza, RN RN Bobbi Canas4 Reg Mendez RN RN ll1 Enrrique Dhillon DO DO ms3 Caro Garcia, RN RN kc6
[2023-11-09 14:11] VITALS: BP 140/67; TEMP 99; O2SAT 100
--- NOTE | 2023-11-10 17:36 | EKG ---
Test Date: 2023-11-09 Test Time: 12:21:00 Support Dba: SAMPSON MEASUREMENT RESULTS: Intervals: Rate: 77 ND: 158 QRSD: 78 QT: 360 QTc: 407 [place]: P: 61 ND: 158 QRS: 53 T: 35 INTERPRETIVE STATEMENTS: Normal sinus rhythm Possible Anterior infarct, age undetermined Abnormal ECG Compared to ECG 11/22/2021 23:57:39 Myocardial infarct finding now present T-wave abnormality no longer present Electronically Signed On 11-10-23 17:34:10 [employer] by Tunde Bangura
== END ==
LOC: ER 11:21
DX: R10.13 Epigastric pain (principal); R11.2 Nausea with vomiting, unspecified; R19.7 Diarrhea, unspecified; Z88.0 Allergy status to penicillin; Z88.5 Allergy status to narcotic agent
CPT/HCPCS: 93005; 85025; 81001; 36415; 83690; 80053; 74177; 96375; 96374; 99285; Q9967; J2405; J7030

== ENCOUNTER 2024-07-11 20:41 | Emergency (ER) | payer BC ==
--- OUTSIDE RECORDS SUMMARY | 2024-07-11 20:45 | XMS REPORT | Continuity of Care Document ---
Author Name Unknown Address [address] [place] [address] [facility] thconnect Address [address] [place] [address] Care Team Providers Care Hand I Blocker Name Role Phone NIMA COLORADO Primary Care Physician Unavailab LALIT Brandon Attending Clinician Unavailable DR NIMA COLORADO Attending Clinician Unavailab larisa [phone] Attending Clinician Unavailable SHAKA RIVERA Attending Clinician Unavailab larisa Referred, Self Attending Clinician Unavailable Fabi Pradhan Attending Clinician UnavailOrtiz Lane Attending Clinician Shaka Mejía MD Attending Clinician [phone] Only, Adc Test Attending Clinician Unavailable Pob, Adc Lab Main Attending Clinician Unavailabl e Doctor Unassigned, [place] Attending Clinician U DR NIMA Hammond Admitting Clinician Unavailab SHAKA Blum Admitting Clinician Unavailab larisa Referred, Self Admitting Clinician Unavailable Fabi Pradhan Admitting Clinician UnavailOrtiz Lane Admitting Clinician Unavailable Physician, No Primary or Family Admitting Clinic logan Shaka Mejía MD Admitting Clinician [phone] Payers Payer Name Policy Type Policy Number Effective Date Expirati on Date Source [facility] OP [id number] [facility] [id number] 2017 00:00:00 Problems Condition Name Condition Details Condition Category Status Onset Date Resolution Date Last Treatment Date Treating Clinician Comments Source Morbid obesity with body mass index of 40.0-49.9 Morbid obesity with body mass index of 40.0-49.9 Disease Active 05-22 00:00: 00 [facility] Allergies, Adverse Reactions, Alerts Allergy Name Allergy Type Status Severity Reaction(s) Onset Date Inactive Date Treating Clinician Comments Source KETOROLA C TROMETHA MINE DRUG INGREDI Active Anaphylaxis 05-22 00:00: 00 [facility] Ketorola c Trometha mine Propensi ty to adverse reaction s Active Anaphylaxis 05-22 00:00: 00 [facility] Tramadol Propensi ty to adverse reaction s Active Anaphylaxis 05-20 00:00: 00 [facility] TRAMADOL DRUG INGREDI Active Anaphylaxis 05-20 00:00: 00 [facility] No Known Allergie s DA Active U 02-04 00:00: 00 [facility] No Known Allergie s DA Active U 02-04 00:00: 00 [facility] NO KNOWN ALLERGIE S Drug Class Active [facility] Social History Social Habit Start Date Stop Date Quantity Comments Source Sex Assigned At [facility] Exposure to SARS-CoV-2 (event) Not sure [facility] Alcohol intake 2020-05-20 00:00:00 2020-05-20 00:00:00 Current non-drinker of alcohol (finding) [facility] Tobacco use and exposure 2020-05-20 00:00:00 2020-05-20 00:00:00 Never used [facility] Smoking Status Start Date Stop Date Source Never smoker [facility] Medications Ordered Medication Name Filled Medication Name Start Date Stop Date Current Medication? Ordering Clinician Indication Dosage Frequency Signature (SIG) Comments Components Source albuterol (PROAIR HFA) 90 mcg/actuati on inhaler 07-10 18:12: 08 Yes 2{puff} Inhale 2 Puffs every 6 (six) hours as needed for Wheezing or Shortness of Breath. [facility] albuterol 2.5 mg /3 mL (0.083 %) nebulizer solution 07-10 18:12: 08 Yes 2.5mg Inhale 2.5 mg every 6 (six) hours as needed for Wheezing or Shortness of Breath. [facility] budesonide- formoterol (SYMBICORT) 160-4.5 mcg/actuati on inhaler 07-10 18:12: 08 Yes 2{puff} Inhale 2 Puffs as needed. [facility] montelukast 10 mg tablet 07-10 18:12: 08 Yes 10mg Take 10 mg by mouth daily. [facility] olmesartan 40 mg tablet 07-10 18:12: 08 Yes 40mg Take 40 mg by mouth daily. [facility] levothyroxi ne 150 mcg tablet 07-10 18:12: 08 Yes 150ug Take 150 mcg by mouth daily. [facility] lactated ringers IV infusion 1,000 mL 05-22 16:15: 00 Yes 1000mL at 75 mL/hr, 1,000 mL, IV Infusion, CONTINUOUS , Starting Wed05/22/20 at 1115, Until Discontinu ed, Routine, PACU [facility] carbachoL (MIOSTAT) 0.01 % intraocular injection 05-22 15:52: 00 Yes PRN, Starting Wed05/22/20 at 1052, Until Discontinu ed, Routine, Intra-op [facility] ceFAZolin (ANCEF) injection 05-22 15:52: 00 Yes PRN, Starting Wed05/22/20 at 1052, Until Discontinu ed, BRYAN, Intra-op [facility] dexamethaso ne (DECADRON PHOSPHATE) injection 05-22 15:51: 00 Yes PRN, Starting Wed05/22/20 at 1051, Until Discontinu ed, Routine, Intra-op [facility] gentamicin injection 05-22 15:51: 00 Yes PRN, Starting Wed05/22/20 at 1051, Until Discontinu ed, BRYAN, Intra-op [facility] neomycin-po lymyxin-dex amethasone (MAXITROL) 3.5 mg/g-10,000 unit/g-0.1 % ophthalmic ointment 05-22 15:51: 00 Yes PRN, Starting Wed05/22/20 at 1051, Until Discontinu ed, Routine, Intra-op [facility] sodium chloride (NS) injection 05-22 15:49: 00 Yes PRN, Starting Wed05/22/20 at 1049, Until Discontinu ed, Routine, Intra-op [facility] DUOVISC (DUOVISC VISCO ELASTIC) 3 %-4 %(0.5 mL) 1 % (0.55 mL) intraocular injection 05-22 15:48: 00 Yes PRN, Starting Wed05/22/20 at 1048, Until Discontinu ed, Routine, Intra-op [facility] EPINEPHrine 1:1,000 (1 mg/mL) (ADRENALIN) injection 05-22 15:43: 00 Yes PRN, Starting Wed05/22/20 at 1043, Until Discontinu ed, Routine, Intra-op [facility] balanced salt irrig soln comb1 (BSS PLUS) ophthalmic solution 500 mL bag 05-22 15:43: 00 Yes PRN, Starting Wed05/22/20 at 1043, Until Discontinu ed, Routine, Intra-op [facility] Hyaluronida se, Human Recomb. (HYLENEX) injection 05-22 15:36: 00 Yes PRN, Starting Wed05/22/20 at 1036, Until Discontinu ed, Routine, Intra-op [facility] eye block syringe 11 mL 05-22 15:36: 00 Yes PRN, Starting Wed05/22/20 at 1036, Until Discontinu ed, Intra-op [facility] water for irrigation irrigation solution 05-22 15:31: 00 Yes PRN, Starting Wed05/22/20 at 1031, Until Discontinu ed, Routine, Intra-op [facility] mydriatic #5 ophthalmic solution 0.5 mL syringe 05-22 14:00: 00 05-22 14:30 :00 No .5mL 0.5 mL, Left Eye, ONCE, 1 dose, Wed05/22/20 at 0900, Routine [facility] lactated ringers IV infusion 1,000 mL 05-22 14:00: 00 05-22 14:45 :00 No 1000mL at 20 mL/hr, 1,000 mL, IV Infusion, ONCE, 1 dose, Wed05/22/20 at 0900, Routine, DSU Pre-op [facility] montelukast 10 mg tablet 07-27 21:25: 55 Yes 10mg Take 10 mg by mouth daily. [facility] olmesartan 40 mg tablet 07-27 21:25: 55 Yes 40mg Take 40 mg by mouth daily. [facility] levothyroxi ne 150 mcg tablet 07-27 21:25: 55 Yes 150ug Take 150 mcg by mouth daily. [facility] albuterol (PROAIR HFA) 90 mcg/actuati on inhaler 07-27 21:25: 55 Yes 2{puff} Inhale 2 Puffs every 6 (six) hours as needed for Wheezing or Shortness of Breath. [facility] albuterol 2.5 mg /3 mL (0.083 %) nebulizer solution 07-27 21:25: 55 Yes 2.5mg Inhale 2.5 mg every 6 (six) hours as needed for Wheezing or Shortness of Breath. [facility] budesonide- formoterol (SYMBICORT) 160-4.5 mcg/actuati on inhaler 07-27 21:25: 55 Yes 2{puff} Inhale 2 Puffs as needed. [facility] Vital Signs Vital Name Observation Time Observation Value Comments S ource Diastolic blood pressure 2020-05-22 16:15:00 60 mm[Hg] [place] o f [facility] Heart rate 2020-05-22 16:15:00 64 /min [facility] Respiratory rate 2020-05-22 16:15:00 16 /min [facility] Oxygen saturation in Arterial blood by Pulse oximetry 2020-05-22 16:15:00 100 /min [facility] Systolic blood pressure 2020-05-22 16:15:00 150 mm[Hg] [facility] Body temperature 2020-05-22 16:02:00 36.22 Dayanna [facility] Body height 2020-05-13 14:06:00 160 cm [facility] Body weight 2020-05-13 14:06:00 113.4 kg [facility] BMI 2020-05-13 14:06:00 44.30 kg/m2 [facility] Diastolic blood pressure 2020-05-22 16:15:00 60 mm[Hg] [facility] Heart rate 2020-05-22 16:15:00 64 /min [facility] Respiratory rate 2020-05-22 16:15:00 16 /min [facility] Oxygen saturation in Arterial blood by Pulse oximetry 2020-05-22 16:15:00 100 /min [facility] Systolic blood pressure 2020-05-22 16:15:00 150 mm[Hg] [facility] Body temperature 2020-05-22 16:02:00 36.22 Dayanna [facility] Body height 2020-05-13 14:06:00 160 cm [facility] Body weight 2020-05-13 14:06:00 113.4 kg [facility] BMI 2020-05-13 14:06:00 44.30 kg/m2 [facility] Procedures Procedure Date / Time Performed Performing Clinician Source PHACOEMULSIFICATION OF CATARACT WITH INTRAOCULAR LENS IMPLANT 2020-05-22 15:25:00 Shaka Rivera [facility] ASSIGNMENT OF BENEFITS 2020-05-21 14:57:14 Doctor Unassigned, [place] [facility] Encounters Start Date/Time End Date/Time Encounter Type Admission Type Attending Clinicians Care Facility Care Department Encounter ID Source 2023-10-28 14:00:00 Inpatient LINDSAY WATSONELALIT [facility] [id number] [facility] 2022-08-04 09:33:39 Outpatient NIMA COLORADO [id number] DARYL BRITO [id number] [facility] 2021-08-29 08:02:04 Outpatient SHAKA GUERRERO [facility] [id number] [facility] 2024-02-17 12:00:00 2024-02-17 12:00:00 Outpatient LINDSAY Yosi Nolasco [facility] [id number] [facility] 2023-11-25 10:07:00 2023-11-25 10:07:00 Outpatient Etelvina BEEBENIMA CONCEPCION [id number] [facility] [id number] [facility] 2023-02-11 12:00:00 2023-02-11 12:00:00 Outpatient Fabi Obrien [facility] [id number] [facility] 2022-02-05 12:00:00 2022-02-05 12:00:00 Outpatient Ortiz Sifuentes [facility] [id number] [facility] 2021-02-07 12:00:00 2021-02-07 12:00:00 Outpatient Fabi Obrien [facility] [id number] [facility] 2020-05-22 08:54:05 2020-05-22 11:20:00 Hospital Encounter Shaka Rivera [facility] [id number]..[id number] [facility] 2020-05-22 08:54:05 2020-05-22 11:20:00 Hospital Encounter Shaka Rivera [facility] [id number] 2020-05-21 09:50:00 2020-05-21 10:43:07 Laboratory Only Only, Adc Test Shaka Rivera [facility] [id number] [facility] 2020-05-21 09:50:00 2020-05-21 10:43:07 Laboratory Only Only, Adc Test [facility] [id number] 2020-05-21 10:15:00 2020-05-21 10:15:00 Outpatient R SHAKA RIVERA [facility] [id number] [facility] 2020-05-21 09:58:32 2020-05-21 10:13:32 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
--- NOTE | 2024-07-11 21:38 | RAD REPORT ---
EXAM DESCRIPTION: RAD - Knee Left 3 View - 07/11/2024 9:33 pm CLINICAL HISTORY: PAIN COMPARISON: No comparisons FINDINGS: No fracture, dislocation or joint effusion.
--- NOTE | 2024-07-11 21:39 | RAD REPORT ---
EXAM DESCRIPTION: RAD - Knee Right 3 View - 07/11/2024 9:33 pm CLINICAL HISTORY: PAIN COMPARISON: Knee Right 3 View dated 10/17/2023 FINDINGS: Moderate medial compartment space narrowing compatible with moderate osteoarthritis. No fr acture or dislocation is seen. Small suprapatellar joint effusion.
--- NOTE | 2024-07-11 21:49 | EDPHYS ---
Physician Documentation [facility] Name: Caroline Wise Age: 63 yrs Sex: Female : 1960 Arrival Date: 07/11/2024 Time: 20:41 Bed 9 Private MD: ED Physician Shankar Villalta HPI: 07/11 21:41 This 63 yrs old Black Female presents to ER via EMS with complaints of Fall Injury. kb 21:41 Pt is a 63 year old female who presents for bilateral knee pain after tripping up a kb step and hitting knees on the edge of step above her. Denies any other injuries. Ambulatory after fall. . Historical: - Allergies: 20:51 PENICILLINS; me1 20:51 Toradol; me1 - PMHx: 20:51 Asthma; Hypertension; Hypothyroidism; me1 - PSHx: 20:51 Appendectomy; foot; hysterectomy; me1 - Immunization history:: Adult Immunizations up to date. - Infectious Disease History:: Denies. - Immunization history: Last tetanus immunization: - up to date. - Social history:: Smoking status: Patient denies any tobacco usage or history of. ROS: 21:41 Constitutional: As per HPI kb Exam: 21:41 Constitutional: This is a well developed, well nourished patient who is awake, alert, kb and in no acute distress. Head/Face: Normocephalic, atraumatic. ENT: Moist Mucous membranes Cardiovascular: Regular rate Respiratory: Respirations even and unlabored. No increased work of breathing. Talking in full sentences Abdomen/GI: Soft, non-tender. No distention Skin: Warm, dry with normal turgor. Normal color. Neuro: Awake and alert, GCS 15, oriented to person, place, time, and situation. Moves all extremities. Normal gait. 21:41 Musculoskeletal/extremity: Extremities: grossly normal except: noted in the right knee and left knee: pain, swelling, tenderness, ROM: intact in all extremities, Circulation is intact in all extremities. Sensation intact. Weight bearing: able to fully bear weight, Vital Signs: 20:50 BP 180 / 65; Pulse 64; Resp 16; Temp 98.4; Pulse Ox 99% on R/A; Weight 86.18 kg; Height me1 5 ft. 3 in. ; Pain 6/10; 21:27 BP 161 / 55; Pulse 67; Resp 15; Pulse Ox 96% ; Pain 4/10; me1 20:50 Body Mass Index 33.66 (86.18 kg, 160.02 cm) me1 20:50 Pain Scale: Adult me1 21:27 Pain Scale: Adult me1 [place] Coma Score: 20:56 Eye Response: spontaneous(4). Motor Response: obeys commands(6). Verbal Response: me1 oriented(5). Total: 15. Trauma Score (Adult): 20:56 Eye Response: spontaneous(1); Verbal Response: oriented(1); Motor Response: obeys me1 commands(2); Systolic BP: > 89 mm Hg(4); Respiratory Rate: 10 to 29 per min(4); [place] Score: 15; Trauma Score: 12 MDM: 20:48 Patient medically screened. kb 21:41 Differential diagnosis: contusion, fracture. Data reviewed: vital signs, nurses notes. kb Historians other than the Patient: EMS: [facility]. Counseling: I had a detailed discussion with the patient and/or guardian regarding the historical points, exam findings, and any diagnostic results supporting the discharge/admit diagnosis, radiology results, the need for outpatient follow up, a family practitioner, to return to the emergency department if symptoms worsen or persist or if there are any questions or concerns that arise at home. 07/11 20:50 Order name: Knee Left 3 View XRAY; Complete Time: 21:39 kb 07/11 20:50 Order name: Knee Right 3 View XRAY; Complete Time: 21:40 kb Administered Medications: 21:05 Not Given (Patient Refused): [id number] mg PO once me1 Disposition: 07/12 04:26 Co-signature as Attending Physician, Shankar Villalta MD I agree with the assessment sp4 and plan of care. I reviewed the patient's care provided by the Advanced Practice Provider and agree with the diagnosis and treatment plan. Disposition Summary: 07/11/24 21:48 Discharge Ordered Notes: Location: Home Condition: Stable kb Diagnosis - Contusion of left knee kb - Contusion of right knee kb Followup: kb - With: Emergency Department - When: As needed - Reason: Worsening of condition Followup: kb - With: Private Physician - When: 2 - 3 days - Reason: Recheck today's complaints, Continuance of care, Re-evaluation by your physician Discharge Instructions: - Discharge Summary Sheet kb - Contusion, [id number] kb - Acute Knee Pain, Adult, [id number] kb Forms: - Medication Reconciliation Form kb - Antibiotic Education kb - Prescription Opioid Use kb - Patient Portal Instructions kb - Leadership Thank You Letter kb Signatures: Dispatcher [employer] EDRegina Madrid, MENTALLY IMPAIRED TEACHER-C MENTALLY IMPAIRED TEACHER-Shankar Anaya MD MD sp4 Ifrah Mesa RN RN me1
--- NOTE | 2024-07-11 21:49 | ER ---
Nurse's Notes [facility] Name: Caroline Wise Age: 63 yrs Sex: Female : 1960 Arrival Date: 07/11/2024 Time: 20:41 Bed 9 Private MD: Diagnosis: Contusion of left knee;Contusion of right knee Presentation: 07/11 20:50 Chief complaint: EMS states: toned out for fall with bilateral knee pain. Patient me1 tripped on a step up and fell hitting both knees on the edge of the step. Coronavirus screen: Vaccine status: Patient reports receiving the 2nd dose of the covid vaccine. Ebola Screen: No symptoms or risks identified at this time. Initial Sepsis Screen: Does the patient meet any 2 criteria? No. Patient's initial sepsis screen is negative. Does the patient have a suspected source of infection? No. Patient's initial sepsis screen is negative. Risk Assessment: Do you want to hurt yourself or someone else? Patient reports no desire to harm self or others. Onset of symptoms was July 11, 2024. 20:50 Method Of Arrival: EMS: [facility] 20:50 Acuity: SERAFIN 4 or1 20:57 Care prior to arrival: None. Mechanism of Injury: Fall trip and fell landing on me1 bilateral knees on a step. Trauma event details: Injury occurred in the [facility]. Triage Assessment: 20:51 General: Appears uncomfortable, obese, well groomed, well developed, Behavior is calm, me1 cooperative, appropriate for age, Reports c/o bilateral knee pain. Pain: Complains of pain in right knee and left knee Pain does not radiate. Pain currently is 6 out of 10 on a pain scale. Quality of pain is described as aching, Pain began suddenly, Is continuous. EENT: No signs and/or symptoms were reported regarding the EENT system. Neuro: Level of Consciousness is awake, alert, obeys commands, Oriented to person, place, time, situation, Appropriate for age. Cardiovascular: Patient's skin is warm and dry. Respiratory: Airway is patent Respiratory effort is even, unlabored, Respiratory pattern is regular, symmetrical. GI: No signs and/or symptoms were reported involving the gastrointestinal system. : No signs and/or symptoms were reported regarding the genitourinary system. Derm: Skin is healthy with good turgor, Skin is pink, warm \T\ dry. Musculoskeletal: Reports pain in right knee and left knee. Injury Description: tripped and fell landing on bilateral knees on a step. Trauma Activation: Physician: ED Physician; Name: ; Notified At: ; Arrived At: Physician: General Surgeon; Name: ; Notified At: ; Arrived At: Physician: Radiology; Name: ; Notified At: ; Arrived At: Physician: Respiratory; Name: ; Notified At: ; Arrived At: Physician: Lab; Name: ; Notified At: ; Arrived At: 20:57 n/a me1 Historical: - Allergies: 20:51 PENICILLINS; me1 20:51 Toradol; me1 - PMHx: 20:51 Asthma; Hypertension; Hypothyroidism; me1 - PSHx: 20:51 Appendectomy; foot; hysterectomy; me1 - Immunization history:: Adult Immunizations up to date. - Infectious Disease History:: Denies. - Immunization history: Last tetanus immunization: - up to date. - Social history:: Smoking status: Patient denies any tobacco usage or history of. Screenin:54 [facility] ED Fall Risk Assessment (Adult) History of falling in the last 3 months, me1 including since admission Yes- single mechanical fall (1 pt) Confusion or Disorientation No (0 pts) Intoxicated or Sedated No (0 pts) Impaired Gait No (0 pts) Mobility Assist Device Used No (0 pt) Altered Elimination No (0 pt) Score/Fall Risk Level 0 - 2 = Low Risk Maintained a safe environment, Provided non-skid footwear, Hourly rounding (assess needs \T\ fall precautionary measures) done. Abuse screen: Denies threats or abuse. Nutritional screening: No deficits noted. Tuberculosis screening: No symptoms or risk factors identified. Primary Survey: 20:56 NO uncontrolled hemorrhage observed. A: The client is awake and alert. The airway is me1 patent. The client is alert. Airway: patent, Patient intubated prior to arrival No supplemental oxygen in use on arrival. Oral cavity: clear, Trachea midline. Breathing/Chest: Spontaneous respiratory effort, equal unlabored respirations, breath sounds clear bilaterally, regular pattern, symmetrical chest rise and fall. Respiratory effort: spontaneous, unlabored, Breath sounds: clear, bilaterally. Respiratory pattern: regular, Chest inspection: symmetrical rise and fall of the chest. Circulation: No external hemorrhage present. Regular and strong central pulse, skin warm/dry/normal color. Hemorrhage: No external hemorrhage noted. Pulses: palpable right posterior tibial artery, right dorsalis pedis artery, left posterior tibial artery and left dorsalis pedis artery. Skin color: pink, Skin temperature: warm, dry, Cardiac rhythm: Heart tones present. Disability Pupils are equal, round, reactive to light and accommodation. Client is alert. Exposure/Environment: All clothing and personal items were removed. Forensic evidence collection is not deemed to be indicated at this time. Items placed in patient belonging bag. There is no evidence of uncontrolled external bleeding. Obvious injury(ies) are noted at this time: c/o pain to bilateral knees. 21:50 Reassessment Alertness and Airway: Awake and alert. The airway is patent. Airway Patent me1 Oral cavity Clear Trachea Midline Breathing: Spontaneous respiratory effort, equal unlabored respirations, breath sounds clear bilaterally, regular pattern with symmetrical chest rise and fall. Respiratory effort Spontaneous Unlabored Breath sounds Clear Circulation: No external hemorrhage noted. Regular and strong central pulse, skin warm/dry/normal color. Heart tones Present Pulses Palpable Color [place] Temperature Warm Dry Disability: Pupils Pupils are equal, round, reactive to light and accomodation. Alert. Assessment: 20:54 General: See triage assessment. . me1 Vital Signs: 20:50 BP 180 / 65; Pulse 64; Resp 16; Temp 98.4; Pulse Ox 99% on R/A; Weight 86.18 kg; Height me1 5 ft. 3 in. ; Pain 6/10; 21:27 BP 161 / 55; Pulse 67; Resp 15; Pulse Ox 96% ; Pain 4/10; me1 20:50 Body Mass Index 33.66 (86.18 kg, 160.02 cm) me1 20:50 Pain Scale: Adult me1 21:27 Pain Scale: Adult me1 [place] Score: 20:56 Eye Response: spontaneous(4). Motor Response: obeys commands(6). Verbal Response: me1 oriented(5). Total: 15. Trauma Score (Adult): 20:56 Eye Response: spontaneous(1); Verbal Response: oriented(1); Motor Response: obeys me1 commands(2); Systolic BP: > 89 mm Hg(4); Respiratory Rate: 10 to 29 per min(4); [place] Score: 15; Trauma Score: 12 ED Course: 20:44 Patient arrived in ED. jb4 20:48 Regina Davenport FNP-C [facility]. kb 20:48 Shankar Villalta MD is Attending Physician. kb 20:48 Ifrah Mesa, RN is Primary Nurse. me1 20:51 Triage completed. me1 20:51 Arm band placed on Patient placed in an exam room. me1 20:54 Patient has correct armband on for positive identification. Bed in low position. Call me1 light in reach. Side rails up X2. Provided Education on: POC. Verbalized understanding.. Client placed on continuous cardiac and pulse oximetry monitoring. NIBP monitoring applied. Pulse ox on. NIBP on. 20:54 No provider procedures requiring assistance completed. Patient did not have IV access me1 during this emergency room visit. 21:35 Knee Left 3 View XRAY In Process Unspecified. EDMS 21:35 Knee Right 3 View XRAY In Process Unspecified. EDMS Administered Medications: 21:05 Not Given (Patient Refused): mg PO once me1 Medication: 20:54 VIS not applicable for this client. me1 Intake: 21:56 n/a me1 Outcome: 21:48 Discharge ordered by . kb 21:50 Patient's length of stay was not longer than 2 hours. me1 21:56 Discharged to home ambulatory, with friend, me1 21:56 Condition: stable 21:56 Condition: stable 21:56 Discharge instructions given to patient, friend, Instructed on discharge instructions, follow up and referral plans. Demonstrated understanding of instructions, follow-up care, 21:57 Patient left the ED. me1 Signatures: Dispatcher [employer] EDMS Regina Davenport FNP-C FNP-Ckb Bryson, James RN RN jb4 Ifrah Mesa, RN RN me1
[2024-07-11 22:40] VITALS: TEMP 98.4
[2024-07-11 22:41] VITALS: BP 161/55; O2SAT 96
== END 2024-07-11 21:57 | disposition home or self-care (01) ==
LOC: ER 20:41
DX: S80.02XA Contusion of left knee, initial encounter (principal); S80.01XA Contusion of right knee, initial encounter
CPT/HCPCS: 99283

== ENCOUNTER 2024-11-26 09:19 | Emergency (ER) | payer BC ==
--- OUTSIDE RECORDS SUMMARY | 2024-11-26 09:22 | XMS REPORT | Continuity of Care Document ---
Author Name Unknown Address [address] [place] [address] [facility] Address [address] [place] [address] Care Team Providers Care Director Of Marketing Operations Name Role Phone NIMA COLORADO Primary Care Physician Unavailab LALIT Brandon Attending Clinician Unavailable DR NIMA COLORADO Attending Clinician Unavailab larisa [phone] Attending Clinician Unavailable SHAKA RIVERA Attending Clinician Unavailab larisa Referred, Self Attending Clinician Unavailable Fabi Pradhan Attending Clinician UnavailOrtiz Lane Attending Clinician Unavailable Shaka Rivera MD Attending Clinician [phone] Only, Adc Test Attending Clinician Unavailable Pob, Adc Lab Main Attending Clinician Unavailabl e Doctor Unassigned, [place] Attending Clinician U DR NIMA Hammond Admitting Clinician Unavailab SHAKA Blum Admitting Clinician Unavailab larisa Referred, Self Admitting Clinician Unavailable Fabi Pradhan Admitting Clinician UnavailOrtiz Lane Admitting Clinician Unavailable Physician, No Primary or Family Admitting Clinic logan Shaka Mejía MD Admitting Clinician [phone] Payers Payer Name Policy Type Policy Number Effective Date Expirati on Date Source [facility] [id number] [facility] [id number] 2017 00:00:00 Problems Condition Name Condition Details Condition Category Status Onset Date Resolution Date Last Treatment Date Treating Clinician Comments Source Morbid obesity with body mass index of 40.0-49.9 Morbid obesity with body mass index of 40.0-49.9 Disease Active 05-22 00:00: 00 [facility] Allergies, Adverse Reactions, Alerts Allergy Name Allergy Type Status Severity Reaction(s) Onset Date Inactive Date Treating Clinician Comments Source KETOROLA C TROMETHA MINE DRUG INGREDI Active Anaphylaxis 05-22 00:00: 00 [facility] Ketorola c Trometha mine Propensi ty to adverse reaction s Active Anaphylaxis 05-22 00:00: 00 [facility] Tramadol Propensi ty to adverse reaction s Active Anaphylaxis 05-20 00:00: 00 [facility] TRAMADOL DRUG INGREDI Active Anaphylaxis 05-20 00:00: 00 [facility] No Known Allergie s DA Active U 02-04 00:00: [address] [facility] No Known Allergie s DA Active U 02-04 00:00: [address] [facility] NO KNOWN ALLERGIE S Drug Class Active [facility] Social History Social Habit Start Date Stop Date Quantity Comments Source Sex Assigned At [facility] Exposure to SARS-CoV-2 (event) Not sure [facility] Alcohol intake 2020-05-20 00:00:00 2020-05-20 00:00:00 Current non-drinker of alcohol (finding) [facility] Tobacco use and exposure 2020-05-20 00:00:00 2020-05-20 00:00:00 Never used [facility] Smoking Status Start Date Stop Date Source Never smoker [facility] Medications Ordered Medication Name Filled Medication Name Start Date Stop Date Current Medication? Ordering Clinician Indication Dosage Frequency Signature (SIG) Comments Components Source albuterol (PROAIR HFA) 90 mcg/actuati on inhaler 07-10 18:12: 08 Yes 2{puff} Inhale 2 Puffs every 6 (six) hours as needed for Wheezing or Shortness of Breath. [facility] albuterol 2.5 mg /3 mL (0.083 %) nebulizer solution 07-10 18:12: 08 Yes 2.5mg Inhale 2.5 mg every 6 (six) hours as needed for Wheezing or Shortness of Breath. [facility] budesonide- formoterol (SYMBICORT) 160-4.5 mcg/actuati on inhaler 07-10 18:12: 08 Yes 2{puff} Inhale 2 Puffs as needed. [facility] montelukast 10 mg tablet 07-10 18:12: 08 Yes 10mg Take 10 mg by mouth daily. [facility] olmesartan 40 mg tablet 07-10 18:12: 08 Yes 40mg Take 40 mg by mouth daily. [facility] levothyroxi ne 150 mcg tablet 07-10 18:12: 08 Yes 150ug Take 150 mcg by mouth daily. [facility] lactated ringers IV infusion 1,000 mL 05-22 16:15: 00 Yes 1000mL at 75 mL/hr, 1,000 mL, IV Infusion, CONTINUOUS , Starting Wed05/22/20 at 1115, Until Discontinu ed, Routine, PACU [facility] carbachoL (MIOSTAT) 0.01 % intraocular injection 05-22 15:52: 00 Yes PRN, Starting Wed05/22/20 at 1052, Until Discontinu ed, Routine, Intra-op [facility] ceFAZolin (ANCEF) injection 05-22 15:52: 00 Yes PRN, Starting Wed05/22/20 at 1052, Until Discontinu ed, BRYAN, Intra-op [facility] dexamethaso ne (DECADRON PHOSPHATE) injection 05-22 15:51: 00 Yes PRN, Starting Wed05/22/20 at 1051, Until Discontinu ed, Routine, Intra-op [facility] gentamicin injection 05-22 15:51: 00 Yes PRN, Starting Wed05/22/20 at 1051, Until Discontinu ed, BRYAN, Intra-op [facility] neomycin-po lymyxin-dex amethasone (MAXITROL) 3.5 mg/g-10,000 unit/g-0.1 % ophthalmic ointment 05-22 15:51: 00 Yes PRN, Starting Wed05/22/20 at 1051, Until Discontinu ed, Routine, Intra-op [facility] sodium chloride (NS) injection 05-22 15:49: 00 Yes PRN, Starting Wed05/22/20 at 1049, Until Discontinu ed, Routine, Intra-op [facility] DUOVISC (DUOVISC VISCO ELASTIC) 3 %-4 %(0.5 mL) 1 % (0.55 mL) intraocular injection 05-22 15:48: 00 Yes PRN, Starting Wed05/22/20 at 1048, Until Discontinu ed, Routine, Intra-op [facility] EPINEPHrine 1:1,000 (1 mg/mL) (ADRENALIN) injection 05-22 15:43: 00 Yes PRN, Starting Wed05/22/20 at 1043, Until Discontinu ed, Routine, Intra-op [facility] balanced salt irrig soln comb1 (BSS PLUS) ophthalmic solution 500 mL bag 05-22 15:43: 00 Yes PRN, Starting Wed05/22/20 at 1043, Until Discontinu ed, Routine, Intra-op [facility] Hyaluronida se, Human Recomb. (HYLENEX) injection 05-22 15:36: 00 Yes PRN, Starting Wed05/22/20 at 1036, Until Discontinu ed, Routine, Intra-op [facility] eye block syringe 11 mL 05-22 15:36: 00 Yes PRN, Starting Wed05/22/20 at 1036, Until Discontinu ed, Intra-op [facility] water for irrigation irrigation solution 05-22 15:31: 00 Yes PRN, Starting Wed05/22/20 at 1031, Until Discontinu ed, Routine, Intra-op [facility] mydriatic #5 ophthalmic solution 0.5 mL syringe 05-22 14:00: 00 05-22 14:30 :00 No .5mL 0.5 mL, Left Eye, ONCE, 1 dose, Wed05/22/20 at 0900, Routine [facility] lactated ringers IV infusion 1,000 mL 05-22 14:00: 00 05-22 14:45 :00 No 1000mL at 20 mL/hr, 1,000 mL, IV Infusion, ONCE, 1 dose, Wed05/22/20 at 0900, Routine, DSU Pre-op [facility] montelukast 10 mg tablet 07-27 21:25: 55 Yes 10mg Take 10 mg by mouth daily. [facility] olmesartan 40 mg tablet 07-27 21:25: 55 Yes 40mg Take 40 mg by mouth daily. [facility] levothyroxi ne 150 mcg tablet 07-27 21:25: 55 Yes 150ug Take 150 mcg by mouth daily. [facility] albuterol (PROAIR HFA) 90 mcg/actuati on inhaler 07-27 21:25: 55 Yes 2{puff} Inhale 2 Puffs every 6 (six) hours as needed for Wheezing or Shortness of Breath. [facility] albuterol 2.5 mg /3 mL (0.083 %) nebulizer solution 07-27 21:25: 55 Yes 2.5mg Inhale 2.5 mg every 6 (six) hours as needed for Wheezing or Shortness of Breath. [facility] budesonide- formoterol (SYMBICORT) 160-4.5 mcg/actuati on inhaler 07-27 21:25: 55 Yes 2{puff} Inhale 2 Puffs as needed. [facility] Vital Signs Vital Name Observation Time Observation Value Comments S ource Diastolic blood pressure 2020-05-22 16:15:00 60 mm[Hg] [place] [facility] Heart rate 2020-05-22 16:15:00 64 /min [facility] Respiratory rate 2020-05-22 16:15:00 16 /min [facility] Oxygen saturation in Arterial blood by Pulse oximetry 2020-05-22 16:15:00 100 /min [facility] Systolic blood pressure 2020-05-22 16:15:00 150 mm[Hg] [facility] Body temperature 2020-05-22 16:02:00 36.22 [place]anna [facility] Body height 2020-05-13 14:06:00 160 cm [facility] Body weight 2020-05-13 14:06:00 113.4 kg [facility] BMI 2020-05-13 14:06:00 44.30 kg/m2 [facility] Diastolic blood pressure 2020-05-22 16:15:00 60 mm[Hg] [facility] Heart rate 2020-05-22 16:15:00 64 /min [facility] Respiratory rate 2020-05-22 16:15:00 16 /min [facility] Oxygen saturation in Arterial blood by Pulse oximetry 2020-05-22 16:15:00 100 /min [facility] Systolic blood pressure 2020-05-22 16:15:00 150 mm[Hg] [facility] Body temperature 2020-05-22 16:02:00 36.22 [facility] Body height 2020-05-13 14:06:00 160 cm [facility] Body weight 2020-05-13 14:06:00 113.4 kg [facility] BMI 2020-05-13 14:06:00 44.30 kg/m2 [facility] Procedures Procedure Date / Time Performed Performing Clinician Source PHACOEMULSIFICATION OF CATARACT WITH INTRAOCULAR LENS IMPLANT 2020-05-22 15:25:00 Shaka Rivera [facility] ASSIGNMENT OF BENEFITS 2020-05-21 14:57:14 Doctor Unassigned, [place] [facility] Encounters Start Date/Time End Date/Time Encounter Type Admission Type Attending Clinicians Care Facility Care Department Encounter ID Source 2023-10-28 14:00:00 Inpatient LINDSAY WATSONELALIT [facility] [id number] [facility] 2022-08-04 09:33:39 Outpatient NIMA COLORADO [id number] DARYL BRITO [id number] [facility] 2021-08-29 08:02:04 Outpatient SHAKA GUERRERO [facility] DAMIAN [id number] [facility] 2024-02-17 12:00:00 2024-02-17 12:00:00 Outpatient LINDSAY Yosi Nolasco [facility] [id number] [facility] 2023-11-25 10:07:00 2023-11-25 10:07:00 Outpatient Etelvina COLORADO NIMA [id number] [facility] [id number] [facility] 2023-02-11 12:00:00 2023-02-11 12:00:00 Outpatient Fabi Obrien [facility] [id number] [facility] 2022-02-05 12:00:00 2022-02-05 12:00:00 Outpatient Ortiz Sifuentes [facility] [id number] [facility] 2021-02-07 12:00:00 2021-02-07 12:00:00 Outpatient Fabi Obrien [facility] [id number] [facility] 2020-05-22 08:54:05 2020-05-22 11:20:00 Hospital Encounter Shaka Rivera [facility] [place] [id number] 2020-05-22 08:54:05 2020-05-22 11:20:00 Hospital Encounter Shaka Rivera Angie [facility] [place] [id number] [facility] 2020-05-21 09:50:00 2020-05-21 10:43:07 Laboratory Only Only, Adc Test [facility] [id number] 2020-05-21 09:50:00 2020-05-21 10:43:07 Laboratory Only Only, Adc Test Miguel Shaka Adams [facility] [id number]..[id number] [facility] 2020-05-21 10:15:00 2020-05-21 10:15:00 Outpatient R SHAKA RIVERA [facility] [id number] [facility] 2020-05-21 09:58:32 2020-05-21 10:13:32 Machine Lead Burner Visit Pob, Adc Lab Main Miguel Shaka Adams [facility] [id number]..[id number] [facility] 2020-05-21 00:00:00 2020-05-21 00:00:00 Orders Only Doctor Unassigned, [place] [facility] 1..840.114 [id number] [facility]
[2024-11-26] MEDS ORDERED: HYDROCODONE/APAP 7.5/325 MG TAB ONE (09:29)
--- NOTE | 2024-11-26 09:58 | RAD REPORT ---
EXAM: Foot Left 3 View HISTORY: PAIN COMPARISON: None FINDINGS: Bones: No acute fracture identified. Alignment:No significant malalignment. Degenerative changes:Plantar aspect calcaneal spurs. Other: n/a IMPRESSION: No evidence of acute osseous abnormality involving the imaged foot.
--- NOTE | 2024-11-26 10:50 | EDPHYS ---
Physician Documentation [facility] Name: Caroline Wise Age: 64 yrs Sex: Female : 1960 Arrival Date: 11/26/2024 Time: 09:19 Bed 18 Private MD: ED Physician Ishmael Ly HPI: 11/26 09:23 This 64 yrs old Black Female presents to ER via Unassigned with complaints of Foot Pain kb - left. 09:23 Pt is a 64 year old female who presents for left foot pain and swelling that started kb Chuy (3 days ago). Denies injury or trauma. States she has been doing more walking than normal. . Historical: - Allergies: 09:37 PENICILLINS; ko1 09:37 Toradol; ko1 - PMHx: 09:37 Asthma; Hypertension; Hypothyroidism; ko1 - PSHx: 09:37 Appendectomy; foot; hysterectomy; ko1 - Immunization history:: Adult Immunizations up to date. - Infectious Disease History:: Denies. - Social history:: Smoking status: Patient denies any tobacco usage or history of. ROS: 09:26 Constitutional: As per HPI kb Exam: 09:26 Constitutional: This is a well developed, well nourished patient who is awake, alert, kb and in no acute distress. Head/Face: Normocephalic, atraumatic. ENT: Moist Mucous membranes Cardiovascular: Regular rate Respiratory: Respirations even and unlabored. No increased work of breathing. Talking in full sentences MS/ Extremity: Pulses equal, no cyanosis. Neurovascular intact. Full, normal range of motion. Neuro: Awake and alert, GCS 15, oriented to person, place, time, and situation. 09:26 Skin: cellulitis, that is mild, on the dorsum of left foot, Vital Signs: 09:35 BP 170 / 78; Pulse 73; Resp 15; Temp 97; Pulse Ox 98% ; ko1 10:50 BP 157 / 69; Pulse 74; Resp 15; Pulse Ox 100% ; ko1 MDM: 09:22 Medical Screening Exam initiated kb 09:26 Differential diagnosis: closed fracture, tendonitis. Data reviewed: vital signs, nurses kb notes. Historians other than the Patient: Spouse/Significant Other: . 10:12 Counseling: I had a detailed discussion with the patient and/or guardian regarding the kb historical points, exam findings, and any diagnostic results supporting the discharge/admit diagnosis, radiology results, the need for outpatient follow up, a family practitioner, to return to the emergency department if symptoms worsen or persist or if there are any questions or concerns that arise at home. 11/26 09:26 Order name: Foot Left 3 View XRAY; Complete Time: 10:12 kb Administered Medications: 09:35 Drug: Hydrocodone-Acetaminophen PO (7.5 mg-325 mg) 1 tabs PO once Route: PO; ko1 10:05 Follow up: Response: No adverse reaction ko1 Disposition: 12:25 Co-signature as Attending Physician, Ishmael Ly MD I reviewed the patient's care rn provided by the Advanced Practice Provider and agree with the diagnosis and treatment plan. Disposition Summary: 11/26/24 10:49 Discharge Ordered Notes: Location: Home kb Condition: Stable kb Diagnosis - Cellulitis of left foot kb Followup: kb - With: Emergency Department - When: As needed - Reason: Worsening of condition Followup: kb - With: Private Physician - When: 2 - 3 days - Reason: Recheck today's complaints, Continuance of care, Re-evaluation by your physician Discharge Instructions: - Discharge Summary Sheet kb - Cellulitis, Adult, [id number] kb Forms: - Medication Reconciliation Form kb - Antibiotic Education kb - Prescription Opioid Use kb - Patient Portal Instructions kb - Leadership Thank You Letter kb Prescriptions: - Doxycycline Hyclate 100 mg Oral Tablet - take 1 tablet ORAL route every 12 hours; 20 tablet; Refills: 0, Product kb Selection Permitted Signatures: Dispatcher [employer] Regina Zavala, MADHAV-C MADHAV-Ishmael Parkinson MD MD rn Oliver, Kathy, RN RN ko1 Corrections: (The following items were deleted from the chart) 09:23 Pt is a 64 year old female who presents for left foot pain and swelling that kb started Wednesday (3 days ago). . kb
--- NOTE | 2024-11-26 10:50 | ER ---
Nurse's Notes [facility] Name: Caroline Wise Age: 64 yrs Sex: Female : 1960 Arrival Date: 11/26/2024 Time: 09:19 Bed 18 Private MD: Diagnosis: Cellulitis of left foot Presentation: 11/26 09:35 Chief complaint: Patient states: left foot pain after walking a lot yesterday. ko1 Coronavirus screen: At this time, the client does not indicate any symptoms associated with coronavirus-19. Ebola Screen: No symptoms or risks identified at this time. Initial Sepsis Screen: Does the patient meet any 2 criteria? No. Patient's initial sepsis screen is negative. Does the patient have a suspected source of infection? No. Patient's initial sepsis screen is negative. Risk Assessment: Do you want to hurt yourself or someone else? Patient reports no desire to harm self or others. Onset of symptoms was November 26, 2024. 09:35 Method Of Arrival: Ambulatory ko1 09:35 Acuity: SERAFIN 4 ko1 Triage Assessment: 09:37 General: Appears in no apparent distress. Behavior is calm, cooperative, appropriate ko1 for age. Pain: Complains of pain in left foot. Historical: - Allergies: 09:37 PENICILLINS; ko1 09:37 Toradol; ko1 - PMHx: 09:37 Asthma; Hypertension; Hypothyroidism; ko1 - PSHx: 09:37 Appendectomy; foot; hysterectomy; ko1 - Immunization history:: Adult Immunizations up to date. - Infectious Disease History:: Denies. - Social history:: Smoking status: Patient denies any tobacco usage or history of. Screenin:50 [facility] ED Fall Risk Assessment (Adult) History of falling in the last 3 months, ko1 including since admission No falls in past 3 months (0 pts) Confusion or Disorientation No (0 pts) Intoxicated or Sedated No (0 pts) Impaired Gait No (0 pts) Mobility Assist Device Used No (0 pt) Altered Elimination No (0 pt) Score/Fall Risk Level 0 - 2 = Low Risk Oriented to surroundings, Maintained a safe environment, Educated pt \T\ family on fall prevention, incl call for assistance when getting out of bed, Assessed \T\ reinforced patient's understanding of fall precautions, Provided non-skid footwear, Hourly rounding (assess needs \T\ fall precautionary measures) done. Abuse screen: Denies threats or abuse. Denies injuries from another. Nutritional screening: No deficits noted. Tuberculosis screening: No symptoms or risk factors identified. Assessment: 10:00 General: Appears in no apparent distress. Behavior is calm, cooperative, appropriate ko1 for age. Pain: Complains of pain in dorsum of left foot. Neuro: No deficits noted. Cardiovascular: No deficits noted. Respiratory: No deficits noted. GI: No deficits noted. No signs and/or symptoms were reported involving the gastrointestinal system. : No deficits noted. No signs and/or symptoms were reported regarding the genitourinary system. EENT: No deficits noted. No signs and/or symptoms were reported regarding the EENT system. Derm: No deficits noted. No signs and/or symptoms reported regarding the dermatologic system. Musculoskeletal: Reports pain in dorsum of left foot. Vital Signs: 09:35 BP 170 / 78; Pulse 73; Resp 15; Temp 97; Pulse Ox 98% ; ko1 10:50 BP 157 / 69; Pulse 74; Resp 15; Pulse Ox 100% ; ko1 ED Course: 09:22 Patient arrived in ED. im 09:22 Regina Davenport FNP-C is [facility]. kb 09:22 Ishmael Ly MD is Attending Physician. kb 09:32 Lakia Arita, KIMBERLEE is Primary Nurse. ko1 09:37 Triage completed. ko1 09:37 Arm band placed on right wrist. Patient placed in an exam room, on a stretcher, Patient ko1 notified of wait time. 09:45 Foot Left 3 View XRAY In Process Unspecified. EDMS 10:00 No provider procedures requiring assistance completed. ko1 10:50 Patient has correct armband on for positive identification. Allergy band placed. Bed in ko1 low position. Call light in reach. Side rails up X 1. Provided Education on: xray. Pulse ox on. NIBP on. Door closed. Noise minimized. Lights dimmed. Warm blanket given. Pillow given. 10:50 Patient did not have IV access during this emergency room visit. ko1 Administered Medications: 09:35 Drug: Hydrocodone-Acetaminophen PO (7.5 mg-325 mg) 1 tabs PO once Route: PO; ko1 10:05 Follow up: Response: No adverse reaction ko1 Medication: 10:50 VIS not applicable for this client. ko1 Outcome: 10:49 Discharge ordered by MD. gonzalez 10:56 Discharged to home ambulatory, with family, ko1 10:56 Condition: stable 10:56 Discharge instructions given to patient, family, Instructed on discharge instructions, follow up and referral plans. medication usage, Demonstrated understanding of instructions, follow-up care, medications, Prescriptions given X 1, 11:00 Patient left the ED. ko1 Signatures: Dispatcher [employer] EDMS Regina Davenport, CONSTRUCTION COST ESTIMATOR-C CONSTRUCTION COST ESTIMATOR-Ckb Lakia Arita, RN RN ko1 Kaycee Littlejohn
[2024-11-26 11:27] VITALS: TEMP 97
[2024-11-26 11:28] VITALS: BP 157/69; O2SAT 100
== END 2024-11-26 11:00 | disposition home or self-care (01) ==
LOC: ER 09:19
DX: L03.116 Cellulitis of left lower limb (principal)
CPT/HCPCS: 99283

== ENCOUNTER 2025-02-13 06:51 | Emergency (ER) | payer BC ==
[2025-02-13] MEDS ORDERED: predniSONE 20 MG TAB ONE (07:40)
[2025-02-13] MEDS ORDERED: IPRATROPIUM BROM 0.5MG/2.5ML ONE (07:40)
[2025-02-13] MEDS ORDERED: ALBUTEROL 2.5 MG/3 ML NEB SOL ONE (07:40)
--- NOTE | 2025-02-13 08:11 | RAD REPORT ---
Procedure: Chest Single View HISTORY: Cough COMPARISON: 2023 FINDINGS: The lungs appear clear of acute infiltrate. No significant pleural effusion noted. The heart is mildly to moderately enlarged. IMPRESSION: No acute abnormality is displayed.
[2025-02-13 08:13] LABS: Influenza A Ag Negative; Influenza B Ag Negative; SARS-CoV-2 Antigen Rapid Res Negative (Negative)
--- NOTE | 2025-02-13 08:20 | EDPHYS ---
Physician Documentation [facility] Name: Caroline Wise Age: 64 yrs Sex: Female : 1960 Arrival Date: 02/13/2025 Time: 06:51 Bed 17 Private MD: ED Physician Stephen Madera HPI: 02/13 07:15 This 64 yrs old Black Female presents to ER via Unassigned with complaints of Cough, sp3 Chest Congestion, Shortness Of Breath. 07:15 60-year-old female with a history of hypertension and asthma currently presents with sp3 mild asthma exacerbation and mid back pain which patient is concerned about having "a pneumonia". Patient states that when the weather changes and she gets the back pain she has had pneumonia in the past and so came in just "be sure". Patient is on Symbicort, albuterol, and as needed prednisone as needed for her symptoms. Patient denies fever, chest pain, abdominal pain, nausea, vomiting, diarrhea, known sick contacts, travel history, prolonged immobilization, prior DVT or PE or any other signs or symptoms on ROS at this time.. Historical: - Allergies: 07:21 PENICILLINS; iw 07:21 Toradol; iw - PMHx: 07:21 Asthma; Hypertension; Hypothyroidism; iw - PSHx: 07:21 foot; hysterectomy; Appendectomy; iw ROS: 07:24 Constitutional: Negative for fever, chills, and weight loss, Eyes: Negative for injury, sp3 pain, redness, and discharge, ENT: Negative for injury, pain, and discharge, Neck: Negative for injury, pain, and swelling, Cardiovascular: Negative for chest pain, palpitations, and edema, Abdomen/GI: Negative for abdominal pain, nausea, vomiting, diarrhea, and constipation, Back: Negative for injury and pain, MS/Extremity: Negative for injury and deformity, Skin: Negative for injury, rash, and discoloration, Neuro: Negative for headache, weakness, numbness, tingling, and seizure, Psych: Negative for depression, anxiety, suicide ideation, homicidal ideation, and hallucinations, Allergy/Immunology: Negative for hives, rash, and allergies, Endocrine: Negative for neck swelling, polydipsia, polyuria, polyphagia, and marked weight changes, Hematologic/Lymphatic: Negative for swollen nodes, abnormal bleeding, and unusual bruising, 07:24 All other systems are negative, Exam: 07:24 Constitutional: This is a well developed, well nourished patient who is awake, alert, sp3 and in no acute distress. Head/Face: Normocephalic, atraumatic. Eyes: Pupils equal round and reactive to light, extra-ocular motions intact. Lids and lashes normal. Conjunctiva and sclera are non-icteric and not injected. Cornea within normal limits. Periorbital areas with no swelling, redness, or edema. Neck: Trachea midline, no thyromegaly or masses palpated, and no cervical lymphadenopathy. Supple, full range of motion without nuchal rigidity, or vertebral point tenderness. No Meningismus. Chest/axilla: Normal chest wall appearance and motion. Nontender with no deformity. No lesions are appreciated. Cardiovascular: Regular rate and rhythm with a normal S1 and S2. No gallops, murmurs, or rubs. Normal PMI, no JVD. No pulse deficits. Abdomen/GI: Soft, non-tender, with normal bowel sounds. No distension or tympany. No guarding or rebound. No evidence of tenderness throughout. Back: No spinal tenderness. No costovertebral tenderness. Full range of motion. Skin: Warm, dry with normal turgor. Normal color with no rashes, no lesions, and no evidence of cellulitis. MS/ Extremity: Pulses equal, no cyanosis. Neurovascular intact. Full, normal range of motion. Neuro: Awake and alert, GCS 15, oriented to person, place, time, and situation. Cranial nerves II-XII grossly intact. Motor strength 5/5 in all extremities. Sensory grossly intact. Cerebellar exam normal. Normal gait. Psych: Awake, alert, with orientation to person, place and time. Behavior, mood, and affect are within normal limits. 07:24 Respiratory: Patient is wheezing bilaterally with active cough with mild production. sp3 Pulse oxygenation normal respiratory rate at 16. Patient in no acute distress and no signs of respiratory distress., Vital Signs: 07:20 BP 139 / 58; Pulse 71; Resp 16; Pulse Ox 98% on R/A; iw 07:45 Temp 98.1; iw 08:14 BP 128 / 53; Pulse 74; Resp 19; Pulse Ox 98% on R/A; iw MDM: 07:09 Medical Screening Exam initiated sp3 07:25 Data reviewed: vital signs, nurses notes, old medical records, lab test result(s), sp3 radiologic studies. ED course: 64-year-old female with PMH above now with respiratory symptoms. Differential diagnosis includes viral illness, bronchitis, COVID-19, influenza, pneumonia, seasonal allergy, among others. Workup will include chest x-ray, viral swabs, and treatment with prednisone and nebulizer. I am not highly concerned about sepsis, shock, ACS, CHF or any other critical pathology at this time. Probable discharge once patient is improved with PCP follow-up as needed.. 08:19 ED course: Swabs negative and chest x-ray clear for any infection. Will place patient sp3 on Tessalon, prednisone and she is already on an inhaler.. 02/13 07:24 Order name: COVID-19 Ag + Flu A+B Ag; Complete Time: 08:19 sp3 02/13 07:24 Order name: CXR XRAY; Complete Time: 08:12 sp3 Administered Medications: 07:45 Drug: DuoNeb Nebulize (3:1) (2.5 mg - 0.5 mg) 3 ml Nebulizer once Route: Nebulizer; iw 08:30 Follow up: Response: No adverse reaction ss 07:45 Drug: predniSONE PO 60 mg PO once Route: PO; iw 08:30 Follow up: Response: No adverse reaction ss Disposition Summary: 02/13/25 08:19 Discharge Ordered Notes: Location: Home sp3 Condition: Stable sp3 Diagnosis - Asthma exacerbation, upper respiratory infection sp3 Followup: sp3 - With: Private Physician - When: Upon discharge from the Emergency Department - Reason: Continuance of care Discharge Instructions: - Discharge Summary Sheet sp3 - Upper Respiratory Infection, Adult sp3 Forms: - Medication Reconciliation Form sp3 - Antibiotic Education sp3 - Prescription Opioid Use sp3 - Patient Portal Instructions sp3 - Leadership Thank You Letter sp3 Prescriptions: - Tessalon Perles 100 mg Oral Capsule - take 1 capsule ORAL route every 8 hours As needed; 15 capsule; Refills: 0, sp3 Product Selection Permitted - Prednisone 20 mg Oral Tablet - take 2 tablets ORAL route once daily for 5 days; 10 tablet; Refills: 0, Product sp3 Selection Permitted Signatures: Dispatcher [employer] Valerie Mike RN RN iw Patel, Setul, MD MD sp3 Meron Palmer RN ss Corrections: (The following items were deleted from the chart) 07:24 07:24 Chest Single View+[email or web address] ordered. EDMS EDMS
--- NOTE | 2025-02-13 08:20 | ER ---
Nurse's Notes [facility] Name: Caroline Wise Age: 64 yrs Sex: Female : 1960 Arrival Date: 02/13/2025 Time: 06:51 Bed 17 Private MD: Diagnosis: Asthma exacerbation, upper respiratory infection Presentation: 02/13 07:20 Chief complaint: Patient states: asthma exacerbation since Wednesday. Coronavirus iw screen: Client presents with at least one sign or symptom that may indicate coronavirus-19. Ebola Screen: No symptoms or risks identified at this time. Initial Sepsis Screen: Does the patient meet any 2 criteria? No. Patient's initial sepsis screen is negative. Does the patient have a suspected source of infection? No. Patient's initial sepsis screen is negative. Risk Assessment: Do you want to hurt yourself or someone else? Patient reports no desire to harm self or others. Onset of symptoms was February 10, 2025. 07:20 Method Of Arrival: Ambulatory iw 07:20 Acuity: SERAFIN 4 iw Historical: - Allergies: 07:21 PENICILLINS; iw 07:21 Toradol; iw - PMHx: 07:21 Asthma; Hypertension; Hypothyroidism; iw - PSHx: 07:21 foot; hysterectomy; Appendectomy; iw Screenin:25 [facility] ED Fall Risk Assessment (Adult) History of falling in the last 3 months, iw including since admission No falls in past 3 months (0 pts) Confusion or Disorientation No (0 pts) Intoxicated or Sedated No (0 pts) Impaired Gait No (0 pts) Mobility Assist Device Used No (0 pt) Altered Elimination No (0 pt) Score/Fall Risk Level 0 - 2 = Low Risk Oriented to surroundings, Maintained a safe environment. Abuse screen: Denies threats or abuse. Denies injuries from another. Nutritional screening: No deficits noted. Tuberculosis screening: No symptoms or risk factors identified. Assessment: 07:24 General: Appears in no apparent distress. Behavior is calm, cooperative. Pain: Denies iw pain. Neuro: Level of Consciousness is awake, alert, obeys commands, Oriented to person, place, time, situation, Moves all extremities. Full function. Cardiovascular: Rhythm is regular. Respiratory: Reports shortness of breath at rest on exertion cough that is non-productive, Airway is patent Respiratory effort is even, unlabored, Breath sounds are clear bilaterally. GI: Abdomen is non-distended. Derm: Skin is intact, is healthy with good turgor. Musculoskeletal: Range of motion: intact in all extremities. 08:15 Reassessment: Patient appears in no apparent distress at this time. Patient and/or iw family updated on plan of care and expected duration. Pain level reassessed. Patient is alert, oriented x 3, equal unlabored respirations, skin warm/dry/pink. 08:28 Reassessment: Patient appears in no apparent distress at this time. Patient and/or ss family updated on plan of care and expected duration. Pain level reassessed. Vital Signs: 07:20 BP 139 / 58; Pulse 71; Resp 16; Pulse Ox 98% on R/A; iw 07:45 Temp 98.1; iw 08:14 BP 128 / 53; Pulse 74; Resp 19; Pulse Ox 98% on R/A; iw ED Course: 06:55 Patient arrived in ED. [id number] 07:01 Stephen Madera MD is Attending Physician. sp3 07:20 Valerie Arriaza, RN is Primary Nurse. iw 07:21 Triage completed. iw 07:26 Patient has correct armband on for positive identification. Placed in gown. Bed in low iw position. 07:57 CXR XRAY In Process Unspecified. EDMS 08:15 No provider procedures requiring assistance completed. Patient did not have IV access iw during this emergency room visit. Administered Medications: 07:45 Drug: DuoNeb Nebulize (3:1) (2.5 mg - 0.5 mg) 3 ml Nebulizer once Route: Nebulizer; iw 08:30 Follow up: Response: No adverse reaction ss 07:45 Drug: predniSONE PO 60 mg PO once Route: PO; iw 08:30 Follow up: Response: No adverse reaction ss Medication: 07:25 VIS not applicable for this client. iw Outcome: 08:19 Discharge ordered by . sp3 08:28 Discharged to home ambulatory, ss 08:28 Condition: good 08:28 Discharge instructions given to patient, Instructed on discharge instructions, follow up and referral plans. medication usage, Demonstrated understanding of instructions, follow-up care, medications, Prescriptions given X 2, 08:29 Patient left the ED. ss Signatures: Dispatcher [employer] EDOR Valerie Arriaza, RN RN iw Meron Palmer RN RN ss Stephen Madera MD MD sp3 Debo Lorenz jj6
[2025-02-13 08:34] VITALS: O2SAT 98
[2025-02-13 08:35] VITALS: TEMP 98.1
[2025-02-13 08:37] VITALS: BP 128/53
== END 2025-02-13 08:29 | disposition home or self-care (01) ==
LOC: ER 06:51
DX: J45.901 Unspecified asthma with (acute) exacerbation (principal); J06.9 Acute upper respiratory infection, unspecified; Z11.52 Encounter for screening for COVID-19
CPT/HCPCS: 36415; 71045; 87428; J7512; J7613; J7644

== ENCOUNTER 2025-03-01 17:38 | Emergency (ER) | payer BC ==
--- NOTE | 2025-03-01 18:58 | RAD REPORT ---
EXAMINATION: ONE VIEW CHEST XR CLINICAL INDICATION: COUGH TECHNIQUE: Frontal chest projection is submitted. Examination is limited by patient positioning and t echnique. COMPARISON: 02/13/2025 FINDINGS: The lungs are well inflated and clear. The heart is upper limit of normal in size. No displaced fract ures identified. IMPRESSION: No acute intrathoracic abnormalities.
--- NOTE | 2025-03-01 19:00 | RAD REPORT ---
EXAM: CT brain without contrast HISTORY: DIZZINESS COMPARISON: 12/24/2017 TECHNIQUE: Multiple contiguous axial images were obtained and a CT of the brain without contrast. Sag ittal and coronal reformats were performed. One or more of the following dose reduction techniques were used: Automated exposure control, adjust ment of the mA and/or kV according to patient size, and/or iterative reconstruction. FINDINGS: No evidence of hydrocephalus, intracranial hemorrhage, or extra-axial fluid collection. The brain is normal in morphology. No evidence of midline shift or areas of brain edema. The calvarium is intact. The visualized paranasal sinuses and mastoid air cells are essentially clear . IMPRESSION: No evidence of acute intracranial abnormality.
--- NOTE | 2025-03-01 19:11 | RAD REPORT ---
EXAMINATION: CT ABDOMEN AND PELVIS WITHOUT CONTRAST CLINICAL INDICATION: NAUSEA / VOMITING TECHNIQUE: CT abdomen and pelvis was performed, without IV contrast, as per department protocol. Axia l, sagittal and coronal reconstructions were obtained. One or more of the following dose reduction techniques were used: Automated exposure control, adjustment of the mA and kV according to the patien t size, and iterative reconstruction. Unless otherwise specified, incidental findings do not require dedicated imaging follow-up. COMPARISON: 11/09/2023 FINDINGS: The lack of intravenous contrast limits the sensitivity of this exam for evaluation of solid visceral organs, vascular structures, and retroperitoneum. LOWER CHEST: The visualized lung bases are clear. LIVER:Normal in size and contour. No focal lesion. Grossly unremarkable gallbladder. SPLEEN: Normal size. No focal lesion. PANCREAS: No mass, ductal dilation, or hesham-pancreatic fluid. ADRENALS: Normal; no mass. KIDNEYS AND URETERS: Normal size and contour. No hydronephrosis. URINARY BLADDER: Normal contour. GASTROINTESTINAL TRACT: No evidence of bowel obstruction, significant free fluid, free air or abscess . APPENDIX: Appendix surgically absent. LYMPH NODES: No lymphadenopathy. MUSCULOSKELETAL: Mild lower lumbar spondylosis. ADDITIONAL FINDINGS: None. IMPRESSION: No acute or concerning abnormalities in the abdomen or pelvis, with evaluation limited by lack of IV contrast.
[2025-03-01] MEDS ORDERED: ONDANSETRON 4 MG/2 ML VIAL ONE (20:06)
[2025-03-01] MEDS ORDERED: NA CHLORIDE 0.9% 1,000 ML ONE (20:06)
[2025-03-01] MEDS ORDERED: FAMOTIDINE 20 MG/2 ML VIAL IV ONE (20:06)
[2025-03-01 20:34] LABS: Absolute Eosinophils 0.1 K/uL (0-0.5); Absolute Lymphocytes (CBC) 1.1 K/uL (0.7-4.9); Absolute Monocytes 0.2 K/uL (0.1-1.3); Absolute Neutrophil 7.2 K/uL (1.8-8.0); Basophils % 0.6 % (0-1.3); Eosinophils % 0.8 % (0-4.4); Hematocrit 42.6 % (36.0-45.0); Hemoglobin 14.7 g/dL (12.0-15.0); Lymphocytes % 12.9 % (15.3-44.8); MCH 31.1 pg (27.0-35.0); MCHC 34.5 g/dL (32.0-36.0); MCV 89.9 fL (80-100); MPV 8.3 fL (7.6-11.3); Monocytes % 2.4 % (3.3-12.3); Neutrophils % 83.3 % (41.7-73.7); Nucleated Red Blood Cells % 0.1 % (0-0); Platelets 238 thou/uL (152-406); RBC Red Blood Cell Count 4.74 M/uL (3.86-4.86); Red Cell Distribution Width 13.6 % (12.1-15.2)
[2025-03-01 20:41] LABS: PT Prothrombin Time 11.6 SECONDS (10-13.0); Protime INR 1.02
[2025-03-01 20:56] LABS: Albumin 3.9 g/dL (3.4-5.0); Albumin/Globulin Ratio 0.9 (1.1-1.8); Anion Gap 11.5 mEq/L (5.0-15.0); Bilirubin Direct 0.2 mg/dL (0-0.2); Bilirubin Indirect, Calculated 0.6 mg/dL (0.2-0.8); Bilirubin Total 0.8 mg/dL (0.2-1.0); Globulin 4.3 g/dL (2.3-3.5); Potassium 3.5 mEq/L (3.5-5.1); Protein, Total 8.2 g/dL (6.4-8.2); Troponin High Sensitivity 8.8 pg/mL (<58.9)
--- NOTE | 2025-03-01 21:55 | ER ---
Nurse's Notes [facility] Name: Caroline Wise Age: 64 yrs Sex: Female : 1960 Arrival Date: 03/01/2025 Time: 17:38 Bed 6 Private MD: Diagnosis: Vomiting, diarrhea, viral gastroenteritis Presentation: 03/01 19:03 Chief complaint: Patient states: N/V/D since this morning. Coronavirus screen: At this jl7 time, the client does not indicate any symptoms associated with coronavirus-19. Ebola Screen: No symptoms or risks identified at this time. Initial Sepsis Screen: Does the patient meet any 2 criteria? No. Patient's initial sepsis screen is negative. Does the patient have a suspected source of infection? No. Patient's initial sepsis screen is negative. Risk Assessment: Do you want to hurt yourself or someone else? Patient reports no desire to harm self or others. Onset of symptoms was March 01, 2025. 19:03 Method Of Arrival: Ambulatory [facility] 19:03 Acuity: SERAFIN 3 jl7 Triage Assessment: 19:04 General: Appears in no apparent distress. uncomfortable, Behavior is calm, cooperative, jl7 appropriate for age. Pain: Complains of pain in epigastric area Pain currently is 2 out of 10 on a pain scale. GI: Reports diarrhea, nausea, vomiting. Historical: - Allergies: 19:04 PENICILLINS; jl7 19:04 Toradol; jl7 - PMHx: 19:04 Asthma; Hypertension; Hypothyroidism; jl7 - PSHx: 19:04 Appendectomy; foot; hysterectomy; jl7 - Immunization history:: Adult Immunizations unknown. - Infectious Disease History:: Denies. - Social history:: Smoking status: Patient denies any tobacco usage or history of. Screenin:03 [facility] ED Fall Risk Assessment (Adult) History of falling in the last 3 months, bm8 including since admission No falls in past 3 months (0 pts) Confusion or Disorientation No (0 pts) Intoxicated or Sedated No (0 pts) Impaired Gait No (0 pts) Mobility Assist Device Used No (0 pt) Altered Elimination No (0 pt) Score/Fall Risk Level 0 - 2 = Low Risk Oriented to surroundings, Maintained a safe environment, Educated pt \T\ family on fall prevention, incl call for assistance when getting out of bed, Assessed \T\ reinforced patient's understanding of fall precautions, Hourly rounding (assess needs \T\ fall precautionary measures) done, Used ambulatory aids as needed (educated on \T\ assisted with), Used gait belt as appropriate. Abuse screen: Denies threats or abuse. Nutritional screening: No deficits noted. Tuberculosis screening: No symptoms or risk factors identified. Assessment: 21:03 Reassessment: Patient appears in no apparent distress at this time. Patient and/or bm8 family updated on plan of care and expected duration. Pain level reassessed. Patient is alert, oriented x 3, equal unlabored respirations, skin warm/dry/pink. Patient states feeling better. Patient states symptoms have improved. General: Appears in no apparent distress. comfortable, Behavior is calm, cooperative, appropriate for age. Pain: Complains of pain in epigastric area Pain currently is 7 out of 10 on a pain scale. Neuro: No deficits noted. Level of Consciousness is awake, alert, obeys commands, Oriented to person, place, time, situation, Appropriate for age. Cardiovascular: Denies chest pain, Heart tones S1 S2 present Capillary refill < 3 seconds in bilateral fingers Patient's skin is warm and dry. Respiratory: Airway is patent Respiratory effort is even, unlabored, Respiratory pattern is regular, symmetrical, Breath sounds are clear bilaterally. GI: Abdomen is round non-distended, Bowel sounds present X 4 quads. Abdomen is tender to palpation in epigastric area. Vital Signs: 19:03 BP 189 / 82; Pulse 83; Resp 17; Temp 98; Pulse Ox 98% ; Weight 90.72 kg; Height 5 ft. 3 jl7 in. ; Pain 10/10; 21:03 BP 183 / 76; Pulse 80; Resp 20; Temp 98; Pulse Ox 98% ; Pain 7/10; bm8 22:10 BP 176 / 76; Pulse 76; Resp 16; Pulse Ox 97% on R/A; dd2 19:03 Body Mass Index 35.43 (90.72 kg, 160.02 cm) jl7 19:03 Pain Scale: Adult jl7 21:03 Pain Scale: Adult bm8 Kyaw Coma Score: 21:03 Eye Response: spontaneous(4). Motor Response: obeys commands(6). Verbal Response: bm8 oriented(5). Total: 15. ED Course: 17:41 Patient arrived in ED. im 18:24 Trent Marshall MD is Attending Physician. joseline 18:41 XRAY Chest (1 view) In Process Unspecified. EDMS 18:52 CT Head Brain wo Cont In Process Unspecified. EDMS 18:52 CT Abd/Pelvis - Without Contrast In Process Unspecified. EDMS 19:04 Triage completed. jl7 19:04 Arm band placed on right wrist. jl7 20:07 Attending Physician role handed off by Trent Marshall MD sp3 20:07 Stephen Madera MD is Attending Physician. sp3 20:16 Missed attempt(s): 20 gauge Bleeding controlled, band aid applied, catheter tip intact. rk3 20:29 Basic Metabolic Panel Sent. kl 20:29 CBC with Diff Sent. kl 20:29 LFT's Sent. kl 20:29 Magnesium Sent. kl 20:29 NT PRO-BNP Sent. kl 20:29 PT-INR Sent. kl 20:29 Troponin HS Sent. kl 21:03 Bipin Shaver, RN is Primary Nurse. bm8 21:03 Patient has correct armband on for positive identification. Placed in gown. Bed in low bm8 position. Call light in reach. Side rails up X 1. Adult w/ patient. Client placed on continuous cardiac and pulse oximetry monitoring. NIBP monitoring applied. patient intake representative on. Pulse ox on. NIBP on. Door closed. Noise minimized. Warm blanket given. Pillow given. Verbal reassurance given. Head of bed elevated. 21:03 No provider procedures requiring assistance completed. Initial lab(s) drawn, by ED bm8 staff, sent to lab. EKG done, by ED staff, reviewed by Stephen Madera MD. Inserted saline lock: 22 gauge in left forearm, using aseptic technique. Flushed with 10 mL NS. Patient maintains SpO2 saturation greater than 95% on room air. 22:21 Provided Education on: D/C INSTRUCTIONS, MEDICATION AND F/U. dd2 22:21 IV discontinued, intact, bleeding controlled, No redness/swelling at site. Pressure dd2 dressing applied. Administered Medications: 20:29 Drug: Ondansetron IVP 8 mg IVP once; over 2 minutes Route: IVP; Site: left forearm; kl 21:06 Follow up: Response: No adverse reaction [facility] 20:29 Drug: NS 0.9% IV 1000 ml IV at 1000 ml once; to be given as a bolus over 60 minutes kl Route: IV; Rate: 1000 ml; Site: left forearm; 21:35 Follow up: IV Status: Completed infusion; IV Intake: 1000ml dd2 20:29 Drug: Famotidine IVP 20 mg IVP once; dilute with 10 mL 0.9% NaCl; give over 2 minutes kl Route: IVP; Site: left forearm; 21:06 Follow up: Response: No adverse reaction bm8 Medication: 21:03 VIS not applicable for this client. bm8 Intake: 21:35 IV: 1000ml; Total: 1000ml. dd2 Outcome: 21:54 Discharge ordered by . sp3 22:21 Discharged to home ambulatory, dd2 22:21 Condition: stable 22:21 Discharge instructions given to patient, Instructed on discharge instructions, follow up and referral plans. medication usage, Demonstrated understanding of instructions, follow-up care, medications, Prescriptions given X 1, 22:23 Patient left the ED. dd2 Signatures: Dispatcher [employer] EDPayton Lux, Trent Ortega RN, MD MD cha Leal, Jahala, RN RN jl7 Stephen Madera MD MD sp3 Kaycee Littlejohn Brad, RN RN bm8 MARYBEL AGUILERA RN RN dd2 Ghazal Harvey rk3
--- NOTE | 2025-03-01 21:55 | EDPHYS ---
Physician Documentation [facility] Name: Caroline Wise Age: 64 yrs Sex: Female : 1960 Arrival Date: 03/01/2025 Time: 17:38 Bed 6 Private MD: ED Physician Stephen Madera HPI: 03/01 20:19 This 64 yrs old Black Female presents to ER via Ambulatory with complaints of sp3 Vomiting/Diarrhea, Dizziness. 20:19 60-year-old female with a history of hypertension and asthma currently presents with sp3 chief complaint of possible food poisoning with vomiting and diarrhea that started approximately 5 PM today. Patient denies any blood or mucus in her output. She also denies any headache, fever, neck pain, chest pain, shortness of breath, back pain, dysuria, fever, melena, coffee grounds, or any other signs or symptoms on ROS at this time.. Historical: - Allergies: 19:04 PENICILLINS; jl7 19:04 Toradol; jl7 - PMHx: 19:04 Asthma; Hypertension; Hypothyroidism; jl7 - PSHx: 19:04 Appendectomy; foot; hysterectomy; jl7 - Immunization history:: Adult Immunizations unknown. - Infectious Disease History:: Denies. - Social history:: Smoking status: Patient denies any tobacco usage or history of. ROS: 20:20 Constitutional: Negative for fever, chills, and weight loss, Eyes: Negative for injury, sp3 pain, redness, and discharge, ENT: Negative for injury, pain, and discharge, Neck: Negative for injury, pain, and swelling, Cardiovascular: Negative for chest pain, palpitations, and edema, Respiratory: Negative for shortness of breath, cough, wheezing, and pleuritic chest pain, Back: Negative for injury and pain, MS/Extremity: Negative for injury and deformity, Skin: Negative for injury, rash, and discoloration, Neuro: Negative for headache, weakness, numbness, tingling, and seizure, Psych: Negative for depression, anxiety, suicide ideation, homicidal ideation, and hallucinations, Allergy/Immunology: Negative for hives, rash, and allergies, Endocrine: Negative for neck swelling, polydipsia, polyuria, polyphagia, and marked weight changes, Hematologic/Lymphatic: Negative for swollen nodes, abnormal bleeding, and unusual bruising, 20:20 All other systems are negative, Exam: 20:20 Constitutional: This is a well developed, well nourished patient who is awake, alert, sp3 and in no acute distress. Head/Face: Normocephalic, atraumatic. Eyes: Pupils equal round and reactive to light, extra-ocular motions intact. Lids and lashes normal. Conjunctiva and sclera are non-icteric and not injected. Cornea within normal limits. Periorbital areas with no swelling, redness, or edema. Neck: Trachea midline, no thyromegaly or masses palpated, and no cervical lymphadenopathy. Supple, full range of motion without nuchal rigidity, or vertebral point tenderness. No Meningismus. Chest/axilla: Normal chest wall appearance and motion. Nontender with no deformity. No lesions are appreciated. Cardiovascular: Regular rate and rhythm with a normal S1 and S2. No gallops, murmurs, or rubs. Normal PMI, no JVD. No pulse deficits. Respiratory: Lungs have equal breath sounds bilaterally, clear to auscultation and percussion. No rales, rhonchi or wheezes noted. No increased work of breathing, no retractions or nasal flaring. Back: No spinal tenderness. No costovertebral tenderness. Full range of motion. Skin: Warm, dry with normal turgor. Normal color with no rashes, no lesions, and no evidence of cellulitis. MS/ Extremity: Pulses equal, no cyanosis. Neurovascular intact. Full, normal range of motion. Neuro: Awake and alert, GCS 15, oriented to person, place, time, and situation. Cranial nerves II-XII grossly intact. Motor strength 5/5 in all extremities. Sensory grossly intact. Cerebellar exam normal. Normal gait. Psych: Awake, alert, with orientation to person, place and time. Behavior, mood, and affect are within normal limits. 20:21 Abdomen/GI: Increased bowel sounds and generalized tenderness without peritoneal signs, sp3 rebound or guarding., Vital Signs: 19:03 BP 189 / 82; Pulse 83; Resp 17; Temp 98; Pulse Ox 98% ; Weight 90.72 kg; Height 5 ft. 3 jl7 in. ; Pain 10/10; 21:03 BP 183 / 76; Pulse 80; Resp 20; Temp 98; Pulse Ox 98% ; Pain 7/10; bm8 22:10 BP 176 / 76; Pulse 76; Resp 16; Pulse Ox 97% on R/A; dd2 19:03 Body Mass Index 35.43 (90.72 kg, 160.02 cm) jl7 19:03 Pain Scale: Adult jl7 21:03 Pain Scale: Adult bm8 Kyaw Coma Score: 21:03 Eye Response: spontaneous(4). Motor Response: obeys commands(6). Verbal Response: bm8 oriented(5). Total: 15. MDM: 18:27 Medical Screening Exam initiated joseline 20:21 Data reviewed: vital signs, nurses notes, old medical records, lab test result(s), sp3 radiologic studies. ED course: 64-year-old female with PMH above now with vomiting and diarrhea and abdominal cramping since 5 PM today. Differential diagnosis includes foodborne illness, viral illness, gastroenteritis, other abdominal pathology, among others. Clinically, highly suspicious of sepsis, shock, acute coronary syndrome, aortic pathology, biliary pathology or any other critical process at this time. Disposition pending workup and patient course. Workup will include CT scan of the abdomen pelvis, general labs and IV fluids with supportive care as needed.. 21:54 ED course: Full workup negative and vital signs remain normal. We will fully hydrate sp3 patient and safely discharged home at this time.. 03/01 18:26 Order name: Basic Metabolic Panel; Complete Time: 21:47 [facility] 03/01 18:26 Order name: CBC with Diff; Complete Time: 21:47 [facility] 03/01 18:26 Order name: LFT's; Complete Time: 21:47 [facility] 03/01 18:26 Order name: Magnesium; Complete Time: 21:47 [facility] 03/01 18:26 Order name: NT PRO-BNP; Complete Time: 21:47 [facility] 03/01 18:26 Order name: PT-INR; Complete Time: 21:47 [facility] 03/01 18:26 Order name: Troponin HS; Complete Time: 21:47 [facility] 03/01 18:26 Order name: Lipase; Complete Time: 21:47 [facility] 03/01 18:26 Order name: UA W/ Microscopic [facility] 03/01 18:26 Order name: XRAY Chest (1 view); Complete Time: 20:08 [facility] 03/01 18:26 Order name: CT Head Brain wo Cont; Complete Time: 20:08 [facility] 03/01 18:26 Order name: CT Abd/Pelvis - Without Contrast; Complete Time: 20:08 [facility] 03/01 18:26 Order name: EKG; Complete Time: 18: [facility] 03/01 18:26 Order name: Cardiac monitoring; Complete Time: 21: [facility] 03/01 18:26 Order name: EKG - Nurse/Tech; Complete Time: 21: [facility] 03/01 18:26 Order name: IV Saline Lock; Complete Time: 20: [facility] 03/01 18:26 Order name: Labs collected and sent; Complete Time: 20: [facility] 03/01 18:26 Order name: O2 Per Protocol; Complete Time: 21: [facility] 03/01 18:26 Order name: O2 Sat Monitoring; Complete Time: 21: [facility] Administered Medications: 20:29 Drug: Ondansetron IVP 8 mg IVP once; over 2 minutes Route: IVP; Site: left forearm; 21:06 Follow up: Response: No adverse reaction bm8 20:29 Drug: NS 0.9% IV 1000 ml IV at 1000 ml once; to be given as a bolus over 60 minutes kl Route: IV; Rate: 1000 ml; Site: left forearm; 21:35 Follow up: IV Status: Completed infusion; IV Intake: 1000ml dd2 20:29 Drug: Famotidine IVP 20 mg IVP once; dilute with 10 mL 0.9% NaCl; give over 2 minutes kl Route: IVP; Site: left forearm; 21:06 Follow up: Response: No adverse reaction bm8 Disposition Summary: 03/01/25 21:54 Discharge Ordered Notes: Location: Home sp3 Condition: Stable sp3 Diagnosis - Vomiting, diarrhea, viral gastroenteritis sp3 Followup: sp3 - With: Private Physician - When: Upon discharge from the Emergency Department - Reason: Continuance of care Discharge Instructions: - Discharge Summary Sheet sp3 - Viral Gastroenteritis, Adult sp3 Forms: - Medication Reconciliation Form sp3 - Antibiotic Education sp3 - Prescription Opioid Use sp3 - Patient Portal Instructions sp3 - Leadership Thank You Letter sp3 - Work release form dd2 Prescriptions: - ondansetron 8 mg Oral Tablet,disintegrating - take 1 tablet ORAL route every 12 hours; 20 tablet; Refills: 0, Product sp3 Selection Permitted Signatures: Dispatcher [employer] EDMS Andrea, PaytonKIMBERLEE laureano RN, Corey, MD MD cha Leal, Jahala, RN RN jl7 Stephen Madera MD MD sp3 Bipin Shaver RN bm8 MARYBEL AGUILERA RN dd2 Corrections: (The following items were deleted from the chart) 20:21 20:20 Constitutional: This is a well developed, well nourished patient who is awake, sp3 alert, and in no acute distress. Head/Face: Normocephalic, atraumatic. Eyes: Pupils equal round and reactive to light, extra-ocular motions intact. Lids and lashes normal. Conjunctiva and sclera are non-icteric and not injected. Cornea within normal limits. Periorbital areas with no swelling, redness, or edema. Neck: Trachea midline, no thyromegaly or masses palpated, and no cervical lymphadenopathy. Supple, full range of motion without nuchal rigidity, or vertebral point tenderness. No Meningismus. Chest/axilla: Normal chest wall appearance and motion. Nontender with no deformity. No lesions are appreciated. Cardiovascular: Regular rate and rhythm with a normal S1 and S2. No gallops, murmurs, or rubs. Normal PMI, no JVD. No pulse deficits. Respiratory: Lungs have equal breath sounds bilaterally, clear to auscultation and percussion. No rales, rhonchi or wheezes noted. No increased work of breathing, no retractions or nasal flaring. Back: No spinal tenderness. No costovertebral tenderness. Full range of motion. Skin: Warm, dry with normal turgor. Normal color with no rashes, no lesions, and no evidence of cellulitis. MS/ Extremity: Pulses equal, no cyanosis. Neurovascular intact. Full, normal range of motion. Neuro: Awake and alert, GCS 15, oriented to person, place, time, and situation. Cranial nerves II-XII grossly intact. Motor strength 5/5 in all extremities. Sensory grossly intact. Cerebellar exam normal. Normal gait. Psych: Awake, alert, with orientation to person, place and time. Behavior, mood, and affect are within normal limits. sp3
[2025-03-01 22:27] LABS: Specific Gravity 1.016 (1.005-1.030); Sqamous Epithelial <5 /HPF (None Seen); Urine Bacteria None Seen /HPF (<20); Urine Bilirubin NEGATIVE (Negative); Urine Blood Negative (Negative); Urine Clarity Clear (Clear); Urine Color Light-Yellow (Yellow); Urine Glucose NEGATIVE (Negative); Urine Ketones 2+ (Negative); Urine Micro Reflex YN NO BILL MICROSCOPIC; Urine Mucus Slight /HPF (None Seen); Urine Nitrite NEGATIVE (Negative); Urine Protein NEGATIVE (Negative); Urine RBC <5 /HPF (None Seen); Urine Urobilinogen Normal (Normal); Urine WBC <5 /HPF (<5)
[2025-03-01 22:44] VITALS: TEMP 98
[2025-03-01 22:47] VITALS: BP 176/76; O2SAT 97
== END 2025-03-01 22:23 | disposition home or self-care (01) ==
LOC: ER 17:38
DX: A08.4 Viral intestinal infection, unspecified (principal); R19.7 Diarrhea, unspecified; I10 Essential (primary) hypertension
CPT/HCPCS: 96361; 85025; 81001; 80048; 36415; 83735; 85610; 80076; 84484; 83690; 83880; 70450; 74176; 71045; 96375; 96374; 99285; J2405; J7030; 93005

== ENCOUNTER 2025-07-23 00:27 | Emergency (ER) | payer BC ==
[2025-07-23] MEDS ORDERED: ONDANSETRON 4 MG/2 ML VIAL ONE (00:58)
[2025-07-23] MEDS ORDERED: NA CHLORIDE 0.9% 1,000 ML ONE (00:59)
[2025-07-23 01:14] LABS: Absolute Lymphocytes (CBC) 1.1 K/uL (0.7-4.9); Hematocrit 38.8 % (36.0-45.0); Hemoglobin 13.2 g/dL (12.0-15.0); MCH 31.0 pg (27.0-35.0); MCHC 34.1 g/dL (32.0-36.0); MCV 90.9 fL (80-100); MPV 8.5 fL (7.6-11.3); Nucleated RBC Absolute Count 0.0 (0-0); Nucleated Red Blood Cells % 0.0 % (0-0); RBC Red Blood Cell Count 4.27 M/uL (3.86-4.86); White Blood Count 7.30 thou/uL (4.3-10.9)
[2025-07-23 01:34] LABS: ALT/SGPT 21.0 U/L (13-56); Albumin 3.6 g/dL (3.4-5.0); Albumin/Globulin Ratio 0.9 (1.1-1.8); Alkaline Phosphatase 118.0 U/L (45-117); Anion Gap 8.7 mEq/L (5.0-15.0); BUN Blood Urea Nitrogen 19.0 mg/dL (7-18); Globulin 4.2 g/dL (2.3-3.5); Glucose Level 99.0 mg/dL (74-106); Lipase 20.0 U/L (13-75)
[2025-07-23 01:35] LABS: AST/SGOT 20.0 U/L (15-37); Potassium 3.7 mEq/L (3.5-5.1)
--- NOTE | 2025-07-23 01:54 | EDPHYS ---
Physician Documentation [facility] Name: Caroline Wise Age: 64 yrs Sex: Female : 1960 Arrival Date: 07/23/2025 Time: 00:27 Bed 20 Private MD: ED Physician Ryan García Historical: - Allergies: 07/23 00:54 PENICILLINS; kd4 00:54 Toradol; kd4 - PMHx: 00:54 Asthma; Hypertension; Hypothyroidism; kd4 - PSHx: 00:54 Appendectomy; foot; hysterectomy; kd4 - Infectious Disease History:: Denies. - Social history:: Patient/guardian denies using alcohol, street drugs, tobacco products, Smoking status: Patient denies any tobacco usage or history of. Vital Signs: 00:49 Weight 96.16 kg; Height 5 ft. 3 in. ; kd4 00:49 BP 178 / 96; Pulse 79; Resp 18; Temp 98.4(O); Pulse Ox 98% on R/A; kd4 01:13 Pain 8/10; kd4 02:46 BP 176 / 83; Pulse 85; Resp 18; Temp 98.3; Pulse Ox 98% ; Pain 3/10; kd4 00:49 Body Mass Index 37.55 (96.16 kg, 160.02 cm) kd4 01:13 Pain Scale: Adult kd4 02:46 Pain Scale: Adult kd4 Kyaw Coma Score: 02:41 Eye Response: spontaneous(4). Motor Response: obeys commands(6). Verbal Response: kd4 oriented(5). Total: 15. MDM: 00:42 Medical Screening Exam initiated tt7 07/23 00:42 Order name: CBC with Diff; Complete Time: 01:43 tt07/23 00:42 Order name: CMP; Complete Time: 01:43 tt07/23 00:42 Order name: Lipase; Complete Time: :43 tt07/23 00:42 Order name: IV Saline Lock tt07/23 00:42 Order name: Labs collected and sent tt Administered Medications: 01:13 Drug: Ondansetron IVP 4 mg IVP once; over 2 minutes Route: IVP; Site: left antecubital; kd4 02:12 Follow up: Response: No adverse reaction kd4 01:13 Drug: NS 0.9% IV 1000 ml IV at 1 bolus Per protocol; to be given as a bolus over 60 kd4 minutes Route: IV; Rate: 1 bolus; Site: left antecubital; 02:49 Follow up: IV Status: Completed infusion kd4 02:11 Drug: Alum-Mag Hydroxide-Simeth PO Suspension (200 mg-200 mg-20 mg/5 mL) 30 ml PO once kd4 Route: PO; 02:49 Follow up: Response: No adverse reaction kd4 02:11 Drug: Famotidine IVP 20 mg IVP once; dilute with 10 mL 0.9% NaCl; give over 2 minutes kd4 Route: IVP; Site: left antecubital; 02:48 Follow up: Response: No adverse reaction kd4 02:11 Drug: morphine IVP or IV 4 mg IVP once over 4 mins Route: IVP; Infused Over: 4 mins; kd4 Site: left antecubital; 02:48 Follow up: Response: No adverse reaction kd4 02:12 Drug: Albuterol Inhalation 2.5 mg Inhalation once Route: Inhalation; kd4 Disposition Summary: 07/23/25 01:53 Discharge Ordered Notes: Location: Home tt7 Problem: new tt7 Symptoms: have improved tt7 Condition: Stable tt7 Diagnosis - Acute gastritis without bleeding tt7 - Epigastric pain tt7 - Nausea with vomiting, unspecified tt7 - Wheezing tt7 - Essential (primary) hypertension tt7 Followup: tt7 - With: Emergency Department - When: As needed - Reason: Followup: tt7 - With: Private Physician - When: 1 - 2 days - Reason: Recheck today's complaints, Re-evaluation by your physician Discharge Instructions: - Discharge Summary Sheet tt7 - Gastritis, Adult tt7 - Nausea and Vomiting, Adult tt7 - Managing Your Hypertension tt7 Forms: - Work release form jj7 - Medication Reconciliation Form tt7 - Antibiotic Education tt7 - Prescription Opioid Use tt7 - Patient Portal Instructions tt7 - Leadership Thank You Letter tt7 Prescriptions: - Zofran 4 mg Oral tablet - take 1 tablet ORAL route every 8 hours As needed; 20 tablet; Refills: 0, tt7 Product Selection Permitted Signatures: Dispatcher [facility] Wes Silva RN RN kd4 Ryan García DO DO tt7 Corrections: (The following items were deleted from the chart) 00:43 00:43 CBC+H.LAB.BRZ ordered. EDMS EDMS 00:43 00:43 COMPREHENSIVE METABOLIC PANEL+C.LAB.BRZ ordered. EDMS EDMS 00:43 00:43 LIPASE+C.LAB.BRZ ordered. EDMS EDMS 00:55 00:54 PSHx: hysterectomy, exp. lap, cataract repair, B foot SX; kd4 kd4
--- NOTE | 2025-07-23 01:54 | ER ---
Nurse's Notes [facility] Name: Caroline Wise Age: 64 yrs Sex: Female : 1960 Arrival Date: 07/23/2025 Time: 00:27 Bed 20 Private MD: Diagnosis: Acute gastritis without bleeding;Epigastric pain;Nausea with vomiting, unspecified;Wheezing;Essential (primary) hypertension Presentation: 07/23 00:49 Chief complaint: Patient states: Nausea,Vomiting ,Diarrhea. Coronavirus screen: At this kd4 time, the client does not indicate any symptoms associated with coronavirus-19. Ebola Screen: No symptoms or risks identified at this time. Initial Sepsis Screen: Does the patient meet any 2 criteria? No. Patient's initial sepsis screen is negative. Does the patient have a suspected source of infection? No. Patient's initial sepsis screen is negative. Risk Assessment: Do you want to hurt yourself or someone else? Patient reports no desire to harm self or others. Onset of symptoms was July 22, 2025. 00:49 Method Of Arrival: EMS kd4 00:49 Acuity: SERAFIN 3 kd4 Triage Assessment: 00:54 General: Appears in no apparent distress. Behavior is calm, cooperative. Neuro: No kd4 deficits noted. Cardiovascular: No deficits noted. Respiratory: Reports wheezing. GI: Reports diarrhea, nausea, vomiting. 02:42 Pain: Complains of pain in ABDOMINAL Pain currently is 3 out of 10 on a pain scale. kd4 Historical: - Allergies: 00:54 PENICILLINS; kd4 00:54 Toradol; kd4 - PMHx: 00:54 Asthma; Hypertension; Hypothyroidism; kd4 - PSHx: 00:54 Appendectomy; foot; hysterectomy; kd4 - Infectious Disease History:: Denies. - Social history:: Patient/guardian denies using alcohol, street drugs, tobacco products, Smoking status: Patient denies any tobacco usage or history of. Screenin:38 [facility] ED Fall Risk Assessment (Adult) History of falling in the last 3 months, kd4 including since admission No falls in past 3 months (0 pts) Confusion or Disorientation No (0 pts) Intoxicated or Sedated No (0 pts) Impaired Gait No (0 pts) Mobility Assist Device Used No (0 pt) Altered Elimination No (0 pt) Score/Fall Risk Level 0 - 2 = Low Risk. Abuse screen: Denies threats or abuse. Nutritional screening: No deficits noted. Tuberculosis screening: No symptoms or risk factors identified. Assessment: 00:56 General: See Triage. kd4 Vital Signs: 00:49 Weight 96.16 kg; Height 5 ft. 3 in. ; kd4 00:49 BP 178 / 96; Pulse 79; Resp 18; Temp 98.4(O); Pulse Ox 98% on R/A; kd4 01:13 Pain 8/10; kd4 02:46 BP 176 / 83; Pulse 85; Resp 18; Temp 98.3; Pulse Ox 98% ; Pain 3/10; kd4 00:49 Body Mass Index 37.55 (96.16 kg, 160.02 cm) kd4 01:13 Pain Scale: Adult kd4 02:46 Pain Scale: Adult kd4 [place] Coma Score: 02:41 Eye Response: spontaneous(4). Motor Response: obeys commands(6). Verbal Response: kd4 oriented(5). Total: 15. ED Course: 00:38 Patient arrived in ED. kmf 00:42 Ryan García DO is Attending Physician. tt7 00:49 Wes Anderson, KIMBERLEE is Primary Nurse. kd4 00:54 Triage completed. kd4 01:14 Inserted saline lock: 22 gauge in left antecubital area, using aseptic technique. kd4 01:14 Initial lab(s) drawn, by ga, sent to lab. kd4 02:38 No provider procedures requiring assistance completed. kd4 02:38 IV discontinued. kd4 02:38 Patient has correct armband on for positive identification. Bed in low position. Side kd4 rails up X2. Provided Education on: D/C INSTRUCTION. Client placed on continuous cardiac and pulse oximetry monitoring. NIBP monitoring applied. Pulse ox on. NIBP on. Administered Medications: 01:13 Drug: Ondansetron IVP 4 mg IVP once; over 2 minutes Route: IVP; Site: left antecubital; kd4 02:12 Follow up: Response: No adverse reaction kd4 01:13 Drug: NS 0.9% IV 1000 ml IV at 1 bolus Per protocol; to be given as a bolus over 60 kd4 minutes Route: IV; Rate: 1 bolus; Site: left antecubital; 02:49 Follow up: IV Status: Completed infusion kd4 02:11 Drug: Alum-Mag Hydroxide-Simeth PO Suspension (200 mg-200 mg-20 mg/5 mL) 30 ml PO once kd4 Route: PO; 02:49 Follow up: Response: No adverse reaction kd4 02:11 Drug: Famotidine IVP 20 mg IVP once; dilute with 10 mL 0.9% NaCl; give over 2 minutes kd4 Route: IVP; Site: left antecubital; 02:48 Follow up: Response: No adverse reaction kd4 02:11 Drug: morphine IVP or IV 4 mg IVP once over 4 mins Route: IVP; Infused Over: 4 mins; kd4 Site: left antecubital; 02:48 Follow up: Response: No adverse reaction kd4 02:12 Drug: Albuterol Inhalation 2.5 mg Inhalation once Route: Inhalation; kd4 Medication: 02:41 VIS not applicable for this client. kd4 Outcome: 01:53 Discharge ordered by . tt7 02:40 Discharged to home ambulatory, with family, kd4 02:40 Condition: stable 02:40 Discharge instructions given to patient, Instructed on discharge instructions, follow up and referral plans. Demonstrated understanding of instructions, follow-up care, medications, Prescriptions given X 1, 02:49 Patient left the ED. kd4 Signatures: Mary Hernandez Karim, RN RN kd4 Ryan García DO DO tt7 Corrections: (The following items were deleted from the chart) 00:55 00:54 PSHx: hysterectomy, exp. lap, cataract repair, B foot SX; kd4 kd4
[2025-07-23] MEDS ORDERED: ALBUTEROL 2.5 MG/3 ML NEB SOL ONE (02:04)
[2025-07-23] MEDS ORDERED: FAMOTIDINE 20 MG/2 ML VIAL IV ONE (02:05)
[2025-07-23] MEDS ORDERED: MORPHINE 4 MG/ML SYR ONE (02:05)
[2025-07-23] MEDS ORDERED: MAGNES/ALUMIN/SIMET 30ML UCUP ONE (02:05)
[2025-07-23 03:01] VITALS: O2SAT 98
[2025-07-23 03:03] VITALS: BP 176/83; TEMP 98.3
== END 2025-07-23 02:49 | disposition home or self-care (01) ==
LOC: ER 00:27
DX: K29.00 Acute gastritis without bleeding (principal); R11.2 Nausea with vomiting, unspecified; R06.2 Wheezing; I10 Essential (primary) hypertension
CPT/HCPCS: 96361; 85025; 36415; 83690; 80053; 96375; 96374; 99285; J7613; J2405; J7030